=== PATIENT | female | born 1980 | race Caucasian/White ===

== ENCOUNTER 2024-10-11 08:49 | Emergency (ER) | payer MEDICAID, SELFPAY ==
[2024-10-11 08:57] VITALS: BP 136/71; PULSE 75; RESP 19; TEMP 36.7; O2SAT 98
[2024-10-11 09:03] VITALS: BP 141/90; PULSE 76; RESP 16; TEMP 36.6; O2SAT 97; BMI 37.1
--- NOTE | 2024-10-11 09:06 | XR_ITS ---
Examination: Pelvic ultrasound, transabdominal, complete Technique: Transabdominal ultrasound of the pelvis performed using grayscale imaging Date and time of exam: October 11, 2024 0943 hrs. Indications: Pelvic pain post colonoscopy October 10, 2024 Findings: Uterus 7.4 x 3.8 x 4.9 cm Endometrial stripe 0.3 cm No uterine mass or intrauterine gestation Right ovary 1.9 x 1.3 x 1.6 cm arterial flow Left ovary 1.9 x 2.3 x 3.1 cm arterial flow No fluid in the cul-de-sac Impression: Negative examination
--- NOTE | 2024-10-11 09:06 | XR_ITS ---
Examination: CT abdomen and pelvis without contrast. Coronal 3-D reconstructions. Sagittal 2-D reconstructions. Date and time of exam:October 11, 2024 1005 hrs. Indications: Onset left-sided abdominal pain since yesterday, status post colonoscopy yesterday, diagnosis hemorrhagic CTDI: vol (mGy): 14.2 DLP: (mGycm): 747 Technique: Axial images of the abdomen have been obtained, 3 mm slice thickness Intravenous contrast material has not been administered. Low dose protocols were performed. One or more of the following dose reduction techniques were used; automated exposure control, adjustment of the mA and/or KV according to patient size, use of iterative reconstruction technique. Findings: Hepatomegaly 19 cm mildly irregular liver contour with fatty infiltration No gallstones No splenic pancreatic or adrenal mass lesion No renal or ureteral calculi, no hydronephrosis Aorta normal size 12 mm fat-containing umbilical hernia Appendix is not visualized no pericecal inflammatory change No bowel obstruction or diverticulitis However, there is inflammatory change about the sigmoid colon for instance axial image 175 Anteverted uterus Urinary bladder intact The osseous structures are intact Impression: Nonspecific colitis pattern involving sigmoid colon
[2024-10-11] MEDS: ACETAMINOPHEN 500 MG TABLET 1000 MG PO (09:18)
[2024-10-11 09:52] LABS: Collection Type, Urine Clean Catch
[2024-10-11 10:02] LABS: HCG Qualitative,Urine Negative
--- NOTE | 2024-10-11 10:03 | PD.EDRME ---
Rapid Medical Screening Exam RME Arrival date/time: 10/11/24 08:49 44-year-old female presents the emergency department stating she had a colonoscopy yesterday patient reports status post colonoscopy she has lower abdominal pain and pelvic pain Chief Complaint: Abdominal Pain Time Seen by Provider: 10/11/24 08:54 Vital signs: Vital Signs Temperature 98.1 F 10/11/24 08:57 Pulse Rate 75 10/11/24 08:57 Respiratory Rate 19 10/11/24 08:57 Blood Pressure 136/71 H 10/11/24 08:57 Pulse Oximetry (%) 98 10/11/24 08:57 Oxygen Delivery Method Room Air 10/11/24 08:57
[2024-10-11 10:04] LABS: Bilirubin,Urine Negative (Negative); Blood,Urine 1+ (Negative); Clarity,Urine Hazy (Clear/Hazy); Color,Urine Lt-Yellow (Lt Yel-Yel); Culture Indicated,Urine Not Indicated; Glucose, Urine Negative (Negative); Ketones,Urine Negative (Negative); Leukocyte Esterase,Urine Negative (Negative); Nitrite,Urine Negative (Negative); Protein,Urine Trace (Neg - Trace); RBC,Urine 5 /hpf (0-3); Specific Gravity,Urine 1.016 (1.001-1.035); Squamous Epithelial Cell,Urine 18 /hpf (0-5); Urobilinogen,Urine Negative mg/dL (0.0-1.0); WBC,Urine 1 /hpf (0-5)
[2024-10-11 10:35] VITALS: BP 123/91; PULSE 67; RESP 16; O2SAT 100
--- NOTE | 2024-10-11 10:35 | PC.NURSE ---
pt here with c/o abd pain that started after colonoscopy yesterday.
[2024-10-11 10:36] LABS: Basophils # (Auto) 0.1 Thou/mm3 (0.0-0.2); Basophils % (Auto) 1 % (0-2.5); Eosinophils # (Auto) 0.1 Thou/mm3 (0.0-0.5); Eosinophils % (Auto) 1 % (0-10); Hematocrit 44.2 % (36.0-46.0); Hemoglobin 14.5 g/dL (12.0-16.0); Immature Granulocytes % (Auto) 0 % (0-0); Immature Granulocytes Auto 0.03 Thou/mm3 (0.00-0.00); Lymphocytes # (Auto) 3.1 Thou/mm3 (1.0-4.8); Lymphocytes % (Auto) 30 % (10-50); Mean Corpuscular HGB Conc 32.8 g/dl (31.0-37.0); Mean Corpuscular Hemoglobin 29.3 pg (25.0-35.0); Mean Corpuscular Volume 89 fL (80-100); Monocytes # (Auto) 0.6 Thou/mm3 (0.0-0.8); Monocytes % (Auto) 6 % (0-12); Neutrophils # (Auto) 6.4 Thou/mm3 (1.8-7.7); Neutrophils % (Auto) 62 % (37-80); Nucleated Red Blood Cell % 0 /100 WBC (0); Platelet Count 278 Thou/mm3 (140-440); RDW Standard Deviation 46.5 fL (36.4-46.3); Red Blood Count 4.95 Miln/mm3 (4.00-5.20); White Blood Count 10.3 Thou/mm3 (3.6-11.0)
[2024-10-11 10:54] LABS: Alanine Aminotransferase 15 U/L (10-49); Albumin, Serum 4.6 gm/dL (3.5-5.0); Albumin/Globulin Ratio 1.8 (1.2-2.2); Alkaline Phosphatase 94 U/L (46-116); Anion Gap 5 (7-16); Aspartate Amino Transferase 10 U/L (0-34); BUN/Creatinine Ratio 11 Ratio (12-20); Bilirubin,Total 0.3 mg/dL (0.3-1.2); Blood Urea Nitrogen 9 mg/dL (9-23); Calcium 9.4 mg/dL (8.3-10.6); Calcium (Corrected) 9.4 mg/dL (8.5-10.1); Carbon Dioxide 25.1 mMol/L (20.0-31.0); Chloride 108 mMol/L (98-107); Creatinine (Component) 0.8 mg/dL (0.6-1.3); Estimated Creatinine Clearance 108.4 mL/min (>60); Globulin 2.6 gm/dL (2.3-3.5); Glucose 99 mg/dL (74-106); Lipase 35 U/L (12-53); Osmolality,Calculated 274 (275-295); Potassium 3.9 mMol/L (3.4-5.1); Sodium 138 mMol/L (136-145); Total Protein 7.2 gm/dL (5.7-8.2); eGFR > 60 See Note
--- NOTE | 2024-10-11 11:01 | PD.EDABDPN ---
ED Abdominal Pain RME/HPI General Chief Complaint: Abdominal Pain Stated complaint: BIBA LWR ABD PAINX YESTERDAY AFTER COLONOSCOPY Time seen by provider: 10/11/24 08:54 Arrival date/time: 10/11/24 08:49 44-year-old female presents the emergency department stating she had a colonoscopy yesterday patient reports status post colonoscopy she has lower abdominal pain and pelvic pain. There are no other associated symptoms or aggravating factors no other modifying factors, patient denies taking medication before coming to ER today Limitations: no limitations RME / HPI RME / HPI narrative: 10/11/24 08:49 44-year-old female presents the emergency department stating she had a colonoscopy yesterday patient reports status post colonoscopy she has lower abdominal pain and pelvic pain Related Data Home Medications ?Medication ?Instructions ?Recorded ?Confirmed aripiprazole 5 mg tablet 5 mg PO QDAY 09/30/23 09/30/23 atorvastatin 20 mg tablet 20 mg PO QPM 09/30/23 09/30/23 buspirone 15 mg tablet 15 mg PO TID 09/30/23 09/30/23 paroxetine HCl 40 mg tablet 40 mg PO QDAY 09/30/23 09/30/23 prednisone 20 mg tablet 60 mg PO DAILY 09/30/23 09/30/23 tiotropium bromide 2.5 2 puff inhalation DAILY 09/30/23 09/30/23 mcg/actuation mist for inhalation (Spiriva Respimat) Previous Rx's ?Medication ?Instructions ?Recorded tramadol 50 mg tablet 50 mg PO Q6H PRN pain #20 tabs 02/17/24 metoclopramide HCl 10 mg tablet 10 mg PO Q6H PRN abdominal pain 07/26/24 (Reglan) #14 tabs pantoprazole 40 mg tablet,delayed 40 mg PO QDAY #30 tabs 07/26/24 release (Protonix) acetaminophen 300 mg-codeine 30 mg 2 tab PO TID PRN pain #10 tabs 08/09/24 tablet acetaminophen 500 mg capsule 500 mg PO Q6H PRN pain #30 caps 10/01/24 cyclobenzaprine 10 mg tablet 10 mg PO TID PRN muscle spasm #10 10/01/24 tabs Allergies Allergy/AdvReac Type Severity Reaction Status Date / Time cinnamon Allergy Mild Swelling Verified 10/11/24 08:50 of Lip/Tongue/Throat aspirin AdvReac Severe HAS ULCER Verified 10/11/24 08:50 Review of Systems Review of Systems Systems Reviewed: All systems reviewed, normal except as documented Constitutional Constitutional: Reports system reviewed and no additional complaints, except as documented, Denies fever(s) and Denies headache(s) Eyes Eyes: Reports system reviewed and no additional complaints, except as documented and Denies blurry vision ENT Ears, Nose, Mouth, and Throat: Reports system reviewed and no additional complaints, except as documented, Denies headache(s), Denies nasal congestion and Denies nasal discharge Cardiovascular Cardiovascular: Reports system reviewed and no additional complaints, except as documented, Denies chest pain and Denies dyspnea Respiratory Respiratory: Reports system reviewed and no additional complaints, except as documented, Denies chest congestion, Denies cough and Denies dyspnea Gastrointestinal Gastrointestinal: Reports system reviewed and no additional complaints, except as documented, Reports abdominal pain, Denies loose stools, Denies nausea and Denies vomiting Integumentary/Breasts Skin/Breast: Reports system reviewed and no additional complaints, except as documented and Denies rash Neurologic Neurologic: Reports system reviewed and no additional complaints, except as documented, Reports as per HPI and Denies headache(s) Past Medical History Past Medical History NEUROLOGIC: Negative Neurological Disorders CARDIAC: Negative Cardiac Disorders ED Exam General Limitations: Present no limitations General appearance: Present alert and in no apparent distress Head Head exam: Present atraumatic Eye Eye exam: Present normal appearance, PERRL and EOMI ENT ENT exam: Present normal exam, normal oropharynx and mucous membranes moist Neck Neck exam: Present normal inspection, full ROM and trachea midline Chest Chest inspection: Present normal inspection and symmetric chest wall rise Respiratory Respiratory exam: Present normal lung sounds bilaterally Cardiovascular Cardiovascular exam: Present regular rate, normal rhythm and normal heart sounds Abdominal Exam Abdominal exam: Present soft, tenderness and normal bowel sounds; Absent distention, guarding, rebound, rigidity, High's sign or tenderness at McBurney's Point Abdominal tenderness: Present LLQ; Absent RUQ, RLQ or LUQ Extremities Exam Extremities exam: Present normal inspection and full ROM Back Exam Back exam: Present normal inspection and full ROM Neurological Exam Neurological exam: Present alert, oriented X3 and CN II-XII intact Psychiatric Psychiatric exam: Present normal affect and normal mood Skin Skin exam: Present warm, dry, intact and normal color Course Quality Measures none Orders Category Date Time Status CT abdomen pelvis wo con Stat Exams 10/11/24 09:06 Completed US pelvic complete Stat Exams 10/11/24 09:06 Completed CBC Stat Lab 10/11/24 10:26 Completed Comprehensive Metabolic Panel Stat Lab 10/11/24 10:26 Completed HCG Qualitative,Urine Stat Lab 10/11/24 09:15 Completed Lipase Stat Lab 10/11/24 10:26 Completed UA, C/S IF [Urinalysis, C/S if Indicated] Stat Lab 10/11/24 09:15 Completed Acetaminophen Tab [Tylenol ES Tab] Med 10/11/24 09:06 Discontinued 1,000 mg PO X1 ONE Vital Signs Vital signs: Vital Signs Temperature 98.1 F 10/11/24 08:57 Pulse Rate 75 10/11/24 08:57 Respiratory Rate 19 10/11/24 08:57 Blood Pressure 136/71 H 10/11/24 08:57 Pulse Oximetry (%) 98 10/11/24 08:57 Oxygen Delivery Method Room Air 10/11/24 08:57 O2 saturation 98% r/a wnl Abdominal Pain MDM MDM Narrative MDM Narrative:: 44-year-old female presents the emergency department stating she had a colonoscopy yesterday patient reports status post colonoscopy she has lower abdominal pain and pelvic pain. There are no other associated symptoms or aggravating factors no other modifying factors, patient denies taking medication before coming to ER today On exam patient well-appearing patient does not appear ill or toxic Lab work CT and ultrasound obtained no acute emergent findings noted Explained patient needs to follow-up with GI specialist for worsening symptoms return immediately Patient data External records reviewed:: [facility] previous records Clinical information provided by:: patient Social determinants that could affect healthcare access:: none Patient has the following chronic illnesses:: None How is presenting disease/condition affected by chronic disease/condition?: no chronic disease Evaluation data The following diagnostics were reviewed and interpreted by me:: lab results and radiology exam(s) Lab and/or radiology exams considered but not ordered:: Labs radiology obtained Interpretation Summary: Reviewed by me Medications / Prescriptions Medications or Prescriptions considered but not ordered:: Given Medication administrations:: Medication Administration History Discontinued Medications Acetaminophen (Acetaminophen 500 Mg Tablet) 1,000 mg PO X1 ONE Stop: 10/11/24 09:07 Last Admin: 10/11/24 09:18 Dose: 1,000 mg Documented By: AM Given Consultations Consultation(s) initiated? (list below): No Diagnosis Differential diagnosis abdominal pain: abdominal pain, pancreatitis and small bowel obstruction Most likely diagnosis given after review of the tests above:: Abdominal pain Admission Indicated Admission indicated?: not indicated Admission Request Was there a request for admission?: No Disposition Plan Disposition Plan: Discharge Discharge Attestation Discharge Attestation: The patient and all family members were given an opportunity to ask questions and understood the discharge instructions. Discharge instructions specifically effects, indications for sooner follow up or return to the emergency department, and the expected course of current diagnosis. Patient condition: Stable Discharge Plan Plan Patient Disposition: HOME (Self Care) Disposition Comment: Stable Prescriptions/Referrals Prescriptions/Med Rec: No Action atorvastatin 20 mg Tablet 20 mg PO QPM prednisone 20 mg tablet 60 mg PO DAILY paroxetine HCl 40 mg Tablet 40 mg PO QDAY buspirone 15 mg Tablet 15 mg PO TID aripiprazole 5 mg Tablet 5 mg PO QDAY Spiriva Respimat 2.5 mcg/actuation mist 2 puff INHALATION DAILY Patient Comments: INHALE 2 PUFFS INTO THE LUNGS EVERY DAY FOR 30 DAYS metoclopramide HCl [Reglan] 10 mg tablet 10 mg PO Q6H PRN (Reason: abdominal pain) Qty: 14 0RF pantoprazole [Protonix] 40 mg tablet,delayed release (DR/EC) 40 mg PO QDAY Qty: 30 0RF tramadol 50 mg tablet 50 mg PO Q6H PRN (Reason: pain) Qty: 20 0RF acetaminophen-codeine 300-30 mg tablet 2 tab PO TID MDD 6 PRN (Reason: pain) Qty: 10 0RF acetaminophen 500 mg capsule 500 mg PO Q6H PRN (Reason: pain) Qty: 30 0RF cyclobenzaprine 10 mg tablet 10 mg PO TID PRN (Reason: muscle spasm) Qty: 10 0RF Referrals: Celine Olsen PA-C [Primary Care Provider] - In 1 week Problem List Clinical Impression: Abdominal pain Patient/Caregiver Discharge Instructions Education Materials: Abdominal Pain Additional Instructions: Please follow-up with your GI specialist as discussed for worsening symptoms or concerns return to the ER immediately Print Language: [place] Citizen Stand Alone Forms: Shari Award Info., Work/School Release, Patient Portal Info Letter Attestation Attestation The patient was seen by the midlevel practitioner. I, the co-signing physician, was present during the entire ER visit. While I did not physically examine the patient, I was available for consultation as needed.
[2024-10-11 11:05] VITALS: BP 141/96; PULSE 60; RESP 16; O2SAT 96
== END 2024-10-11 11:06 | disposition home or self-care (01) ==
PROVIDERS: Nurse Practitioner Primary Care; Emergency Provider Emergency Medicine; PCP Physician Assistant Medical
DX: R10.30 Lower abdominal pain, unspecified (principal); R10.2 Pelvic and perineal pain
CPT/HCPCS: 36415; 74176; 76856; 80053; 81001; 81025; 83690; 85025; 99284; A9270

== ENCOUNTER 2024-10-11 19:14 | Emergency (ER) | payer MEDICAID, SELFPAY ==
[2024-10-11 20:02] VITALS: BP 147/93; PULSE 80; RESP 19; TEMP 35.5; O2SAT 96; BMI 27.3
[2024-10-11] MEDS: HYDROcodone/APAP 5/325 TABLET 1 TAB PO (20:55)
--- NOTE | 2024-10-11 21:04 | PD.EDVAGBL ---
ED OB Contraction Preg RMI/HPI General Chief complaint: Vaginal Bleeding Stated complaint: vaginal spotting with blood clots Time Seen by Provider: 10/11/24 20:47 Arrival date/time: 10/11/24 19:14 44F with history of psych, endometriosis, vaginal prolapse and uterine cancer presents to ED with vaginal bleeding. Patient was here earlier today declines additional diagnostics. Patient just wants pain meds. Patient had unremarkable CT and normal HGB from diagnostics earlier today. Limitations: no limitations Related Data Home Medications ?Medication ?Instructions ?Recorded ?Confirmed aripiprazole 5 mg tablet 5 mg PO QDAY 09/30/23 09/30/23 atorvastatin 20 mg tablet 20 mg PO QPM 09/30/23 09/30/23 buspirone 15 mg tablet 15 mg PO TID 09/30/23 09/30/23 paroxetine HCl 40 mg tablet 40 mg PO QDAY 09/30/23 09/30/23 prednisone 20 mg tablet 60 mg PO DAILY 09/30/23 09/30/23 tiotropium bromide 2.5 2 puff inhalation DAILY 09/30/23 09/30/23 mcg/actuation mist for inhalation (Spiriva Respimat) Previous Rx's ?Medication ?Instructions ?Recorded tramadol 50 mg tablet 50 mg PO Q6H PRN pain #20 tabs 02/17/24 metoclopramide HCl 10 mg tablet 10 mg PO Q6H PRN abdominal pain 07/26/24 (Reglan) #14 tabs pantoprazole 40 mg tablet,delayed 40 mg PO QDAY #30 tabs 07/26/24 release (Protonix) acetaminophen 300 mg-codeine 30 mg 2 tab PO TID PRN pain #10 tabs 08/09/24 tablet acetaminophen 500 mg capsule 500 mg PO Q6H PRN pain #30 caps 10/01/24 cyclobenzaprine 10 mg tablet 10 mg PO TID PRN muscle spasm #10 10/01/24 tabs Allergies Allergy/AdvReac Type Severity Reaction Status Date / Time cinnamon Allergy Mild Swelling Verified 10/11/24 08:50 of Lip/Tongue/Throat aspirin AdvReac Severe HAS ULCER Verified 10/11/24 08:50 Review of Systems Review of Systems Systems Reviewed: All systems reviewed, normal except as documented Constitutional Constitutional: Reports system reviewed and no additional complaints, except as documented, Denies fever(s) and Denies headache(s) ENT Ears, Nose, Mouth, and Throat: Denies disequilibrium and Denies headache(s) Cardiovascular Cardiovascular: Reports system reviewed and no additional complaints, except as documented, Denies chest pain and Denies dyspnea Respiratory Respiratory: Reports system reviewed and no additional complaints, except as documented, Denies cough and Denies dyspnea Gastrointestinal Gastrointestinal: Reports system reviewed and no additional complaints, except as documented, Denies abdominal pain, Denies nausea and Denies vomiting Genitourinary Genitourinary: Reports as per HPI and Reports abnormal vaginal bleeding Neurologic Neurologic: Reports system reviewed and no additional complaints, except as documented, Denies confusion, Denies disequilibrium and Denies headache(s) Psychiatric Psychiatric: Denies confusion Past Medical History Past Medical History NEUROLOGIC: Positive Migraine; Negative Neurological Disorders or Seizures CARDIAC: Positive Hypercholesterolemia and Hypertension; Negative Cardiac Disorders, Congestive Heart Failure, Edema, Cellulitis or Varicose Veins RESPIRATORY: Positive Chronic Obstructive Pulmonary Disease (COPD) and Asthma; Negative Tuberculosis or Sleep Apnea GASTROINTESTINAL: Positive Gastrointestinal Disorders, Ulcer and Gastroesophageal Reflux Disease; Negative Hepatitis GENITOURINARY: Negative Genitourinary Disorders or Renal Disease REPRODUCTIVE: Positive Previous Pregnancies and Uterine Prolapse MUSCULOSKELETAL: Positive Musculoskeletal Disorders and Arthritis ENDOCRINE: Negative Endocrine Disorders, Diabetes Mellitus Type 1 or Diabetes Mellitus Type 2 HEMATOLOGIC: Negative Blood Disorders or Sickle Cell Disease PSYCHO/SOCIAL: Positive Bipolar Disorder, Depression, Anxiety and Post Traumatic Stress Disorder OTHER HISTORY: Positive Hospitalization, Autoimmune Disease, Chicken Pox and Cancer; Negative Shingles, Falls, Blood Transfusions, Blood Transfusion Reaction, Anesthesia Reactions, Chemotherapy, Radiation Therapy, MRSA, Measles or Mumps Family History FAMILY HISTORY: Positive Family Psychiatric Problems, Family Respiratory Disorders, Family Cardiac Disorders, Family Cancer, Family Surgery and Family Anesthesia Reaction; Negative Family Gastrointestinal Problems Surgical History SURGICAL: Positive Abdominal Surgery and Tubal Ligation; Negative Pacemaker Social History SMOKING STATUS: Current some day smoker SUBSTANCE USE: former substance user and methamphetamine (Former methamphetamine abuse, quit in 2018.) ED Exam General Limitations: Present no limitations General appearance: Present alert and in no apparent distress Head Head exam: Present atraumatic Eye Eye exam: Present normal appearance, PERRL and EOMI ENT ENT exam: Present normal exam, normal oropharynx and mucous membranes moist Neck Neck exam: Present normal inspection, full ROM and trachea midline Chest Chest inspection: Present normal inspection and symmetric chest wall rise Respiratory Respiratory exam: Present normal lung sounds bilaterally Cardiovascular Cardiovascular exam: Present regular rate, normal rhythm and normal heart sounds Abdominal Exam Abdominal exam: Present soft and normal bowel sounds Extremities Exam Extremities exam: Present normal inspection and full ROM Back Exam Back exam: Present normal inspection and full ROM Neurological Exam Neurological exam: Present alert, oriented X3 and CN II-XII intact Psychiatric Psychiatric exam: Present normal affect and normal mood Skin Skin exam: Present warm, dry, intact and normal color Course Quality Measures none Orders Category Date Time Status HYDROcodone*/APAP 5/325 [[place] 5/325] Med 10/11/24 20:47 Discontinued 1 tab PO X1 ONE Vital Signs Vital signs: Vital Signs Temperature 96 F L 10/11/24 20:02 Pulse Rate 80 10/11/24 20:02 Respiratory Rate 19 10/11/24 20:02 Blood Pressure 147/93 H 10/11/24 20:02 Pulse Oximetry (%) 96 10/11/24 20:02 Oxygen Delivery Method Room Air 10/11/24 20:02 O2 at 96% on RA and WNLs Vaginal Bleeding MDM Narrative MDM Narrative: 44F with history of psych, endometriosis, vaginal prolapse and uterine cancer presents to ED with vaginal bleeding. Patient was here earlier today declines additional diagnostics. Patient just wants pain meds. Patient had unremarkable CT and normal HGB from diagnostics earlier today. Physical exam reveals no pelvic tenderness. Patient is afebrile, calm, and alert. Meds and addictions counselor assistant given. Patient data External records reviewed:: [facility] previous records Clinical information provided by:: patient Social determinants that could affect healthcare access:: mental health Patient has the following chronic illnesses:: psych, endometriosis, vaginal prolapse and uterine cancer How is presenting disease/condition affected by chronic disease/condition?: caused by Evaluation data The following diagnostics were reviewed and interpreted by me:: other (specify) (none) Lab and/or radiology exams considered but not ordered:: not ordered Interpretation Summary: n/a Medications / Prescriptions Medications or Prescriptions considered but not ordered:: ordered Medication administrations:: Medication Administration History Discontinued Medications Hydrocodone Bitart/Acetaminophen (Hydrocodone/Apap 5/325 Tablet) 1 tab PO X1 ONE Stop: 10/11/24 20:48 Last Admin: 10/11/24 20:55 Dose: 1 tab Documented By: JNL above Consultations Consultation(s) initiated? (list below): No Diagnosis Vaginal Bleeding Differential Diagnosis: missed , threatened , dysfunctional uterine bleeding, menometrorrhagia, incomplete , ectopic without intrauterine and vaginal bleeding Most likely diagnosis given after review of the tests above:: vaginal bleeding Admission Indicated Admission indicated?: not indicated Admission Request Was there a request for admission?: No Disposition Plan Disposition Plan: Discharge Discharge Attestation Discharge Attestation: The patient and all family members were given an opportunity to ask questions and understood the discharge instructions. Discharge instructions specifically effects, indications for sooner follow up or return to the emergency department, and the expected course of current diagnosis. Patient condition: Stable Discharge Plan Plan Patient Disposition: HOME (Self Care) Disposition Comment: Stable Prescriptions/Referrals Prescriptions/Med Rec: No Action atorvastatin 20 mg Tablet 20 mg PO QPM prednisone 20 mg tablet 60 mg PO DAILY paroxetine HCl 40 mg Tablet 40 mg PO QDAY buspirone 15 mg Tablet 15 mg PO TID aripiprazole 5 mg Tablet 5 mg PO QDAY Spiriva Respimat 2.5 mcg/actuation mist 2 puff INHALATION DAILY Patient Comments: INHALE 2 PUFFS INTO THE LUNGS EVERY DAY FOR 30 DAYS metoclopramide HCl [Reglan] 10 mg tablet 10 mg PO Q6H PRN (Reason: abdominal pain) Qty: 14 0RF pantoprazole [Protonix] 40 mg tablet,delayed release (DR/EC) 40 mg PO QDAY Qty: 30 0RF tramadol 50 mg tablet 50 mg PO Q6H PRN (Reason: pain) Qty: 20 0RF acetaminophen-codeine 300-30 mg tablet 2 tab PO TID MDD 6 PRN (Reason: pain) Qty: 10 0RF acetaminophen 500 mg capsule 500 mg PO Q6H PRN (Reason: pain) Qty: 30 0RF cyclobenzaprine 10 mg tablet 10 mg PO TID PRN (Reason: muscle spasm) Qty: 10 0RF Referrals: Celine Olsen PA-C [Primary Care Provider] - In 1 week Problem List Clinical Impression: Vaginal bleeding Patient/Caregiver Discharge Instructions Additional Instructions: Please follow-up with PCP within 24-48 hours and return immediately if symptoms worsen. If you need long-term opioids, need to see PCP and/or pain specialist and be on pain contract. Print Language: [place] Stand Alone Forms: Patient Portal Info Letter FANY/BURTON Supervising Physician FANY/BURTON Supervising Physician: Dr. Preciado
== END 2024-10-11 21:03 | disposition home or self-care (01) ==
PROVIDERS: Emergency Provider Emergency Medicine; PCP Physician Assistant Medical
DX: N93.9 Abnormal uterine and vaginal bleeding, unspecified (principal)
CPT/HCPCS: 99283; A9270

== ENCOUNTER 2024-10-31 23:18 | Emergency (ER) | payer MEDICAID, SELFPAY ==
[2024-10-31 23:19] VITALS: BMI 36.0
--- NOTE | 2024-10-31 23:20 | XR_ITS ---
Examination: Wrist, left 3 views Technique: Wrist AP, oblique, lateral 3 views Date and time of exam: October 31, 2024 and 24 hours Indications: Patient fell off a horse today with injury to the wrist, wrist pain. Findings: No acute fracture No dislocation No foreign body Impression: No acute fracture
[2024-10-31 23:41] VITALS: BP 138/80; PULSE 77; RESP 18; TEMP 36.6; O2SAT 99
--- NOTE | 2024-10-31 23:58 | PD.EDHAND ---
Upper Extremity Injury RME/HPI General Chief Complaint: Extremity Injury, Upper Stated Complaint: LFT WRIST PAIN; FELL OFF A HORSE TODAY Time Seen by Provider: 10/31/24 23:50 Arrival date/time: 10/31/24 23:18 44F with history of psych, endometriosis, vaginal prolapse and uterine cancer presents to ED with L wrist pain after she fell off a horse today. Patient denies any other pain including head, neck, ab, back, hip, and facial pain. Limitations: no limitations Related Data Home Medications ?Medication ?Instructions ?Recorded ?Confirmed aripiprazole 5 mg tablet 5 mg PO QDAY 09/30/23 09/30/23 atorvastatin 20 mg tablet 20 mg PO QPM 09/30/23 09/30/23 buspirone 15 mg tablet 15 mg PO TID 09/30/23 09/30/23 paroxetine HCl 40 mg tablet 40 mg PO QDAY 09/30/23 09/30/23 prednisone 20 mg tablet 60 mg PO DAILY 09/30/23 09/30/23 tiotropium bromide 2.5 2 puff inhalation DAILY 09/30/23 09/30/23 mcg/actuation mist for inhalation (Spiriva Respimat) Previous Rx's ?Medication ?Instructions ?Recorded tramadol 50 mg tablet 50 mg PO Q6H PRN pain #20 tabs 02/17/24 metoclopramide HCl 10 mg tablet 10 mg PO Q6H PRN abdominal pain 07/26/24 (Reglan) #14 tabs pantoprazole 40 mg tablet,delayed 40 mg PO QDAY #30 tabs 07/26/24 release (Protonix) acetaminophen 300 mg-codeine 30 mg 2 tab PO TID PRN pain #10 tabs 08/09/24 tablet acetaminophen 500 mg capsule 500 mg PO Q6H PRN pain #30 caps 10/01/24 cyclobenzaprine 10 mg tablet 10 mg PO TID PRN muscle spasm #10 10/01/24 tabs Allergies Allergy/AdvReac Type Severity Reaction Status Date / Time cinnamon Allergy Mild Swelling Verified 10/31/24 23:21 of Lip/Tongue/Throat aspirin AdvReac Severe HAS ULCER Verified 10/31/24 23:21 Review of Systems Review of Systems Systems Reviewed: All systems reviewed, normal except as documented Constitutional Constitutional: Reports system reviewed and no additional complaints, except as documented, Denies fever(s) and Denies headache(s) ENT Ears, Nose, Mouth, and Throat: Denies disequilibrium and Denies headache(s) Cardiovascular Cardiovascular: Reports system reviewed and no additional complaints, except as documented, Denies chest pain and Denies dyspnea Respiratory Respiratory: Reports system reviewed and no additional complaints, except as documented, Denies cough and Denies dyspnea Gastrointestinal Gastrointestinal: Reports system reviewed and no additional complaints, except as documented, Denies abdominal pain, Denies nausea and Denies vomiting Musculoskeletal Musculoskeletal: Reports as per HPI and Reports arthralgias Neurologic Neurologic: Reports system reviewed and no additional complaints, except as documented, Denies confusion, Denies disequilibrium and Denies headache(s) Psychiatric Psychiatric: Denies confusion Past Medical History Past Medical History NEUROLOGIC: Positive Migraine; Negative Neurological Disorders or Seizures CARDIAC: Positive Hypercholesterolemia and Hypertension; Negative Cardiac Disorders, Congestive Heart Failure, Edema, Cellulitis or Varicose Veins RESPIRATORY: Positive Chronic Obstructive Pulmonary Disease (COPD) and Asthma; Negative Tuberculosis or Sleep Apnea GASTROINTESTINAL: Positive Gastrointestinal Disorders, Ulcer and Gastroesophageal Reflux Disease; Negative Hepatitis GENITOURINARY: Negative Genitourinary Disorders or Renal Disease REPRODUCTIVE: Positive Previous Pregnancies and Uterine Prolapse MUSCULOSKELETAL: Positive Musculoskeletal Disorders and Arthritis ENDOCRINE: Negative Endocrine Disorders, Diabetes Mellitus Type 1 or Diabetes Mellitus Type 2 HEMATOLOGIC: Negative Blood Disorders or Sickle Cell Disease PSYCHO/SOCIAL: Positive Bipolar Disorder, Depression, Anxiety and Post Traumatic Stress Disorder OTHER HISTORY: Positive Hospitalization, Autoimmune Disease, Chicken Pox and Cancer; Negative Shingles, Falls, Blood Transfusions, Blood Transfusion Reaction, Anesthesia Reactions, Chemotherapy, Radiation Therapy, MRSA, Measles or Mumps Family History FAMILY HISTORY: Positive Family Psychiatric Problems, Family Respiratory Disorders, Family Cardiac Disorders, Family Cancer, Family Surgery and Family Anesthesia Reaction; Negative Family Gastrointestinal Problems Surgical History SURGICAL: Positive Abdominal Surgery and Tubal Ligation; Negative Pacemaker Social History SMOKING STATUS: Never smoker SUBSTANCE USE: former substance user and methamphetamine (Former methamphetamine abuse, quit in 2018.) ED Exam General Limitations: Present no limitations General appearance: Present alert and in no apparent distress Head Head exam: Present atraumatic Eye Eye exam: Present normal appearance, PERRL and EOMI ENT ENT exam: Present normal exam, normal oropharynx and mucous membranes moist Neck Neck exam: Present normal inspection, full ROM and trachea midline Chest Chest inspection: Present normal inspection and symmetric chest wall rise Respiratory Respiratory exam: Present normal lung sounds bilaterally Cardiovascular Cardiovascular exam: Present regular rate, normal rhythm and normal heart sounds Abdominal Exam Abdominal exam: Present soft and normal bowel sounds Extremities Exam Extremities exam: Present full ROM Expanded Upper Extremity Exam Forearm/Wrist exam: Present full ROM (L) and tenderness Back Exam Back exam: Present normal inspection and full ROM Neurological Exam Neurological exam: Present alert, oriented X3 and CN II-XII intact Psychiatric Psychiatric exam: Present normal affect and normal mood Skin Skin exam: Present warm, dry, intact and normal color Course Quality Measures none Orders Category Date Time Status sung wrap [Splint / Immobilizer] STAT Care 10/31/24 23:50 Active XR wrist comp LT min 3V Stat Exams 10/31/24 23:20 Completed Vital Signs Vital signs: Vital Signs Temperature 98 F 10/31/24 23:41 Pulse Rate 77 10/31/24 23:41 Respiratory Rate 18 10/31/24 23:41 Blood Pressure 138/80 H 10/31/24 23:41 Pulse Oximetry (%) 99 10/31/24 23:41 Oxygen Delivery Method Room Air 10/31/24 23:41 O2 at 99% on RA and WNLs Extremity Injury MDM Narrative MDM Narrative:: 44F with history of psych, endometriosis, vaginal prolapse and uterine cancer presents to ED with L wrist pain after she fell off a horse today. Patient denies any other pain including head, neck, ab, back, hip, and facial pain. Physical exam reveals mild R wrist tenderness with painful but intact ROM. Patient is afebrile, calm, and alert. XR no fx. Given SUNG and vocational guidance counselor. Patient data External records reviewed:: [facility] previous records Clinical information provided by:: patient Social determinants that could affect healthcare access:: mental health Patient has the following chronic illnesses:: psych, endometriosis, vaginal prolapse and uterine cancer How is presenting disease/condition affected by chronic disease/condition?: exacerbated by Evaluation data The following diagnostics were reviewed and interpreted by me:: radiology exam(s) Lab and/or radiology exams considered but not ordered:: ordered Interpretation Summary: above Medications / Prescriptions Medications or Prescriptions considered but not ordered:: not ordered Medication administrations:: n/a Consultations Consultation(s) initiated? (list below): No Diagnosis Upper Extremity Injury Differential Diagnosis: sprain and strain of wrist, fracture of wrist, finger sprain, dislocation of finger, Colles' fracture and fracture of hand Most likely diagnosis given after review of the tests above:: sprain and strain of wrist Admission Indicated Admission indicated?: not indicated Admission Request Was there a request for admission?: No Disposition Plan Disposition Plan: Discharge Discharge Attestation Discharge Attestation: The patient and all family members were given an opportunity to ask questions and understood the discharge instructions. Discharge instructions specifically effects, indications for sooner follow up or return to the emergency department, and the expected course of current diagnosis. Patient condition: Stable Discharge Plan Plan Patient Disposition: HOME (Self Care) Disposition Comment: Stable Prescriptions/Referrals Prescriptions/Med Rec: No Action atorvastatin 20 mg Tablet 20 mg PO QPM prednisone 20 mg tablet 60 mg PO DAILY paroxetine HCl 40 mg Tablet 40 mg PO QDAY buspirone 15 mg Tablet 15 mg PO TID aripiprazole 5 mg Tablet 5 mg PO QDAY Spiriva Respimat 2.5 mcg/actuation mist 2 puff INHALATION DAILY Patient Comments: INHALE 2 PUFFS INTO THE LUNGS EVERY DAY FOR 30 DAYS metoclopramide HCl [Reglan] 10 mg tablet 10 mg PO Q6H PRN (Reason: abdominal pain) Qty: 14 0RF pantoprazole [Protonix] 40 mg tablet,delayed release (DR/EC) 40 mg PO QDAY Qty: 30 0RF tramadol 50 mg tablet 50 mg PO Q6H PRN (Reason: pain) Qty: 20 0RF acetaminophen-codeine 300-30 mg tablet 2 tab PO TID MDD 6 PRN (Reason: pain) Qty: 10 0RF acetaminophen 500 mg capsule 500 mg PO Q6H PRN (Reason: pain) Qty: 30 0RF cyclobenzaprine 10 mg tablet 10 mg PO TID PRN (Reason: muscle spasm) Qty: 10 0RF Referrals: Celine Olsen PA-C [Primary Care Provider] - In 1 week Problem List Clinical Impression: Sprain and strain of wrist Patient/Caregiver Discharge Instructions Additional Instructions: Please follow-up with PCP within 24-48 hours and return immediately if symptoms worsen. If problem persists, recommend outpatient PT and/or MRI follow-up. In the meantime, rest, use ice/heat, and/or compression. Print Language: Portuguese Stand Alone Forms: Patient Portal Info Letter FANY/BURTON Supervising Physician FANY/BURTON Supervising Physician: Dr. Preciado
== END 2024-11-01 00:07 | disposition home or self-care (01) ==
PROVIDERS: Emergency Provider Emergency Medicine; PCP Physician Assistant Medical
DX: S63.502A Unspecified sprain of left wrist, initial encounter (principal); S66.912A Strain of unspecified muscle, fascia and tendon at wrist and hand level, left hand, initial encounter; V80.010A Animal-rider injured by fall from or being thrown from horse in noncollision accident, initial encounter; Y93.52 Activity, horseback riding
CPT/HCPCS: 73110; 99283

== ENCOUNTER 2024-11-10 12:36 | Emergency (ER) | payer MEDICAID, SELFPAY ==
--- NOTE | 2024-11-10 13:11 | XR_ITS ---
Examination: PA chest single view TECHNIQUE: Upright PA chest single view Exam date and time: November 10, 2024 1331 hours INDICATIONS: Coughing shortness of breath wheezing today FINDINGS: Again noted soft flat displacement right clavicle Normal heart size No pneumonia or pulmonary edema IMPRESSION: No pneumonia or pulmonary edema
[2024-11-10 13:12] VITALS: BP 106/75; PULSE 97; RESP 22; TEMP 36.7; O2SAT 95; BMI 35.1
--- NOTE | 2024-11-10 13:12 | PD.EDADULT ---
ED General RME/HPI General Chief complaint: Shortness of Breath/Dyspnea Stated complaint: SOB Time Seen by Provider: 11/10/24 13:11 Arrival date/time: 11/10/24 12:36 CC: Wheezing shortness of breath HPI ongoing since yesterday. The patient states she smokes approximately a pack a day, takes home rescue inhaler and breathing treatments without relief was seen by her PCP 2 days ago for similar complaint, was started on antibiotics but has not gotten any better. The patient also is on a number of psychiatric medications. Denies chest pain fever no other family members around are ill with similar complaints. Related Data Home Medications ?Medication ?Instructions ?Recorded ?Confirmed aripiprazole 5 mg tablet 5 mg PO QDAY 09/30/23 09/30/23 atorvastatin 20 mg tablet 20 mg PO QPM 09/30/23 09/30/23 buspirone 15 mg tablet 15 mg PO TID 09/30/23 09/30/23 paroxetine HCl 40 mg tablet 40 mg PO QDAY 09/30/23 09/30/23 prednisone 20 mg tablet 60 mg PO DAILY 09/30/23 09/30/23 tiotropium bromide 2.5 2 puff inhalation DAILY 09/30/23 09/30/23 mcg/actuation mist for inhalation (Spiriva Respimat) Previous Rx's ?Medication ?Instructions ?Recorded tramadol 50 mg tablet 50 mg PO Q6H PRN pain #20 tabs 02/17/24 metoclopramide HCl 10 mg tablet 10 mg PO Q6H PRN abdominal pain 07/26/24 (Reglan) #14 tabs pantoprazole 40 mg tablet,delayed 40 mg PO QDAY #30 tabs 07/26/24 release (Protonix) acetaminophen 300 mg-codeine 30 mg 2 tab PO TID PRN pain #10 tabs 08/09/24 tablet acetaminophen 500 mg capsule 500 mg PO Q6H PRN pain #30 caps 10/01/24 cyclobenzaprine 10 mg tablet 10 mg PO TID PRN muscle spasm #10 10/01/24 tabs prednisone 20 mg tablet See Taper PO BID 3 days #6 tabs 11/10/24 Allergies Allergy/AdvReac Type Severity Reaction Status Date / Time cinnamon Allergy Mild Swelling Verified 10/31/24 23:21 of Lip/Tongue/Throat aspirin AdvReac Severe HAS ULCER Verified 10/31/24 23:21 Review of Systems Review of Systems Narrative Review of Systems: GEN: No fever, no chills, no weight loss EYES: No discharge, no visual changes, no pain HEENT: No ear pain, no congestion, no sore throat PULM: + wheezing, + cough, no congestion CV: No chest pain, no dyspnea on exertion, no palpitations GI: No nausea, no vomiting, no diarrhea, no pain, no constipation : No frequency, no urgency, no dysuria MUSC/SKEL: No joint pain, no back pain SKIN: No rash PSYCH: No hallucinations, no depression HEME/LYMPH: No easy bleeding or bruising tendencies NEURO: No weakness, no headache Course Quality Measures none Orders Category Date Time Status XR chest 1V Stat Exams 11/10/24 13:11 Completed CBC Stat Lab 11/10/24 13:27 Completed CMP [Comprehensive Metabolic Panel] Stat Lab 11/10/24 13:27 Completed Albuterol/Ipratr Rt Farrah [Duoneb Rt Farrah] Med 11/10/24 13:11 Discontinued 3 ml INH X1 ONE Dexamethasone Inj [Decadron Inj] Med 11/10/24 13:11 Discontinued 10 mg PO X1 ONE Vital Signs Vital signs: Vital Signs Temperature 98.1 F 11/10/24 13:12 Pulse Rate 97 11/10/24 13:12 Respiratory Rate 22 H 11/10/24 13:12 Blood Pressure 106/75 11/10/24 13:12 Pulse Oximetry (%) 95 11/10/24 13:12 Oxygen Delivery Method Room Air 11/10/24 13:12 [facility] Patient data External records reviewed:: [facility] previous records Clinical information provided by:: patient Social determinants that could affect healthcare access:: none Patient has the following chronic illnesses:: Anxiety depression smoking history hypertension hyperlipidemia How is presenting disease/condition affected by chronic disease/condition?: exacerbated by Evaluation data The following diagnostics were reviewed and interpreted by me:: lab results and radiology exam(s) Lab and/or radiology exams considered but not ordered:: CBC shows no acute leukocytosis anemia thrombocytopenia CMP shows no acute electrolyte imbalances renal Lilian transaminitis or T. bili ovation Chest x-ray shows no acute finding requires emergent or meet intervention. Interpretation Summary: Patient has a significant treatment of the breathing treatment this time the patient be added to lose small amount of steroids and she can follow-up with her primary care provider. Medications Medications considered but not ordered:: None Medication administrations:: Medication Administration History Discontinued Medications Albuterol/Ipratropium (Albuterol/Ipratropium (Duoneb) Rt Farrah 3 Ml Nebu) 3 ml INH X1 ONE Stop: 11/10/24 13:12 Last Admin: 11/10/24 14:03 Dose: 3 ml Documented By: Dexamethasone Sodium Phosphate (Dexamethasone Sod Phos Inj 10 Mg/Ml Vial) 10 mg PO X1 ONE Stop: 11/10/24 13:12 Last Admin: 11/10/24 13:40 Dose: 10 mg Documented By: None Consultations Consultation(s) initiated? (list below): No Diagnosis Differential Diagnosis ED Complaint MDM: Asthma exacerbation COPD viral infection Most likely diagnosis given after review of the tests above:: COPD Admission Indicated Admission indicated?: not indicated Explain why admission is indicated or not indicated:: Stable for outpatient follow-up Admission Request Was there a request for admission?: No Disposition Plan Disposition Plan: Discharge Discharge Attestation Discharge Attestation: The patient and all family members were given an opportunity to ask questions and understood the discharge instructions. Discharge instructions specifically effects, indications for sooner follow up or return to the emergency department, and the expected course of current diagnosis. Patient condition: Stable Medical Decision Making Differential Diagnosis Differential Diagnosis: Asthma exacerbation COPD viral infection Lab Data 11/10/24 13:27 11/10/24 13:27 Labs: Lab Results 11/10/24 Range/Units 13:27 WBC 9.3 (3.6-11.0) Thou/mm3 RBC 4.86 (4.00-5.20) Miln/mm3 Hgb 14.2 (12.0-16.0) g/dL Hct 42.6 (36.0-46.0) % MCV 88 (80-100) fL MCH 29.2 (25.0-35.0) pg MCHC 33.3 (31.0-37.0) g/dl RDW Std Deviation 47.1 H (36.4-46.3) fL Plt Count 245 D (140-440) Thou/mm3 Neut % (Auto) 69 (37-80) % Lymph % (Auto) 22 (10-50) % Walker % (Auto) 7 (0-12) % Eos % (Auto) 1 (0-10) % Baso % (Auto) 1 (0-2.5) % Neut # (Auto) 6.4 (1.8-7.7) Thou/mm3 Lymph # (Auto) 2.0 (1.0-4.8) Thou/mm3 Walker # (Auto) 0.7 (0.0-0.8) Thou/mm3 Eos # (Auto) 0.1 (0.0-0.5) Thou/mm3 Baso # (Auto) 0.1 (0.0-0.2) Thou/mm3 Immature Gran # (Auto) 0.04 H (0.00-0.00) Thou/mm3 Absolute Nucleated RBC 0.00 (0.00-0.00) Thou/mm3 Immature Gran % 0 (0-0) % Nucleated RBC % 0 (0) /100 WBC Sodium 137 (136-145) mMol/L Potassium 3.5 (3.4-5.1) mMol/L Chloride 107 (98-107) mMol/L Carbon Dioxide 23.5 (20.0-31.0) mMol/L Anion Gap 7 (7-16) BUN 9 (9-23) mg/dL Creatinine 1.0 (0.6-1.3) mg/dL Estim Creat Clear Calc 90.0 (>60) mL/min eGFR > 60 (60 - ) See Note BUN/Creatinine Ratio 9 L (12-20) Ratio Glucose 120 H (74-106) mg/dL Calculated Osmolality 273 L (275-295) Calcium 9.5 (8.3-10.6) mg/dL Corrected Calcium 9.5 (8.5-10.1) mg/dL Total Bilirubin 0.3 (0.3-1.2) mg/dL AST 12 (0-34) U/L ALT 12 (10-49) U/L Alkaline Phosphatase 99 (46-116) U/L Total Protein 7.2 (5.7-8.2) gm/dL Albumin 4.7 (3.5-5.0) gm/dL Globulin 2.5 (2.3-3.5) gm/dL Albumin/Globulin Ratio 1.9 (1.2-2.2) Discharge Plan Plan Patient Disposition: HOME (Self Care) Patient condition on transfer: Stable Prescriptions/Referrals Prescriptions/Med Rec: New prednisone 20 mg tablet See Taper PO BID 3 Days Qty: 6 0RF Taper: Prednisone Taper 20 mg DAILY for 2 Days and 0 Hour 10 mg DAILY for 2 Days and 0 Hour 5 mg DAILY for 7 Days and 0 Hour No Action atorvastatin 20 mg Tablet 20 mg PO QPM prednisone 20 mg tablet 60 mg PO DAILY paroxetine HCl 40 mg Tablet 40 mg PO QDAY buspirone 15 mg Tablet 15 mg PO TID aripiprazole 5 mg Tablet 5 mg PO QDAY Spiriva Respimat 2.5 mcg/actuation mist 2 puff INHALATION DAILY Patient Comments: INHALE 2 PUFFS INTO THE LUNGS EVERY DAY FOR 30 DAYS metoclopramide HCl [Reglan] 10 mg tablet 10 mg PO Q6H PRN (Reason: abdominal pain) Qty: 14 0RF pantoprazole [Protonix] 40 mg tablet,delayed release (DR/EC) 40 mg PO QDAY Qty: 30 0RF tramadol 50 mg tablet 50 mg PO Q6H PRN (Reason: pain) Qty: 20 0RF acetaminophen-codeine 300-30 mg tablet 2 tab PO TID MDD 6 PRN (Reason: pain) Qty: 10 0RF acetaminophen 500 mg capsule 500 mg PO Q6H PRN (Reason: pain) Qty: 30 0RF cyclobenzaprine 10 mg tablet 10 mg PO TID PRN (Reason: muscle spasm) Qty: 10 0RF Referrals: Celine Olsen PA-C [Primary Care Provider] - In 1 week Problem List Clinical Impression: COPD (chronic obstructive pulmonary disease) Patient/Caregiver Discharge Instructions Education Materials: Chest and Lung Problems Additional Instructions: Take medications as prescribed follow-up with your primary care provider Print Language: Lithuanian Stand Alone Forms: Shari Award Info., Patient Portal Info Letter, Work/School Release PA/BURTON Supervising Physician PA/DIRECTOR DATA ARCHITECTURE Supervising Physician: Trevor Elizabeth ENP
[2024-11-10] MEDS: DEXAMETHASONE SOD PHOS INJ 10 MG/ML VIAL PO (13:40)
[2024-11-10 13:47] LABS: Basophils # (Auto) 0.1 Thou/mm3 (0.0-0.2); Basophils % (Auto) 1 % (0-2.5); Eosinophils # (Auto) 0.1 Thou/mm3 (0.0-0.5); Eosinophils % (Auto) 1 % (0-10); Hematocrit 42.6 % (36.0-46.0); Hemoglobin 14.2 g/dL (12.0-16.0); Immature Granulocytes % (Auto) 0 % (0-0); Immature Granulocytes Auto 0.04 Thou/mm3 (0.00-0.00); Lymphocytes % (Auto) 22 % (10-50); Mean Corpuscular HGB Conc 33.3 g/dl (31.0-37.0); Mean Corpuscular Hemoglobin 29.2 pg (25.0-35.0); Mean Corpuscular Volume 88 fL (80-100); Monocytes # (Auto) 0.7 Thou/mm3 (0.0-0.8); Monocytes % (Auto) 7 % (0-12); Neutrophils # (Auto) 6.4 Thou/mm3 (1.8-7.7); Neutrophils % (Auto) 69 % (37-80); Nucleated Red Blood Cell % 0 /100 WBC (0); Platelet Count 245 Thou/mm3 (140-440); RDW Standard Deviation 47.1 fL (36.4-46.3); Red Blood Count 4.86 Miln/mm3 (4.00-5.20); White Blood Count 9.3 Thou/mm3 (3.6-11.0)
[2024-11-10 14:02] LABS: Alanine Aminotransferase 12 U/L (10-49); Albumin, Serum 4.7 gm/dL (3.5-5.0); Albumin/Globulin Ratio 1.9 (1.2-2.2); Alkaline Phosphatase 99 U/L (46-116); Anion Gap 7 (7-16); Aspartate Amino Transferase 12 U/L (0-34); BUN/Creatinine Ratio 9 Ratio (12-20); Bilirubin,Total 0.3 mg/dL (0.3-1.2); Blood Urea Nitrogen 9 mg/dL (9-23); Calcium 9.5 mg/dL (8.3-10.6); Calcium (Corrected) 9.5 mg/dL (8.5-10.1); Carbon Dioxide 23.5 mMol/L (20.0-31.0); Chloride 107 mMol/L (98-107); Globulin 2.5 gm/dL (2.3-3.5); Glucose 120 mg/dL (74-106); Osmolality,Calculated 273 (275-295); Potassium 3.5 mMol/L (3.4-5.1); Sodium 137 mMol/L (136-145); Total Protein 7.2 gm/dL (5.7-8.2); eGFR > 60 See Note
[2024-11-10] MEDS: ALBUTEROL/IPRATROPIUM (Duoneb) RT SOL 3 ML NEBU INH (14:03)
[2024-11-10 14:05] VITALS: PULSE 92; RESP 20; O2SAT 99
== END 2024-11-10 15:27 | disposition home or self-care (01) ==
PROVIDERS: Registered Nurse General Practice; Emergency Provider Emergency Medicine; PCP Physician Assistant Medical
DX: J44.9 Chronic obstructive pulmonary disease, unspecified (principal)
CPT/HCPCS: 36415; 71045; 80053; 85025; 94640; 99283; A9270; J1100

== ENCOUNTER 2024-11-11 17:28 | Emergency (ER) | payer MEDICAID, SELFPAY ==
[2024-11-11 17:29] VITALS: BMI 37.1
[2024-11-11 17:52] VITALS: BP 140/88; PULSE 101; RESP 20; TEMP 36.7; O2SAT 94
--- NOTE | 2024-11-11 18:10 | PD.EDRME ---
Rapid Medical Screening Exam RME Arrival date/time: 11/11/24 17:28 44-year-old female history of asthma presents emergency department complains of shortness of breath Patient was seen in the emergency department yesterday for the same currently patient is wheezing throughout Chief Complaint: Shortness of Breath/Dyspnea Time Seen by Provider: 11/11/24 17:35 Vital signs: Vital Signs Temperature 98.1 F 11/11/24 17:52 Pulse Rate 101 H 11/11/24 17:52 Respiratory Rate 20 11/11/24 17:52 Blood Pressure 140/88 H 11/11/24 17:52 Pulse Oximetry (%) 94 L 11/11/24 17:52 Oxygen Delivery Method Room Air 11/11/24 17:52
[2024-11-11 18:36] VITALS: PULSE 100
[2024-11-11] MEDS: ALBUTEROL RT 2.5 MG/0.5 ML NEBU 5 MG INH (18:36)
[2024-11-11] MEDS: IPRATROPIUM RT 0.5 MG/ 2.5 ML NEBU 1 MG INH (18:36)
[2024-11-11 18:37] VITALS: PULSE 92; RESP 20; O2SAT 98
[2024-11-11] MEDS: DEXAMETHASONE SOD PHOS INJ 10 MG/ML VIAL PO (19:15)
--- NOTE | 2024-11-11 19:20 | XR_ITS ---
Examination: CTA chest with intravenous contrast 2-D reconstructions 3-D reconstructions, vascular Date and time of exam: November 11, 2024 1112 hrs. Indications: Coughing shortness of breath beginning 3 days ago CTDI: vol (mGy) 18 DLP: (mGycm) 476 Technique: Multiple axial sections of the thorax have been obtained. 3 mm slice thickness, from below the hemidiaphragms to above the apices of the lungs. Mediastinal and lung density settings have been obtained. 2-D sagittal and coronal reconstructions. 3-D angiographic renderings, 3-D volume renderings, 3D post processing, vascular maximum intensity projections obtained. Contrast administered is 100 cc Isovue-370 intravenous. Low dose protocols were performed. One or more of the following dose reduction techniques were used; automated exposure control, adjustment of the mA and/or KV according to patient size, use of iterative reconstruction technique. Findings: No thoracic aortic aneurysmal dilatation or dissection Pulmonary artery segments are not enlarged Pulmonary artery opacification is not optimal No gross pulmonary artery emboli No paratracheal tracheobronchial or bronchopulmonary adenopathy 4 mm pulmonary nodule left upper lobe No pneumonia or pulmonary edema No visualized liver or splenic lesion Contracted gallbladder No pancreatic or adrenal mass No hydronephrosis Impression: Pulmonary artery opacification is not optimal No gross pulmonary artery emboli No pneumonia, pulmonary edema or pleural disease 4 mm pulmonary nodule left upper lobe, with this study as baseline, recommend 6 month follow-up CT chest without contrast
--- NOTE | 2024-11-11 19:20 | PD.EDSOB ---
ED SOB =RME/HPI General Chief Complaint: Shortness of Breath/Dyspnea Stated Complaint: SOB AND COUGH Time Seen by Provider: 11/11/24 17:35 Arrival date/time: 11/11/24 17:28 Limitations: no limitations RME / HPI RME / HPI Narrative: DR. NIETO MAIN ED EVALUATION: 44-year-old female history of asthma presents emergency department complains of shortness of breath, without history of intubation, no recent steroid use. The patient states that she has had increasing wheezing over the last few days. She was seen the emergency department for similar and treated with DuoNebs. Wheezing came back today. No chest pain, some shortness of breath. Bilateral lower extremity swelling that has been there chronically and not worse. No recent travel and otherwise no family history for pulmonary embolism. Patient was seen in the emergency department yesterday for the same currently patient is wheezing throughout. Related Data Home Medications ?Medication ?Instructions ?Recorded ?Confirmed aripiprazole 5 mg tablet 5 mg PO QDAY 09/30/23 09/30/23 atorvastatin 20 mg tablet 20 mg PO QPM 09/30/23 09/30/23 buspirone 15 mg tablet 15 mg PO TID 09/30/23 09/30/23 paroxetine HCl 40 mg tablet 40 mg PO QDAY 09/30/23 09/30/23 prednisone 20 mg tablet 60 mg PO DAILY 09/30/23 09/30/23 tiotropium bromide 2.5 2 puff inhalation DAILY 09/30/23 09/30/23 mcg/actuation mist for inhalation (Spiriva Respimat) Previous Rx's ?Medication ?Instructions ?Recorded tramadol 50 mg tablet 50 mg PO Q6H PRN pain #20 tabs 02/17/24 metoclopramide HCl 10 mg tablet 10 mg PO Q6H PRN abdominal pain 07/26/24 (Reglan) #14 tabs pantoprazole 40 mg tablet,delayed 40 mg PO QDAY #30 tabs 07/26/24 release (Protonix) acetaminophen 300 mg-codeine 30 mg 2 tab PO TID PRN pain #10 tabs 08/09/24 tablet acetaminophen 500 mg capsule 500 mg PO Q6H PRN pain #30 caps 10/01/24 cyclobenzaprine 10 mg tablet 10 mg PO TID PRN muscle spasm #10 10/01/24 tabs prednisone 20 mg tablet See Taper PO BID 3 days #6 tabs 11/10/24 albuterol sulfate 90 mcg/actuation 2 puff inhalation Q6H PRN cough 5 11/11/24 aerosol inhaler days #8.5 grams prednisone 50 mg tablet 50 mg PO QDAY #7 tabs 11/11/24 Allergies Allergy/AdvReac Type Severity Reaction Status Date / Time cinnamon Allergy Mild Swelling Verified 11/11/24 17:32 of Lip/Tongue/Throat aspirin AdvReac Severe HAS ULCER Verified 11/11/24 17:32 Review of Systems Review of Systems Systems Reviewed: All systems reviewed, normal except as documented Narrative Review of Systems: GEN: No fever, no chills, no weight loss, + bilateral lower extremity swelling that has been there chronically and not worse EYES: No discharge, no visual changes, no pain HEENT: No ear pain, no congestion, no sore throat PULM: + shortness of breath, no cough, no congestion CV: No chest pain, no dyspnea on exertion, no palpitations GI: No nausea, no vomiting, no diarrhea, no pain, no constipation : No frequency, no urgency and no dysuria MUSC/SKEL: No joint pain, no back pain SKIN: No rash PSYCH: No hallucinations, no depression HEME/LYMPH: No easy bleeding or bruising tendencies NEURO: No weakness, no headache Past Medical History Past Medical History NEUROLOGIC: Positive Migraine; Negative Neurological Disorders or Seizures CARDIAC: Positive Hypercholesterolemia and Hypertension; Negative Cardiac Disorders, Congestive Heart Failure, Edema, Cellulitis or Varicose Veins RESPIRATORY: Positive Chronic Obstructive Pulmonary Disease (COPD); Negative Asthma, Tuberculosis or Sleep Apnea GASTROINTESTINAL: Positive Gastrointestinal Disorders, Ulcer and Gastroesophageal Reflux Disease; Negative Hepatitis GENITOURINARY: Negative Genitourinary Disorders or Renal Disease REPRODUCTIVE: Positive Previous Pregnancies and Uterine Prolapse MUSCULOSKELETAL: Positive Musculoskeletal Disorders and Arthritis ENDOCRINE: Negative Endocrine Disorders, Diabetes Mellitus Type 1 or Diabetes Mellitus Type 2 HEMATOLOGIC: Negative Blood Disorders or Sickle Cell Disease PSYCHO/SOCIAL: Positive Bipolar Disorder, Depression, Anxiety and Post Traumatic Stress Disorder OTHER HISTORY: Positive Hospitalization, Autoimmune Disease, Chicken Pox and Cancer; Negative Shingles, Falls, Blood Transfusions, Blood Transfusion Reaction, Anesthesia Reactions, Chemotherapy, Radiation Therapy, MRSA, Measles or Mumps Family History FAMILY HISTORY: Positive Family Psychiatric Problems, Family Respiratory Disorders, Family Cardiac Disorders, Family Cancer, Family Surgery and Family Anesthesia Reaction; Negative Family Gastrointestinal Problems Surgical History SURGICAL: Positive Abdominal Surgery and Tubal Ligation; Negative Pacemaker Social History SMOKING STATUS: Current every day smoker SUBSTANCE USE: former substance user and methamphetamine (Former methamphetamine abuse, quit in 2018.) ED Exam Narrative Physical exam: Patient in minimal distress with some audible wheezing. No stridor. Not diaphoretic. General Limitations: Present no limitations General appearance: Present alert; Absent lethargic or obtunded Head Head exam: Present atraumatic Eye Eye exam: Present normal appearance and EOMI; Absent scleral icterus ENT ENT exam: Present normal exam, normal oropharynx and mucous membranes moist Neck Neck exam: Present normal inspection, full ROM and trachea midline Chest Chest inspection: Present normal inspection and symmetric chest wall rise Respiratory Respiratory exam: Present normal lung sounds bilaterally Cardiovascular Cardiovascular exam: Present regular rate, normal rhythm and normal heart sounds Abdominal Exam Abdominal exam: Present soft and normal bowel sounds; Absent distention, tenderness or rigidity Extremities Exam Extremities exam: Present normal inspection, full ROM, normal capillary refill and pedal edema; Absent tenderness or joint swelling Back Exam Back exam: Present normal inspection and full ROM Neurological Exam Neurological exam: Present alert, oriented X3 and CN II-XII intact Psychiatric Psychiatric exam: Present normal affect and normal mood Skin Skin exam: Present warm, dry, intact and normal color Course Course Course Narrative: DuoNebs given. IV is placed for CT angio. Quality Measures none Orders Category Date Time Status CT Screening NOW Care 11/11/24 19:21 Completed Insert IV STAT Care 11/11/24 19:[address] angio chest Stat Exams 11/11/24 19:20 Completed BNP [B-Type Natriuretic Peptide] Stat Lab 11/11/24 19:36 Completed HCG,Qualitative Serum Stat Lab 11/11/24 19:36 Completed Troponin I Stat Lab 11/11/24 19:36 Completed ALBUTEROL RT 0.5ml [Proventil Rt 0.5ml] Med 11/11/24 18:09 Discontinued 5 mg INH X1 ONE Albuterol/Ipratr Rt Farrah [Duoneb Rt Farrah] Med 11/11/24 21:57 Discontinued 3 ml INH X1 ONE Dexamethasone Inj [Decadron Inj] Med 11/11/24 18:09 Discontinued 10 mg PO X1 ONE Ipratropium Matheny Rt Farrah [Atrovent Rt Farrah] Med 11/11/24 18:09 Discontinued 1 mg INH X1 ONE Sodium Chloride 0.9% 1000 ml [Ns] 1,000 ml Med 11/11/24 19:20 Discontinued IV 999 mls/hr Sodium Chloride Rt Farrah 0.9% [NS Rt Farrah 0.9%] Med 11/11/24 18:09 Discontinued 3 ml INH PRN PRN Vital Signs Vital signs: Vital Signs Temperature 98.1 F 11/11/24 17:52 Pulse Rate 101 H 11/11/24 17:52 Respiratory Rate 20 11/11/24 17:52 Blood Pressure 140/88 H 11/11/24 17:52 Pulse Oximetry (%) 94 L 11/11/24 17:52 Oxygen Delivery Method Room Air 11/11/24 17:52 Shortness of Breath / Dyspnea MDM Narrative MDM Narrative:: Betty Perez am scribing for and in the presence of Dr. Nieto. Patient data External records reviewed:: [facility] previous records (Seen yesterday for wheezing in the emergency department.) Clinical information provided by:: patient Social determinants that could affect healthcare access:: none (Smoking) Patient has the following chronic illnesses:: Asthma How is presenting disease/condition affected by chronic disease/condition?: exacerbated by Evaluation data The following diagnostics were reviewed and interpreted by me:: radiology exam(s) Lab and/or radiology exams considered but not ordered:: none Troponin is negative and less than 0.0 0.20, BNP is negative less than 20. Interpretation Summary: CT of the chest with contrast Impression: Pulmonary artery opacification is not optimal No gross pulmonary artery emboli No pneumonia, pulmonary edema or pleural disease 4 mm pulmonary nodule left upper lobe, with this study as baseline, recommend 6 month follow-up CT chest without contrast Medications / Prescriptions Medications or Prescriptions considered but not ordered:: none Medication administrations:: Medication Administration History Discontinued Medications Albuterol (Albuterol Rt 2.5 Mg/0.5 Ml Nebu) 5 mg INH X1 ONE Stop: 11/11/24 18:10 Last Admin: 11/11/24 18:36 Dose: 5 mg Documented By: INDIRA Albuterol/Ipratropium (Albuterol/Ipratropium (Duoneb) Rt Farrah 3 Ml Nebu) 3 ml INH X1 ONE Stop: 11/11/24 21:58 Last Admin: 11/11/24 22:51 Dose: 3 ml Documented By: INDIRA Dexamethasone Sodium Phosphate (Dexamethasone Sod Phos Inj 10 Mg/Ml Vial) 10 mg PO X1 ONE Stop: 11/11/24 18:10 Last Admin: 11/11/24 19:15 Dose: 10 mg Documented By: YANET Sodium Chloride (Ns) 1,000 mls @ 999 mls/hr IV .Q1H1M ONE Stop: 11/11/24 20:20 Last Admin: 11/12/24 02:21 Dose: Not Given Documented By: NATHAN Non-Admin Reason: Patient Refused Ipratropium Matheny (Ipratropium Rt 0.5 Mg/ 2.5 Ml Nebu) 1 mg INH X1 ONE Stop: 11/11/24 18:10 Last Admin: 11/11/24 18:36 Dose: 1 mg Documented By: INDIRA Sodium Chloride (Sodium Chloride Rt Farrah 0.9% 3 Ml Nebu) 3 ml INH PRN PRN PRN Reason: SOLN Stop: 12/11/24 18:08 see above Consultations Consultation(s) initiated? (list below): No Diagnosis Shortness of Breath Differential Diagnosis: acute exacerbation of chronic obstructive airways disease, congestive heart failure, community acquired pneumonia, asthma with exacerbation and pulmonary embolism Most likely diagnosis given after review of the tests above:: Asthma exacerbation. Admission Indicated Admission indicated?: not indicated Explain why admission is indicated or not indicated:: Not hypoxic. Admission Request Was there a request for admission?: No Disposition Plan Disposition Plan: other (specify) (Left AMA) Discharge Plan Plan Patient Disposition: HOME (Self Care) Patient condition on transfer: Stable Prescriptions/Referrals Prescriptions/Med Rec: New prednisone 50 mg tablet 50 mg PO QDAY Qty: 7 0RF albuterol sulfate 90 mcg/actuation HFA aerosol inhaler 2 puff inhalation Q6H PRN (Reason: cough) 5 Days Qty: 8.5 0RF Rx Instructions: administer with spacer No Action atorvastatin 20 mg Tablet 20 mg PO QPM prednisone 20 mg tablet 60 mg PO DAILY paroxetine HCl 40 mg Tablet 40 mg PO QDAY buspirone 15 mg Tablet 15 mg PO TID aripiprazole 5 mg Tablet 5 mg PO QDAY Spiriva Respimat 2.5 mcg/actuation mist 2 puff INHALATION DAILY Patient Comments: INHALE 2 PUFFS INTO THE LUNGS EVERY DAY FOR 30 DAYS metoclopramide HCl [Reglan] 10 mg tablet 10 mg PO Q6H PRN (Reason: abdominal pain) Qty: 14 0RF pantoprazole [Protonix] 40 mg tablet,delayed release (DR/EC) 40 mg PO QDAY Qty: 30 0RF tramadol 50 mg tablet 50 mg PO Q6H PRN (Reason: pain) Qty: 20 0RF acetaminophen-codeine 300-30 mg tablet 2 tab PO TID MDD 6 PRN (Reason: pain) Qty: 10 0RF acetaminophen 500 mg capsule 500 mg PO Q6H PRN (Reason: pain) Qty: 30 0RF cyclobenzaprine 10 mg tablet 10 mg PO TID PRN (Reason: muscle spasm) Qty: 10 0RF prednisone 20 mg tablet See Taper PO BID 3 Days Qty: 6 0RF Taper: Prednisone Taper 20 mg DAILY for 2 Days and 0 Hour 10 mg DAILY for 2 Days and 0 Hour 5 mg DAILY for 7 Days and 0 Hour Referrals: Celine Olsen PA-C [Primary Care Provider] - In 1 week Problem List Clinical Impression: Wheezing, Incidental pulmonary nodule Patient/Caregiver Discharge Instructions Education Materials: ED Bronchitis with Wheezing (Adult) Additional Instructions: Please follow-up with your primary care physician tomorrow. If you do not have a primary care physician you can go to the [facility] and/or call [phone]. Return to the emergency department worsening symptoms, any other concerns. An incidental pulmonary nodule was seen on your CT scan. You will need to follow-up with your primary care for repeat CT scan in 6 months. Follow-up can lead to a failed or missed diagnosis. Impression: Pulmonary artery opacification is not optimal No gross pulmonary artery emboli No pneumonia, pulmonary edema or pleural disease 4 mm pulmonary nodule left upper lobe, with this study as baseline, recommend 6 month follow-up CT chest without contrast Print Language: Mozambican Stand Alone Forms: Shari Award Info., Patient Portal Info Letter
[2024-11-11 20:04] LABS: B-Type Natriuretic Peptide < 20 pg/mL (0-100)
[2024-11-11 21:49] LABS: Troponin I < 0.020 ng/mL (0.0-0.045)
[2024-11-11] MEDS: ALBUTEROL/IPRATROPIUM (Duoneb) RT SOL 3 ML NEBU INH (22:51)
[2024-11-11 22:52] VITALS: PULSE 89; RESP 20; O2SAT 97
[2024-11-11 23:02] LABS: HCG,Qualitative Serum Negative
== END 2024-11-12 02:24 | disposition home or self-care (01) ==
PROVIDERS: Emergency Provider Emergency Medicine; PCP Physician Assistant Medical
DX: J45.909 Unspecified asthma, uncomplicated (principal); R91.1 Solitary pulmonary nodule
CPT/HCPCS: 36415; 71275; 83880; 84484; 84703; 94640; 96374; 99285; A4649; A9270; J1100; Q9967

== ENCOUNTER 2024-11-12 15:30 | Inpatient (IN) | payer MEDICAID, SELFPAY ==
[2024-11-12] VITALS (8 sets, daily range): BP systolic 110–131; BP diastolic 67–94; PULSE 77–98; RESP 18–95; TEMP 36.4–36.9; O2SAT 93–100; BMI 37.1; BMI 37.4
--- NOTE | 2024-11-12 15:40 | XR_ITS ---
Examination: AP chest single view Technique one AP portable upright chest single view Exam date and time: November 12, 2024 1549 hours Comparison 06/10/2024 INDICATIONS: Onset shortness of breath today. FINDINGS: Normal heart size No interval pneumonia or pulmonary edema Old deformity right clavicle again depicted IMPRESSION: No interval pneumonia or pulmonary edema
[2024-11-12] MEDS: ALBUTEROL RT 2.5 MG/0.5 ML NEBU 10 MG INH (16:01)
[2024-11-12] MEDS: IPRATROPIUM RT 0.5 MG/ 2.5 ML NEBU INH (16:02)
--- NOTE | 2024-11-12 16:09 | PD.EDADULT ---
ED General RME/HPI General Chief complaint: Shortness of Breath/Dyspnea Stated complaint: SHORTNESS OF BREATH Time Seen by Provider: 11/12/24 15:36 Arrival date/time: 11/12/24 15:30 RME / HPI RME / HPI narrative: A 44 y/o F with history of asthma since childhood, chronic 1/2 pack daily tobacco smoker, COPD not on home oxygen, bipolar disorder, pre-diabetes, and hypercholesterolemia presents in the ED on 11/12/2024 for chief complaint of shortness of breath and productive cough. Patient endorses productive cough with yellow-colored thick mucus. Her cough worsened from Sunday11/08/2024 til today. Denies any sick contacts or recent travel. Endorses headache from constant coughing. Patient denies fever, chills, chest pain, palpitation, dizziness, nausea, vomiting, diarrhea, or constipation. Allergies- cinnamon causes swelling of oral surfaces, aspirin- ulcers. Medications: albuterol, spiriva, and antibiotics. Family hx: Diabetes and HTN- father. Surgical hx: tubal ligation, shoulder repair, appendectomy, and Moh's procedure. 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 Endorses daily alcohol use for the past 5 years. Denies use of any other illicit drugs. MD complaint: SOB and cough Onset (ago): day(s) Location: chest Radiation: non-radiation Severity: moderate and severe Consistency: constant Relieving factors: other (inhaler ) Exacerbating factors: none Associated symptoms: headaches and shortness of breath Treatments prior to arrival: other (rescue albuterol and spiriva) Related Data Home Medications ?Medication ?Instructions ?Recorded ?Confirmed aripiprazole 5 mg tablet 5 mg PO QDAY 09/30/23 09/30/23 atorvastatin 20 mg tablet 20 mg PO QPM 09/30/23 09/30/23 buspirone 15 mg tablet 15 mg PO TID 09/30/23 09/30/23 paroxetine HCl 40 mg tablet 40 mg PO QDAY 09/30/23 09/30/23 prednisone 20 mg tablet 60 mg PO DAILY 09/30/23 09/30/23 tiotropium bromide 2.5 2 puff inhalation DAILY 09/30/23 09/30/23 mcg/actuation mist for inhalation (Spiriva Respimat) Previous Rx's ?Medication ?Instructions ?Recorded tramadol 50 mg tablet 50 mg PO Q6H PRN pain #20 tabs 02/17/24 metoclopramide HCl 10 mg tablet 10 mg PO Q6H PRN abdominal pain 07/26/24 (Reglan) #14 tabs pantoprazole 40 mg tablet,delayed 40 mg PO QDAY #30 tabs 07/26/24 release (Protonix) acetaminophen 300 mg-codeine 30 mg 2 tab PO TID PRN pain #10 tabs 08/09/24 tablet acetaminophen 500 mg capsule 500 mg PO Q6H PRN pain #30 caps 10/01/24 cyclobenzaprine 10 mg tablet 10 mg PO TID PRN muscle spasm #10 10/01/24 tabs prednisone 20 mg tablet See Taper PO BID 3 days #6 tabs 11/10/24 albuterol sulfate 90 mcg/actuation 2 puff inhalation Q6H PRN cough 5 11/11/24 aerosol inhaler days #8.5 grams prednisone 50 mg tablet 50 mg PO QDAY #7 tabs 11/11/24 Allergies Allergy/AdvReac Type Severity Reaction Status Date / Time cinnamon Allergy Mild Swelling Verified 11/11/24 17:32 of Lip/Tongue/Throat aspirin AdvReac Severe HAS ULCER Verified 11/11/24 17:32 Review of Systems Review of Systems Systems Reviewed: All systems reviewed, normal except as documented Past Medical History Past Medical History NEUROLOGIC: Positive Migraine; Negative Neurological Disorders or Seizures CARDIAC: Positive Hypercholesterolemia and Hypertension; Negative Cardiac Disorders, Congestive Heart Failure, Edema, Cellulitis or Varicose Veins RESPIRATORY: Positive Chronic Obstructive Pulmonary Disease (COPD); Negative Asthma, Tuberculosis or Sleep Apnea GASTROINTESTINAL: Positive Gastrointestinal Disorders, Ulcer and Gastroesophageal Reflux Disease; Negative Hepatitis GENITOURINARY: Negative Genitourinary Disorders or Renal Disease REPRODUCTIVE: Positive Previous Pregnancies and Uterine Prolapse MUSCULOSKELETAL: Positive Musculoskeletal Disorders and Arthritis ENDOCRINE: Negative Endocrine Disorders, Diabetes Mellitus Type 1 or Diabetes Mellitus Type 2 HEMATOLOGIC: Negative Blood Disorders or Sickle Cell Disease PSYCHO/SOCIAL: Positive Bipolar Disorder, Depression, Anxiety and Post Traumatic Stress Disorder OTHER HISTORY: Positive Hospitalization, Autoimmune Disease, Chicken Pox and Cancer; Negative Shingles, Falls, Blood Transfusions, Blood Transfusion Reaction, Anesthesia Reactions, Chemotherapy, Radiation Therapy, MRSA, Measles or Mumps Family History FAMILY HISTORY: Positive Family Psychiatric Problems, Family Respiratory Disorders, Family Cardiac Disorders, Family Cancer, Family Surgery and Family Anesthesia Reaction; Negative Family Gastrointestinal Problems Surgical History SURGICAL: Positive Abdominal Surgery and Tubal Ligation; Negative Pacemaker Social History SMOKING STATUS: Current every day smoker SUBSTANCE USE: former substance user and methamphetamine (Former methamphetamine abuse, quit in 2018.) ED Exam Narrative Physical exam: Constitutional: Conversational with high-pitched voice, well-developed, in mild acute distress, lying in bed. HEENT: NCAT, EOMI, reactive round pupils b/l, patent nares b/l, moist mucous membranes, saturating at 92% on 9 L/min oxygen via N/C. Lung: CTAB, +++ rhonchi all lung lobes, expiratory wheezing of lower lobes bilaterally. No crackles. Heart: Regular S1S2, no murmurs, gallops, or rubs Abdomen: Soft, non-distended, non-tender, ++bowel sounds present throughout. Extremities: No cyanosis, clubbing, no edema of b/l legs, pulses present b/l Neurologic: No focal sensory or motor deficits noted, generally alert and oriented to person, place, time. Appropriate affect Skin: Warm, dry, no lesions or rashes noted Course Quality Measures none Orders Category Date Time Status Admit to Inpatient Status Routine Admission 11/12/24 18:10 Active Patient Condition Routine Admission 11/12/24 18:10 Ordered COVID-19 Screening Questionnaire NOW Care 11/12/24 17:39 Active Decision to Admit X1 Care 11/12/24 17:39 Active NPO NEEDED Care 11/12/24 15:44 Active Notify provider NEEDED Care 11/12/24 18:10 Active Diet Cardiac Diet 11/12/24 Dinner Active XR chest 1V portable Stat Exams 11/12/24 15:40 Completed B-Type Natriuretic Peptide Stat Lab 11/12/24 16:05 Completed Basic Metabolic Panel AM DRAW Lab 11/13/24 05:00 Ordered Basic Metabolic Panel AM DRAW Lab 11/14/24 05:00 Ordered Basic Metabolic Panel AM DRAW Lab 11/15/24 05:00 Ordered Blood Culture (Lab) Stat Lab 11/12/24 15:45 Received CBC AM DRAW Lab 11/13/24 05:00 Ordered CBC AM DRAW Lab 11/14/24 05:00 Ordered CBC AM DRAW Lab 11/15/24 05:00 Ordered CBC Stat Lab 11/12/24 16:21 Received CMP [Comprehensive Metabolic Panel] Stat Lab 11/12/24 16:05 Received Influenza A & B Rapid Panel Stat Lab 11/12/24 17:52 Ordered Lactate (Lactic Acid) Stat Lab 11/12/24 16:05 Completed Lipid Panel AM DRAW Lab 11/13/24 05:00 Ordered Lipid Panel AM DRAW Lab 11/14/24 05:00 Ordered Lipid Panel AM DRAW Lab 11/15/24 05:00 Ordered Magnesium AM DRAW Lab 11/13/24 05:00 Ordered Phosphorous AM DRAW Lab 11/13/24 05:00 Ordered Sputum Culture and Gram Stain Routine Lab 11/12/24 18:15 Ordered Thyroid Stimulating Hormone AM DRAW Lab 11/13/24 05:00 Ordered Troponin I Stat Lab 11/12/24 16:05 Completed Venous Blood Gas Stat Lab 11/12/24 16:05 Completed ALBUTEROL RT 0.5ml [Proventil Rt 0.5ml] Med 11/12/24 15:44 Discontinued 10 mg INH X1 ONE Acetaminophen Tab [Tylenol Tab] Med 11/12/24 18:10 Active 650 mg PO Q6H PRN Albuterol/Ipratr Rt Farrah [Duoneb Rt Farrah] Med 11/12/24 18:15 Ordered 3 ml INH Q20MIN Albuterol/Ipratr Rt Farrah [Duoneb Rt Farrah] Med 11/12/24 23:00 Ordered 3 ml INH Q4HRRT Azithromycin Inj [Zithromax Inj] 500 mg Med 11/12/24 18:22 Ordered Sodium Chloride 0.9% 250 ml [Ns] 250 ml IV QDAY Heparin Inj Med 11/12/24 21:00 Ordered 5,000 unit SC BID Ipratropium [place] Rt Farrah [Atrovent Rt Farrah] Med 11/12/24 15:44 Discontinued 0.5 mg INH X1 ONE MethylPREDNISolone. [SoluMEDROL Inj] Med 11/13/24 09:00 Ordered 40 mg IVP DAILY MethylPREDNISolone.* [SoluMEDROL Inj] Med 11/12/24 15:44 Discontinued 125 mg IVP X1 ONE Ondansetron Inj [Zofran Inj] Med 11/12/24 18:10 Ordered 4 mg IV Q6H PRN Pantoprazole [Protonix] Med 11/12/24 18:15 Ordered 40 mg PO QDAY Senna [Senokot] Med 11/12/24 18:15 Ordered 1 tab PO QDAY Sodium Chloride Rt Farrah 10% [NS Rt Farrah 10%] Med 11/12/24 18:14 Discontinued 5 ml INH X1 ONE cefTRIAXone/D5w 1gm IV premix [Rocephin/D5w 1gm IV Med 11/12/24 18:22 Ordered premix] 50 ml IV QDAY Code Status Routine Oth 11/12/24 18:10 Ordered Oxygen Delivery PRN RT 11/12/24 18:10 Active Sputum Induction PRN RT 11/12/24 18:15 Ordered Vital Signs Vital signs: Vital Signs Temperature 98.4 F 11/12/24 15:36 Pulse Rate 78 11/12/24 15:36 Respiratory Rate 20 11/12/24 15:36 Blood Pressure 110/77 11/12/24 15:36 Pulse Oximetry (%) 93 L 11/12/24 15:36 Oxygen Delivery Method Room Air 11/12/24 15:36 [facility] Patient data External records reviewed:: None Clinical information provided by:: patient Social determinants that could affect healthcare access:: none Patient has the following chronic illnesses:: h/o How is presenting disease/condition affected by chronic disease/condition?: exacerbated by Evaluation data The following diagnostics were reviewed and interpreted by me:: lab results and radiology exam(s) Lab and/or radiology exams considered but not ordered:: None Interpretation Summary: CXR shows no interval pneumonia or pulmonary edema. Troponin and lactic acid within normal limits. Medications Medications considered but not ordered:: None Medication administrations:: Medication Administration History Acetaminophen (Acetaminophen 325 Mg Tablet) 650 mg PO Q6H PRN PRN Reason: Fever >100.4 or pain Stop: 12/12/24 18:09 Albuterol/Ipratropium (Albuterol/Ipratropium (Duoneb) Rt Farrah 3 Ml Nebu) 3 ml INH Q20MIN JENNIE Stop: 11/12/24 19:15 Albuterol/Ipratropium (Albuterol/Ipratropium (Duoneb) Rt Farrah 3 Ml Nebu) 3 ml INH Q4HRRT JENNIE Stop: 12/12/24 22:59 Heparin Sodium (Porcine) (Heparin Sod Inj 5000 Unit/Ml Vial) 5,000 unit SC BID JENNIE Stop: 11/26/24 20:59 Ceftriaxone Sodium/Dextrose (Rocephin/D5w 1gm Iv Premix) 50 mls @ 100 mls/hr IV QDAY [facility] [place] Stop: 11/16/24 18:21 Azithromycin 500 mg/ Sodium (Chloride) 250 mls @ 250 mls/hr IV QDAY JENNIE Stop: 11/14/24 18:21 Methylprednisolone Sodium Succinate (Methylprednisolone Sod Succ 40 Mg Vial) 40 mg IVP DAILY [facility] [place] Stop: 11/15/24 08:59 Ondansetron HCl (Ondansetron Inj 2 Mg/Ml Inj 2 Ml) 4 mg IV Q6H PRN; Protocol PRN Reason: NAUSEA OR VOMITING Stop: 12/12/24 18:09 Pantoprazole Sodium (Pantoprazole 40 Mg Tablet) 40 mg PO QDAY [facility] [place] Stop: 12/12/24 18:14 Sennosides (Senna Tablet) 1 tab PO QDAY [facility] [place]; Protocol Stop: 12/12/24 18:14 Discontinued Medications Albuterol (Albuterol Rt 2.5 Mg/0.5 Ml Nebu) 10 mg INH X1 ONE Stop: 11/12/24 15:45 Last Admin: 11/12/24 16:01 Dose: 10 mg Documented By: EV Ipratropium [place] (Ipratropium Rt 0.5 Mg/ 2.5 Ml Nebu) 0.5 mg INH X1 ONE Stop: 11/12/24 15:45 Last Admin: 11/12/24 16:02 Dose: 0.5 mg Documented By: EV Methylprednisolone Sodium Succinate (Methylprednisolone Sod Succ 62.5 Mg/Ml 2ml Vial) 125 mg IVP X1 ONE Stop: 11/12/24 15:45 Last Admin: 11/12/24 16:59 Dose: 125 mg Documented By: ARF Sodium Chloride (Sodium Chloride Rt 10% 15 Ml Nebu) 5 ml INH X1 ONE Stop: 11/12/24 18:15 Albuterol, Ipratropium, and methylprednisolone. Consultations Consultation(s) initiated? (list below): No Diagnosis Differential Diagnosis ED Complaint MDM: Asthma Most likely diagnosis given after review of the tests above:: COPD exacerbation Admission Indicated Admission indicated?: indicated Explain why admission is indicated or not indicated:: Admission is indicated. After administration of breathing treatment and steroid, patient's shortness of breath only slightly improved.Lactic acid normal, hemodynamically stable, and ABG within normal range. She is not septic. No active signs of infection. On imaging, no pulmonary edema or pneumonia noted. She requires admission as she has been in the ED for similar symptoms the on Sunday and again yesterday. Patient will benefit for continuous breathing treatment and continuous steroid for another day or two during admission for COPD exacerbation. Admission Request Was there a request for admission?: Yes Admission Attestation Admission request attestation: Discussed case with [] from Hospitalist service regarding admission. Discussed patients ED course, exam findings, labs, and radiology results. The Hospitalist [agrees,declines] to accept the patient for admission. Disposition Plan Disposition Plan: Admit Medical Decision Making MDM Narrative MDM Narrative: A 44 y/o F with history of asthma since childhood, chronic 1/2 pack daily tobacco smoker, COPD not on home oxygen, bipolar disorder, pre-diabetes, and hypercholesterolemia presents in the ED on 11/12/2024 for chief complaint of shortness of breath and productive cough. Patient endorses productive cough with yellow-colored thick mucus. Her cough worsened from Sunday11/08/2024 til today. Denies any sick contacts or recent travel. Endorses headache from constant coughing. On imaging, no pulmonary edema or pneumonia noted. She requires admission as she has been in the ED for similar symptoms the on Sunday and again yesterday. Patient will benefit for continuous breathing treatment and continuous steroid for another day or two during admission. jmk>>>>>>>>>> patient 44-year-old female who is now here for her third visit for wheezing shortness of breath brought in by EMS which I saw in the ambulance bay and then the patient's care was given over to the resident you can refer to her note. Patient had prolonged expiratory phase O2 sats were 91% per as reported by EMS on room air prior to transport Patient is here had 2 major workups already including CT scans which were essentially negative. Today she has an obvious COPD exacerbation. She smells of tobacco and is continues to smoke. She is alert interactive otherwise. She is breathing a little fast on arrival. She was moved to room 17 where she got a continuous neb treatment with albuterol she also got Solu-Medrol. Initial labs were not repeated as they are all done yesterday and unremarkable. After continuous neb at 10 mg albuterol her O2 sats actually are worse because she is probably VQ mismatch and her lung and air movement is actually improved but she still has pronounced expiratory wheezing and prolonged expiratory phase. Because of this the resident I discussed the case and suggest this patient should be admitted if she is clearly not clearing up. Also emotionally she is not tolerating this well and she is got some psychiatric issues and so it is best that she be in the hospital and get her cleared up before she goes home again. Because of the continuous micah is a critical care patient. Differential Diagnosis Differential Diagnosis: Asthma Medical Records Medical records reviewed: Yes I reviewed the patient's medical records. Lab Data Lab results reviewed: Yes I reviewed the patient's lab results. 11/12/24 16:21 11/12/24 16:05 Labs: Lab Results 11/12/24 Range/Units 16:05 VBG pH 7.40 (7.33-7.66) VBG pCO2 39 (36-56) mmHg VBG pO2 38 (15-58) mmHg VBG O2 Sat (Rubén) 76 L (96-97) % VBG Base Excess 0 (-3-3) Lactic Acid 1.5 (0.4-2.0) mMol/L Troponin I < 0.002 (0.0-0.045) ng/mL B-Natriuretic Peptide < 20 (0-100) pg/mL Critical Care Time Critical Care Time Critical Care Time: Yes Total Critical Care Time (min.): 45 Attestation: The high probability of sudden, clinically significant deterioration in the patient's condition required the highest level of my preparedness to intervene urgently. The services I provided to this patient were to treat and/or prevent clinically significant deterioration. Services included the following: chart data review, reviewing nursing notes and/or old charts, documentation time, inbound sales consultant collaboration regarding findings and treatment options, medication orders and management, direct patient care, vital sign assessments and ordering, interpreting and reviewing diagnostic studies and lab tests. Aggregate critical care time includes only time during which I was engaged in work directly related to the patient's care, as described above, whether at bedside or elsewhere in the Emergency Department. It did not include time spent performing other reported procedures or the services of residents, students, nurses or physician assistants. Discharge Plan Plan Patient Disposition: Admit Acute Care w/in Hospital Disposition Comment: Hospitalist to admit Prescriptions/Referrals Prescriptions/Med Rec: No Action atorvastatin 20 mg Tablet 20 mg PO QPM prednisone 20 mg tablet 60 mg PO DAILY paroxetine HCl 40 mg Tablet 40 mg PO QDAY buspirone 15 mg Tablet 15 mg PO TID aripiprazole 5 mg Tablet 5 mg PO QDAY Spiriva Respimat 2.5 mcg/actuation mist 2 puff INHALATION DAILY Patient Comments: INHALE 2 PUFFS INTO THE LUNGS EVERY DAY FOR 30 DAYS metoclopramide HCl [Reglan] 10 mg tablet 10 mg PO Q6H PRN (Reason: abdominal pain) Qty: 14 0RF pantoprazole [Protonix] 40 mg tablet,delayed release (DR/EC) 40 mg PO QDAY Qty: 30 0RF tramadol 50 mg tablet 50 mg PO Q6H PRN (Reason: pain) Qty: 20 0RF acetaminophen-codeine 300-30 mg tablet 2 tab PO TID MDD 6 PRN (Reason: pain) Qty: 10 0RF acetaminophen 500 mg capsule 500 mg PO Q6H PRN (Reason: pain) Qty: 30 0RF cyclobenzaprine 10 mg tablet 10 mg PO TID PRN (Reason: muscle spasm) Qty: 10 0RF prednisone 20 mg tablet See Taper PO BID 3 Days Qty: 6 0RF Taper: Prednisone Taper 20 mg DAILY for 2 Days and 0 Hour 10 mg DAILY for 2 Days and 0 Hour 5 mg DAILY for 7 Days and 0 Hour prednisone 50 mg tablet 50 mg PO QDAY Qty: 7 0RF albuterol sulfate 90 mcg/actuation HFA aerosol inhaler 2 puff inhalation Q6H PRN (Reason: cough) 5 Days Qty: 8.5 0RF Rx Instructions: administer with spacer Problem List Clinical Impression: COPD (chronic obstructive pulmonary disease), Wheezing, Bipolar disorder, Tobacco abuse Patient/Caregiver Discharge Instructions Education Materials: Asthma and COPD Print Language: Greenlandic Stand Alone Forms: Shari Award Info., Patient Portal Info Letter MD Attestation Attestation I, Pablo Luke MD, have reviewed the history, exam, and assessment of the patient. I have evaluated the patient independently and agree with the plan of care documented by [ ]. All diagnostic studies were reviewed and discussed. I confirm the diagnosis as documented by the Resident. I was present during the Medical Decision Making for this patient. The patient's plan of care was created between myself and the Resident and consistent with our discussion of the patient's case. See my other notes and MDM for this patient with status for COPD exacerbation who is slightly better after continuous neb needs to be admitted.
[2024-11-12 16:21] LABS: Base Excess, Venous 0 (-3-3); O2 Saturation, Venous 76 % (96-97); PCO2, Venous 39 mmHg (36-56); PO2, Venous 38 mmHg (15-58)
[2024-11-12 16:22] LABS: Lactate (Lactic Acid) 1.5 mMol/L (0.4-2.0)
[2024-11-12 16:47] LABS: Troponin I < 0.002 ng/mL (0.0-0.045)
[2024-11-12 16:53] LABS: B-Type Natriuretic Peptide < 20 pg/mL (0-100)
[2024-11-12] MEDS: MethylPREDNISolone SOD SUCC 62.5 MG/ML 2ML VIAL 125 MG IVP (16:59)
--- NOTE | 2024-11-12 17:55 | PC.NURSE ---
PT BIBA FOR SOB, FOR A WEEK. SHE HAS BEEN SEEN HERE IN THE ED MULTIPLE TIMES THIS MONTH FOR FEELING THIS WAY. PT HAS SOB, LUNG SOUNDS ARE WHEEZY, PT HAS COPD BUT DOESNT HAVE O2 AT HOME. PT IS 89 PERCENT ON RA. IV PLACED. PLACED ON MONITOR.
[2024-11-12 18:18] LABS: Basophils % (Auto) 0 % (0-2.5); Eosinophils % (Auto) 0 % (0-10); Hemoglobin 14.3 g/dL (12.0-16.0); Immature Granulocytes % (Auto) 1 % (0-0); Immature Granulocytes Auto 0.15 Thou/mm3 (0.00-0.00); Lymphocytes # (Auto) 2.1 Thou/mm3 (1.0-4.8); Lymphocytes % (Auto) 11 % (10-50); Mean Corpuscular HGB Conc 32.5 g/dl (31.0-37.0); Mean Corpuscular Hemoglobin 28.8 pg (25.0-35.0); Mean Corpuscular Volume 89 fL (80-100); Monocytes # (Auto) 0.8 Thou/mm3 (0.0-0.8); Monocytes % (Auto) 4 % (0-12); Neutrophils # (Auto) 15.7 Thou/mm3 (1.8-7.7); Neutrophils % (Auto) 84 % (37-80); Nucleated Red Blood Cell % 0 /100 WBC (0); Platelet Count 324 Thou/mm3 (140-440); Red Blood Count 4.96 Miln/mm3 (4.00-5.20); White Blood Count 18.8 Thou/mm3 (3.6-11.0)
[2024-11-12 18:27] LABS: Alanine Aminotransferase 16 U/L (10-49); Albumin, Serum 4.9 gm/dL (3.5-5.0); Alkaline Phosphatase 92 U/L (46-116); Anion Gap 8 (7-16); Aspartate Amino Transferase 12 U/L (0-34); BUN/Creatinine Ratio 18 Ratio (12-20); Bilirubin,Total 0.3 mg/dL (0.3-1.2); Blood Urea Nitrogen 16 mg/dL (9-23); Calcium 9.8 mg/dL (8.3-10.6); Calcium (Corrected) 9.8 mg/dL (8.5-10.1); Carbon Dioxide 24.2 mMol/L (20.0-31.0); Chloride 107 mMol/L (98-107); Creatinine (Component) 0.9 mg/dL (0.6-1.3); Estimated Creatinine Clearance 96.3 mL/min (>60); Globulin 2.4 gm/dL (2.3-3.5); Glucose 98 mg/dL (74-106); Osmolality,Calculated 278 (275-295); Potassium 4.5 mMol/L (3.4-5.1); Sodium 139 mMol/L (136-145); Total Protein 7.3 gm/dL (5.7-8.2); eGFR > 60 See Note
[2024-11-12] MEDS: cefTRIAXone/D5w 1gm IV premix 50 ML IV (18:35)
--- NOTE | 2024-11-12 18:38 | ESHP_ITS ---
<Statement entered by Matt Gonzalez MD - 11/12/24 19:47> This patient is a 44-year-old female with past medical history of 2 pack year smoking history, history of bipolar disorder on antipsychotics presented with productive cough and shortness of breath from last couple of days. Patient endorsed fever 100.5 for which she took Motrin. Recently had sick contact that his [id number] who is suffering from influenza. She was having wheezing during auscultation mostly on expiratory phase. No lower extremity swelling noticed. Patient use inhalers at home. She is actively smoking. Patient is admitted for acute respiratory distress as she was on room air due to COPD exacerbation. She started on IV ceftriaxone/azithromycin for possible CAP, Solu-Medrol 40 mg IV daily, breathing treatments, Acapella, antitussives and offered nicotine patch. Home medications were reconciled for bipolar disorder. Chest x-ray showed no active disease. Will follow-up on sputum cultures, RSV, influenza and COVID and blood cultures. Labs are unremarkable. All labs and orders were reviewed. I saw and examined the patient, and I agree with current management stated by Dr Niya MD,PGY1. Plan of care was discussed with the attending physician and resident physician. Disclaimer: Despite multiple revisions, due to the dictation software being used, the document bellow may not be free of grammatical errors including phonetic/typographic errors. However, this does not deter from our commitment to providing health care in the patient's best interest in mind. Dr. Lisa MD, PGY 2 Documentation for date of: 11/12/24 HPI History of Present Illness Chief complaint: SOB and Cough History of present illness: HPI: Patient is a 44-year-old female with an extensive past medical history significant for asthma, COPD, PTSD, bipolar, anxiety, essential hypertension, prediabetes, hyperlipidemia. She presented today with a chief complaint of progressively worsening SOB and cough for the past 3 days. Patient endorses SOB at rest and upon minimal exertion. She also has a nonproductive cough for the same. Associated with subjective fever highest measured temperature 100.5, she took Motrin 800 mg every 6 hourly which gave some relief. There is sick contact was her [id number] at home who had pneumonia recently. Denies any recent travel. Patient also denies any chest pain/pressure, palpitations, PND or orthopnea as well as lower extremity swelling. She has normal appetite and no associated weight loss. Of note 3 days ago patient visited [facility] and was prescribed a course of Augmentin. His symptoms persisted and 2 days ago she visited the ED at [facility], was assessed and gave her breathing treatments as well as methylprednisolone 125 Mg IV x 1 and discharged on clindamycin. His symptoms were refractory to treatment and she again presented today to the emergency department. ED course: BP 110/77, pulse 78, RR 20, temp 98.4 F, SpO2 93% on room air. Labs significant for WBC 18.8, Hb 14.3, PLT 324 BNP <20 and troponin less than 0.002. Chest x-ray significant for hyperexpanded lung hastings, no signs of consolidation, pulmonary edema or pleural effusion. Patient received albuterol nebulization x 1, ipratropium nebulization x 1 and Methylpred 125 Mg x 1 Patient will be admitted to [facility] [place] for treatment and management of COPD exacerbation secondary to CAP. Review of Systems Constitutional Comments: GENERAL: Denies fever/chills or diaphoresis. HEENT: Denies headaches or visual changes. Denies discharge. Neuro: Denies unusual weakness or difficulty speaking. CARDIO: Denies chest pain or palpitations. PULM: As above GI: Denies abdominal pain, N/V/C/D. Reports having BMs. URO: Denies buring/itching/pain/urinary changes. 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 MSK/EXT/SKIN: Denies joint/skeletal/muschle pain, issues/changes in upper or lower extremities, itchiness, or superficial pain. PSYCH: Cooperative, pleasant mood & affect. The rest of the review of systems is otherwise negative. Past Medical History Past Medical History Comments [facility] COMMENT: Past medical history: ? COPD ? Asthma ? Bipolar disorder ? PTSD ? Anxiety ? Obesity ? Essential hypertension ? Prediabetes ? Overactive bladder secondary to uterine Prolapse ?Restless leg syndrome ? Nicotine dependence ? History of methamphetamine abuse ?Basal cell carcinoma of skin [place]/p [facility] 04/02/[facility]23 Medication list: ? Hydrocodone?acetaminophen ? Ibuprofen ? Wellbutrin 300 Mg p.o. daily ? Prazosin 2 Mg p.o. daily ? Paroxetine 40 Mg p.o. daily ? Pramipexole 0.125 Mg p.o. every other day ? Vitamin D ? omeprazole 20 Mg p.o. daily ? Loratadine 10 Mg p.o. daily ? Losartan 50 Mg p.o. daily ? Mucinex 1 tablet p.o. twice daily as needed ? Abilify 5 Mg p.o. at bedtime ? Acetaminophen as needed ? Atorvastatin 20 Mg p.o. at bedtime ?Buspirone 15 mg p.o. twice daily ? Cetirizine 10 Mg p.o. as needed ? Chlorpheniramine 1 tablet p.o. as needed ? Cholecalciferol 1.25 Mg once weekly ? Cyclobenzaprine 10 Mg p.o. twice daily as needed Past surgical history: ?BTL 18 years ago ? Appendectomy 28 years ago - open reconstruction of right shoulder coracoclavicular ligament using cadaver semitendinosis graft size 5 - open right shoulder distal clavicle excision ? Mohs for basal cell carcinoma of 2 face about 3 years ago Allergies: Paxlovid?ulcers ? Aspirin?ulcers ? Cinnamon?swelling of tongue and throat Social history: Occupational History: Patient did not work for over 20 years. 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 Currently smokes half pack a day ETHO use: Has 2 shots of alcohol once per year Illicit drug use: Clean for 7 years. Previously methamphetamine abuse for 30 years Social History Note: Patient lives at home with her fianc?, his father and her 4 kids. At baseline she ambulates independently and can carry out all ADLs Family History: Both patient's parents had DM, HTN and CHF Her uncle had leukemia All her kids have asthma Exam Vital Signs Temp Pulse Resp BP Pulse Ox O2 Del Method 98.5 F 88 20 127/94 H 96 Room Air 11/12/24 18:13 11/12/24 18:13 11/12/24 18:13 11/12/24 18:13 11/12/24 18:13 11/12/24 18:13 Narrative Exam Constitutional Alert, oriented x 3 and comfortable. Obese, young female sitting on bed HEENT Vision grossly intact. Patent nares. Trachea midline Respiratory Chest normal on inspection and decreased air entry globally with scattered wheeze Cardiovascular S1 and S2 audible, RRR. No murmurs carotid bruit. JVD not assessed Abdominal Soft, obese and non tender to palpation in all quadrants. BS + Genitourinary No bladder tenderness, no flank pain. Normal to palpation Musculoskeletal Extremities tone within normal limits. Trace LE edema. Neurological CN II - XII grossly intact. Extremity motor and sensation grossly intact. Skin Warm, dry and intact. No apparent lesions. Psychiatric Patient has flat affect, is cooperative Results: Labs 11/13/24 05:20 11/13/24 05:20 Labs: Short CBC 11/12/24 Range/Units 16:21 WBC 18.8 H D (3.6-11.0) Thou/mm3 Hgb 14.3 (12.0-16.0) g/dL Hct 44.0 (36.0-46.0) % Plt Count 324 D (140-440) Thou/mm3 BMP 11/12/24 16:05 Sodium 139 Potassium 4.5 D Chloride 107 Carbon Dioxide 24.2 BUN 16 Creatinine 0.9 Glucose 98 Calcium 9.8 Cardiac Enzymes 11/12/24 Range/Units 16:05 Troponin I < 0.002 (0.0-0.045) ng/mL Liver Function 11/12/24 Range/Units 16:05 Total Bilirubin 0.3 (0.3-1.2) mg/dL AST 12 (0-34) U/L ALT 16 (10-49) U/L Alkaline Phosphatase 92 (46-116) U/L Albumin 4.9 (3.5-5.0) gm/dL ABG Interpretation ABG results: 11/12/24 16:05 VBG pH 7.40 VBG pCO2 39 VBG pO2 38 VBG Base Excess 0 Quality Measures Quality Measures none Medications Home Medications and Allergies Home Medications ?Medication ?Instructions ?Recorded ?Confirmed ?Type aripiprazole 5 mg tablet 5 mg PO QDAY 09/30/23 09/30/23 History atorvastatin 20 mg tablet 20 mg PO QPM 09/30/23 09/30/23 History buspirone 15 mg tablet 15 mg PO TID 09/30/23 09/30/23 History paroxetine HCl 40 mg tablet 40 mg PO QDAY 09/30/23 09/30/23 History tiotropium bromide 2.5 2 puff inhalation DAILY 09/30/23 09/30/23 History mcg/actuation mist for inhalation (Spiriva Respimat) Allergies Allergy/AdvReac Type Severity Reaction Status Date / Time nirmatrelvir [From Paxlovid] Allergy Intermediate ulcer Verified 11/12/24 18:34 ritonavir [From Paxlovid] Allergy Intermediate ulcer Verified 11/12/24 18:34 cinnamon Allergy Mild Swelling Verified 11/12/24 18:34 of Lip/Tongue/Throat aspirin AdvReac Severe HAS ULCER Verified 11/12/24 18:34 Visit Medications Acetaminophen (Acetaminophen 325 Mg Tablet) 650 mg PO Q6H PRN PRN Reason: Fever >100.4 or pain Stop: 12/12/24 18:09 Albuterol/Ipratropium (Albuterol/Ipratropium (Duoneb) Rt Farrah 3 Ml Nebu) 3 ml INH Q20MIN JENNIE Stop: 11/12/24 19:15 Albuterol/Ipratropium (Albuterol/Ipratropium (Duoneb) Rt Farrah 3 Ml Nebu) 3 ml INH Q4HRRT JENNIE Stop: 12/12/24 22:59 Aripiprazole (Aripiprazole 5 Mg Tablet) 5 mg PO HS JENNIE Stop: 12/12/24 20:59 Ascorbic Acid (Ascorbic Acid 250 Mg Tablet) 500 mg PO BID JENNIE Stop: 12/12/24 20:59 Atorvastatin Calcium (Atorvastatin Calcium 20 Mg Tablet) 20 mg PO HS JENNIE Stop: 12/12/24 20:59 Bupropion HCl (Bupropion Hcl Xl 150 Mg Tabcr) 300 mg PO QDAY JENNIE Stop: 12/13/24 08:59 Buspirone HCl (Buspirone Hcl 5 Mg Tablet) 15 mg PO BID JENNIE Stop: 12/12/24 20:59 Cyclobenzaprine HCl (Cyclobenzaprine 5 Mg Tablet) 10 mg PO BID PRN PRN Reason: MUSCLE SPASMS Stop: 12/12/24 18:35 Guaifenesin/Dextromethorphan (Guaifenesin/Dm Tablet) 1 each PO BID JENNIE Stop: 12/12/24 20:59 Heparin Sodium (Porcine) (Heparin Sod Inj 5000 Unit/Ml Vial) 5,000 unit SC BID JENNIE Stop: 11/26/24 20:59 Ceftriaxone Sodium/Dextrose (Rocephin/D5w 1gm Iv Premix) 50 mls @ 100 mls/hr IV QDAY JENNIE Stop: 11/16/24 18:21 Azithromycin 500 mg/ Sodium (Chloride) 250 mls @ 250 mls/hr IV QDAY [facility] Stop: 11/14/24 18:21 Azithromycin 500 mg/ Sodium (Chloride) 250 mls @ 250 mls/hr IV X1 ONE Stop: 11/12/24 19:44 Loratadine (Loratadine 10 Mg Tablet) 10 mg PO QDAY [facility] Stop: 12/13/24 08:59 Losartan Potassium (Losartan Potassium 25 Mg Tablet) 50 mg PO QDAY [facility] Stop: 12/13/24 08:59 Methylprednisolone Sodium Succinate (Methylprednisolone Sod Succ 40 Mg Vial) 40 mg IVP DAILY [facility] Stop: 11/16/24 08:59 Multivitamins (Multivitamins Tablet) 1 tab PO QDAY [facility] Stop: 12/13/24 08:59 Ondansetron HCl (Ondansetron Inj 2 Mg/Ml Inj 2 Ml) 4 mg IV Q6H PRN; Protocol PRN Reason: NAUSEA OR VOMITING Stop: 12/12/24 18:09 Pantoprazole Sodium (Pantoprazole 40 Mg Tablet) 40 mg PO QDAY [facility] Stop: 12/12/24 18:14 Paroxetine HCl (Paroxetine Hcl 10 Mg Tablet) 40 mg PO QDAY [facility] Stop: 12/13/24 08:59 Pramipexole Dihydrochloride (Pramipexole 0.25 Mg Tablet) 0.125 mg PO Q48HR@2100 [facility] Stop: 12/12/24 20:59 Prazosin HCl (Prazosin Hcl 1 Mg Capsule) 2 mg PO HS [facility] Stop: 12/12/24 20:59 Sennosides (Senna Tablet) 1 tab PO QDAY [facility]; Protocol Stop: 12/12/24 18:14 Zinc Sulfate (Zinc Sulfate 220 Mg Capsule) 220 mg PO QDAY [facility] Stop: 11/27/24 08:59 Discontinued Medications Albuterol (Albuterol Rt 2.5 Mg/0.5 Ml Nebu) 10 mg INH X1 ONE Stop: 11/12/24 15:45 Last Admin: 11/12/24 16:01 Dose: 10 mg Ipratropium [place] (Ipratropium Rt 0.5 Mg/ 2.5 Ml Nebu) 0.5 mg INH X1 ONE Stop: 11/12/24 15:45 Last Admin: 11/12/24 16:02 Dose: 0.5 mg Methylprednisolone Sodium Succinate (Methylprednisolone Sod Succ 62.5 Mg/Ml 2ml Vial) 125 mg IVP X1 ONE Stop: 11/12/24 15:45 Last Admin: 11/12/24 16:59 Dose: 125 mg Sodium Chloride (Sodium Chloride Rt 10% 15 Ml Nebu) 5 ml INH X1 ONE Stop: 11/12/24 18:15 Assessment & Plan Plan Patient is a 44-year-old female with an extensive past medical history significant for asthma, COPD, PTSD, bipolar, anxiety, essential hypertension, prediabetes, hyperlipidemia. She presented today with a chief complaint of progressively worsening SOB and cough for the past 3 days. Patient will be admitted to [facility] [place] for treatment and management of COPD exacerbation secondary to CAP. 1. COPD exacerbation secondary to community-acquired pneumonia Patient presented with progressively worsening SOB and cough for the past 3 days. On exam she had decreased air entry globally on auscultation along with scattered wheeze throughout all lung hastings. Failed outpatient antibiotic treatment with Augmentin and clindamycin, now has worsening SOB, cough and wheeze. On chest x-ray showed hyperinflated lung hastings with no signs of consolidation, pulmonary edema or effusion. She is currently saturating between 88-94% on room air Curb?65; 0 points; consider outpatient treatment PSI/port score; 35 points outpatient treatment reasonable, apparent other factors affecting care. Plan: ? Cardiac diet ? Sputum culture ordered ? Influenza A&B, RSV, strep A and bedside COVID ordered ? CBC, lipid panel, CMP, TSH, HbA1c ordered ? DuoNebs Q 20 minutes x 3 ? Then DuoNebs Q4 hourly while awake scheduled ? Chest physiotherapy every 4 hourly while awake with the vast ? Chest physiotherapy with Acapella device every 4 hourly while awake ? Mucinex 1 tab p.o. twice daily for congestion ? Started on ceftriaxone 1 g IV daily on [11/12? ? Started on azithromycin 500 Mg IV daily on [11/12? ? From 11/13 will start on Solu-Medrol 40 Mg IV daily 2. Bipolar disorder 3. PTSD 4. Anxiety Home medication aripiprazole 5 Mg p.o. at bedtime, bupropion 300 Mg p.o. daily, buspirone 15 Mg p.o. twice daily, paroxetine 40 Mg p.o. daily, pramipexole 0.125 Mg p.o. every other day, prazosin 2 Mg p.o. at bedtime Plan: ? Resumed home medication 5. Essential hypertension Home medication losartan 50 Mg p.o. daily Plan: ? Resumed home medication 6. Prediabetes 7. Hyperlipidemia Home medication atorvastatin 20 Mg p.o. at bedtime Plan: ? Resumed home medication 8. Pulmonary nodule Chest CT completed on 11/11/2024 discovered 4 mm pulmonary nodule in left upper lobe. Plan: ? Recommend interval CT scan in 6 months. Follow-up with your primary care 9. Nicotine dependence 10. History of methamphetamine abuse Patient has approximately [id number] smoking history. Currently smokes half pack a day. Patient quit methamphetamine use 7 years ago. Previously used for 30 years Plan: ? Nicotine patch 21 Mg daily 11. History of basal cell carcinoma s/p Mohs [2020] Follow-up with your primary care doctor Health maintenance: Disposition: IV antibiotics, DuoNebs and chest physiotherapy for COPD exacerbation secondary to community-acquired pneumonia Diet: Cardiac Lines: pIVs GI Prophylaxis: Pantoprazole Thrombo Prophylaxis: Heparin 5000 U SC twice daily Code status: FULL CODE Plan of care discussed with Attending Dr. Mcclure and PGY2 Dr. Lisa Núñez MD PGY 1 Attending Provider Attestation/Addendum I, Yasemin Mcclure, , attest that I was physically present for the werner portions of the service and evaluated the patient with the resident and I reviewed and discussed the case with the resident and agree with the resident's findings and plans of care as documented above 44-year-old female with past medical history of chronic tobacco use, psych disorder, previous methamphetamine use who presented to the ED with worsening shortness of breath for past couple of days. She denies any recent sick contacts, but endorses productive cough and sputum with difficulty ambulating due to dyspnea on exertion. Patient was seen by her PCP a few days ago and given antibiotics. However, she does not feel any relief and subsequently came to the ED. Patient does have nebulizers, LABA/LAMA, short acting inhaler. On exam, patient has scattered wheezing and rhonchi. She is currently on room air, but appears somewhat labored. Will admit to med/surge for further workup and medical management of acute COPD exacerbation secondary to community-acquired pneumonia. Will start patient on IV steroids, breathing treatments and IV antibiotics. Counseled patient on cessation of tobacco use.
[2024-11-12] MEDS: PANTOPRAZOLE 40 MG TABLET PO (18:42)
[2024-11-12] MEDS: SENNA TABLET 1 TAB PO (18:44)
[2024-11-12 19:10] LABS: Procalcitonin < 0.04 ng/ml (0.0-0.49)
[2024-11-12] MEDS: AZITHROMYCIN INJ 500 MG in SODIUM CHLORIDE 0.9% 250 ML 250 ML 250 MG IV (19:18)
[2024-11-12 20:35] LABS: Magnesium 2.2 mg/dL (1.6-2.6); Phosphorous 3.4 mg/dL (2.4-5.1)
[2024-11-12] MEDS: NICOTINE PATCH 21 MG/24 HR PATCH.TD24 TOP (20:47)
--- NOTE | 2024-11-12 21:30 | PC.NURSE ---
EXPLAIN TO PATIENT ABOUT SMOKING CESSATION EDUCATION BUT PATIENT REFUSED.
[2024-11-12] MEDS: ATORVASTATIN CALCIUM 20 MG TABLET PO (21:59)
[2024-11-12] MEDS: BusPIRone HCL 5 MG TABLET 15 MG PO (21:59)
[2024-11-12] MEDS: ARIPiprazole 5 MG TABLET PO (22:00)
[2024-11-12] MEDS: ASCORBIC ACID 250 MG TABLET 500 MG PO (22:00)
[2024-11-12] MEDS: guaiFENesin/DM TABLET 1 EACH PO (22:01)
[2024-11-12] MEDS: PRAMIPEXOLE 0.25 MG TABLET 0.125 MG PO (22:01)
[2024-11-12 22:02] LABS: Strep A Rapid Negative (Negative)
[2024-11-12 22:03] LABS: Respiratory Syncytial Virus Ag Negative (Negative)
[2024-11-12] MEDS: HEPARIN SOD INJ 5000 UNIT/ML VIAL SC (22:11)
[2024-11-12] MEDS: ALBUTEROL/IPRATROPIUM (Duoneb) RT SOL 3 ML NEBU INH (23:41)
[2024-11-13] VITALS (9 sets, daily range): BP systolic 114–132; BP diastolic 72–83; PULSE 61–88; RESP 16–96; TEMP 36.2–36.9; O2SAT 92–99
[2024-11-13] MEDS: ALBUTEROL/IPRATROPIUM (Duoneb) RT SOL 3 ML NEBU INH ×3 (03:54→10:39)
[2024-11-13 06:02] LABS: Basophils % (Auto) 0 % (0-2.5); Eosinophils % (Auto) 0 % (0-10); Hematocrit 38.9 % (36.0-46.0); Hemoglobin 12.8 g/dL (12.0-16.0); Immature Granulocytes % (Auto) 1 % (0-0); Immature Granulocytes Auto 0.11 Thou/mm3 (0.00-0.00); Lymphocytes # (Auto) 1.6 Thou/mm3 (1.0-4.8); Lymphocytes % (Auto) 10 % (10-50); Mean Corpuscular HGB Conc 32.9 g/dl (31.0-37.0); Mean Corpuscular Hemoglobin 29.3 pg (25.0-35.0); Mean Corpuscular Volume 89 fL (80-100); Monocytes # (Auto) 0.6 Thou/mm3 (0.0-0.8); Monocytes % (Auto) 4 % (0-12); Neutrophils # (Auto) 13.2 Thou/mm3 (1.8-7.7); Neutrophils % (Auto) 85 % (37-80); Nucleated Red Blood Cell % 0 /100 WBC (0); Platelet Count 263 Thou/mm3 (140-440); RDW Standard Deviation 49.1 fL (36.4-46.3); Red Blood Count 4.37 Miln/mm3 (4.00-5.20); White Blood Count 15.6 Thou/mm3 (3.6-11.0)
[2024-11-13 07:12] LABS: Anion Gap 9 (7-16); BUN/Creatinine Ratio 19 Ratio (12-20); Blood Urea Nitrogen 15 mg/dL (9-23); Calcium 9.5 mg/dL (8.3-10.6); Carbon Dioxide 24.1 mMol/L (20.0-31.0); Chloride 108 mMol/L (98-107); Creatinine (Component) 0.8 mg/dL (0.6-1.3); Estimated Creatinine Clearance 108.9 mL/min (>60); Glucose 113 mg/dL (74-106); Magnesium 2.2 mg/dL (1.6-2.6); Osmolality,Calculated 283 (275-295); Phosphorous 3.4 mg/dL (2.4-5.1); Potassium 3.8 mMol/L (3.4-5.1); Sodium 141 mMol/L (136-145); Thyroid Stimulating Hormone 0.36 uIU/mL (0.55-4.78); eGFR > 60 See Note
[2024-11-13] MEDS: MULTIVITAMINS TABLET 1 TAB PO (08:45)
[2024-11-13] MEDS: LOSARTAN POTASSIUM 25 MG TABLET 50 MG PO (08:45)
[2024-11-13] MEDS: cefTRIAXone/D5w 1gm IV premix 50 ML IV (08:45)
[2024-11-13] MEDS: HEPARIN SOD INJ 5000 UNIT/ML VIAL SC (08:46)
[2024-11-13] MEDS: guaiFENesin/DM TABLET 1 EACH PO (08:47)
[2024-11-13] MEDS: PANTOPRAZOLE 40 MG TABLET PO (08:47)
[2024-11-13] MEDS: BusPIRone HCL 5 MG TABLET 15 MG PO (08:47)
[2024-11-13] MEDS: NICOTINE PATCH 21 MG/24 HR PATCH.TD24 TOP (08:47)
[2024-11-13] MEDS: ZINC SULFATE 220 MG CAPSULE PO (08:48)
[2024-11-13] MEDS: ASCORBIC ACID 250 MG TABLET 500 MG PO (08:48)
[2024-11-13] MEDS: SENNA TABLET 1 TAB PO (08:48)
[2024-11-13] MEDS: lorataDINE 10 MG TABLET PO (08:48)
[2024-11-13] MEDS: PARoxetine HCL 10 MG TABLET 40 MG PO (08:48)
[2024-11-13] MEDS: BuPROPion HCL XL 150 MG TABCR 300 MG PO (08:52)
[2024-11-13 09:18] LABS: Free T4 (Free Thyroxine) 0.88 ng/dL (0.89-1.76)
--- NOTE | 2024-11-13 09:25 | PD.RESPRO ---
Documentation for date of: 11/13/24 Subjective Subjective Interval history: Patient was seen and examined at bedside this AM. No acute exents overnight. Patient tolerating diet, adequate urine output and mentation is at baseline. Patient endorses improvement of SOB and cough. She is receiving DuoNebs Q4 hourly and chest physiotherapy with vest and Acapella device. Exam Vital Signs Temp Pulse Resp BP Pulse Ox O2 Del Method O2 Flow Rate 97.1 F 88 17 132/80 H 92 L Room Air 97 11/13/24 08:00 11/13/24 08:45 11/13/24 08:00 11/13/24 08:45 11/13/24 08:00 11/13/24 08:00 11/12/24 19:19 Narrative Exam Constitutional Alert, oriented x 3 and comfortable. Young, obese female sitting in bed HEENT Vision grossly intact. Patent nares. Trachea midline Respiratory Chest normal on inspection and air entry better in all lung hastings, scattered wheeze heard at bases bilaterally. Cardiovascular S1 and S2 audible, RRR. No murmurs carotid bruit. No gross JVD. Abdominal Soft and non tender to palpation in all quadrants. BS + Genitourinary No bladder tenderness, no flank pain. Normal to palpation Musculoskeletal Extremities tone within normal limits. Trace LE edema. Neurological CN II - XII grossly intact. Extremity motor and sensation grossly intact. Skin Warm, dry and intact. No apparent lesions. Psychiatric Patient has good affect, is cooperative Objective Labs 11/13/24 05:20 11/13/24 05:20 Labs: Laboratory Results - last 24 hr 11/12/24 11/12/24 11/12/24 16:05 16:21 19:30 WBC 18.8 H D RBC 4.96 Hgb 14.3 Hct 44.0 MCV 89 MCH 28.8 MCHC 32.5 RDW Std Deviation 49.0 H Plt Count 324 D Neut % (Auto) 84 H Lymph % (Auto) 11 Mellette % (Auto) 4 Eos % (Auto) 0 Baso % (Auto) 0 Neut # (Auto) 15.7 H Lymph # (Auto) 2.1 Mellette # (Auto) 0.8 Eos # (Auto) 0.0 Baso # (Auto) 0.0 Immature Gran # (Auto) 0.15 H Absolute Nucleated RBC 0.00 Immature Gran % 1 H Nucleated RBC % 0 VBG pH 7.40 VBG pCO2 39 VBG pO2 38 VBG O2 Sat (Rubén) 76 L VBG Base Excess 0 Sodium 139 Potassium 4.5 D Chloride 107 Carbon Dioxide 24.2 Anion Gap 8 BUN 16 Creatinine 0.9 Estim Creat Clear Calc 96.3 eGFR > 60 BUN/Creatinine Ratio 18 Glucose 98 Calculated Osmolality 278 Lactic Acid 1.5 Calcium 9.8 Corrected Calcium 9.8 Phosphorus 3.4 Magnesium 2.2 Total Bilirubin 0.3 AST 12 ALT 16 Alkaline Phosphatase 92 Troponin I < 0.002 B-Natriuretic Peptide < 20 Total Protein 7.3 Albumin 4.9 Globulin 2.4 Albumin/Globulin Ratio 2.0 Procalcitonin < 0.04 TSH Free T4 RSV Rapid Negative Group A Strep Rapid Negative 11/13/24 05:20 WBC 15.6 H RBC 4.37 Hgb 12.8 Hct 38.9 MCV 89 MCH 29.3 MCHC 32.9 RDW Std Deviation 49.1 H Plt Count 263 D Neut % (Auto) 85 H Lymph % (Auto) 10 Mellette % (Auto) 4 Eos % (Auto) 0 Baso % (Auto) 0 Neut # (Auto) 13.2 H Lymph # (Auto) 1.6 Mellette # (Auto) 0.6 Eos # (Auto) 0.0 Baso # (Auto) 0.0 Immature Gran # (Auto) 0.11 H Absolute Nucleated RBC 0.00 Immature Gran % 1 H Nucleated RBC % 0 VBG pH VBG pCO2 VBG pO2 VBG O2 Sat (Rubén) VBG Base Excess Sodium 141 Potassium 3.8 D Chloride 108 H Carbon Dioxide 24.1 Anion Gap 9 BUN 15 Creatinine 0.8 Estim Creat Clear Calc 108.9 eGFR > 60 BUN/Creatinine Ratio 19 Glucose 113 H Calculated Osmolality 283 Lactic Acid Calcium 9.5 Corrected Calcium Phosphorus 3.4 Magnesium 2.2 Total Bilirubin AST ALT Alkaline Phosphatase Troponin I B-Natriuretic Peptide Total Protein Albumin Globulin Albumin/Globulin Ratio Procalcitonin TSH 0.36 L Free T4 0.88 L RSV Rapid Group A Strep Rapid ABG Interpretation ABG results: 11/12/24 16:05 VBG pH 7.40 VBG pCO2 39 VBG pO2 38 VBG Base Excess 0 Quality Measures Quality Measures none Assessment & Plan Assessment Current Active Medications: Generic Name Dose Route Start Last Admin Trade Name Freq PRN Reason Stop Dose Admin Acetaminophen 650 mg 11/12/24 18:10 Acetaminophen 325 Mg Tablet PO 12/12/24 18:09 Q6H PRN Fever >100.4 or pain Albuterol/Ipratropium 3 ml 11/12/24 23:00 11/13/24 06:28 Albuterol/Ipratropium (Duoneb) Rt Farrah 3 Ml Nebu INH 12/12/24 22:59 3 ml Q4HRRT JENNIE Administration Aripiprazole 5 mg 11/12/24 21:00 11/12/24 22:00 Aripiprazole 5 Mg Tablet PO 12/12/24 20:59 5 mg HS JENNIE Administration Ascorbic Acid 500 mg 11/12/24 21:00 11/13/24 08:48 Ascorbic Acid 250 Mg Tablet PO 12/12/24 20:59 500 mg BID JENNIE Administration Atorvastatin Calcium 20 mg 11/12/24 21:00 11/12/24 21:59 Atorvastatin Calcium 20 Mg Tablet PO 12/12/24 20:59 20 mg HS JENNIE Administration Azithromycin 500 mg 11/13/24 21:00 Azithromycin 250 Mg Tablet PO 11/14/24 20:59 QPM JENNIE Bupropion HCl 300 mg 11/13/24 09:00 11/13/24 08:52 Bupropion Hcl Xl 150 Mg Tabcr PO 12/13/24 08:59 300 mg QDAY JENNIE Administration Buspirone HCl 15 mg 11/12/24 21:00 11/13/24 08:47 Buspirone Hcl 5 Mg Tablet PO 12/12/24 20:59 15 mg BID JENNIE Administration Cyclobenzaprine HCl 10 mg 11/12/24 18:36 Cyclobenzaprine 5 Mg Tablet PO 12/12/24 18:35 BID PRN MUSCLE SPASMS Guaifenesin/Dextromethorphan 1 each 11/12/24 21:00 11/13/24 08:47 Guaifenesin/Dm Tablet PO 12/12/24 20:59 1 each BID JENNIE Administration Heparin Sodium (Porcine) 5,000 unit 11/12/24 21:00 11/13/24 08:46 Heparin Sod Inj 5000 Unit/Ml Vial SC 11/26/24 20:59 5,000 unit BID JENNIE Administration Ceftriaxone Sodium/Dextrose 50 mls @ 100 mls/hr 11/12/24 18:22 11/13/24 08:45 Rocephin/D5w 1gm Iv Premix IV 12/22/24 18:21 100 mls/hr QDAY JENNIE Administration Loratadine 10 mg 11/13/24 09:00 11/13/24 08:48 Loratadine 10 Mg Tablet PO 12/13/24 08:59 10 mg QDAY JENNIE Administration Losartan Potassium 50 mg 11/13/24 09:00 11/13/24 08:45 Losartan Potassium 25 Mg Tablet PO 12/13/24 08:59 50 mg QDAY JENNIE Administration Methylprednisolone Sodium Succinate 40 mg 11/13/24 09:00 11/13/24 08:47 Methylprednisolone Sod Succ 40 Mg Vial IVP 11/16/24 08:59 40 mg DAILY JENNIE Administration Multivitamins 1 tab 11/13/24 09:00 11/13/24 08:45 Multivitamins Tablet PO 12/13/24 08:59 1 tab QDAY JENNIE Administration Nicotine 21 mg 11/12/24 19:45 11/13/24 08:47 Nicotine Patch 21 Mg/24 Hr Patch.Td24 TOP 12/12/24 19:44 21 mg QDAY JENNIE Administration Ondansetron HCl 4 mg 11/12/24 18:10 Ondansetron Inj 2 Mg/Ml Inj 2 Ml IV 12/12/24 18:09 Q6H PRN NAUSEA OR VOMITING Protocol Pantoprazole Sodium 40 mg 11/12/24 18:15 11/13/24 08:47 Pantoprazole 40 Mg Tablet PO 12/12/24 18:14 40 mg QDAY JENNIE Administration Paroxetine HCl 40 mg 11/13/24 09:00 11/13/24 08:48 Paroxetine Hcl 10 Mg Tablet PO 12/13/24 08:59 40 mg QDAY JENNIE Administration Pramipexole Dihydrochloride 0.125 mg 11/12/24 21:00 11/12/24 22:01 Pramipexole 0.25 Mg Tablet PO 12/12/24 20:59 0.125 mg Q48HR@2100 JENNIE Administration Prazosin HCl 2 mg 11/12/24 21:00 11/12/24 22:17 Prazosin Hcl 1 Mg Capsule PO 12/12/24 20:59 Not Given HS JENNIE Sennosides 1 tab 11/12/24 18:15 11/13/24 08:48 Senna Tablet PO 12/12/24 18:14 1 tab QDAY JENNIE Administration Protocol Zinc Sulfate 220 mg 11/13/24 09:00 11/13/24 08:48 Zinc Sulfate 220 Mg Capsule PO 11/27/24 08:59 220 mg QDAY [facility] Administration Plan Patient is a 44-year-old female with an extensive past medical history significant for asthma, COPD, PTSD, bipolar, anxiety, essential hypertension, prediabetes, hyperlipidemia. She presented today with a chief complaint of progressively worsening SOB and cough for the past 3 days. Patient will be admitted [place] [facility] [place] and management of COPD exacerbation secondary to CAP.
--- NOTE | 2024-11-13 09:33 | ESDS_ITS ---
<Statement entered by Yasemin Mcclure DO - 11/14/24 08:28> I, Yasemin Mcclure DO, attest that I was physically present for the werner portions of the service and evaluated the patient with the resident and I reviewed and discussed the case with the resident and agree with the resident's findings and plans of care as documented above <Statement entered by Matt Gonzalez MD - 11/13/24 10:33> I saw and examined the patient, and I agree with current management stated by Dr Niya MD,PGY1. Plan of care was discussed with the attending physician and resident physician. Disclaimer: Despite multiple revisions, due to the dictation software being used, the document bellow may not be free of grammatical errors including phonetic/typographic errors. However, this does not deter from our commitment to providing health care in the patient's best interest in mind. Dr. Lisa MD, PGY 2 Planned Discharge Date 11/13/24 DS: Providers Provider Date of admission: 11/12/24 18:10 Primary care physician: Celine Olsen PA-C Admitting Provider: Yasemin Mcclure DO Attending Provider on Admission: Yasemin Mcclure DO Attending Provider on DC: Yasemin Mcclure DO Discharging Provider: Abel Núñez MD DS: Diagnosis Problem List Completed Was Problem List Reviewed/Reconciled?: Yes Hospital Course Hospital Course Hospital course: Patient is a 44-year-old female with an extensive past medical history significant for asthma, COPD, PTSD, bipolar, anxiety, essential hypertension, prediabetes, hyperlipidemia. She presented today with a chief complaint of progressively worsening SOB and cough for the past 3 days. Patient was admitted to [facility] for treatment and management of COPD exacerbation secondary to CAP. For her COPD exacerbation patient was treated with 1 round of [id number] DuoNebs and subsequently DuoNebs Q4 hourly while awake. She was also treated with chest physiotherapy with pneumatic vest every 4 hourly as well as chest physiotherapy with Acapella device. For her suspected community-acquired pneumonia she was started on ceftriaxone and azithromycin IV for 1 day, she was also given Solu-Medrol 40 Mg IV daily for 2 days. Subsequently her condition improved with regards to her shortness of breath and cough. Community-acquired pneumonia was ruled out as upon review chest x-ray had no signs of consolidation and patient's congestion was mainly upper respiratory tract. All patient's labs are now returned to baseline and patient is now clinically stable and fit for discharge back to home. Discharge diagnoses: 1. COPD exacerbation 2. Community-acquired pneumonia and ruled out 3. Upper respiratory infection 4. Bipolar disorder 5. PTSD 6. Anxiety 7. Essential hypertension 8. Prediabetes?resolved [HbA1c 5.4% 11/13/2024] 9. Hyperlipidemia 10. Pulmonary nodule for investigation 11. Nicotine dependence 12. History of basal cell carcinoma s/p Mohs [2020] Discharge plan: -You have been started on a steroid , solumedrol. Follow the instructions on the dose pack ?Patient advised and extensively counseled on smoking cessation. Patient agreed to stop. ? Follow-up with your primary care doctor within 1 week of discharge. ? For interval CT scan in 6 months to evaluate pulmonary nodule. Follow-up with your primary doctor. ? If you experience any new, persistent or worsening symptoms either call your primary doctor, dial 911 or present to the emergency department. We are grateful to be able to participate in Ms. Mendoza' care. We wish her the best. Plan of care discussed with Attending Dr. Mcclure and PGY2 Dr. Lisa Núñez MD PGY 1 Time spent discussing smoking cessation with patient: more than 10 minutes (16) Time Spent with Patient Time attestation: Total time spent providing and/or coordinating discharge services: Time spent: Greater than 30 minutes (37) Exam Vital Signs Temp Pulse Resp BP Pulse Ox O2 Del Method O2 Flow Rate 97.1 F 88 17 132/80 H 92 L Room Air 97 11/13/24 08:00 11/13/24 08:45 11/13/24 08:00 11/13/24 08:45 11/13/24 08:00 11/13/24 08:00 11/12/24 19:19 Narrative Exam Constitutional Alert, oriented x 3 and comfortable. Obese, young female sitting on bed HEENT Vision grossly intact. Patent nares. Trachea midline Respiratory Chest normal on inspection and improved air entry b/l in all lung hastings with scattered wheeze Cardiovascular S1 and S2 audible, RRR. No murmurs carotid bruit. JVD not assessed Abdominal Soft, obese and non tender to palpation in all quadrants. BS + Genitourinary No bladder tenderness, no flank pain. Normal to palpation Musculoskeletal Extremities tone within normal limits. Trace LE edema. Neurological CN II - XII grossly intact. Extremity motor and sensation grossly intact. Skin Warm, dry and intact. No apparent lesions. Psychiatric Patient has flat affect, is cooperative Discharge Plan Plan Patient Disposition: HOME (Self Care) Care Plan Goals: -You have been started on a steroid , solumedrol. Follow the instructions on the dose pack ?Patient advised and extensively counseled on smoking cessation. Patient agreed to stop. ? Follow-up with your primary care doctor within 1 week of discharge. ? For interval CT scan in 6 months to evaluate pulmonary nodule. Follow-up with your primary doctor. ? If you experience any new, persistent or worsening symptoms either call your primary doctor, dial 911 or present to the emergency department. Prescriptions/Referrals Prescriptions/Med Rec: New zinc sulfate 50 mg zinc (220 mg) Capsule 220 mg PO QDAY Qty: 30 0RF nicotine 21 mg/24 hr Patch 24 Hour 21 mg top QDAY 30 Days Qty: 14 0RF multivitamin with folic acid [Tab-A-Elvin] 400 mcg Tablet 1 tab PO QDAY 30 Days Qty: 30 0RF pramipexole 0.25 mg Tablet 0.125 mg PO Q48HR@2100 14 Days Qty: 4 0RF loratadine 10 mg Tablet 10 mg PO QDAY 30 Days Qty: 30 0RF losartan 50 mg tablet 50 mg PO QDAY 30 Days Qty: 30 0RF Mucinex DM 30-600 mg Tablet Extended Release 12 Hr 1 tab PO BID 30 Days Qty: 60 0RF bupropion HCl 300 mg tablet extended release 24 hr 300 mg PO QDAY 14 Days Qty: 14 0RF prazosin 2 mg capsule 2 mg PO HS 14 Days Qty: 14 0RF ascorbic acid (vitamin C) 500 mg capsule 500 mg PO BID 30 Days Qty: 30 0RF methylprednisolone [Medrol (Kody)] 4 mg tablets,dose pack 4 mg PO QAM Qty: 21 0RF Continued atorvastatin 20 mg Tablet 20 mg PO QPM paroxetine HCl 40 mg Tablet 40 mg PO QDAY buspirone 15 mg Tablet 15 mg PO TID aripiprazole 5 mg Tablet 5 mg PO QDAY Spiriva Respimat 2.5 mcg/actuation mist 2 puff INHALATION DAILY Patient Comments: INHALE 2 PUFFS INTO THE LUNGS EVERY DAY FOR 30 DAYS metoclopramide HCl [Reglan] 10 mg tablet 10 mg PO Q6H PRN (Reason: abdominal pain) Qty: 14 0RF pantoprazole [Protonix] 40 mg tablet,delayed release (DR/EC) 40 mg PO QDAY Qty: 30 0RF tramadol 50 mg tablet 50 mg PO Q6H PRN (Reason: pain) Qty: 20 0RF acetaminophen-codeine 300-30 mg tablet 2 tab PO TID MDD 6 PRN (Reason: pain) Qty: 10 0RF acetaminophen 500 mg capsule 500 mg PO Q6H PRN (Reason: pain) Qty: 30 0RF cyclobenzaprine 10 mg tablet 10 mg PO TID PRN (Reason: muscle spasm) Qty: 10 0RF albuterol sulfate 90 mcg/actuation HFA aerosol inhaler 2 puff inhalation Q6H PRN (Reason: cough) 5 Days Qty: 8.5 0RF Rx Instructions: administer with spacer Discontinued prednisone 20 mg tablet 60 mg PO DAILY prednisone 20 mg tablet See Taper PO BID 3 Days Qty: 6 0RF Taper: Prednisone Taper 20 mg DAILY for 2 Days and 0 Hour 10 mg DAILY for 2 Days and 0 Hour 5 mg DAILY for 7 Days and 0 Hour prednisone 50 mg tablet 50 mg PO QDAY Qty: 7 0RF Referrals: Celine Olsen PA-C [Primary Care Provider] - Patient/Caregiver Discharge Instructions Education Materials: Discharge Instructions: COPD Print Language: Palestinian Stand Alone Forms: Shari Award Info., Patient Portal Info Letter Discharge Order Discharge Orders: Discharge (Routine); Ordered 11/13/24 Ordered By: Matt Gonzalez Quality Discharge Quality Measures VTE prophylaxis
--- NOTE | 2024-11-13 09:48 | EKG_ITS ---
[facility] Test Date: 2024-11-13 Pat Name: CATHRYN VERDE [facility] [employer]ersion Metal [employer]er: GANESH : 1980 Requested By: Matt Gonzalez Order Number: [id number] Reading MD: Matt Gonzalez Measurements Intervals [place] Rate: 74 P: 72 IA: 146 QRS: 54 QRSD: 91 T: 56 QT: 377 QTc: 419 Interpretive Statements SINUS RHYTHM NONSPECIFIC T-WAVE ABNORMALITY Compared to ECG 11/04/2023 17:07:19 T-wave abnormality now present ST (T wave) deviation no longer present /store/S0/[id number]/ecg/[id number].pdf
--- NOTE | 2024-11-13 10:21 | PC.SS ---
Patient Honey Mendoza is a 44 Year old female admitted for COPD Exacerbation. SS met with patient at bedside to discuss discharge planning and review demographic information. Patient reports dhe lives at home with her life partner Helen Pedro who she reports is her surrogate decision maker [phone]. Patient is able to ambulate independently and does not utilize any source of DME to assist with ambulation. PCP is Celine Olsen. Choice of Pharmacy is [facility]. At time of discharge patient will return Home. Next of Kin: Life Partner, Helen Pedro [phone] Discharge Plan: Home
[2024-11-13 14:32] LABS: Glucose Estimated Average 108 mg/dL (80-131); Hemoglobin A1C 5.4 % Hgb (4.8-6.0)
[2024-11-13 14:43] LABS: Cardiac Risk Estimate 3.1 RATIO (3.7-5.6); Cholesterol 175 mg/dL (132-200); HDL Cholesterol 57 mg/dL (40-60); LDL Cholesterol,Calculated 97 mg/dL (0-130); Triglycerides 106 mg/dL (30-150)
== END 2024-11-13 12:40 | disposition home or self-care (01) | DRG 140 ==
LOC: SERX 17:38 → SERHOLD 18:54 → S3NX 21:01
PROVIDERS: Student in an Organized Health Care Education/Training Program; Admitting Provider Internal Medicine; Emergency Provider Emergency Medicine; PCP Physician Assistant Medical; Visit Provider Internal Medicine
DX: J44.1 Chronic obstructive pulmonary disease with (acute) exacerbation (principal); F31.9 Bipolar disorder, unspecified; J06.9 Acute upper respiratory infection, unspecified; R73.03 Prediabetes; I10 Essential (primary) hypertension; E78.5 Hyperlipidemia, unspecified; F43.10 Post-traumatic stress disorder, unspecified; R91.1 Solitary pulmonary nodule; F15.10 Other stimulant abuse, uncomplicated; F41.9 Anxiety disorder, unspecified; F17.210 Nicotine dependence, cigarettes, uncomplicated; Z85.828 Personal history of other malignant neoplasm of skin; Z79.899 Other long term (current) drug therapy
CPT/HCPCS: 36415; 71045; 80048; 80053; 80061; 82803; 83036; 83605; 83735; 83880; 84100; 84145; 84439; 84443; 84484; 85025; 87040; 87081; 87205; 87400; 87502; 87634; 87651; 87811; 93005; 94640; 94644; 94664; 96365; 96367; 99285; A9270; J0456; J0696; J1643; J2919; J7050; J1644

== ENCOUNTER 2024-12-06 14:48 | Emergency (ER) | payer MEDICAID, SELFPAY ==
[2024-12-06 14:49] VITALS: BMI 44.2
[2024-12-06 14:56] VITALS: BP 130/89; PULSE 91; RESP 18; TEMP 36.5; O2SAT 95
--- NOTE | 2024-12-06 15:02 | XR_ITS ---
Examination: Shoulder,left, 3 views Technique: Shoulder AP internal rotation, AP external rotation, Y view shoulder, 3 views Exam date and time :December 06, 2024 1507 hrs. Indications: Injury to the shoulder today, shoulder pain. Findings: No shoulder fracture or dislocation No foreign body Impression: No shoulder fracture or dislocation
--- NOTE | 2024-12-06 15:02 | EDNOTE_ITS ---
Upper Extremity Injury RME/HPI General Chief Complaint: Extremity Injury, Upper Stated Complaint: LEFT SHOULDER INJURY SINCE YESTERDAY Time Seen by Provider: 12/06/24 14:53 Arrival date/time: 12/06/24 14:48 44-year-old female presents to the emergency department complaints of left shoulder pain patient reports pain worse with movement patient reports that she injured herself while helping her yesterday she reports a pulling sensation no direct trauma Limitations: no limitations Related Data Home Medications ?Medication ?Instructions ?Recorded ?Confirmed aripiprazole 5 mg tablet 5 mg PO QDAY 09/30/23 09/30/23 atorvastatin 20 mg tablet 20 mg PO QPM 09/30/23 09/30/23 buspirone 15 mg tablet 15 mg PO TID 09/30/23 09/30/23 paroxetine HCl 40 mg tablet 40 mg PO QDAY 09/30/23 09/30/23 tiotropium bromide 2.5 2 puff inhalation DAILY 09/30/23 09/30/23 mcg/actuation mist for inhalation (Spiriva Respimat) Previous Rx's ?Medication ?Instructions ?Recorded tramadol 50 mg tablet 50 mg PO Q6H PRN pain #20 tabs 02/17/24 metoclopramide HCl 10 mg tablet 10 mg PO Q6H PRN abdominal pain 07/26/24 (Reglan) #14 tabs pantoprazole 40 mg tablet,delayed 40 mg PO QDAY #30 tabs 07/26/24 release (Protonix) acetaminophen 300 mg-codeine 30 mg 2 tab PO TID PRN pain #10 tabs 08/09/24 tablet acetaminophen 500 mg capsule 500 mg PO Q6H PRN pain #30 caps 10/01/24 cyclobenzaprine 10 mg tablet 10 mg PO TID PRN muscle spasm #10 10/01/24 tabs ascorbic acid (vitamin C) 500 mg 500 mg PO BID 30 days #30 caps 11/13/24 capsule dextromethorphan-guaifenesin 30 1 tab PO BID 30 days #60 tabs 11/13/24 mg-600 mg tablet extended [id number] hr (Mucinex DM) loratadine 10 mg tablet 10 mg PO QDAY 30 days #30 tabs 11/13/24 losartan 50 mg tablet 50 mg PO QDAY 30 days #30 tabs 11/13/24 methylprednisolone 4 mg tablets in 4 mg PO QAM #21 tabs 11/13/24 a dose pack (Medrol (Kody)) multivitamin with folic acid 400 1 tab PO QDAY 30 days #30 tabs 11/13/24 mcg tablet (Tab-A-Elvin) nicotine 21 mg/24 hr daily 21 mg top QDAY 30 days #14 ea 11/13/24 transdermal patch zinc sulfate 50 mg zinc (220 mg) 220 mg (4.4 x 50 mg zinc (220 mg)) 11/13/24 capsule PO QDAY #30 caps ibuprofen 600 mg tablet 600 mg PO Q6H #30 tabs 12/06/24 Allergies Allergy/AdvReac Type Severity Reaction Status Date / Time cinnamon Allergy Severe Swelling Verified 12/06/24 14:52 of Lip/Tongue/Throat aspirin AdvReac Severe HAS ULCER Verified 12/06/24 14:52 Review of Systems Review of Systems Systems Reviewed: All systems reviewed, normal except as documented Constitutional Constitutional: Reports system reviewed and no additional complaints, except as documented, Denies fever(s) and Denies headache(s) Eyes Eyes: Reports system reviewed and no additional complaints, except as documented and Denies blurry vision ENT Ears, Nose, Mouth, and Throat: Reports system reviewed and no additional complaints, except as documented, Denies headache(s), Denies nasal congestion and Denies nasal discharge Cardiovascular Cardiovascular: Reports system reviewed and no additional complaints, except as documented, Denies chest pain and Denies dyspnea Respiratory Respiratory: Reports system reviewed and no additional complaints, except as documented, Denies chest congestion, Denies cough and Denies dyspnea Gastrointestinal Gastrointestinal: Reports system reviewed and no additional complaints, except as documented and Denies abdominal pain Musculoskeletal Musculoskeletal: Reports system reviewed and no additional complaints, except as documented, Reports arthralgias (Shoulder pain left), Denies numbness, Denies stiffness and Denies tingling Integumentary/Breasts Skin/Breast: Reports system reviewed and no additional complaints, except as documented and Denies rash Neurologic Neurologic: Reports system reviewed and no additional complaints, except as documented, Reports as per HPI, Denies headache(s), Denies numbness and Denies tingling Past Medical History Past Medical History NEUROLOGIC: Positive Migraine; Negative Neurological Disorders or Seizures CARDIAC: Positive Hypercholesterolemia and Hypertension; Negative Cardiac Disorders, Congestive Heart Failure, Edema, Cellulitis or Varicose Veins RESPIRATORY: Positive Chronic Obstructive Pulmonary Disease (COPD); Negative Asthma, Tuberculosis or Sleep Apnea GASTROINTESTINAL: Positive Gastrointestinal Disorders, Ulcer and Gastroesophageal Reflux Disease; Negative Hepatitis GENITOURINARY: Negative Genitourinary Disorders or Renal Disease REPRODUCTIVE: Positive Previous Pregnancies and Uterine Prolapse MUSCULOSKELETAL: Positive Musculoskeletal Disorders and Arthritis ENDOCRINE: Negative Endocrine Disorders, Diabetes Mellitus Type 1 or Diabetes Mellitus Type 2 HEMATOLOGIC: Negative Blood Disorders or Sickle Cell Disease PSYCHO/SOCIAL: Positive Bipolar Disorder, Depression, Anxiety and Post Traumatic Stress Disorder OTHER HISTORY: Positive Hospitalization, Autoimmune Disease, Chicken Pox and Cancer; Negative Shingles, Falls, Blood Transfusions, Blood Transfusion Reaction, Anesthesia Reactions, Chemotherapy, Radiation Therapy, MRSA, Measles or Mumps Family History FAMILY HISTORY: Positive Family Psychiatric Problems, Family Respiratory Disorders, Family Cardiac Disorders, Family Cancer, Family Surgery and Family Anesthesia Reaction; Negative Family Gastrointestinal Problems Surgical History SURGICAL: Positive Abdominal Surgery and Tubal Ligation; Negative Pacemaker Social History SMOKING STATUS: Heavy (> 1 pack/day) SECOND HAND EXPOSURE: No SUBSTANCE USE: former substance user and methamphetamine (Former methamphetamine abuse, quit in 2018.) ED Exam General Limitations: Present no limitations General appearance: Present alert and in no apparent distress Head Head exam: Present atraumatic, normocephalic and normal inspection Eye Eye exam: Present normal appearance, PERRL and EOMI ENT ENT exam: Present normal exam, normal oropharynx and mucous membranes moist Neck Neck exam: Present normal inspection, full ROM and trachea midline Chest Chest inspection: Present normal inspection and symmetric chest wall rise Respiratory Respiratory exam: Present normal lung sounds bilaterally Cardiovascular Cardiovascular exam: Present regular rate, normal rhythm and normal heart sounds Abdominal Exam Abdominal exam: Present soft and normal bowel sounds Extremities Exam Extremities exam: Present full ROM, tenderness, normal capillary refill and other (Left shoulder pain) Back Exam Back exam: Present normal inspection and full ROM Neurological Exam Neurological exam: Present alert, oriented X3, CN II-XII intact, normal gait and reflexes normal; Absent motor sensory deficit Psychiatric Psychiatric exam: Present normal affect and normal mood Skin Skin exam: Present warm, dry, intact and normal color Course Quality Measures none Orders Category Date Time Status sling [Splint / Immobilizer] STAT Care 12/06/24 16:12 Active XR clavicle LT Stat Exams 12/06/24 15:02 Taken XR shoulder LT min 2V Stat Exams 12/06/24 15:02 Taken Ibuprofen Tab [Motrin Tab] Med 12/06/24 15:02 Discontinued 600 mg PO X1 ONE Vital Signs Vital signs: Vital Signs Temperature 97.7 F 12/06/24 14:56 Pulse Rate 91 12/06/24 14:56 Respiratory Rate 18 12/06/24 14:56 Blood Pressure 130/89 H 12/06/24 14:56 Pulse Oximetry (%) 95 12/06/24 14:56 Oxygen Delivery Method Room Air 12/06/24 14:56 O2 saturation 95% room air within normal Extremity Injury MDM Narrative MDM Narrative:: 44-year-old female presents to the emergency department complaints of left shoulder pain patient reports pain worse with movement patient reports that she injured herself while helping her yesterday she reports a pulling sensation no direct trauma Imaging obtained no acute fracture dislocation noted Patient has full range of motion left shoulder Patient discharged home in no distress to follow-up with primary care doctor in the next 24 to 48 hours and for any worsening symptoms to return to the ER immediately Patient data External records reviewed:: [facility] previous records Clinical information provided by:: patient Social determinants that could affect healthcare access:: none Patient has the following chronic illnesses:: None How is presenting disease/condition affected by chronic disease/condition?: no chronic disease Evaluation data The following diagnostics were reviewed and interpreted by me:: radiology exam(s) Lab and/or radiology exams considered but not ordered:: Radiology obtain Interpretation Summary: Reviewed by me Medications / Prescriptions Medications or Prescriptions considered but not ordered:: Given Medication administrations:: Medication Administration History Discontinued Medications Ibuprofen (Ibuprofen Tab 600 Mg Tablet) 600 mg PO X1 ONE Stop: 12/06/24 15:03 Last Admin: 12/06/24 15:29 Dose: 600 mg Documented By: Given Consultations Consultation(s) initiated? (list below): No Diagnosis Upper Extremity Injury Differential Diagnosis: other (Shoulder sprain, shoulder fracture, AC separation) Most likely diagnosis given after review of the tests above:: Shoulder sprain left Admission Indicated Admission indicated?: not indicated Admission Request Was there a request for admission?: No Disposition Plan Disposition Plan: Discharge Discharge Attestation Discharge Attestation: The patient and all family members were given an opportunity to ask questions and understood the discharge instructions. Discharge instructions specifically effects, indications for sooner follow up or return to the emergency department, and the expected course of current diagnosis. Patient condition: Stable Discharge Plan Plan Patient Disposition: HOME (Self Care) Disposition Comment: Stable Prescriptions/Referrals Prescriptions/Med Rec: New ibuprofen 600 mg tablet 600 mg PO Q6H Qty: 30 0RF No Action atorvastatin 20 mg Tablet 20 mg PO QPM paroxetine HCl 40 mg Tablet 40 mg PO QDAY buspirone 15 mg Tablet 15 mg PO TID aripiprazole 5 mg Tablet 5 mg PO QDAY Spiriva Respimat 2.5 mcg/actuation mist 2 puff INHALATION DAILY Patient Comments: INHALE 2 PUFFS INTO THE LUNGS EVERY DAY FOR 30 DAYS metoclopramide HCl [Reglan] 10 mg tablet 10 mg PO Q6H PRN (Reason: abdominal pain) Qty: 14 0RF pantoprazole [Protonix] 40 mg tablet,delayed release (DR/EC) 40 mg PO QDAY Qty: 30 0RF zinc sulfate 50 mg zinc (220 mg) Capsule 220 mg PO QDAY Qty: 30 0RF nicotine 21 mg/24 hr Patch 24 Hour 21 mg top QDAY 30 Days Qty: 14 0RF multivitamin with folic acid [Tab-A-Elvin] 400 mcg Tablet 1 tab PO QDAY 30 Days Qty: 30 0RF loratadine 10 mg Tablet 10 mg PO QDAY 30 Days Qty: 30 0RF losartan 50 mg tablet 50 mg PO QDAY 30 Days Qty: 30 0RF Mucinex DM 30-600 mg Tablet Extended Release 12 Hr 1 tab PO BID 30 Days Qty: 60 0RF ascorbic acid (vitamin C) 500 mg capsule 500 mg PO BID 30 Days Qty: 30 0RF methylprednisolone [Medrol (Kody)] 4 mg tablets,dose pack 4 mg PO QAM Qty: 21 0RF tramadol 50 mg tablet 50 mg PO Q6H PRN (Reason: pain) Qty: 20 0RF acetaminophen-codeine 300-30 mg tablet 2 tab PO TID MDD 6 PRN (Reason: pain) Qty: 10 0RF acetaminophen 500 mg capsule 500 mg PO Q6H PRN (Reason: pain) Qty: 30 0RF cyclobenzaprine 10 mg tablet 10 mg PO TID PRN (Reason: muscle spasm) Qty: 10 0RF Referrals: Shayne Cid MD [Primary Care Provider] - In 1 week Problem List Clinical Impression: Left shoulder pain Patient/Caregiver Discharge Instructions Education Materials: ED IAN Additional Instructions: Please follow up with your primary care doctor in the next 24-48hrs for any worsening symptoms return here immediately Print Language: Greenlandic Stand Alone Forms: Shari Award Info., Patient Portal Info Letter PA/ENTRY LEVEL ASSISTANT MANAGER Supervising Physician FANY/BURTON Supervising Physician: Dr Herrera
--- NOTE | 2024-12-06 15:02 | XR_ITS ---
Examination: Clavicle 2 views, left Technique: Clavicle AP, angled up AP, 2 views Exam date and time: December 06, 2024 1507 hrs. Indications: Injury to the shoulder today clavicle pain Findings: No acute fracture No definite AC joint separation Impression: No clavicle fracture
[2024-12-06] MEDS: IBUPROFEN TAB 600 MG TABLET PO (15:29)
== END 2024-12-06 16:19 | disposition home or self-care (01) ==
PROVIDERS: Emergency Provider Emergency Medicine; PCP Family Medicine
DX: M25.512 Pain in left shoulder (principal)
CPT/HCPCS: 73000; 73030; 99283; A4565; A9270

== ENCOUNTER 2024-12-13 17:39 | Emergency (ER) | payer MEDICAID, SELFPAY ==
[2024-12-13 17:40] VITALS: BMI 37.0
[2024-12-13 17:58] VITALS: BP 147/91; PULSE 101; RESP 22; TEMP 37.8; O2SAT 98
--- NOTE | 2024-12-13 18:21 | EKG_ITS ---
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
--- NOTE | 2024-12-13 18:21 | XR_ITS ---
Examination: PA lateral chest 2 views Technique: AP lateral chest 2 views Exam date and time: December 05, 2024 1831 hrs. Indications: Difficulty breathing coughing today. Findings: Normal heart size Subtle opacity at the left base No pulmonary edema Right right AC joint separation Impression: Mild pneumonia left base
--- NOTE | 2024-12-13 18:22 | PD.EDRME ---
Rapid Medical Screening Exam RME Arrival date/time: 12/13/24 17:39 44 year old female present to Ed for c/o of sob. I have greeted and performed a focused initial assessment of this patient. A comprehensive ED assessment and evaluation of the patient, analysis of all test results, and completion of the medical decision making process will be conducted by additional ED providers. Chief Complaint: Shortness of Breath/Dyspnea Time Seen by Provider: 12/13/24 18:02 Vital signs: Vital Signs Temperature 100.0 F 12/13/24 17:58 Pulse Rate 101 H 12/13/24 17:58 Respiratory Rate 22 H 12/13/24 17:58 Blood Pressure 147/91 H 12/13/24 17:58 Pulse Oximetry (%) 98 12/13/24 17:58 Oxygen Delivery Method Room Air 12/13/24 17:58
[2024-12-13 18:36] LABS: Basophils # (Auto) 0.1 Thou/mm3 (0.0-0.2); Basophils % (Auto) 1 % (0-2.5); Eosinophils # (Auto) 0.1 Thou/mm3 (0.0-0.5); Eosinophils % (Auto) 1 % (0-10); Hematocrit 43.2 % (36.0-46.0); Hemoglobin 14.2 g/dL (12.0-16.0); Immature Granulocytes % (Auto) 1 % (0-0); Immature Granulocytes Auto 0.05 Thou/mm3 (0.00-0.00); Lymphocytes # (Auto) 1.3 Thou/mm3 (1.0-4.8); Lymphocytes % (Auto) 16 % (10-50); Mean Corpuscular HGB Conc 32.9 g/dl (31.0-37.0); Mean Corpuscular Hemoglobin 28.8 pg (25.0-35.0); Mean Corpuscular Volume 88 fL (80-100); Monocytes # (Auto) 0.6 Thou/mm3 (0.0-0.8); Monocytes % (Auto) 8 % (0-12); Neutrophils % (Auto) 74 % (37-80); Nucleated Red Blood Cell % 0 /100 WBC (0); Platelet Count 231 Thou/mm3 (140-440); RDW Standard Deviation 47.9 fL (36.4-46.3); Red Blood Count 4.93 Miln/mm3 (4.00-5.20); White Blood Count 8.1 Thou/mm3 (3.6-11.0)
[2024-12-13 18:54] LABS: B-Type Natriuretic Peptide 20 pg/mL (0-100)
[2024-12-13 18:55] LABS: Alanine Aminotransferase 17 U/L (10-49); Albumin, Serum 4.4 gm/dL (3.5-5.0); Albumin/Globulin Ratio 1.7 (1.2-2.2); Alkaline Phosphatase 96 U/L (46-116); Anion Gap 6 (7-16); Aspartate Amino Transferase 18 U/L (0-34); BUN/Creatinine Ratio 7 Ratio (12-20); Bilirubin,Total 0.2 mg/dL (0.3-1.2); Blood Urea Nitrogen 7 mg/dL (9-23); Calcium 9.2 mg/dL (8.3-10.6); Calcium (Corrected) 9.2 mg/dL (8.5-10.1); Carbon Dioxide 25.1 mMol/L (20.0-31.0); Chloride 107 mMol/L (98-107); Estimated Creatinine Clearance 89.7 mL/min (>60); Globulin 2.6 gm/dL (2.3-3.5); Glucose 108 mg/dL (74-106); Lipase 39 U/L (12-53); Osmolality,Calculated 274 (275-295); Sodium 138 mMol/L (136-145); Troponin I < 0.002 ng/mL (0.0-0.045); eGFR > 60 See Note
[2024-12-13] MEDS: ALBUTEROL/IPRATROPIUM (Duoneb) RT SOL 3 ML NEBU INH (19:18)
[2024-12-13 19:22] VITALS: PULSE 94; RESP 19; O2SAT 97
[2024-12-13] MEDS: predniSONE 20 MG TABLET 60 MG PO (19:34)
[2024-12-13] MEDS: AMOXICILLIN/POT CLAV 875 TABLET 1 TAB PO (20:05)
[2024-12-13] MEDS: AZITHROMYCIN 250 MG TABLET 500 MG PO (20:05)
--- NOTE | 2024-12-13 20:05 | PD.EDSOB ---
ED SOB =RME/HPI General Chief Complaint: Shortness of Breath/Dyspnea Stated Complaint: DIFFICULTY BREATHING; COUGH X1 DAY Time Seen by Provider: 12/13/24 18:02 Arrival date/time: 12/13/24 17:39 RME / HPI RME / HPI Narrative: 44-year-old female patient with significant history of COPD, current smoker, came in for evaluation regarding fever and cough. Patient's been having fever, severity moderate, associated with cough, shortness of breath, and chest pain and coughing. Onset of symptoms since early this morning. Patient denies any ill contacts. Patient is using her COPD medications, which only afforded mild relief. Denies any other complaints Related Data Home Medications ?Medication ?Instructions ?Recorded ?Confirmed aripiprazole 5 mg tablet 5 mg PO QDAY 09/30/23 09/30/23 atorvastatin 20 mg tablet 20 mg PO QPM 09/30/23 09/30/23 buspirone 15 mg tablet 15 mg PO TID 09/30/23 09/30/23 paroxetine HCl 40 mg tablet 40 mg PO QDAY 09/30/23 09/30/23 tiotropium bromide 2.5 2 puff inhalation DAILY 09/30/23 09/30/23 mcg/actuation mist for inhalation (Spiriva Respimat) Previous Rx's ?Medication ?Instructions ?Recorded tramadol 50 mg tablet 50 mg PO Q6H PRN pain #20 tabs 02/17/24 metoclopramide HCl 10 mg tablet 10 mg PO Q6H PRN abdominal pain 07/26/24 (Reglan) #14 tabs pantoprazole 40 mg tablet,delayed 40 mg PO QDAY #30 tabs 07/26/24 release (Protonix) acetaminophen 300 mg-codeine 30 mg 2 tab PO TID PRN pain #10 tabs 08/09/24 tablet acetaminophen 500 mg capsule 500 mg PO Q6H PRN pain #30 caps 10/01/24 cyclobenzaprine 10 mg tablet 10 mg PO TID PRN muscle spasm #10 10/01/24 tabs methylprednisolone 4 mg tablets in 4 mg PO QAM #21 tabs 11/13/24 a dose pack (Medrol (Kody)) zinc sulfate 50 mg zinc (220 mg) 220 mg (4.4 x 50 mg zinc (220 mg)) 11/13/24 capsule PO QDAY #30 caps ibuprofen 600 mg tablet 600 mg PO Q6H #30 tabs 12/06/24 amoxicillin 875 mg-potassium 1 tab PO BID #14 tabs 12/13/24 clavulanate 125 mg tablet azithromycin 250 mg tablet 250 mg PO QDAY 4 days #4 tabs 12/13/24 (Zithromax) Allergies Allergy/AdvReac Type Severity Reaction Status Date / Time cinnamon Allergy Severe Swelling Verified 12/13/24 17:43 of Lip/Tongue/Throat aspirin AdvReac Severe HAS ULCER Verified 12/13/24 17:43 Review of Systems Review of Systems Narrative Review of Systems: Review of system reviewed and within normal limits except mentioned in HPI ED Exam Narrative Physical exam: VITAL SIGNS: Reviewed. GENERAL APPEARANCE: Alert and interactive, follows commands, no acute distress, HEAD AND FACE: Non-traumatic. ENT: PERRL, pink conjunctivitis, eyelid no trauma, Mucous membrane moist. NECK: Supple, nontender, no nuchal rigidity. CHEST: No tenderness, no crepitus, no paradoxical movement, no retractions. LUNGS:Symmetric, no rales, no wheezing, no ronchi, no stridor, good breath sounds bilaterally. HEART: Regular rate, regular rhythm, no murmur, no gallops. ABDOMEN: Soft, positive bowel sounds, nondistended, no guarding, nontender, no rebound, no masses, RECTAL: Deferred. GENITAL: Deferred. NEUROLOGICAL: Gross motor function intact sensory function intact, Appropriate for age. MUSCULOSKELETAL: low back nontender, full range of motion. EXTREMITIES: Nontender, full range of motion. SKIN: Color pink, dry, no rash, no lacerations, no abrasions, no contusions. LYMPHATICS: Deferred. Course Quality Measures none Orders Category Date Time Status Bedside COVID-19 Antigen Test NOW Care 12/13/24 18:21 Active Bedside Influenza A&B Antigen Test NOW Care 12/13/24 18:22 Completed EKG (ED ONLY) *Do not use* NOW Care 12/13/24 18:21 Completed EKG (ED Only) Stat Exams 12/13/24 18:21 Draft XR chest 2V Stat Exams 12/13/24 18:21 Completed BNP [B-Type Natriuretic Peptide] Stat Lab 12/13/24 18:30 Completed CBC Stat Lab 12/13/24 18:30 Completed CMP [Comprehensive Metabolic Panel] Stat Lab 12/13/24 18:30 Completed Lipase Stat Lab 12/13/24 18:30 Completed Troponin I Stat Lab 12/13/24 18:30 Completed Albuterol/Ipratr Rt Farrah [Duoneb Rt Farrah] Med 12/13/24 18:21 Discontinued 3 ml INH X1 ONE Amoxicillin/Pot Clav 875 [Augmentin 875] Med 12/13/24 19:51 Discontinued 1 tab PO X1 ONE Azithromycin Po [Zithromax PO] Med 12/13/24 19:51 Discontinued 500 mg PO X1 ONE Benzonatate [Tessalon] Med 12/13/24 19:19 Discontinued 200 mg PO X1 ONE predniSONE Med 12/13/24 19:19 Discontinued 60 mg PO X1 ONE Vital Signs Vital signs: Vital Signs Temperature 100.0 F 12/13/24 17:58 Pulse Rate 101 H 12/13/24 17:58 Respiratory Rate 22 H 12/13/24 17:58 Blood Pressure 147/91 H 12/13/24 17:58 Pulse Oximetry (%) 98 12/13/24 17:58 Oxygen Delivery Method Room Air 12/13/24 17:58 Shortness of Breath / Dyspnea MDM Narrative MDM Narrative:: 44-year-old female patient with significant history of COPD, current smoker, came in for evaluation regarding fever and cough. Patient's been having fever, severity moderate, associated with cough, shortness of breath, and chest pain and coughing. Onset of symptoms since early this morning. Patient denies any ill contacts. Patient is using her COPD medications, which only afforded mild relief. Denies any other complaints Patient's workup came back with no leukocytosis. Negative for influenza and COVID-19. Chest x-ray showed mild left patient Monia. EKG showed normal sinus rhythm, ventricular rate of 97 bpm, no ST segment elevation or depression noted. Results discussed with the patient. Patient was given Augmentin and Zithromax in the emergency room. Was also given DuoNeb and prednisone p.o. Was noted to be satting 97% on room air.. Patient appears nontoxic and hemodynamically stable. Patient discharged home and instructed to follow-up with primary care provider in 24 to 48 hours. Instructed to return to the emergency department immediately if worsening of symptoms Patient data External records reviewed:: None Clinical information provided by:: patient Social determinants that could affect healthcare access:: none Patient has the following chronic illnesses:: COPD, current smoker How is presenting disease/condition affected by chronic disease/condition?: exacerbated by Evaluation data The following diagnostics were reviewed and interpreted by me:: lab results, radiology exam(s) and EKG tracing(s) Lab and/or radiology exams considered but not ordered:: None Interpretation Summary: see results in [facility] Medications / Prescriptions Medications or Prescriptions considered but not ordered:: none Medication administrations:: Medication Administration History Discontinued Medications Albuterol/Ipratropium (Albuterol/Ipratropium (Duoneb) Rt Farrah 3 Ml Nebu) 3 ml INH X1 ONE Stop: 12/13/24 18:22 Last Admin: 12/13/24 19:18 Dose: 3 ml Documented By: CHRISTINA Amoxicillin/Clavulanate Potassium (Amoxicillin/Pot Clav 875 Tablet) 1 tab PO X1 ONE Stop: 12/13/24 19:52 Azithromycin (Azithromycin 250 Mg Tablet) 500 mg PO X1 ONE Stop: 12/13/24 19:52 Benzonatate (Benzonatate 100 Mg Capsule) 200 mg PO X1 ONE; Protocol Stop: 12/13/24 19:20 Last Admin: 12/13/24 19:34 Dose: Not Given Documented By: DAVID Non-Admin Reason: Medication Not Available Prednisone (Prednisone 20 Mg Tablet) 60 mg PO X1 ONE Stop: 12/13/24 19:20 Last Admin: 12/13/24 19:34 Dose: 60 mg Documented By: DAVID Today breathing treatment, Augmentin, Zithromax, and prednisone Consultations Consultation(s) initiated? (list below): No Diagnosis Shortness of Breath Differential Diagnosis: acute exacerbation of chronic obstructive airways disease and community acquired pneumonia Most likely diagnosis given after review of the tests above:: Pneumonia, history of COPD Admission Indicated Admission indicated?: not indicated Admission Request Was there a request for admission?: No Disposition Plan Disposition Plan: Discharge Discharge Attestation Discharge Attestation: The patient was given an opportunity to ask questions and understood the discharge instructions. Discharge instructions specifically effects, indications for sooner follow up or return to the emergency department, and the expected course of current diagnosis. Patient condition: Stable Discharge Plan Plan Patient Disposition: HOME (Self Care) Disposition Comment: Stable Prescriptions/Referrals Prescriptions/Med Rec: New amoxicillin-pot clavulanate 875-125 mg tablet 1 tab PO BID Qty: 14 0RF azithromycin [Zithromax] 250 mg tablet 250 mg PO QDAY 4 Days Qty: 4 0RF Rx Instructions: start on day 2 of therapy No Action atorvastatin 20 mg Tablet 20 mg PO QPM paroxetine HCl 40 mg Tablet 40 mg PO QDAY buspirone 15 mg Tablet 15 mg PO TID aripiprazole 5 mg Tablet 5 mg PO QDAY Spiriva Respimat 2.5 mcg/actuation mist 2 puff INHALATION DAILY Patient Comments: INHALE 2 PUFFS INTO THE LUNGS EVERY DAY FOR 30 DAYS metoclopramide HCl [Reglan] 10 mg tablet 10 mg PO Q6H PRN (Reason: abdominal pain) Qty: 14 0RF pantoprazole [Protonix] 40 mg tablet,delayed release (DR/EC) 40 mg PO QDAY Qty: 30 0RF zinc sulfate 50 mg zinc (220 mg) Capsule 220 mg PO QDAY Qty: 30 0RF methylprednisolone [Medrol (Kody)] 4 mg tablets,dose pack 4 mg PO QAM Qty: 21 0RF tramadol 50 mg tablet 50 mg PO Q6H PRN (Reason: pain) Qty: 20 0RF acetaminophen-codeine 300-30 mg tablet 2 tab PO TID MDD 6 PRN (Reason: pain) Qty: 10 0RF acetaminophen 500 mg capsule 500 mg PO Q6H PRN (Reason: pain) Qty: 30 0RF cyclobenzaprine 10 mg tablet 10 mg PO TID PRN (Reason: muscle spasm) Qty: 10 0RF ibuprofen 600 mg tablet 600 mg PO Q6H Qty: 30 0RF Referrals: Celine Olsen PA-C [Primary Care Provider] - In 1 week Problem List Clinical Impression: COPD (chronic obstructive pulmonary disease), Community acquired pneumonia Patient/Caregiver Discharge Instructions Discharge Activity: activity as tolerated Education Materials: Preventing Pneumonia Additional Instructions: Thank you for the opportunity for serving you today. You are stable for discharged . You are advised to: Follow-up with your PCP in 1 to 2 days Return to ED for worsening of symptoms Increase oral fluids Take medication as prescribed Print Language: Greenlandic Stand Alone Forms: Shari Award Info., Patient Portal Info Letter FANY/BURTON Supervising Physician FANY/BURTON Supervising Physician: MD Sharon
== END 2024-12-13 20:10 | disposition home or self-care (01) ==
PROVIDERS: Physician Assistant; Emergency Provider Emergency Medicine; PCP Physician Assistant Medical
DX: J44.0 Chronic obstructive pulmonary disease with (acute) lower respiratory infection (principal); J18.9 Pneumonia, unspecified organism
CPT/HCPCS: 36415; 71046; 80053; 83690; 83880; 84484; 85025; 87400; 87811; 93005; 94640; 99283; A9270; J7512

== ENCOUNTER 2024-12-16 12:09 | Emergency (ER) | payer MEDICAID, SELFPAY ==
[2024-12-16 12:21] VITALS: BP 134/76; PULSE 102; RESP 20; TEMP 36.8; O2SAT 97; BMI 38.9
--- NOTE | 2024-12-16 12:34 | XR_ITS ---
Examination: PA lateral chest 2 views TECHNIQUE: Upright PA lateral chest 2 views Exam date and time: December 16, 2024 at 1248 hours Comparison December 13, 2024 INDICATIONS: Shortness of breath difficulty breathing fever one week. FINDINGS: Normal heart size No current pneumonia Old deformity distal right clavicle Moderate osteopenia IMPRESSION: No current pneumonia
[2024-12-16 12:59] VITALS: PULSE 101
[2024-12-16] MEDS: ALBUTEROL RT 2.5 MG/0.5 ML NEBU 5 MG INH ×2 (12:59→13:15)
[2024-12-16] MEDS: IPRATROPIUM RT 0.5 MG/ 2.5 ML NEBU INH ×2 (12:59→13:15)
[2024-12-16 13:03] VITALS: PULSE 101; RESP 20; O2SAT 98
[2024-12-16 13:15] VITALS: PULSE 101
[2024-12-16 13:16] VITALS: PULSE 103; RESP 20; O2SAT 98
[2024-12-16] MEDS: DEXAMETHASONE SOD PHOS INJ 10 MG/ML VIAL PO (13:23)
--- NOTE | 2024-12-16 14:57 | EDNOTE_ITS ---
Upper Respiratory Inf. RME/HPI General Chief Complaint: Fever Stated Complaint: FEVER/DIFF BREATHING FOR 1 WEEK Time Seen by Provider: 12/16/24 14:41 Arrival date/time: 12/16/24 12:09 44-year-old female with history of asthma and COPD presents emergency department with a complaint of difficulty breathing x 1 week patient ports cough, congestion, runny nose and fever patient recently seen and diagnosed with pneumonia Limitations: no limitations Related Data Home Medications ?Medication ?Instructions ?Recorded ?Confirmed aripiprazole 5 mg tablet 5 mg PO QDAY 09/30/23 09/30/23 atorvastatin 20 mg tablet 20 mg PO QPM 09/30/23 09/30/23 buspirone 15 mg tablet 15 mg PO TID 09/30/23 09/30/23 paroxetine HCl 40 mg tablet 40 mg PO QDAY 09/30/23 09/30/23 tiotropium bromide 2.5 2 puff inhalation DAILY 09/30/23 09/30/23 mcg/actuation mist for inhalation (Spiriva Respimat) Previous Rx's ?Medication ?Instructions ?Recorded tramadol 50 mg tablet 50 mg PO Q6H PRN pain #20 tabs 02/17/24 metoclopramide HCl 10 mg tablet 10 mg PO Q6H PRN abdominal pain 07/26/24 (Reglan) #14 tabs pantoprazole 40 mg tablet,delayed 40 mg PO QDAY #30 tabs 07/26/24 release (Protonix) acetaminophen 300 mg-codeine 30 mg 2 tab PO TID PRN pain #10 tabs 08/09/24 tablet acetaminophen 500 mg capsule 500 mg PO Q6H PRN pain #30 caps 10/01/24 cyclobenzaprine 10 mg tablet 10 mg PO TID PRN muscle spasm #10 10/01/24 tabs methylprednisolone 4 mg tablets in 4 mg PO QAM #21 tabs 11/13/24 a dose pack (Medrol (Kody)) zinc sulfate 50 mg zinc (220 mg) 220 mg (4.4 x 50 mg zinc (220 mg)) 11/13/24 capsule PO QDAY #30 caps ibuprofen 600 mg tablet 600 mg PO Q6H #30 tabs 12/06/24 amoxicillin 875 mg-potassium 1 tab PO BID #14 tabs 12/13/24 clavulanate 125 mg tablet Allergies Allergy/AdvReac Type Severity Reaction Status Date / Time cinnamon Allergy Severe Swelling Verified 12/13/24 17:43 of Lip/Tongue/Throat aspirin AdvReac Severe HAS ULCER Verified 12/13/24 17:43 Review of Systems Review of Systems Systems Reviewed: All systems reviewed, normal except as documented Constitutional Constitutional: Reports system reviewed and no additional complaints, except as documented, Denies fever(s) and Denies headache(s) Eyes Eyes: Reports system reviewed and no additional complaints, except as documented and Denies blurry vision ENT Ears, Nose, Mouth, and Throat: Reports system reviewed and no additional complaints, except as documented, Denies headache(s), Denies nasal congestion and Denies nasal discharge Cardiovascular Cardiovascular: Reports system reviewed and no additional complaints, except as documented, Denies chest pain and Reports dyspnea Respiratory Respiratory: Reports system reviewed and no additional complaints, except as documented, Reports chest congestion, Reports cough, Reports dyspnea and Reports wheezing Gastrointestinal Gastrointestinal: Reports system reviewed and no additional complaints, except as documented and Denies abdominal pain Integumentary/Breasts Skin/Breast: Reports system reviewed and no additional complaints, except as documented and Denies rash Neurologic Neurologic: Reports system reviewed and no additional complaints, except as documented, Reports as per HPI and Denies headache(s) Allergic/Immunologic Allergic/Immunologic: Reports wheezing Past Medical History Past Medical History NEUROLOGIC: Positive Migraine; Negative Neurological Disorders or Seizures CARDIAC: Positive Hypercholesterolemia and Hypertension; Negative Cardiac Disorders, Congestive Heart Failure, Edema, Cellulitis or Varicose Veins RESPIRATORY: Positive Chronic Obstructive Pulmonary Disease (COPD); Negative Asthma, Tuberculosis or Sleep Apnea GASTROINTESTINAL: Positive Gastrointestinal Disorders, Ulcer and Gastroesophageal Reflux Disease; Negative Hepatitis GENITOURINARY: Negative Genitourinary Disorders or Renal Disease REPRODUCTIVE: Positive Previous Pregnancies and Uterine Prolapse MUSCULOSKELETAL: Positive Musculoskeletal Disorders and Arthritis ENDOCRINE: Negative Endocrine Disorders, Diabetes Mellitus Type 1 or Diabetes Mellitus Type 2 HEMATOLOGIC: Negative Blood Disorders or Sickle Cell Disease PSYCHO/SOCIAL: Positive Bipolar Disorder, Depression, Anxiety and Post Traumatic Stress Disorder OTHER HISTORY: Positive Hospitalization, Autoimmune Disease, Chicken Pox and Cancer; Negative Shingles, Falls, Blood Transfusions, Blood Transfusion Reaction, Anesthesia Reactions, Chemotherapy, Radiation Therapy, MRSA, Measles or Mumps Family History FAMILY HISTORY: Positive Family Psychiatric Problems, Family Respiratory Disorders, Family Cardiac Disorders, Family Cancer, Family Surgery and Family Anesthesia Reaction; Negative Family Gastrointestinal Problems Surgical History SURGICAL: Positive Abdominal Surgery and Tubal Ligation; Negative Pacemaker Social History SMOKING STATUS: Heavy (> 1 pack/day) SECOND HAND EXPOSURE: No SUBSTANCE USE: former substance user and methamphetamine (Former methamphetamine abuse, quit in 2018.) ED Exam General Limitations: Present no limitations General appearance: Present alert and in no apparent distress Head Head exam: Present atraumatic, normocephalic and normal inspection Eye Eye exam: Present normal appearance, PERRL and EOMI; Absent conjunctival injection ENT ENT exam: Present normal exam, normal oropharynx and mucous membranes moist Neck Neck exam: Present normal inspection, full ROM and trachea midline Chest Chest inspection: Present normal inspection and symmetric chest wall rise Respiratory Respiratory exam: Present wheezes, accessory muscle use and prolonged expiratory phase; Absent respiratory distress or stridor Cardiovascular Cardiovascular exam: Present regular rate, normal rhythm and normal heart sounds Abdominal Exam Abdominal exam: Present soft and normal bowel sounds; Absent distention, tenderness, guarding, rebound or rigidity Extremities Exam Extremities exam: Present normal inspection and full ROM Back Exam Back exam: Present normal inspection and full ROM Neurological Exam Neurological exam: Present alert, oriented X3 and CN II-XII intact Psychiatric Psychiatric exam: Present normal affect and normal mood Skin Skin exam: Present warm, dry, intact and normal color Course Quality Measures none Orders Category Date Time Status Bedside COVID-19 Antigen Test NOW Care 12/16/24 12:34 Completed Bedside Influenza A&B Antigen Test NOW Care 12/16/24 12:34 Completed XR chest 2V Stat Exams 12/16/24 12:34 Completed ALBUTEROL RT 0.5ml [Proventil Rt 0.5ml] Med 12/16/24 12:34 Discontinued 10 mg INH X1 ONE ALBUTEROL RT 0.5ml [Proventil Rt 0.5ml] Med 12/16/24 12:56 Discontinued 5 mg INH X1 ONE ALBUTEROL RT 0.5ml [Proventil Rt 0.5ml] Med 12/16/24 13:30 Discontinued 5 mg INH X1 ONE Dexamethasone Inj [Decadron Inj] Med 12/16/24 12:34 Discontinued 10 mg PO X1 ONE Ipratropium [place] Rt Farrah [Atrovent Rt Farrah] Med 12/16/24 12:57 Discontinued 0.5 mg INH X1 ONE Ipratropium [place] Rt Farrah [Atrovent Rt Farrah] Med 12/16/24 13:30 Discontinued 0.5 mg INH X1 ONE Ipratropium [place] Rt Farrah [Atrovent Rt Farrah] Med 12/16/24 12:34 Discontinued 1 mg INH X1 ONE Sodium Chloride Rt Farrah 0.9% [NS Rt Farrah 0.9%] Med 12/16/24 12:34 Discontinued 3 ml INH PRN PRN Vital Signs Vital signs: Vital Signs Temperature 98.2 F 12/16/24 12:21 Pulse Rate 102 H 12/16/24 12:21 Respiratory Rate 20 12/16/24 12:21 Blood Pressure 134/76 H 12/16/24 12:21 Pulse Oximetry (%) 97 12/16/24 12:21 Oxygen Delivery Method Room Air 12/16/24 12:21 o2 sat 97% r/a wnl Upper Respiratory Infection MDM Narrative MDM Narrative:: 44-year-old female with history of asthma and COPD presents emergency department with a complaint of difficulty breathing x 1 week patient ports cough, congestion, runny nose and fever patient recently seen and diagnosed with pneumonia On exam patient has significant wheezing bilaterally Patient given breathing treatment and steroids Time reevaluation lungs have significantly improved patient is no tachypnea or dyspnea Patient checked for flu and COVID patient tested positive for influenza X-ray obtained no acute pneumonic infiltrates noted Patient discharged home in no distress to follow-up with primary care doctor in the next 24 to 48 hours and for any worsening symptoms to return to the ER immediately Patient data External records reviewed:: [facility] previous records Clinical information provided by:: patient Social determinants that could affect healthcare access:: none Patient has the following chronic illnesses:: see hx How is presenting disease/condition affected by chronic disease/condition?: no chronic disease Evaluation data The following diagnostics were reviewed and interpreted by me:: lab results and radiology exam(s) Lab and/or radiology exams considered but not ordered:: labs and rad obtained Interpretation Summary: reviewed by me Medications / Prescriptions Medications or Prescriptions considered but not ordered:: given Medication administrations:: Medication Administration History Discontinued Medications Albuterol (Albuterol Rt 2.5 Mg/0.5 Ml Nebu) 10 mg INH X1 ONE Stop: 12/16/24 12:35 Last Admin: 12/16/24 14:10 Dose: Not Given Documented By: [facility] Non-Admin Reason: Cancelled by Provider Albuterol (Albuterol Rt 2.5 Mg/0.5 Ml Nebu) 5 mg INH X1 ONE Stop: 12/16/24 12:57 Last Admin: 12/16/24 12:59 Dose: 5 mg Documented By: NAIF Albuterol (Albuterol Rt 2.5 Mg/0.5 Ml Nebu) 5 mg INH X1 ONE Stop: 12/16/24 13:31 Last Admin: 12/16/24 13:15 Dose: 5 mg Documented By: NAIF Dexamethasone Sodium Phosphate (Dexamethasone Sod Phos Inj 10 Mg/Ml Vial) 10 mg PO X1 ONE Stop: 12/16/24 12:35 Last Admin: 12/16/24 13:23 Dose: 10 mg Documented By: Ipratropium [place] (Ipratropium Rt 0.5 Mg/ 2.5 Ml Nebu) 1 mg INH X1 ONE Stop: 12/16/24 12:35 Last Admin: 12/16/24 14:10 Dose: Not Given Documented By: [facility] Non-Admin Reason: Cancelled by Provider Ipratropium [place] (Ipratropium Rt 0.5 Mg/ 2.5 Ml Nebu) 0.5 mg INH X1 ONE Stop: 12/16/24 12:58 Last Admin: 12/16/24 12:59 Dose: 0.5 mg Documented By: NAIF Ipratropium [place] (Ipratropium Rt 0.5 Mg/ 2.5 Ml Nebu) 0.5 mg INH X1 ONE Stop: 12/16/24 13:31 Last Admin: 12/16/24 13:15 Dose: 0.5 mg Documented By: NAIF Sodium Chloride (Sodium Chloride Rt Farrah 0.9% 3 Ml Nebu) 3 ml INH PRN PRN PRN Reason: SOLN Stop: 01/15/25 12:33 given Consultations Consultation(s) initiated? (list below): No Diagnosis Upper Respiratory Differential Diagnosis: upper respiratory infection, viral infection, bronchitis, influenza and pharyngitis Most likely diagnosis given after review of the tests above:: asthma exacerbation , influenza Admission Indicated Admission indicated?: not indicated Admission Request Was there a request for admission?: No Disposition Plan Disposition Plan: Discharge Discharge Attestation Discharge Attestation: The patient and all family members were given an opportunity to ask questions and understood the discharge instructions. Discharge instructions specifically effects, indications for sooner follow up or return to the emergency department, and the expected course of current diagnosis. Patient condition: Stable Discharge Plan Plan Patient Disposition: HOME (Self Care) Disposition Comment: Stable Prescriptions/Referrals Prescriptions/Med Rec: No Action atorvastatin 20 mg Tablet 20 mg PO QPM paroxetine HCl 40 mg Tablet 40 mg PO QDAY buspirone 15 mg Tablet 15 mg PO TID aripiprazole 5 mg Tablet 5 mg PO QDAY Spiriva Respimat 2.5 mcg/actuation mist 2 puff INHALATION DAILY Patient Comments: INHALE 2 PUFFS INTO THE LUNGS EVERY DAY FOR 30 DAYS metoclopramide HCl [Reglan] 10 mg tablet 10 mg PO Q6H PRN (Reason: abdominal pain) Qty: 14 0RF pantoprazole [Protonix] 40 mg tablet,delayed release (DR/EC) 40 mg PO QDAY Qty: 30 0RF zinc sulfate 50 mg zinc (220 mg) Capsule 220 mg PO QDAY Qty: 30 0RF methylprednisolone [Medrol (Kody)] 4 mg tablets,dose pack 4 mg PO QAM Qty: 21 0RF tramadol 50 mg tablet 50 mg PO Q6H PRN (Reason: pain) Qty: 20 0RF acetaminophen-codeine 300-30 mg tablet 2 tab PO TID MDD 6 PRN (Reason: pain) Qty: 10 0RF acetaminophen 500 mg capsule 500 mg PO Q6H PRN (Reason: pain) Qty: 30 0RF cyclobenzaprine 10 mg tablet 10 mg PO TID PRN (Reason: muscle spasm) Qty: 10 0RF ibuprofen 600 mg tablet 600 mg PO Q6H Qty: 30 0RF amoxicillin-pot clavulanate 875-125 mg tablet 1 tab PO BID Qty: 14 0RF Referrals: Celine Olsen PA-C [Primary Care Provider] - In 1 week Problem List Clinical Impression: Asthma exacerbation, Influenza Patient/Caregiver Discharge Instructions Education Materials: Asthma Additional Instructions: Please follow up with your primary care doctor in the next 24-48hrs for any worsening symptoms return here immediately Print Language: German Stand Alone Forms: Shari Award Info., Patient Portal Info Letter PA/FOREIGN SERVICE TEACHER Supervising Physician PA/FOREIGN SERVICE TEACHER Supervising Physician: Dr aj
== END 2024-12-16 15:15 | disposition home or self-care (01) ==
PROVIDERS: Emergency Provider Emergency Medicine; PCP Physician Assistant Medical
DX: J45.901 Unspecified asthma with (acute) exacerbation (principal); J11.1 Influenza due to unidentified influenza virus with other respiratory manifestations; J44.89 Other specified chronic obstructive pulmonary disease
CPT/HCPCS: 71046; 87400; 87811; 94640; 99283; J1100

== ENCOUNTER 2024-12-18 12:04 | Emergency (ER) | payer MEDICAID, SELFPAY ==
[2024-12-18 12:18] VITALS: BP 124/97; PULSE 91; RESP 20; TEMP 37; O2SAT 93; BMI 37.8
[2024-12-18 12:40] VITALS: PULSE 90; O2SAT 92
--- NOTE | 2024-12-18 12:47 | XR_ITS ---
Examination: AP chest single view Technique one AP portable upright chest single view Exam date and time: December 18, 2024 1337 hours INDICATIONS: Shortness breath today. FINDINGS: Normal heart size No pneumonia or pulmonary edema Moderate osteopenia IMPRESSION: No pneumonia or pulmonary edema
--- NOTE | 2024-12-18 12:51 | EDNOTE_ITS ---
ED SOB =RME/HPI General Chief Complaint: Shortness of Breath/Dyspnea Stated Complaint: SOB Time Seen by Provider: 12/18/24 12:38 Arrival date/time: 12/18/24 12:04 RME / HPI RME / HPI Narrative: 44-year-old female patient with significant history of COPD, current cigarette smoker, came in for evaluation regarding worsening shortness of breath with wheezing. Patient was picked up by EMS at home. According to the patient has been having cough, worsening wheezing for the last 1 week. Was seen here 2 days ago and was diagnosed with COPD asthma exacerbation. Patient is currently taking prednisone 20 mg daily for the last 2 days. Using her COPD medication according to her is not working. Denies any chest pain denies any fever denies any other complaint patient was given albuterol on the way to the emergency room. Related Data Home Medications ?Medication ?Instructions ?Recorded ?Confirmed aripiprazole 5 mg tablet 5 mg PO QDAY 09/30/23 09/30/23 atorvastatin 20 mg tablet 20 mg PO QPM 09/30/23 09/30/23 buspirone 15 mg tablet 15 mg PO TID 09/30/23 09/30/23 paroxetine HCl 40 mg tablet 40 mg PO QDAY 09/30/23 09/30/23 tiotropium bromide 2.5 2 puff inhalation DAILY 09/30/23 09/30/23 mcg/actuation mist for inhalation (Spiriva Respimat) Previous Rx's ?Medication ?Instructions ?Recorded tramadol 50 mg tablet 50 mg PO Q6H PRN pain #20 tabs 02/17/24 metoclopramide HCl 10 mg tablet 10 mg PO Q6H PRN abdominal pain 07/26/24 (Reglan) #14 tabs pantoprazole 40 mg tablet,delayed 40 mg PO QDAY #30 tabs 07/26/24 release (Protonix) acetaminophen 300 mg-codeine 30 mg 2 tab PO TID PRN pain #10 tabs 08/09/24 tablet acetaminophen 500 mg capsule 500 mg PO Q6H PRN pain #30 caps 10/01/24 cyclobenzaprine 10 mg tablet 10 mg PO TID PRN muscle spasm #10 10/01/24 tabs methylprednisolone 4 mg tablets in 4 mg PO QAM #21 tabs 11/13/24 a dose pack (Medrol (Kody)) zinc sulfate 50 mg zinc (220 mg) 220 mg (4.4 x 50 mg zinc (220 mg)) 11/13/24 capsule PO QDAY #30 caps ibuprofen 600 mg tablet 600 mg PO Q6H #30 tabs 12/06/24 amoxicillin 875 mg-potassium 1 tab PO BID #14 tabs 12/13/24 clavulanate 125 mg tablet ipratropium 0.5 mg-albuterol 3 mg 3 ml inhalation Q8H PRN shortness 12/18/24 (2.5 mg base)/3 mL nebulization of breath #90 mL soln prednisone 50 mg tablet 50 mg PO QDAY #7 tabs 12/18/24 Allergies Allergy/AdvReac Type Severity Reaction Status Date / Time cinnamon Allergy Severe Swelling Verified 12/13/24 17:43 of Lip/Tongue/Throat aspirin AdvReac Severe HAS ULCER Verified 12/13/24 17:43 Review of Systems Review of Systems Narrative Review of Systems: Review of system reviewed and within normal limits except mentioned in HPI ED Exam Narrative Physical exam: VITAL SIGNS: Reviewed. GENERAL APPEARANCE: Alert and interactive, follows commands, in mild acute distress, HEAD AND FACE: Non-traumatic. ENT: PERRL, pink conjunctivitis, eyelid no trauma, Mucous membrane moist. NECK: Supple, nontender, no nuchal rigidity. CHEST: No tenderness, no crepitus, no paradoxical movement, no retractions. LUNGS:Symmetric, no rales, +wheezing, no ronchi, no stridor, decreased breath sounds bilaterally. HEART: Regular rate, regular rhythm, no murmur, no gallops. ABDOMEN: Soft, positive bowel sounds, nondistended, no guarding, nontender, no rebound, no masses, RECTAL: Deferred. GENITAL: Deferred. NEUROLOGICAL: Gross motor function intact sensory function intact, Appropriate for age. MUSCULOSKELETAL: low back nontender, full range of motion. EXTREMITIES: Nontender, full range of motion. SKIN: Color pink, dry, no rash, no lacerations, no abrasions, no contusions. LYMPHATICS: Deferred. Course Quality Measures none Orders Category Date Time Status XR chest 1V portable Stat Exams 12/18/24 12:47 Completed ALBUTEROL RT 0.5ml [Proventil Rt 0.5ml] Med 12/18/24 12:45 Discontinued 7.5 mg INH X1 ONE ALBUTEROL RT 0.5ml [Proventil Rt 0.5ml] Med 12/18/24 14:03 Discontinued 7.5 mg INH X1 ONE Albuterol/Ipratr Rt Farrah [Duoneb Rt Farrah] Med 12/18/24 12:45 Discontinued 3 ml INH X1 ONE Albuterol/Ipratr Rt Farrah [Duoneb Rt Farrah] Med 12/18/24 14:04 Discontinued 3 ml INH X1 ONE MethylPREDNISolone.* [SoluMEDROL Inj] Med 12/18/24 12:45 Discontinued 125 mg IVP X1 ONE Sodium Chloride Rt Farrah 0.9% [NS Rt Farrah 0.9%] Med 12/18/24 12:45 Active 3 ml INH PRN PRN Sodium Chloride Rt Farrah 0.9% [NS Rt Farrah 0.9%] Med 12/18/24 14:03 Active 3 ml INH PRN PRN Vital Signs Vital signs: Vital Signs Temperature 98.6 F 12/18/24 12:18 Pulse Rate 91 12/18/24 12:18 Respiratory Rate 20 12/18/24 12:18 Blood Pressure 124/97 H 12/18/24 12:18 Pulse Oximetry (%) 93 L 12/18/24 12:18 Oxygen Delivery Method Room Air 12/18/24 12:18 Shortness of Breath / Dyspnea MDM Narrative MDM Narrative:: 44-year-old female patient with significant history of COPD, current cigarette smoker, came in for evaluation regarding worsening shortness of breath with wheezing. Patient was picked up by EMS at home. According to the patient has been having cough, worsening wheezing for the last 1 week. Was seen here 2 days ago and was diagnosed with COPD asthma exacerbation. Patient is currently taking prednisone 20 mg daily for the last 2 days. Using her COPD medication according to her is not working. Denies any chest pain denies any fever denies any other complaint patient was given albuterol on the way to the emergency room. Patient was given Solu-Medrol IV, and hour-long breathing treatment. On reevaluation. Patient was noted to be satting 92% on room air. Patient verb alized significant improvement of shortness of breath. Patient was counseled about stopping smoking and continue taking medication for COPD. Will be sent home on prednisone. Patient data External records reviewed:: None Clinical information provided by:: patient and EMS Social determinants that could affect healthcare access:: none Patient has the following chronic illnesses:: COPD, current smoker, How is presenting disease/condition affected by chronic disease/condition?: exacerbated by Evaluation data The following diagnostics were reviewed and interpreted by me:: radiology exam(s) Lab and/or radiology exams considered but not ordered:: None Interpretation Summary: Chest x-ray came back unremarkable. Medications / Prescriptions Medications or Prescriptions considered but not ordered:: None Medication administrations:: Medication Administration History Sodium Chloride (Sodium Chloride Rt Farrah 0.9% 3 Ml Nebu) 3 ml INH PRN PRN PRN Reason: SOLN Stop: 01/17/25 12:44 Last Admin: 12/18/24 12:56 Dose: 3 ml Documented By: LORY Sodium Chloride (Sodium Chloride Rt Farrah 0.9% 3 Ml Nebu) 3 ml INH PRN PRN PRN Reason: SOLN Stop: 01/17/25 14:02 Discontinued Medications Albuterol (Albuterol Rt 2.5 Mg/0.5 Ml Nebu) 7.5 mg INH X1 ONE Stop: 12/18/24 12:46 Last Admin: 12/18/24 12:56 Dose: 7.5 mg Documented By: LORY Albuterol (Albuterol Rt 2.5 Mg/0.5 Ml Nebu) 7.5 mg INH X1 ONE Stop: 12/18/24 14:04 Last Admin: 12/18/24 14:06 Dose: 7.5 mg Documented By: LORY Albuterol/Ipratropium (Albuterol/Ipratropium (Duoneb) Rt Farrah 3 Ml Nebu) 3 ml INH X1 ONE Stop: 12/18/24 12:46 Last Admin: 12/18/24 12:56 Dose: 3 ml Documented By: LORY Albuterol/Ipratropium (Albuterol/Ipratropium (Duoneb) Rt Farrah 3 Ml Nebu) 3 ml INH X1 ONE Stop: 12/18/24 14:05 Last Admin: 12/18/24 14:06 Dose: 3 ml Documented By: LORY Methylprednisolone Sodium Succinate (Methylprednisolone Sod Succ 62.5 Mg/Ml 2ml Vial) 125 mg IVP X1 ONE Stop: 12/18/24 12:46 Last Admin: 12/18/24 13:33 Dose: 125 mg Documented By: BHAVNA Methylprednisolone, albuterol breathing treatment, DuoNeb breathing treatment Consultations Consultation(s) initiated? (list below): No Diagnosis Shortness of Breath Differential Diagnosis: acute exacerbation of chronic obstructive airways disease, community acquired pneumonia and asthma with exacerbation Most likely diagnosis given after review of the tests above:: Acute discharge admission of COPD, current cigarette smoker Admission Indicated Admission indicated?: not indicated Explain why admission is indicated or not indicated:: Stable Admission Request Was there a request for admission?: No Disposition Plan Disposition Plan: Discharge Discharge Attestation Discharge Attestation: The patient was given an opportunity to ask questions and understood the discharge instructions. Discharge instructions specifically effects, indications for sooner follow up or return to the emergency department, and the expected course of current diagnosis. Patient condition: Stable Critical Care Time Critical Care Time Total Critical Care Time (min.): 30 Attestation: Critical Care Time The very real possibility of a deterioration of this patient's condition required the highest level of my preparedness for sudden, emergent intervention for the following systems: Cardiac and Metabolic. I provided critical care services, which included medication orders, frequent re-evaluations of the patient's condition and response to treatment, ordering and reviewing test results, and discussing the case with various consultants including: nursing staff, hospitalist, and more. The critical care time associated with the care of this patient was 45 minutes. Discharge Plan Plan Patient Disposition: HOME (Self Care) Disposition Comment: stable Prescriptions/Referrals Prescriptions/Med Rec: New ipratropium-albuterol 0.5 mg-3 mg(2.5 mg base)/3 mL solution for nebulization 3 ml inhalation Q8H PRN (Reason: shortness of breath) Qty: 90 0RF prednisone 50 mg tablet 50 mg PO QDAY Qty: 7 0RF No Action atorvastatin 20 mg Tablet 20 mg PO QPM paroxetine HCl 40 mg Tablet 40 mg PO QDAY buspirone 15 mg Tablet 15 mg PO TID aripiprazole 5 mg Tablet 5 mg PO QDAY Spiriva Respimat 2.5 mcg/actuation mist 2 puff INHALATION DAILY Patient Comments: INHALE 2 PUFFS INTO THE LUNGS EVERY DAY FOR 30 DAYS metoclopramide HCl [Reglan] 10 mg tablet 10 mg PO Q6H PRN (Reason: abdominal pain) Qty: 14 0RF pantoprazole [Protonix] 40 mg tablet,delayed release (DR/EC) 40 mg PO QDAY Qty: 30 0RF zinc sulfate 50 mg zinc (220 mg) Capsule 220 mg PO QDAY Qty: 30 0RF methylprednisolone [Medrol (Kody)] 4 mg tablets,dose pack 4 mg PO QAM Qty: 21 0RF tramadol 50 mg tablet 50 mg PO Q6H PRN (Reason: pain) Qty: 20 0RF acetaminophen-codeine 300-30 mg tablet 2 tab PO TID MDD 6 PRN (Reason: pain) Qty: 10 0RF acetaminophen 500 mg capsule 500 mg PO Q6H PRN (Reason: pain) Qty: 30 0RF cyclobenzaprine 10 mg tablet 10 mg PO TID PRN (Reason: muscle spasm) Qty: 10 0RF ibuprofen 600 mg tablet 600 mg PO Q6H Qty: 30 0RF amoxicillin-pot clavulanate 875-125 mg tablet 1 tab PO BID Qty: 14 0RF Referrals: Celine Olsen PA-C [Primary Care Provider] - In 1 week Problem List Clinical Impression: COPD (chronic obstructive pulmonary disease), Bilateral wheezing Patient/Caregiver Discharge Instructions Discharge Activity: activity as tolerated Education Materials: COPD: Wheezing and Chest Tightness Additional Instructions: Thank you for the opportunity for serving you today. You are stable for discharged . You are advised to: Follow-up with your PCP in 1 to 2 days Return to ED for worsening of symptoms Increase oral fluids Take medication as prescribed Continue taking your COPD medication. Please stop smoking cigarette Print Language: Georgian Stand Alone Forms: Shari Award Info., Patient Portal Info Letter
[2024-12-18 12:56] VITALS: PULSE 101; PULSE 87; RESP 26; O2SAT 96
[2024-12-18] MEDS: ALBUTEROL/IPRATROPIUM (Duoneb) RT SOL 3 ML NEBU INH ×2 (12:56→14:06)
[2024-12-18] MEDS: ALBUTEROL RT 2.5 MG/0.5 ML NEBU 7.5 MG INH ×2 (12:56→14:06)
[2024-12-18] MEDS: SODIUM CHLORIDE RT SOL 0.9% 3 ML NEBU INH (12:56)
[2024-12-18] MEDS: MethylPREDNISolone SOD SUCC 62.5 MG/ML 2ML VIAL 125 MG IVP (13:33)
[2024-12-18 14:06] VITALS: PULSE 103
[2024-12-18 14:08] VITALS: PULSE 112; RESP 20; O2SAT 92
[2024-12-18 16:49] VITALS: BP 132/84; PULSE 99; RESP 19; TEMP 36.6; O2SAT 98
== END 2024-12-18 16:51 | disposition home or self-care (01) ==
PROVIDERS: Emergency Provider Emergency Medicine; PCP Physician Assistant Medical
DX: J44.9 Chronic obstructive pulmonary disease, unspecified (principal); F17.210 Nicotine dependence, cigarettes, uncomplicated
CPT/HCPCS: 71045; 94644; 94645; 96374; 99291; A9270; J2919

== ENCOUNTER 2025-01-12 19:09 | Emergency (ER) | payer MEDICAID, SELFPAY ==
[2025-01-12 19:10] VITALS: BMI 37.9
[2025-01-12 19:19] VITALS: BP 142/87; PULSE 86; RESP 18; TEMP 36.9; O2SAT 98
--- NOTE | 2025-01-12 19:31 | XR_ITS ---
Examination: CT brain head without contrast. 2-D sagittal coronal reconstructions Date and time of exam:January 12, 2025 1940 hrs. Indications: Headaches with vomiting today CTDI: vol (mGy):47.6 DLP: (mGycm):937 Technique: Multiple CT axial sections of the brain have been obtained, 5 mm slice thickness. Contrast has not been administered. 2-D sagittal, coronal reconstructions have been obtained Low dose protocols were performed. One or more of the following dose reduction techniques were used; automated exposure control, adjustment of the mA and/or KV according to patient size, use of iterative reconstruction technique. Findings: No significant ventricular enlargement. Intra-axial or extra-axial hemorrhage density is not seen. No mass effect or midline shift Basal cisterns are not remarkable. Fourth ventricle is midline. Cranial vault intact. Impression: Negative for acute hemorrhage, mass effect or midline shift Acute right maxillary sinusitis
--- NOTE | 2025-01-12 19:33 | PD.EDRME ---
Rapid Medical Screening Exam E Arrival date/time: 01/12/25 19:09 44-year-old female presents emergency department complaining of headache with vomiting that is been ongoing for 4 days. Patient reports past medical history of migraines. Chief Complaint: Headache Time Seen by Provider: 01/12/25 19:13 Vital signs: Vital Signs Temperature 98.4 F 01/12/25 19:19 Pulse Rate 86 01/12/25 19:19 Respiratory Rate 18 01/12/25 19:19 Blood Pressure 142/87 H 01/12/25 19:19 Pulse Oximetry (%) 98 01/12/25 19:19 Oxygen Delivery Method Room Air 01/12/25 19:19 Vital signs reviewed by provider: Yes
[2025-01-12] MEDS: DiphenhydrAMINE 25 MG CAPSULE PO (20:07)
[2025-01-12] MEDS: METOCLOPRAMIDE INJ 5 MG/ML VIAL 2 ML 10 MG IM (20:07)
[2025-01-12] MEDS: ACETAMINOPHEN 500 MG TABLET 1000 MG PO (20:07)
--- NOTE | 2025-01-12 21:45 | PD.EDHA ---
ED Headache RME/HPI General Chief Complaint: Headache Stated Complaint: HEADACHE X 4 DAYS, N/V; HX Migraines Time Seen by Provider: 01/12/25 19:13 Source: patient Arrival date/time: 01/12/25 19:09 44-year-old female presents emergency department complaining of headache with vomiting that is been ongoing for 4 days. Patient reports past medical history of migraines. Patient denies any fever, chills, vision changes, dizziness, or any other associated symptom. Mode of arrival: ambulatory Limitations: no limitations RME / HPI RME / HPI Narrative: 01/12/25 19:09 44-year-old female presents emergency department complaining of headache with vomiting that is been ongoing for 4 days. Patient reports past medical history of migraines. Related Data Home Medications ?Medication ?Instructions ?Recorded ?Confirmed aripiprazole 5 mg tablet 5 mg PO QDAY 09/30/23 09/30/23 atorvastatin 20 mg tablet 20 mg PO QPM 09/30/23 09/30/23 buspirone 15 mg tablet 15 mg PO TID 09/30/23 09/30/23 paroxetine HCl 40 mg tablet 40 mg PO QDAY 09/30/23 09/30/23 tiotropium bromide 2.5 2 puff inhalation DAILY 09/30/23 09/30/23 mcg/actuation mist for inhalation (Spiriva Respimat) Previous Rx's ?Medication ?Instructions ?Recorded tramadol 50 mg tablet 50 mg PO Q6H PRN pain #20 tabs 02/17/24 metoclopramide HCl 10 mg tablet 10 mg PO Q6H PRN abdominal pain 07/26/24 (Reglan) #14 tabs pantoprazole 40 mg tablet,delayed 40 mg PO QDAY #30 tabs 07/26/24 release (Protonix) acetaminophen 300 mg-codeine 30 mg 2 tab PO TID PRN pain #10 tabs 08/09/24 tablet acetaminophen 500 mg capsule 500 mg PO Q6H PRN pain #30 caps 10/01/24 cyclobenzaprine 10 mg tablet 10 mg PO TID PRN muscle spasm #10 10/01/24 tabs methylprednisolone 4 mg tablets in 4 mg PO QAM #21 tabs 11/13/24 a dose pack (Medrol (Kody)) zinc sulfate 50 mg zinc (220 mg) 220 mg (4.4 x 50 mg zinc (220 mg)) 11/13/24 capsule PO QDAY #30 caps ibuprofen 600 mg tablet 600 mg PO Q6H #30 tabs 12/06/24 amoxicillin 875 mg-potassium 1 tab PO BID #14 tabs 12/13/24 clavulanate 125 mg tablet ipratropium 0.5 mg-albuterol 3 mg 3 ml inhalation Q8H PRN shortness 12/18/24 (2.5 mg base)/3 mL nebulization of breath #90 mL soln prednisone 50 mg tablet 50 mg PO QDAY #7 tabs 12/18/24 acetaminophen 500 mg capsule 500 mg PO Q6H PRN pain #30 caps 01/12/25 amoxicillin 875 mg-potassium 1 tab PO BID 7 days #14 tabs 01/12/25 clavulanate 125 mg tablet Allergies Allergy/AdvReac Type Severity Reaction Status Date / Time cinnamon Allergy Severe Swelling Verified 01/12/25 19:14 of Lip/Tongue/Throat aspirin AdvReac Severe HAS ULCER Verified 01/12/25 19:14 Review of Systems Review of Systems Systems Reviewed: All systems reviewed, normal except as documented Constitutional Constitutional: Reports system reviewed and no additional complaints, except as documented, Denies body ache(s), Denies chills, Denies fever(s) and Reports headache(s) Eyes Eyes: Reports system reviewed and no additional complaints, except as documented and Denies change in vision ENT Ears, Nose, Mouth, and Throat: Reports system reviewed and no additional complaints, except as documented, Denies disequilibrium, Denies dizziness, Reports headache(s), Denies sore throat and Denies vertigo Cardiovascular Cardiovascular: Reports system reviewed and no additional complaints, except as documented, Denies chest pain and Denies dyspnea Respiratory Respiratory: Reports system reviewed and no additional complaints, except as documented, Denies chest congestion, Denies cough and Denies dyspnea Gastrointestinal Gastrointestinal: Reports system reviewed and no additional complaints, except as documented, Denies abdominal pain, Reports nausea and Reports vomiting Musculoskeletal Musculoskeletal: Reports system reviewed and no additional complaints, except as documented, Denies abnormal gait and Denies arthralgias Integumentary/Breasts Skin/Breast: Reports system reviewed and no additional complaints, except as documented, Denies erythema, Denies rash and Denies wounds Neurologic Neurologic: Reports system reviewed and no additional complaints, except as documented, Denies abnormal gait, Denies disequilibrium, Denies dizziness, Reports headache(s) and Denies vertigo Past Medical History Past Medical History NEUROLOGIC: Positive Migraine; Negative Neurological Disorders or Seizures CARDIAC: Positive Hypercholesterolemia and Hypertension; Negative Cardiac Disorders, Congestive Heart Failure, Edema, Cellulitis or Varicose Veins RESPIRATORY: Positive Chronic Obstructive Pulmonary Disease (COPD); Negative Asthma, Tuberculosis or Sleep Apnea GASTROINTESTINAL: Positive Gastrointestinal Disorders, Ulcer and Gastroesophageal Reflux Disease; Negative Hepatitis GENITOURINARY: Negative Genitourinary Disorders or Renal Disease REPRODUCTIVE: Positive Previous Pregnancies and Uterine Prolapse MUSCULOSKELETAL: Positive Musculoskeletal Disorders and Arthritis ENDOCRINE: Negative Endocrine Disorders, Diabetes Mellitus Type 1 or Diabetes Mellitus Type 2 HEMATOLOGIC: Negative Blood Disorders or Sickle Cell Disease PSYCHO/SOCIAL: Positive Bipolar Disorder, Depression, Anxiety and Post Traumatic Stress Disorder OTHER HISTORY: Positive Hospitalization, Autoimmune Disease, Chicken Pox and Cancer; Negative Shingles, Falls, Blood Transfusions, Blood Transfusion Reaction, Anesthesia Reactions, Chemotherapy, Radiation Therapy, MRSA, Measles or Mumps Family History FAMILY HISTORY: Positive Family Psychiatric Problems, Family Respiratory Disorders, Family Cardiac Disorders, Family Cancer, Family Surgery and Family Anesthesia Reaction; Negative Family Gastrointestinal Problems Surgical History SURGICAL: Positive Abdominal Surgery and Tubal Ligation; Negative Pacemaker Social History SMOKING STATUS: Light (< 1 pack/day) SECOND HAND EXPOSURE: No SUBSTANCE USE: former substance user and methamphetamine (Former methamphetamine abuse, quit in 2018.) ED Exam General Limitations: Present no limitations General appearance: Present alert and in no apparent distress Head Head exam: Present atraumatic Eye Eye exam: Present normal appearance, PERRL and EOMI ENT ENT exam: Present normal exam, normal oropharynx and mucous membranes moist Neck Neck exam: Present normal inspection, full ROM and trachea midline Chest Chest inspection: Present normal inspection and symmetric chest wall rise Respiratory Respiratory exam: Present normal lung sounds bilaterally Cardiovascular Cardiovascular exam: Present regular rate, normal rhythm and normal heart sounds Abdominal Exam Abdominal exam: Present soft and normal bowel sounds Extremities Exam Extremities exam: Present normal inspection and full ROM Back Exam Back exam: Present normal inspection and full ROM Neurological Exam Neurological exam: Present alert, oriented X3 and CN II-XII intact Psychiatric Psychiatric exam: Present normal affect and normal mood Skin Skin exam: Present warm, dry, intact and normal color Course Quality Measures none Orders Category Date Time Status Bedside Influenza A&B Antigen Test NOW Care 01/12/25 19:[address] head/brain wo con Stat Exams 01/12/25 19:31 Completed Acetaminophen Tab [Tylenol ES Tab] Med 01/12/25 19:31 Discontinued 1,000 mg PO X1 ONE DiphenhydrAMINE [Benadryl] Med 01/12/25 19:31 Discontinued 25 mg PO X1 ONE HYDROcodone*/APAP 5/325 [[place] 5/325] Med 01/12/25 21:46 Discontinued 1 tab PO X1 ONE Metoclopramide Inj [Reglan Inj] Med 01/12/25 19:31 Discontinued 10 mg IM X1 ONE Vital Signs Vital signs: Vital Signs Temperature 98.4 F 01/12/25 19:19 Pulse Rate 86 01/12/25 19:19 Respiratory Rate 18 01/12/25 19:19 Blood Pressure 142/87 H 01/12/25 19:19 Pulse Oximetry (%) 98 01/12/25 19:19 Oxygen Delivery Method Room Air 01/12/25 19:19 98% room air with normal limits Headache MDM Narrative MDM Narrative:: 44-year-old female presents emergency department complaining of headache with vomiting that is been ongoing for 4 days. Patient reports past medical history of migraines. Patient denies any fever, chills, vision changes, dizziness, or any other associated symptom. Patient GCS 15 with steady gait. Patient given pain medications and nausea medication reported significant improvement in pain. CT scanning of head negative for any acute hemorrhage mass effect or midline shift but did show acute right maxillary sinusitis as read by radiologist. Will treat patient with Augmentin antibiotics and NSAIDs. Patient instructed to follow-up with primary care provider and request referral to ENT if symptoms persist. Patient stable for discharge. Patient data External records reviewed:: [facility] previous records Clinical information provided by:: patient Social determinants that could affect healthcare access:: none Patient has the following chronic illnesses:: See chart How is presenting disease/condition affected by chronic disease/condition?: uneffected by Evaluation data The following diagnostics were reviewed and interpreted by me:: radiology exam(s) Lab and/or radiology exams considered but not ordered:: Ordered Interpretation Summary: Interpreted by me Medications / Prescriptions Medications or Prescriptions considered but not ordered:: Ordered Medication administrations:: Medication Administration History Discontinued Medications Acetaminophen (Acetaminophen 500 Mg Tablet) 1,000 mg PO X1 ONE Stop: 01/12/25 19:32 Last Admin: 01/12/25 20:07 Dose: 1,000 mg Documented By: EO Hydrocodone Bitart/Acetaminophen (Hydrocodone/Apap 5/325 Tablet) 1 tab PO X1 ONE Stop: 01/12/25 21:47 Last Admin: 01/12/25 21:49 Dose: 1 tab Documented By: EO Diphenhydramine HCl (Diphenhydramine 25 Mg Capsule) 25 mg PO X1 ONE Stop: 01/12/25 19:32 Last Admin: 01/12/25 20:07 Dose: 25 mg Documented By: EO Metoclopramide HCl (Metoclopramide Inj 5 Mg/Ml Vial 2 Ml) 10 mg IM X1 ONE; Protocol Stop: 01/12/25 19:32 Last Admin: 01/12/25 20:07 Dose: 10 mg Documented By: EO Given Consultations Consultation(s) initiated? (list below): No Diagnosis Differential diagnosis headache: migraine, tension headache, subarachnoid hemorrhage, headache, meningitis, sinusitis and postconcussion syndrome Most likely diagnosis given after review of the tests above:: Acute maxillary sinusitis Admission Indicated Admission indicated?: not indicated Admission Request Was there a request for admission?: No Disposition Plan Disposition Plan: Discharge Discharge Attestation Discharge Attestation: The patient and all family members were given an opportunity to ask questions and understood the discharge instructions. Discharge instructions specifically effects, indications for sooner follow up or return to the emergency department, and the expected course of current diagnosis. Patient condition: Stable Discharge Plan Plan Patient Disposition: HOME (Self Care) Disposition Comment: Stable Prescriptions/Referrals Prescriptions/Med Rec: New acetaminophen 500 mg capsule 500 mg PO Q6H PRN (Reason: pain) Qty: 30 0RF amoxicillin-pot clavulanate 875-125 mg tablet 1 tab PO BID 7 Days Qty: 14 0RF No Action atorvastatin 20 mg Tablet 20 mg PO QPM paroxetine HCl 40 mg Tablet 40 mg PO QDAY buspirone 15 mg Tablet 15 mg PO TID aripiprazole 5 mg Tablet 5 mg PO QDAY Spiriva Respimat 2.5 mcg/actuation mist 2 puff INHALATION DAILY Patient Comments: INHALE 2 PUFFS INTO THE LUNGS EVERY DAY FOR 30 DAYS metoclopramide HCl [Reglan] 10 mg tablet 10 mg PO Q6H PRN (Reason: abdominal pain) Qty: 14 0RF pantoprazole [Protonix] 40 mg tablet,delayed release (/EC) 40 mg PO QDAY Qty: 30 0RF zinc sulfate 50 mg zinc (220 mg) Capsule 220 mg PO QDAY Qty: 30 0RF methylprednisolone [Medrol (Kody)] 4 mg tablets,dose pack 4 mg PO QAM Qty: 21 0RF ipratropium-albuterol 0.5 mg-3 mg(2.5 mg base)/3 mL solution for nebulization 3 ml inhalation Q8H PRN (Reason: shortness of breath) Qty: 90 0RF prednisone 50 mg tablet 50 mg PO QDAY Qty: 7 0RF tramadol 50 mg tablet 50 mg PO Q6H PRN (Reason: pain) Qty: 20 0RF acetaminophen-codeine 300-30 mg tablet 2 tab PO TID MDD 6 PRN (Reason: pain) Qty: 10 0RF acetaminophen 500 mg capsule 500 mg PO Q6H PRN (Reason: pain) Qty: 30 0RF cyclobenzaprine 10 mg tablet 10 mg PO TID PRN (Reason: muscle spasm) Qty: 10 0RF ibuprofen 600 mg tablet 600 mg PO Q6H Qty: 30 0RF amoxicillin-pot clavulanate 875-125 mg tablet 1 tab PO BID Qty: 14 0RF Referrals: Celine Olsen PA-C [Primary Care Provider] - In 1 week Problem List Clinical Impression: Acute maxillary sinusitis Patient/Caregiver Discharge Instructions Discharge Activity: activity as tolerated Education Materials: ED Sinusitis (Antibiotic Treatment) Additional Instructions: Drink plenty of fluids and get plenty of rest. Take antibiotics as prescribed and complete. Take Tylenol as needed for pain. Follow-up with primary care provider in 2 to 3 days and request referral to ENT if symptoms persist. Return to emergency department for any worsening symptoms or as needed. Print Language: Kyrgyz Stand Alone Forms: Shari Award Info., Patient Portal Info Letter PA/BURTON Supervising Physician FANY/BURTON Supervising Physician: Dr. Pratt
[2025-01-12] MEDS: HYDROcodone/APAP 5/325 TABLET 1 TAB PO (21:49)
== END 2025-01-12 21:53 | disposition home or self-care (01) ==
PROVIDERS: Emergency Provider Emergency Medicine; PCP Physician Assistant Medical
DX: J01.00 Acute maxillary sinusitis, unspecified (principal); F17.210 Nicotine dependence, cigarettes, uncomplicated
CPT/HCPCS: 70450; 87400; 99284; J2765; A9270

== ENCOUNTER 2025-02-12 17:30 | Emergency (ER) | payer MEDICAID, SELFPAY ==
--- NOTE | 2025-02-12 17:55 | XR_ITS ---
Examination: PA lateral chest 2 views TECHNIQUE: Upright PA and lateral chest 2 views Examination date and time: February 22, 2025, 1812 hours Comparison December 18, 2024. INDICATIONS: Coughing beginning one week ago FINDINGS: Suspicious for early left base pneumonia Right lung clear. Normal heart size Chronic right clavicle deformity again noted IMPRESSION: Suspicious for early left basilar pneumonia
[2025-02-12 17:56] VITALS: BP 127/85; PULSE 88; RESP 20; TEMP 36.8; O2SAT 93; BMI 38.2
--- NOTE | 2025-02-12 17:56 | PD.EDRME ---
Rapid Medical Screening Exam RME Arrival date/time: 02/12/25 17:30 45-year-old female presents to the emergency department complains of shortness of breath cough and wheezing Chief Complaint: Shortness of Breath/Dyspnea
[2025-02-12] MEDS: dexAMETHasone 4 MG TABLET 10 MG PO (18:34)
[2025-02-12 18:36] VITALS: PULSE 85
[2025-02-12] MEDS: ALBUTEROL RT 2.5 MG/0.5 ML NEBU 5 MG INH (18:36)
[2025-02-12] MEDS: IPRATROPIUM RT 0.5 MG/ 2.5 ML NEBU 1 MG INH (18:36)
[2025-02-12 18:37] VITALS: PULSE 84; RESP 20; O2SAT 95
--- NOTE | 2025-02-12 18:58 | PD.EDSOB ---
ED SOB =RME/HPI General Chief Complaint: Shortness of Breath/Dyspnea Stated Complaint: SOB, WHEEZING, COUGHING, FEVER; Time Seen by Provider: 02/12/25 18:29 Arrival date/time: 02/12/25 17:30 RME / HPI RME / HPI Narrative: 45-year-old female patient with significant history of chronic smoking, COPD, came in for evaluation regarding shortness of breath, cough and wheezing been ongoing for the last few days. Patient denies any chest pain or coughing. Denies any fever denies any other complaints. Patient continue to be smoking consuming 1 pack/day. Related Data Home Medications ?Medication ?Instructions ?Recorded ?Confirmed aripiprazole 5 mg tablet 5 mg PO QDAY 09/30/23 09/30/23 atorvastatin 20 mg tablet 20 mg PO QPM 09/30/23 09/30/23 buspirone 15 mg tablet 15 mg PO TID 09/30/23 09/30/23 paroxetine HCl 40 mg tablet 40 mg PO QDAY 09/30/23 09/30/23 tiotropium bromide 2.5 2 puff inhalation DAILY 09/30/23 09/30/23 mcg/actuation mist for inhalation (Spiriva Respimat) Previous Rx's ?Medication ?Instructions ?Recorded tramadol 50 mg tablet 50 mg PO Q6H PRN pain #20 tabs 02/17/24 metoclopramide HCl 10 mg tablet 10 mg PO Q6H PRN abdominal pain 07/26/24 (Reglan) #14 tabs pantoprazole 40 mg tablet,delayed 40 mg PO QDAY #30 tabs 07/26/24 release (Protonix) acetaminophen 300 mg-codeine 30 mg 2 tab PO TID PRN pain #10 tabs 08/09/24 tablet acetaminophen 500 mg capsule 500 mg PO Q6H PRN pain #30 caps 10/01/24 cyclobenzaprine 10 mg tablet 10 mg PO TID PRN muscle spasm #10 10/01/24 tabs methylprednisolone 4 mg tablets in 4 mg PO QAM #21 tabs 11/13/24 a dose pack (Medrol (Kody)) zinc sulfate 50 mg zinc (220 mg) 220 mg (4.4 x 50 mg zinc (220 mg)) 11/13/24 capsule PO QDAY #30 caps ibuprofen 600 mg tablet 600 mg PO Q6H #30 tabs 12/06/24 amoxicillin 875 mg-potassium 1 tab PO BID #14 tabs 12/13/24 clavulanate 125 mg tablet ipratropium 0.5 mg-albuterol 3 mg 3 ml inhalation Q8H PRN shortness 12/18/24 (2.5 mg base)/3 mL nebulization of breath #90 mL soln prednisone 50 mg tablet 50 mg PO QDAY #7 tabs 12/18/24 acetaminophen 500 mg capsule 500 mg PO Q6H PRN pain #30 caps 01/12/25 albuterol sulfate 90 mcg/actuation 2 inh inhalation QID PRN shortness 02/12/25 aerosol inhaler of breath or wheezing #8.5 grams levofloxacin 750 mg tablet 750 mg PO Q24H 7 days #7 tabs 02/12/25 prednisone 50 mg tablet 50 mg PO QDAY #7 tabs 02/12/25 Allergies Allergy/AdvReac Type Severity Reaction Status Date / Time cinnamon Allergy Severe Swelling Verified 02/12/25 17:33 of Lip/Tongue/Throat aspirin AdvReac Severe HAS ULCER Verified 02/12/25 17:33 Review of Systems Review of Systems Narrative Review of Systems: Review of system reviewed and within normal limits except mentioned in HPI ED Exam Narrative Physical exam: VITAL SIGNS: Reviewed. GENERAL APPEARANCE: Alert and interactive, follows commands, no acute distress, HEAD AND FACE: Non-traumatic. ENT: PERRL, pink conjunctivitis, eyelid no trauma, Mucous membrane moist. NECK: Supple, nontender, no nuchal rigidity. CHEST: No tenderness, no crepitus, no paradoxical movement, no retractions. LUNGS: Clear, well ventilated, symmetric, no rales, no wheezing, no ronchi, no stridor, good breath sounds bilaterally. HEART: Regular rate, regular rhythm, no murmur, no gallops. ABDOMEN: Soft, positive bowel sounds, nondistended, no guarding, nontender, no rebound, no masses, RECTAL: Deferred. GENITAL: Deferred. NEUROLOGICAL: Gross motor function intact sensory function intact, Appropriate for age. MUSCULOSKELETAL: low back nontender, full range of motion. EXTREMITIES: Nontender, full range of motion. SKIN: Color pink, dry, no rash, no lacerations, no abrasions, no contusions. LYMPHATICS: Deferred. Course Quality Measures none Orders Category Date Time Status Bedside Influenza A&B Antigen Test NOW Care 02/12/25 17:55 Active XR chest 2V Stat Exams 02/12/25 17:55 Completed ALBUTEROL RT 0.5ml [Proventil Rt 0.5ml] Med 02/12/25 17:55 Discontinued 5 mg INH X1 ONE Doxycycline [Vibramycin] Med 02/12/25 18:58 Discontinued 100 mg PO X1 ONE Ipratropium [place] Rt Farrah [Atrovent Rt Farrah] Med 02/12/25 17:55 Discontinued 1 mg INH X1 ONE Sodium Chloride Rt Farrah 0.9% [NS Rt Farrah 0.9%] Med 02/12/25 17:55 Active 3 ml INH PRN PRN dexAMETHasone TAB [Decadron Tab] Med 02/12/25 17:55 Discontinued 10 mg PO X1 ONE Vital Signs Vital signs: Vital Signs Temperature 98.2 F 02/12/25 17:56 Pulse Rate 88 02/12/25 17:56 Respiratory Rate 20 02/12/25 17:56 Blood Pressure 127/85 H 02/12/25 17:56 Pulse Oximetry (%) 93 L 02/12/25 17:56 Oxygen Delivery Method Room Air 02/12/25 17:56 Shortness of Breath / Dyspnea MDM Narrative MDM Narrative:: 45-year-old female patient with significant history of chronic smoking, COPD, came in for evaluation regarding shortness of breath, cough and wheezing been ongoing for the last few days. Patient denies any chest pain or coughing. Denies any fever denies any other complaints. Patient continue to be smoking consuming 1 pack/day. Chest x-ray showed early left base pneumonia Patient was given Decadron, DuoNeb breathing treatment and doxycycline with significant improvement of symptoms. No more wheezing prior to discharge. Patient was noted to be satting 95% on room air prior to discharge Patient appears nontoxic and hemodynamically stable. Patient discharged home and instructed to follow-up with primary care provider in 24 to 48 hours. Instructed to return to the emergency department immediately if worsening of symptoms Patient data External records reviewed:: None Clinical information provided by:: patient Social determinants that could affect healthcare access:: none Patient has the following chronic illnesses:: COPD How is presenting disease/condition affected by chronic disease/condition?: exacerbated by Evaluation data The following diagnostics were reviewed and interpreted by me:: lab results and radiology exam(s) Lab and/or radiology exams considered but not ordered:: None Interpretation Summary: See results in [facility] Medications / Prescriptions Medications or Prescriptions considered but not ordered:: None Medication administrations:: Medication Administration History Sodium Chloride (Sodium Chloride Rt Farrah 0.9% 3 Ml Nebu) 3 ml INH PRN PRN PRN Reason: SOLN Stop: 03/14/25 17:54 Discontinued Medications Albuterol (Albuterol Rt 2.5 Mg/0.5 Ml Nebu) 5 mg INH X1 ONE Stop: 02/12/25 17:56 Last Admin: 02/12/25 18:36 Dose: 5 mg Documented By: FABIAN Dexamethasone (Dexamethasone 4 Mg Tablet) 10 mg PO X1 ONE Stop: 02/12/25 17:56 Last Admin: 02/12/25 18:34 Dose: 10 mg Documented By: LETICIA Doxycycline Hyclate (Doxycycline 100 Mg Tablet) 100 mg PO X1 ONE Stop: 02/12/25 18:59 Last Admin: 02/12/25 19:42 Dose: 100 mg Documented By: Ipratropium [place] (Ipratropium Rt 0.5 Mg/ 2.5 Ml Nebu) 1 mg INH X1 ONE Stop: 02/12/25 17:56 Last Admin: 02/12/25 18:36 Dose: 1 mg Documented By: Shaniqua Witt doxycycline Consultations Consultation(s) initiated? (list below): No Diagnosis Shortness of Breath Differential Diagnosis: acute exacerbation of chronic obstructive airways disease, congestive heart failure and community acquired pneumonia Most likely diagnosis given after review of the tests above:: Pneumonia, COPD exacerbation Admission Indicated Admission indicated?: not indicated Admission Request Was there a request for admission?: No Disposition Plan Disposition Plan: Discharge Discharge Attestation Discharge Attestation: The patient was given an opportunity to ask questions and understood the discharge instructions. Discharge instructions specifically effects, indications for sooner follow up or return to the emergency department, and the expected course of current diagnosis. Patient condition: Stable Discharge Plan Plan Patient Disposition: HOME (Self Care) Disposition Comment: stable Prescriptions/Referrals Prescriptions/Med Rec: New levofloxacin 750 mg tablet 750 mg PO Q24H 7 Days Qty: 7 0RF prednisone 50 mg tablet 50 mg PO QDAY Qty: 7 0RF albuterol sulfate 90 mcg/actuation HFA aerosol inhaler 2 inh inhalation QID PRN (Reason: shortness of breath or wheezing) Qty: 8.5 0RF No Action atorvastatin 20 mg Tablet 20 mg PO QPM paroxetine HCl 40 mg Tablet 40 mg PO QDAY buspirone 15 mg Tablet 15 mg PO TID aripiprazole 5 mg Tablet 5 mg PO QDAY Spiriva Respimat 2.5 mcg/actuation mist 2 puff INHALATION DAILY Patient Comments: INHALE 2 PUFFS INTO THE LUNGS EVERY DAY FOR 30 DAYS metoclopramide HCl [Reglan] 10 mg tablet 10 mg PO Q6H PRN (Reason: abdominal pain) Qty: 14 0RF pantoprazole [Protonix] 40 mg tablet,delayed release (DR/EC) 40 mg PO QDAY Qty: 30 0RF zinc sulfate 50 mg zinc (220 mg) Capsule 220 mg PO QDAY Qty: 30 0RF methylprednisolone [Medrol (Kody)] 4 mg tablets,dose pack 4 mg PO QAM Qty: 21 0RF ipratropium-albuterol 0.5 mg-3 mg(2.5 mg base)/3 mL solution for nebulization 3 ml inhalation Q8H PRN (Reason: shortness of breath) Qty: 90 0RF prednisone 50 mg tablet 50 mg PO QDAY Qty: 7 0RF acetaminophen 500 mg capsule 500 mg PO Q6H PRN (Reason: pain) Qty: 30 0RF tramadol 50 mg tablet 50 mg PO Q6H PRN (Reason: pain) Qty: 20 0RF acetaminophen-codeine 300-30 mg tablet 2 tab PO TID MDD 6 PRN (Reason: pain) Qty: 10 0RF acetaminophen 500 mg capsule 500 mg PO Q6H PRN (Reason: pain) Qty: 30 0RF cyclobenzaprine 10 mg tablet 10 mg PO TID PRN (Reason: muscle spasm) Qty: 10 0RF ibuprofen 600 mg tablet 600 mg PO Q6H Qty: 30 0RF amoxicillin-pot clavulanate 875-125 mg tablet 1 tab PO BID Qty: 14 0RF Referrals: No Primary/Family,Physician [Primary Care Provider] - In 1 week Problem List Clinical Impression: COPD (chronic obstructive pulmonary disease), Pneumonia Patient/Caregiver Discharge Instructions Discharge Activity: activity as tolerated Education Materials: What Is Pneumonia? Additional Instructions: Thank you for the opportunity for serving you today. You are stable for discharged . You are advised to: Follow-up with your PCP in 1 to 2 days Return to ED for worsening of symptoms Increase oral fluids Take medication as prescribed Please stop smoking cigarettes Print Language: Nepali Stand Alone Forms: Shari Award Info., Patient Portal Info Letter PA/BIOINFORMATICS TECHNICIAN Supervising Physician PA/BURTON Supervising Physician: MD Tahmina
[2025-02-12] MEDS: DOXYCYCLINE 100 MG TABLET PO (19:42)
== END 2025-02-12 20:43 | disposition home or self-care (01) ==
PROVIDERS: Emergency Provider Emergency Medicine
DX: J44.0 Chronic obstructive pulmonary disease with (acute) lower respiratory infection (principal); J18.9 Pneumonia, unspecified organism; F17.210 Nicotine dependence, cigarettes, uncomplicated; Z79.52 Long term (current) use of systemic steroids
CPT/HCPCS: 71046; 94640; 99283; J8540; A9270

== ENCOUNTER 2025-03-26 09:06 | Emergency (ER) | payer MEDICAID, SELFPAY ==
[2025-03-26 09:06] VITALS: BMI 36.3
[2025-03-26 09:13] VITALS: BP 128/86; PULSE 104; RESP 22; TEMP 36.8; O2SAT 94
--- NOTE | 2025-03-26 09:17 | XR_ITS ---
Examination: CT abdomen with intravenous contrast CT pelvis with intravenous contrast 2-D coronal reconstructions 2-D sagittal reconstructions Date and time of exam:March 26, 2025 1221 hours INDICATIONS: Status post hysterectomy March 17, 2025 with pelvic pain. CTDI: vol (mGy) 33 DLP: (mGycm) 1116 Technique: Multiple axial sections of the abdomen and pelvis have been obtained. 64 slice high-resolution scanner used. 3 mm axial sections have been obtained, post intravenous injection 60 cc [id number] 2-D sagittal, coronal reconstructions obtained. Low dose protocols were performed. One or more of the following dose reduction techniques were used; automated exposure control, adjustment of the mA and/or KV according to patient size, use of iterative reconstruction technique. Findings: No focal liver or splenic lesion Contracted gallbladder No pancreatic or adrenal mass No renal or ureteral calculi, no hydronephrosis 35 mm fat-containing umbilical hernia No bowel obstruction Minimal free fluid in the pelvis Absent uterus No pelvic hematoma Bladder intact IMPRESSION: Minimal free fluid in the pelvis Absent uterus No pelvic hematoma
--- NOTE | 2025-03-26 09:18 | EDRME_ITS ---
Rapid Medical Screening Exam RME Arrival date/time: 03/26/25 09:06 45-year-old female with a history of a hysterectomy and a bladder sling that was done on 03/17/[address] Keller in [place] for vaginal prolapse, presents to the emergency room with a chief complaint of vaginal discharge, 9 out of 10 pelvic pain, and dysuria x 3 days. I have greeted and performed a focused initial assessment of this patient. A comprehensive ED assessment and evaluation of the patient, analysis of all test results, and completion of the medical decision making process will be conducted by additional ED providers. Chief Complaint: Urogenital-Female Time Seen by Provider: 03/26/25 09:10 Vital signs: Vital Signs Temperature 98.3 F 03/26/25 09:13 Pulse Rate 104 H 03/26/25 09:13 Respiratory Rate 22 H 03/26/25 09:13 Blood Pressure 128/86 H 03/26/25 09:13 Pulse Oximetry (%) 94 L 03/26/25 09:13 Oxygen Delivery Method Room Air 03/26/25 09:13 Vital signs reviewed by provider: Yes
[2025-03-26 09:47] LABS: Collection Type, Urine Clean Catch
[2025-03-26 09:57] LABS: Bacteria,Urine 1+; Bilirubin,Urine Negative (Negative); Blood,Urine 2+ (Negative); Color,Urine Yellow (Lt Yel-Yel); Glucose, Urine Negative (Negative); Ketones,Urine Trace (Negative); Leukocyte Esterase,Urine Positive (Negative); Nitrite,Urine Negative (Negative); PH,Urine 5.5 (5.0-7.0); Protein,Urine 1+ (Neg - Trace); RBC,Urine 41 /hpf (0-3); Squamous Epithelial Cell,Urine 36 /hpf (0-5); WBC,Urine 66 /hpf (0-5)
[2025-03-26 09:57] LABS: Lactate (Lactic Acid) 2.9 mMol/L (0.4-2.0)
[2025-03-26 10:01] LABS: Basophils # (Auto) 0.1 Thou/mm3 (0.0-0.2); Basophils % (Auto) 1 % (0-2.5); Eosinophils # (Auto) 0.2 Thou/mm3 (0.0-0.5); Eosinophils % (Auto) 2 % (0-10); Hematocrit 38.6 % (36.0-46.0); Immature Granulocytes % (Auto) 1 % (0-0); Immature Granulocytes Auto 0.09 Thou/mm3 (0.00-0.00); Lymphocytes # (Auto) 2.7 Thou/mm3 (1.0-4.8); Lymphocytes % (Auto) 28 % (10-50); Mean Corpuscular HGB Conc 33.7 g/dl (31.0-37.0); Mean Corpuscular Hemoglobin 29.6 pg (25.0-35.0); Mean Corpuscular Volume 88 fL (80-100); Monocytes # (Auto) 0.5 Thou/mm3 (0.0-0.8); Monocytes % (Auto) 5 % (0-12); Neutrophils # (Auto) 6.3 Thou/mm3 (1.8-7.7); Neutrophils % (Auto) 64 % (37-80); Nucleated Red Blood Cell % 0 /100 WBC (0); Platelet Count 251 Thou/mm3 (140-440); RDW Standard Deviation 47.5 fL (36.4-46.3); Red Blood Count 4.39 Miln/mm3 (4.00-5.20); White Blood Count 9.8 Thou/mm3 (3.6-11.0)
[2025-03-26 10:12] LABS: Clarity,Urine Hazy (Clear/Hazy)
[2025-03-26 10:26] VITALS: BP 119/80; PULSE 96; RESP 16; TEMP 36.6; O2SAT 95
[2025-03-26 10:27] LABS: Alanine Aminotransferase 12 U/L (10-49); Albumin, Serum 4.2 gm/dL (3.5-5.0); Albumin/Globulin Ratio 1.8 (1.2-2.2); Alkaline Phosphatase 81 U/L (46-116); Anion Gap 11 (7-16); Aspartate Amino Transferase 13 U/L (0-34); BUN/Creatinine Ratio 12 Ratio (12-20); Bilirubin,Total 0.2 mg/dL (0.3-1.2); Blood Urea Nitrogen 11 mg/dL (9-23); Carbon Dioxide 24.4 mMol/L (20.0-31.0); Chloride 106 mMol/L (98-107); Creatinine (Component) 0.9 mg/dL (0.6-1.3); Estimated Creatinine Clearance 94.2 mL/min (>60); Globulin 2.3 gm/dL (2.3-3.5); Glucose 179 mg/dL (74-106); Lipase 32 U/L (12-53); Osmolality,Calculated 284 (275-295); Potassium 3.6 mMol/L (3.4-5.1); Procalcitonin 0.05 ng/ml (0.0-0.49); Sodium 141 mMol/L (136-145); Total Protein 6.5 gm/dL (5.7-8.2); eGFR > 60 See Note
--- NOTE | 2025-03-26 10:48 | PD.EDFMALE ---
ED Female Urogenital RME/HPI General Chief complaint: Urogenital-Female Stated complaint: PELVIC PAIN Time Seen by Provider: 03/26/25 09:10 Arrival date/time: 03/26/25 09:06 RME / HPI RME / HPI Narrative: 03/26/25 09:06 45-year-old female with a history of a hysterectomy and a bladder sling that was done on 03/17/[address] Keller in [place] for vaginal prolapse, presents to the emergency room with a chief complaint of vaginal discharge, 9 out of 10 pelvic pain, and dysuria x 3 days. I have greeted and performed a focused initial assessment of this patient. A comprehensive ED assessment and evaluation of the patient, analysis of all test results, and completion of the medical decision making process will be conducted by additional ED providers. DR. ROSARIO MAIN ED EVALUATION: 45 year old female who is s/p hysterectomy and bladder sling performed 03/17/[address] Keller in [place], [place] presents to the ED for evaluation of I think my stitches are infected . States she has had vaginal pain since the surgery. However, worsening in the last 3 days, rated 9/10 in severity. Accompanied by vaginal discharge and dysuria. States she has taken Gabapentin, Ibuprofen, and [place] at home with little relief. No other associated symptoms or complaints reported. Denies fevers, chills, abdominal pain, vaginal bleeding. Related Data Home Medications ?Medication ?Instructions ?Recorded ?Confirmed aripiprazole 5 mg tablet 5 mg PO QDAY 09/30/23 09/30/23 atorvastatin 20 mg tablet 20 mg PO QPM 09/30/23 09/30/23 buspirone 15 mg tablet 15 mg PO TID 09/30/23 09/30/23 paroxetine HCl 40 mg tablet 40 mg PO QDAY 09/30/23 09/30/23 tiotropium bromide 2.5 2 puff inhalation DAILY 09/30/23 09/30/23 mcg/actuation mist for inhalation (Spiriva Respimat) Previous Rx's ?Medication ?Instructions ?Recorded tramadol 50 mg tablet 50 mg PO Q6H PRN pain #20 tabs 02/17/24 metoclopramide HCl 10 mg tablet 10 mg PO Q6H PRN abdominal pain 07/26/24 (Reglan) #14 tabs pantoprazole 40 mg tablet,delayed 40 mg PO QDAY #30 tabs 07/26/24 release (Protonix) acetaminophen 300 mg-codeine 30 mg 2 tab PO TID PRN pain #10 tabs 08/09/24 tablet acetaminophen 500 mg capsule 500 mg PO Q6H PRN pain #30 caps 10/01/24 cyclobenzaprine 10 mg tablet 10 mg PO TID PRN muscle spasm #10 10/01/24 tabs methylprednisolone 4 mg tablets in 4 mg PO QAM #21 tabs 11/13/24 a dose pack (Medrol (Kody)) zinc sulfate 50 mg zinc (220 mg) 220 mg (4.4 x 50 mg zinc (220 mg)) 11/13/24 capsule PO QDAY #30 caps ibuprofen 600 mg tablet 600 mg PO Q6H #30 tabs 12/06/24 amoxicillin 875 mg-potassium 1 tab PO BID #14 tabs 12/13/24 clavulanate 125 mg tablet ipratropium 0.5 mg-albuterol 3 mg 3 ml inhalation Q8H PRN shortness 12/18/24 (2.5 mg base)/3 mL nebulization of breath #90 mL soln prednisone 50 mg tablet 50 mg PO QDAY #7 tabs 12/18/24 acetaminophen 500 mg capsule 500 mg PO Q6H PRN pain #30 caps 01/12/25 albuterol sulfate 90 mcg/actuation 2 inh inhalation QID PRN shortness 02/12/25 aerosol inhaler of breath or wheezing #8.5 grams prednisone 50 mg tablet 50 mg PO QDAY #7 tabs 02/12/25 clindamycin HCl 300 mg capsule 300 mg PO Q6H #20 caps 03/26/25 Allergies Allergy/AdvReac Type Severity Reaction Status Date / Time cinnamon Allergy Severe Swelling Verified 03/26/25 09:09 of Lip/Tongue/Throat aspirin AdvReac Severe HAS ULCER Verified 03/26/25 09:09 Review of Systems Review of Systems Systems Reviewed: All systems reviewed, normal except as documented Past Medical History Past Medical History NEUROLOGIC: Positive Migraine CARDIAC: Positive Hypercholesterolemia and Hypertension RESPIRATORY: Positive Chronic Obstructive Pulmonary Disease (COPD) GASTROINTESTINAL: Positive Gastrointestinal Disorders, Ulcer and Gastroesophageal Reflux Disease REPRODUCTIVE: Positive Previous Pregnancies and Uterine Prolapse MUSCULOSKELETAL: Positive Musculoskeletal Disorders and Arthritis PSYCHO/SOCIAL: Positive Bipolar Disorder, Depression, Anxiety and Post Traumatic Stress Disorder OTHER HISTORY: Positive Hospitalization, Autoimmune Disease, Chicken Pox and Cancer Family History FAMILY HISTORY: Positive Family Psychiatric Problems, Family Respiratory Disorders, Family Cardiac Disorders, Family Cancer, Family Surgery and Family Anesthesia Reaction Surgical History SURGICAL: Positive Abdominal Surgery and Tubal Ligation Social History SMOKING STATUS: Current some day smoker SECOND HAND EXPOSURE: No SUBSTANCE USE: former substance user and methamphetamine (Former methamphetamine abuse, quit in 2018.) Course Quality Measures none Orders Category Date Time Status CT Screening NOW Care 03/26/25 09:18 Completed Discharge Routine Discharge 03/26/25 13:[address] abdomen pelvis w con Stat Exams 03/26/25 09:17 Completed Blood Culture (Lab) Stat Lab 03/26/25 09:50 Received CBC Stat Lab 03/26/25 09:50 Completed CMP [Comprehensive Metabolic Panel] Stat Lab 03/26/25 09:50 Completed Lactate (Lactic Acid) Stat Lab 03/26/25 09:50 Completed Lactic Acid, 3 HR Stat Lab 03/26/25 13:20 Completed Lipase Stat Lab 03/26/25 09:50 Completed Procalcitonin Stat Lab 03/26/25 09:50 Completed UA [Urinalysis] Stat Lab 03/26/25 09:41 Completed Urine Culture Stat Lab 03/26/25 09:41 Received HYDROcodone/APAP 10/325 [[place] 10/325] Med 03/26/25 11:36 Discontinued 1 tab PO X1 ONE Vital Signs Vital signs: Vital Signs Temperature 98.3 F 03/26/25 09:13 Pulse Rate 104 H 03/26/25 09:13 Respiratory Rate 22 H 03/26/25 09:13 Blood Pressure 128/86 H 03/26/25 09:13 Pulse Oximetry (%) 94 L 03/26/25 09:13 Oxygen Delivery Method Room Air 03/26/25 09:13 Pulse ox is 94% on room air which is adequate. Urogenital - Female MDM Narrative MDM Narrative:: Ayana Perez am scribing for and in the presence of Dr. Rosario. Patient data External records reviewed:: [facility] previous records (I reviewed ED visit on 02/12/2025 for COPD ) Clinical information provided by:: patient Social determinants that could affect healthcare access:: none Patient has the following chronic illnesses:: s/p hysterectomy and bladder sling performed 03/17/[address] Keller in [place], [place] How is presenting disease/condition affected by chronic disease/condition?: exacerbated by Evaluation data The following diagnostics were reviewed and interpreted by me:: lab results and radiology exam(s) Lab and/or radiology exams considered but not ordered:: None Interpretation Summary: CT was unremarkable. White count is normal. Defibrillator and vaginal examination was diagnostic for hernia. Medications / Prescriptions Medications or Prescriptions considered but not ordered:: None Medication administrations:: Medication Administration History Discontinued Medications Hydrocodone Bitart/Acetaminophen (Hydrocodone/Apap 10/325 Tab) 1 tab PO X1 ONE Stop: 03/26/25 11:37 Last Admin: 03/26/25 12:44 Dose: 1 tab Documented By: TM See above Consultations Consultation(s) initiated? (list below): No Diagnosis Urogenital Female Differential Diagnosis: bacterial vaginosis, cervicitis, vaginitis and cystitis Most likely diagnosis given after review of the tests above:: Bacterial vaginosis Admission Indicated Admission indicated?: not indicated Admission Request Was there a request for admission?: No Disposition Plan Disposition Plan: Discharge Discharge Attestation Discharge Attestation: The patient and all family members were given an opportunity to ask questions and understood the discharge instructions. Discharge instructions specifically effects, indications for sooner follow up or return to the emergency department, and the expected course of current diagnosis. Patient condition: Stable Discharge Plan Plan Patient Disposition: HOME (Self Care) Patient condition on transfer: Stable Prescriptions/Referrals Prescriptions/Med Rec: New clindamycin HCl 300 mg capsule 300 mg PO Q6H Qty: 20 0RF No Action atorvastatin 20 mg Tablet 20 mg PO QPM paroxetine HCl 40 mg Tablet 40 mg PO QDAY buspirone 15 mg Tablet 15 mg PO TID aripiprazole 5 mg Tablet 5 mg PO QDAY Spiriva Respimat 2.5 mcg/actuation mist 2 puff INHALATION DAILY Patient Comments: INHALE 2 PUFFS INTO THE LUNGS EVERY DAY FOR 30 DAYS metoclopramide HCl [Reglan] 10 mg tablet 10 mg PO Q6H PRN (Reason: abdominal pain) Qty: 14 0RF pantoprazole [Protonix] 40 mg tablet,delayed release (DR/EC) 40 mg PO QDAY Qty: 30 0RF zinc sulfate 50 mg zinc (220 mg) Capsule 220 mg PO QDAY Qty: 30 0RF methylprednisolone [Medrol (Kody)] 4 mg tablets,dose pack 4 mg PO QAM Qty: 21 0RF ipratropium-albuterol 0.5 mg-3 mg(2.5 mg base)/3 mL solution for nebulization 3 ml inhalation Q8H PRN (Reason: shortness of breath) Qty: 90 0RF prednisone 50 mg tablet 50 mg PO QDAY Qty: 7 0RF acetaminophen 500 mg capsule 500 mg PO Q6H PRN (Reason: pain) Qty: 30 0RF prednisone 50 mg tablet 50 mg PO QDAY Qty: 7 0RF albuterol sulfate 90 mcg/actuation HFA aerosol inhaler 2 inh inhalation QID PRN (Reason: shortness of breath or wheezing) Qty: 8.5 0RF tramadol 50 mg tablet 50 mg PO Q6H PRN (Reason: pain) Qty: 20 0RF acetaminophen-codeine 300-30 mg tablet 2 tab PO TID MDD 6 PRN (Reason: pain) Qty: 10 0RF acetaminophen 500 mg capsule 500 mg PO Q6H PRN (Reason: pain) Qty: 30 0RF cyclobenzaprine 10 mg tablet 10 mg PO TID PRN (Reason: muscle spasm) Qty: 10 0RF ibuprofen 600 mg tablet 600 mg PO Q6H Qty: 30 0RF amoxicillin-pot clavulanate 875-125 mg tablet 1 tab PO BID Qty: 14 0RF Referrals: Celine Olsen PA-C [Primary Care Provider] - In 1 week Problem List Clinical Impression: Bacterial vaginitis Patient/Caregiver Discharge Instructions Discharge Activity: activity as tolerated Education Materials: Bacterial Vaginosis Additional Instructions: Follow up with your surgeon Dr. Keller for reassessment. Return if your develop any new or worsening symptoms. Print Language: French Stand Alone Forms: Shari Award Info., Patient Portal Info Letter
[2025-03-26 12:00] VITALS: BP 120/89; PULSE 78; RESP 16; TEMP 36.6; O2SAT 98
[2025-03-26] MEDS: HYDROcodone/APAP 10/325 TAB PO (12:44)
[2025-03-26 12:52] LABS: Reflex Lactate? Y
== END 2025-03-26 14:27 | disposition home or self-care (01) ==
PROVIDERS: Nurse Practitioner Family; Emergency Provider Emergency Medicine; PCP Physician Assistant Medical
DX: N76.0 Acute vaginitis (principal); B96.89 Other specified bacterial agents as the cause of diseases classified elsewhere
CPT/HCPCS: 36415; 74177; 80053; 81001; 83605; 83690; 84145; 85025; 87040; 87077; 87086; 87186; 87210; 99285; A4649; Q9967; A9270

== ENCOUNTER 2025-04-03 19:06 | Emergency (ER) | payer MEDICAID, SELFPAY ==
[2025-04-03 19:07] VITALS: BMI 37.1
[2025-04-03 19:35] VITALS: BP 111/71; PULSE 114; RESP 18; TEMP 36.7; O2SAT 95
--- NOTE | 2025-04-03 19:39 | PD.EDWOUND ---
ED Wound/Laceration-RME/HPI General Chief Complaint: Wound/Laceration Stated Complaint: ABD SX WOUND OPEN Time Seen by Provider: 04/03/25 19:20 Arrival date/time: 04/03/25 19:06 45-year-old female presents emergency department today states she had a hysterectomy patient has abdominal wound which she reports opened and is draining. Patient reports no fever nausea vomiting Limitations: no limitations Related Data Home Medications ?Medication ?Instructions ?Recorded ?Confirmed aripiprazole 5 mg tablet 5 mg PO QDAY 09/30/23 09/30/23 atorvastatin 20 mg tablet 20 mg PO QPM 09/30/23 09/30/23 buspirone 15 mg tablet 15 mg PO TID 09/30/23 09/30/23 paroxetine HCl 40 mg tablet 40 mg PO QDAY 09/30/23 09/30/23 tiotropium bromide 2.5 2 puff inhalation DAILY 09/30/23 09/30/23 mcg/actuation mist for inhalation (Spiriva Respimat) Previous Rx's ?Medication ?Instructions ?Recorded tramadol 50 mg tablet 50 mg PO Q6H PRN pain #20 tabs 02/17/24 metoclopramide HCl 10 mg tablet 10 mg PO Q6H PRN abdominal pain 07/26/24 (Reglan) #14 tabs pantoprazole 40 mg tablet,delayed 40 mg PO QDAY #30 tabs 07/26/24 release (Protonix) acetaminophen 300 mg-codeine 30 mg 2 tab PO TID PRN pain #10 tabs 08/09/24 tablet acetaminophen 500 mg capsule 500 mg PO Q6H PRN pain #30 caps 10/01/24 cyclobenzaprine 10 mg tablet 10 mg PO TID PRN muscle spasm #10 10/01/24 tabs methylprednisolone 4 mg tablets in 4 mg PO QAM #21 tabs 11/13/24 a dose pack (Medrol (Kody)) zinc sulfate 50 mg zinc (220 mg) 220 mg (4.4 x 50 mg zinc (220 mg)) 11/13/24 capsule PO QDAY #30 caps ibuprofen 600 mg tablet 600 mg PO Q6H #30 tabs 12/06/24 amoxicillin 875 mg-potassium 1 tab PO BID #14 tabs 12/13/24 clavulanate 125 mg tablet ipratropium 0.5 mg-albuterol 3 mg 3 ml inhalation Q8H PRN shortness 12/18/24 (2.5 mg base)/3 mL nebulization of breath #90 mL soln prednisone 50 mg tablet 50 mg PO QDAY #7 tabs 12/18/24 acetaminophen 500 mg capsule 500 mg PO Q6H PRN pain #30 caps 01/12/25 albuterol sulfate 90 mcg/actuation 2 inh inhalation QID PRN shortness 02/12/25 aerosol inhaler of breath or wheezing #8.5 grams prednisone 50 mg tablet 50 mg PO QDAY #7 tabs 02/12/25 clindamycin HCl 300 mg capsule 300 mg PO Q6H #20 caps 03/26/25 clindamycin HCl 300 mg capsule 300 mg PO TID 7 days #21 caps 04/03/25 Allergies Allergy/AdvReac Type Severity Reaction Status Date / Time cinnamon Allergy Severe Swelling Verified 03/26/25 09:09 of Lip/Tongue/Throat aspirin AdvReac Severe HAS ULCER Verified 03/26/25 09:09 Review of Systems Review of Systems Systems Reviewed: All systems reviewed, normal except as documented Constitutional Constitutional: Reports system reviewed and no additional complaints, except as documented, Denies fever(s) and Denies headache(s) Eyes Eyes: Reports system reviewed and no additional complaints, except as documented and Denies blurry vision ENT Ears, Nose, Mouth, and Throat: Reports system reviewed and no additional complaints, except as documented, Denies headache(s), Denies nasal congestion and Denies nasal discharge Cardiovascular Cardiovascular: Reports system reviewed and no additional complaints, except as documented, Denies chest pain and Denies dyspnea Respiratory Respiratory: Reports system reviewed and no additional complaints, except as documented, Denies chest congestion, Denies cough and Denies dyspnea Gastrointestinal Gastrointestinal: Reports system reviewed and no additional complaints, except as documented and Denies abdominal pain Integumentary/Breasts Skin/Breast: Reports system reviewed and no additional complaints, except as documented, Denies rash and Reports wounds (Postop wound abdomen) Neurologic Neurologic: Reports system reviewed and no additional complaints, except as documented, Reports as per HPI and Denies headache(s) Past Medical History Past Medical History NEUROLOGIC: Positive Migraine; Negative Neurological Disorders or Seizures CARDIAC: Positive Hypercholesterolemia and Hypertension; Negative Cardiac Disorders, Congestive Heart Failure, Edema, Cellulitis or Varicose Veins RESPIRATORY: Positive Chronic Obstructive Pulmonary Disease (COPD); Negative Asthma, Tuberculosis or Sleep Apnea GASTROINTESTINAL: Positive Gastrointestinal Disorders, Ulcer and Gastroesophageal Reflux Disease; Negative Hepatitis GENITOURINARY: Negative Genitourinary Disorders or Renal Disease REPRODUCTIVE: Positive Previous Pregnancies and Uterine Prolapse MUSCULOSKELETAL: Positive Musculoskeletal Disorders and Arthritis ENDOCRINE: Negative Endocrine Disorders, Diabetes Mellitus Type 1 or Diabetes Mellitus Type 2 HEMATOLOGIC: Negative Blood Disorders or Sickle Cell Disease PSYCHO/SOCIAL: Positive Bipolar Disorder, Depression, Anxiety and Post Traumatic Stress Disorder OTHER HISTORY: Positive Hospitalization, Autoimmune Disease, Chicken Pox and Cancer; Negative Shingles, Falls, Blood Transfusions, Blood Transfusion Reaction, Anesthesia Reactions, Chemotherapy, Radiation Therapy, MRSA, Measles or Mumps Family History FAMILY HISTORY: Positive Family Psychiatric Problems, Family Respiratory Disorders, Family Cardiac Disorders, Family Cancer, Family Surgery and Family Anesthesia Reaction; Negative Family Gastrointestinal Problems Surgical History SURGICAL: Positive Abdominal Surgery and Tubal Ligation; Negative Pacemaker Social History SMOKING STATUS: Current every day smoker SECOND HAND EXPOSURE: No SUBSTANCE USE: former substance user and methamphetamine (Former methamphetamine abuse, quit in 2018.) ED Exam General Limitations: Present no limitations General appearance: Present alert and in no apparent distress Head Head exam: Present atraumatic, normocephalic and normal inspection Eye Eye exam: Present normal appearance, PERRL and EOMI; Absent conjunctival injection ENT ENT exam: Present normal exam, normal oropharynx and mucous membranes moist Neck Neck exam: Present normal inspection, full ROM and trachea midline Chest Chest inspection: Present normal inspection and symmetric chest wall rise Respiratory Respiratory exam: Present normal lung sounds bilaterally; Absent respiratory distress Cardiovascular Cardiovascular exam: Present regular rate, normal rhythm and normal heart sounds Abdominal Exam Abdominal exam: Present soft and normal bowel sounds; Absent distention, tenderness, guarding, rebound or rigidity Extremities Exam Extremities exam: Present normal inspection and full ROM Back Exam Back exam: Present normal inspection and full ROM Neurological Exam Neurological exam: Present alert, oriented X3 and CN II-XII intact Psychiatric Psychiatric exam: Present normal affect and normal mood Skin Skin exam: Present warm, dry, intact and normal color Course Quality Measures none Orders Category Date Time Status Lidocaine 1% 20 ml [Xylocaine 1% 20 ML] Med 04/03/25 19:39 Discontinued 2.1 ml INFL X1 ONE cefTRIAXone [Rocephin] Med 04/03/25 19:39 Discontinued 1,000 mg IM X1 ONE Vital Signs Vital signs: Vital Signs Temperature 98.1 F 04/03/25 19:35 Pulse Rate 114 H 04/03/25 19:35 Respiratory Rate 18 04/03/25 19:35 Blood Pressure 111/71 04/03/25 19:35 Pulse Oximetry (%) 95 04/03/25 19:35 Oxygen Delivery Method Room Air 04/03/25 19:35 O2 saturation 95% room air within the limits Wound / Laceration MDM Narrative MDM Narrative:: 45-year-old female presents emergency department today states she had a hysterectomy patient has abdominal wound which she reports opened and is draining. Patient reports no fever nausea vomiting On exam patient has postop wound mild drainage no definite abscess noted abdomen soft to palpation Patient given injection of Rocephin and discharged with antibiotics Patient discharged home in no distress to follow-up with primary care doctor in the next 24 to 48 hours and for any worsening symptoms to return to the ER immediately Patient data External records reviewed:: [facility] previous records Clinical information provided by:: patient Social determinants that could affect healthcare access:: none Patient has the following chronic illnesses:: none How is presenting disease/condition affected by chronic disease/condition?: no chronic disease Evaluation data The following diagnostics were reviewed and interpreted by me:: other (specify) (N/A) Lab and/or radiology exams considered but not ordered:: Consider not ordered Interpretation Summary: N/A Medications / Prescriptions Medications or Prescriptions considered but not ordered:: Given Medication administrations:: Medication Administration History Discontinued Medications Ceftriaxone Sodium (Ceftriaxone Sod Inj 1,000 Mg Vial) 1,000 mg IM X1 ONE Stop: 04/03/25 19:40 Last Admin: 04/03/25 20:11 Dose: 1,000 mg Documented By: EF Lidocaine HCl (Lidocaine Hcl 1% 20 Ml Vial) 2.1 ml INFL X1 ONE Stop: 04/03/25 19:40 Last Admin: 04/03/25 20:11 Dose: 2.1 ml Documented By: EF Given Consultations Consultation(s) initiated? (list below): No Diagnosis Wound Differential Diagnosis: laceration, abscess, abrasion and avulsion of skin Most likely diagnosis given after review of the tests above:: Postop infection Admission Indicated Admission indicated?: not indicated Admission Request Was there a request for admission?: No Disposition Plan Disposition Plan: Discharge Discharge Attestation Discharge Attestation: The patient and all family members were given an opportunity to ask questions and understood the discharge instructions. Discharge instructions specifically effects, indications for sooner follow up or return to the emergency department, and the expected course of current diagnosis. Patient condition: Stable Discharge Plan Plan Patient Disposition: HOME (Self Care) Discharge Disposition comment: Stable Prescriptions/Referrals Prescriptions/Med Rec: New clindamycin HCl 300 mg capsule 300 mg PO TID 7 Days Qty: 21 0RF No Action atorvastatin 20 mg Tablet 20 mg PO QPM paroxetine HCl 40 mg Tablet 40 mg PO QDAY buspirone 15 mg Tablet 15 mg PO TID aripiprazole 5 mg Tablet 5 mg PO QDAY Spiriva Respimat 2.5 mcg/actuation mist 2 puff INHALATION DAILY Patient Comments: INHALE 2 PUFFS INTO THE LUNGS EVERY DAY FOR 30 DAYS metoclopramide HCl [Reglan] 10 mg tablet 10 mg PO Q6H PRN (Reason: abdominal pain) Qty: 14 0RF pantoprazole [Protonix] 40 mg tablet,delayed release (DR/EC) 40 mg PO QDAY Qty: 30 0RF zinc sulfate 50 mg zinc (220 mg) Capsule 220 mg PO QDAY Qty: 30 0RF methylprednisolone [Medrol (Kody)] 4 mg tablets,dose pack 4 mg PO QAM Qty: 21 0RF ipratropium-albuterol 0.5 mg-3 mg(2.5 mg base)/3 mL solution for nebulization 3 ml inhalation Q8H PRN (Reason: shortness of breath) Qty: 90 0RF prednisone 50 mg tablet 50 mg PO QDAY Qty: 7 0RF acetaminophen 500 mg capsule 500 mg PO Q6H PRN (Reason: pain) Qty: 30 0RF prednisone 50 mg tablet 50 mg PO QDAY Qty: 7 0RF albuterol sulfate 90 mcg/actuation HFA aerosol inhaler 2 inh inhalation QID PRN (Reason: shortness of breath or wheezing) Qty: 8.5 0RF tramadol 50 mg tablet 50 mg PO Q6H PRN (Reason: pain) Qty: 20 0RF acetaminophen-codeine 300-30 mg tablet 2 tab PO TID MDD 6 PRN (Reason: pain) Qty: 10 0RF acetaminophen 500 mg capsule 500 mg PO Q6H PRN (Reason: pain) Qty: 30 0RF cyclobenzaprine 10 mg tablet 10 mg PO TID PRN (Reason: muscle spasm) Qty: 10 0RF ibuprofen 600 mg tablet 600 mg PO Q6H Qty: 30 0RF amoxicillin-pot clavulanate 875-125 mg tablet 1 tab PO BID Qty: 14 0RF clindamycin HCl 300 mg capsule 300 mg PO Q6H Qty: 20 0RF Problem List Clinical Impression: Post-operative infection Patient/Caregiver Discharge Instructions Education Materials: ED Post Op Wound Check, Infection Additional Instructions: Please follow up with your primary care doctor in the next 24-48hrs for any worsening symptoms return here immediately Print Language: Nigerian Stand Alone Forms: Shari Award Info., Patient Portal Info Letter PA/ANALYTICAL CLERK Supervising Physician PA/ANALYTICAL CLERK Supervising Physician: Dr. fernández
[2025-04-03] MEDS: cefTRIAXone SOD INJ 1,000 MG VIAL 1000 MG IM (20:11)
[2025-04-03] MEDS: LIDOCAINE HCL 1% 20 ML VIAL 2.1 ML INFL (20:11)
== END 2025-04-03 20:20 | disposition home or self-care (01) ==
PROVIDERS: Emergency Provider Emergency Medicine; PCP Physician Assistant Medical
DX: T81.49XA Infection following a procedure, other surgical site, initial encounter (principal); B99.9 Unspecified infectious disease
CPT/HCPCS: 96372; 99283; J0696; J3490

== ENCOUNTER 2025-04-04 18:25 | Emergency (ER) | payer MEDICAID, SELFPAY ==
[2025-04-04 18:40] VITALS: BP 108/71; PULSE 109; RESP 18; TEMP 36.7; O2SAT 94; BMI 37.1
--- NOTE | 2025-04-04 18:49 | XR_ITS ---
Examination: CT abdomen with intravenous contrast CT pelvis with intravenous contrast 2-D coronal reconstructions 2-D sagittal reconstructions Date and time of exam:April 04, 2025 11:19 PM Comparison March 26, 2025 INDICATIONS: Abdominal pain, post recent surgery. Technique: Multiple axial sections of the abdomen and pelvis have been obtained. 64 slice high-resolution scanner used. 3 mm axial sections have been obtained, post intravenous injection 60 cc [id number] 2-D sagittal, coronal reconstructions obtained. Low dose protocols were performed. One or more of the following dose reduction techniques were used; automated exposure control, adjustment of the mA and/or KV according to patient size, use of iterative reconstruction technique. 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
--- NOTE | 2025-04-04 18:50 | PD.EDRME ---
Rapid Medical Screening Exam RME Arrival date/time: 04/04/25 18:25 45 year old female present to Ed for c/o of abd pain, recent surgery, abd pain worsen I have greeted and performed a focused initial assessment of this patient. A comprehensive ED assessment and evaluation of the patient, analysis of all test results, and completion of the medical decision making process will be conducted by additional ED providers. Chief Complaint: Wound Recheck / Suture Removal Time Seen by Provider: 04/04/25 18:46 Vital signs: Vital Signs Temperature 98.0 F 04/04/25 18:40 Pulse Rate 109 H 04/04/25 18:40 Respiratory Rate 18 04/04/25 18:40 Blood Pressure 108/71 04/04/25 18:40 Pulse Oximetry (%) 94 L 04/04/25 18:40 Oxygen Delivery Method Room Air 04/04/25 18:40
[2025-04-04] MEDS: HYDROcodone/APAP 5/325 TABLET 1 TAB PO (20:04)
[2025-04-04 20:09] LABS: Basophils # (Auto) 0.1 Thou/mm3 (0.0-0.2); Basophils % (Auto) 1 % (0-2.5); Eosinophils # (Auto) 0.3 Thou/mm3 (0.0-0.5); Eosinophils % (Auto) 2 % (0-10); Hematocrit 42.9 % (36.0-46.0); Hemoglobin 14.6 g/dL (12.0-16.0); Immature Granulocytes % (Auto) 0 % (0-0); Immature Granulocytes Auto 0.03 Thou/mm3 (0.00-0.00); Lymphocytes # (Auto) 3.4 Thou/mm3 (1.0-4.8); Lymphocytes % (Auto) 32 % (10-50); Mean Corpuscular Hemoglobin 29.1 pg (25.0-35.0); Mean Corpuscular Volume 86 fL (80-100); Monocytes # (Auto) 0.7 Thou/mm3 (0.0-0.8); Monocytes % (Auto) 6 % (0-12); Neutrophils # (Auto) 6.1 Thou/mm3 (1.8-7.7); Neutrophils % (Auto) 58 % (37-80); Nucleated Red Blood Cell % 0 /100 WBC (0); Platelet Count 371 Thou/mm3 (140-440); RDW Standard Deviation 45.6 fL (36.4-46.3); Red Blood Count 5.01 Miln/mm3 (4.00-5.20); White Blood Count 10.5 Thou/mm3 (3.6-11.0)
[2025-04-04 20:27] LABS: Alanine Aminotransferase 21 U/L (10-49); Albumin, Serum 4.8 gm/dL (3.5-5.0); Albumin/Globulin Ratio 1.9 (1.2-2.2); Alkaline Phosphatase 99 U/L (46-116); Anion Gap 3 (7-16); Aspartate Amino Transferase 24 U/L (0-34); BUN/Creatinine Ratio 12 Ratio (12-20); Bilirubin,Total 0.2 mg/dL (0.3-1.2); Blood Urea Nitrogen 11 mg/dL (9-23); Calcium 9.3 mg/dL (8.3-10.6); Calcium (Corrected) 9.3 mg/dL (8.5-10.1); Carbon Dioxide 25.9 mMol/L (20.0-31.0); Chloride 109 mMol/L (98-107); Creatinine (Component) 0.9 mg/dL (0.6-1.3); Estimated Creatinine Clearance 95.3 mL/min (>60); Globulin 2.5 gm/dL (2.3-3.5); Glucose 104 mg/dL (74-106); Lipase 49 U/L (12-53); Osmolality,Calculated 275 (275-295); Potassium 4.2 mMol/L (3.4-5.1); Sodium 138 mMol/L (136-145); Total Protein 7.3 gm/dL (5.7-8.2); eGFR > 60 See Note
--- NOTE | 2025-04-05 00:15 | XR_ITS ---
Examination: Abdomen sonogram, Limited Date and time of exam: April 05, 2025 0036 hours INDICATIONS: Right upper abdominal pain nausea and vomiting Technique: Real-time hernandez scale transabdominal sonographic images of the upper abdomen obtained. Findings: Normal gallbladder Normal common bile duct 0.37 cm Pancreatic head 3.1 cm Liver 17 cm no focal liver lesions Normal hepatopedal portal venous flow Patent IVC IMPRESSION: Normal gallbladder Mild hepatomegaly
--- NOTE | 2025-04-05 01:50 | PRELIM_ITS ---
Gallbladder ultrasound. April 05, 2025 0036 hours Clinical History: Right upper quadrant tenderness. Comparison: No prior study is available for comparison. Findings: Gallbladder wall is thickened measuring 3.3 mm. There is comet star artifact emanating from the nondependent gallbladder wall which may indicate gallbladder adenomyomatosis. No gallstones or gallbladder sludge noted. No pericholecystic fluid. Common bile duct is normal caliber measuring 3.7 mm. There is fatty echogenicity of the liver. There is no space-occupying hepatic mass or intrahepatic biliary dilatation. Right lobe of the liver measures 17 cm in maximal dimension. Pancreas as visualized is unremarkable. Impression: 1. Gallbladder wall thickening measuring 3.3 mm may indicate chronic cholecystitis. No gallstones or gallbladder sludge. Consider nuclear medicine hepatobiliary scan for further evaluation. 2. Fatty liver. Report Electronically Signed By: Juan Ramos 04/05/2025 1:49:08 AM [EST]
--- NOTE | 2025-04-05 02:04 | PD.EDABDPN ---
ED Abdominal Pain RME/HPI General Chief Complaint: Wound Recheck / Suture Removal Stated complaint: INCISION PAIN Time seen by provider: 04/04/25 18:46 Arrival date/time: 04/04/25 18:25 RME / HPI RME / HPI narrative: 04/04/25 18:25 45 year old female present to Ed for c/o of abd pain, recent surgery, abd pain worsen I have greeted and performed a focused initial assessment of this patient. A comprehensive ED assessment and evaluation of the patient, analysis of all test results, and completion of the medical decision making process will be conducted by additional ED providers. This section includes all my notes and documentations, including HPI, PE, and ED course. Medhat Martel MD HPI: 45 y/o female with recent SHx of recent hysterectomy and Hx of COPD and Asthma presents to ED c/o abdominal pain s/p complete hysterectomy x 2 weeks ago. Procedure was performed by Dr. Keller in [place] on 03/17/2025, both ovaries were removed as well. She was only prescribed Gabapentin and Ibuprofen for pain management. In addition, patient also reports coughing up clear phlegm more often. No other complaints. ROS: All negative except as documented in HPI. Physical Exam: General: Alert and oriented. No acute distress when remaining still. Eyes: Conjunctivae and lids clear. ENT: No nasal congestion. Neck: Supple. Heart: RRR. Lungs: No respiratory distress. Moderately decreased air movement. BL rhonchi noted. Abdomen: Diffused mild abdominal pain with difficulty localizing. Normal bowel sounds. No distension. No rebound or guarding. Back: No CVA tenderness. Skin: Warm and dry. Neuro: Alert and oriented X 3. I reviewed all diagnostic test results. My review of the Gallbladder US report is no acute findings. My review of the Abdomen/Pelvis CT report is NAD. Blood tests unremarkable. At this point, diagnoses include COPD exacerbation and postoperative abdominal pain. Treatment here included Acetaminophen Hydrocodone. Significant improvement noted. Recommended outpatient care. Based on my best medical judgment, made decision no further evaluation or treatment indicated at this time. Patient understands and agrees to the discharge instructions customized and printed, see below. Discharge Instructions from Dr. Martel printed for you: 1. After extensive evaluation, there is no emergency or very serious condition causing your abdominal pain. Your pain is most likely normal postoperative pain. Tylenol with codeine for severe pain. 2. Maybe, your more concerning problem is COPD flareup. --No physical exertion for 3 days to help rest the lungs. ?No smoking or exposure to smoking or pets or dust or cold or humidity. --Zithromax to kill the germs causing the infection. --Prednisone to help decrease the swelling in the airways. --Neb treatment every 4-6 hours for 3 days to help keep the airways open. Then as needed for cough or shortness of breath. 3. See a private doctor on 04/07/2025 for recheck and further care. Ask to review all test results and official radiology reports, to make sure you receive all necessary follow-ups and monitoring. Ask for help until you are completely better. 4. Seek immediate medical care with worsening or with any concerns. Medhat Martel MD Related Data Home Medications ?Medication ?Instructions ?Recorded ?Confirmed aripiprazole 5 mg tablet 5 mg PO QDAY 09/30/23 09/30/23 atorvastatin 20 mg tablet 20 mg PO QPM 09/30/23 09/30/23 buspirone 15 mg tablet 15 mg PO TID 09/30/23 09/30/23 paroxetine HCl 40 mg tablet 40 mg PO QDAY 09/30/23 09/30/23 tiotropium bromide 2.5 2 puff inhalation DAILY 09/30/23 09/30/23 mcg/actuation mist for inhalation (Spiriva Respimat) Previous Rx's ?Medication ?Instructions ?Recorded tramadol 50 mg tablet 50 mg PO Q6H PRN pain #20 tabs 02/17/24 metoclopramide HCl 10 mg tablet 10 mg PO Q6H PRN abdominal pain 07/26/24 (Reglan) #14 tabs pantoprazole 40 mg tablet,delayed 40 mg PO QDAY #30 tabs 07/26/24 release (Protonix) acetaminophen 300 mg-codeine 30 mg 2 tab PO TID PRN pain #10 tabs 08/09/24 tablet acetaminophen 500 mg capsule 500 mg PO Q6H PRN pain #30 caps 10/01/24 cyclobenzaprine 10 mg tablet 10 mg PO TID PRN muscle spasm #10 10/01/24 tabs methylprednisolone 4 mg tablets in 4 mg PO QAM #21 tabs 11/13/24 a dose pack (Medrol (Kody)) zinc sulfate 50 mg zinc (220 mg) 220 mg (4.4 x 50 mg zinc (220 mg)) 11/13/24 capsule PO QDAY #30 caps ibuprofen 600 mg tablet 600 mg PO Q6H #30 tabs 12/06/24 amoxicillin 875 mg-potassium 1 tab PO BID #14 tabs 12/13/24 clavulanate 125 mg tablet ipratropium 0.5 mg-albuterol 3 mg 3 ml inhalation Q8H PRN shortness 12/18/24 (2.5 mg base)/3 mL nebulization of breath #90 mL soln prednisone 50 mg tablet 50 mg PO QDAY #7 tabs 12/18/24 acetaminophen 500 mg capsule 500 mg PO Q6H PRN pain #30 caps 01/12/25 albuterol sulfate 90 mcg/actuation 2 inh inhalation QID PRN shortness 02/12/25 aerosol inhaler of breath or wheezing #8.5 grams prednisone 50 mg tablet 50 mg PO QDAY #7 tabs 02/12/25 clindamycin HCl 300 mg capsule 300 mg PO Q6H #20 caps 03/26/25 clindamycin HCl 300 mg capsule 300 mg PO TID 7 days #21 caps 04/03/25 acetaminophen 300 mg-codeine 30 mg 2 tab PO Q8H PRN pain #20 tabs 04/05/25 tablet azithromycin 500 mg tablet 500 mg PO QDAY 3 days #3 tabs 04/05/25 (Zithromax TRI-KODY) prednisone 50 mg tablet 50 mg PO BID 2 days #4 tabs 04/05/25 Allergies Allergy/AdvReac Type Severity Reaction Status Date / Time cinnamon Allergy Severe Swelling Verified 04/04/25 18:29 of Lip/Tongue/Throat aspirin AdvReac Severe HAS ULCER Verified 04/04/25 18:29 Past Medical History Past Medical History NEUROLOGIC: Positive Migraine CARDIAC: Positive Hypercholesterolemia and Hypertension RESPIRATORY: Positive Chronic Obstructive Pulmonary Disease (COPD) and Asthma GASTROINTESTINAL: Positive Gastrointestinal Disorders, Ulcer and Gastroesophageal Reflux Disease REPRODUCTIVE: Positive Previous Pregnancies and Uterine Prolapse MUSCULOSKELETAL: Positive Musculoskeletal Disorders and Arthritis PSYCHO/SOCIAL: Positive Bipolar Disorder, Depression, Anxiety and Post Traumatic Stress Disorder OTHER HISTORY: Positive Hospitalization, Autoimmune Disease, Chicken Pox and Cancer Family History FAMILY HISTORY: Positive Family Psychiatric Problems, Family Respiratory Disorders, Family Cardiac Disorders, Family Cancer, Family Surgery and Family Anesthesia Reaction Surgical History SURGICAL: Positive Abdominal Surgery and Tubal Ligation Social History SMOKING STATUS: Current every day smoker SUBSTANCE USE: former substance user and methamphetamine (Former methamphetamine abuse, quit in 2018.) ED Exam Narrative Physical exam: Refer to HPI above Course Quality Measures none Orders Category Date Time Status CT Screening NOW Care 04/04/25 18:[address] abdomen pelvis w con Stat Exams 04/04/25 18:49 Completed US gall bladder Stat Exams 04/05/25 00:15 Taken CBC Stat Lab 04/04/25 19:55 Completed CMP [Comprehensive Metabolic Panel] Stat Lab 04/04/25 19:55 Completed Lipase Stat Lab 04/04/25 19:55 Completed HYDROcodone*/APAP 5/325 [[place] 5/325] Med 04/04/25 18:49 Discontinued 1 tab PO X1 ONE Vital Signs Vital signs: Vital Signs Temperature 98.0 F 04/04/25 18:40 Pulse Rate 109 H 04/04/25 18:40 Respiratory Rate 18 04/04/25 18:40 Blood Pressure 108/71 04/04/25 18:40 Pulse Oximetry (%) 94 L 04/04/25 18:40 Oxygen Delivery Method Room Air 04/04/25 18:40 Abdominal Pain MDM MDM Narrative MDM Narrative:: Scribe Attestation: Bina Perez am scribing for and in the presence of Dr. Martel. Provider Notation: Although this document has been carefully reviewed, there may still be some phonetic and other typographical errors.? These errors are purely grammatical due to imperfections in the software program and should not be construed in any way to? compromise the substance of the patient's medical care during this visit. 45 y/o female with recent SHx of Hysterectomy and Hx of CPD and Asthma presents to ED c/o abdominal pain s/p complete hysterectomy x approximately 20 days. In addition, patient also reports coughing up clear phlegm more often. No other complaints. Patient data External records reviewed:: [facility] previous records (Prior ED records from 04/03/25. Patient was seen for Post-operative infection.) Clinical information provided by:: patient Social determinants that could affect healthcare access:: none Patient has the following chronic illnesses:: Migraine, Hypercholesterolemia, Hypertension, Chronic Obstructive Pulmonary Disease (COPD), Asthma, Ulcer and Gastroesophageal Reflux Disease, Uterine Prolapse, Arthritis, Bipolar Disorder, Depression, Anxiety and Post Traumatic Stress Disorder How is presenting disease/condition affected by chronic disease/condition?: exacerbated by Evaluation data The following diagnostics were reviewed and interpreted by me:: lab results and radiology exam(s) Lab and/or radiology exams considered but not ordered:: None Interpretation Summary: I reviewed all diagnostic test results. My review of the Gallbladder US report is no acute findings. My review of the Abdomen/Pelvis CT report is no acute findings. Blood tests unremarkable. Medications / Prescriptions Medications or Prescriptions considered but not ordered:: None Medication administrations:: Medication Administration History Discontinued Medications Hydrocodone Bitart/Acetaminophen (Hydrocodone/Apap 5/325 Tablet) 1 tab PO X1 ONE Stop: 04/04/25 18:50 Last Admin: 04/04/25 20:04 Dose: 1 tab Documented By: Acetaminophen Hydrocodone Consultations Consultation(s) initiated? (list below): No Diagnosis Differential diagnosis abdominal pain: acute appendicitis, calculus of kidney, constipation, diverticulitis, endometriosis, gastroenteritis, pancreatitis, small bowel obstruction and other (Postoperative pain) Most likely diagnosis given after review of the tests above:: COPD and Postoperative Abdominal Pain Admission Indicated Admission indicated?: not indicated Explain why admission is indicated or not indicated:: With significant improvement, there was no indication for admission. Admission Request Was there a request for admission?: No Disposition Plan Disposition Plan: Discharge Discharge Attestation Discharge Attestation: The patient and all family members were given an opportunity to ask questions and understood the discharge instructions. Discharge instructions specifically effects, indications for sooner follow up or return to the emergency department, and the expected course of current diagnosis. Patient condition: Stable Discharge Plan Plan Patient Disposition: HOME (Self Care) Prescriptions/Referrals Prescriptions/Med Rec: New acetaminophen-codeine 300-30 mg tablet 2 tab PO Q8H MDD 6 PRN (Reason: pain) Qty: 20 0RF prednisone 50 mg tablet 50 mg PO BID 2 Days Qty: 4 0RF azithromycin [Zithromax TRI-KODY] 500 mg tablet 500 mg PO QDAY 3 Days Qty: 3 0RF No Action atorvastatin 20 mg Tablet 20 mg PO QPM paroxetine HCl 40 mg Tablet 40 mg PO QDAY buspirone 15 mg Tablet 15 mg PO TID aripiprazole 5 mg Tablet 5 mg PO QDAY Spiriva Respimat 2.5 mcg/actuation mist 2 puff INHALATION DAILY Patient Comments: INHALE 2 PUFFS INTO THE LUNGS EVERY DAY FOR 30 DAYS metoclopramide HCl [Reglan] 10 mg tablet 10 mg PO Q6H PRN (Reason: abdominal pain) Qty: 14 0RF pantoprazole [Protonix] 40 mg tablet,delayed release (DR/EC) 40 mg PO QDAY Qty: 30 0RF zinc sulfate 50 mg zinc (220 mg) Capsule 220 mg PO QDAY Qty: 30 0RF methylprednisolone [Medrol (Kody)] 4 mg tablets,dose pack 4 mg PO QAM Qty: 21 0RF ipratropium-albuterol 0.5 mg-3 mg(2.5 mg base)/3 mL solution for nebulization 3 ml inhalation Q8H PRN (Reason: shortness of breath) Qty: 90 0RF prednisone 50 mg tablet 50 mg PO QDAY Qty: 7 0RF acetaminophen 500 mg capsule 500 mg PO Q6H PRN (Reason: pain) Qty: 30 0RF prednisone 50 mg tablet 50 mg PO QDAY Qty: 7 0RF albuterol sulfate 90 mcg/actuation HFA aerosol inhaler 2 inh inhalation QID PRN (Reason: shortness of breath or wheezing) Qty: 8.5 0RF clindamycin HCl 300 mg capsule 300 mg PO TID 7 Days Qty: 21 0RF tramadol 50 mg tablet 50 mg PO Q6H PRN (Reason: pain) Qty: 20 0RF acetaminophen-codeine 300-30 mg tablet 2 tab PO TID MDD 6 PRN (Reason: pain) Qty: 10 0RF acetaminophen 500 mg capsule 500 mg PO Q6H PRN (Reason: pain) Qty: 30 0RF cyclobenzaprine 10 mg tablet 10 mg PO TID PRN (Reason: muscle spasm) Qty: 10 0RF ibuprofen 600 mg tablet 600 mg PO Q6H Qty: 30 0RF amoxicillin-pot clavulanate 875-125 mg tablet 1 tab PO BID Qty: 14 0RF clindamycin HCl 300 mg capsule 300 mg PO Q6H Qty: 20 0RF Referrals: Celine Olsen PA-C [Primary Care Provider] - In 1 week Problem List Clinical Impression: Acute postoperative abdominal pain, COPD exacerbation Patient/Caregiver Discharge Instructions Discharge Activity: activity as tolerated Education Materials: ED Abdominal Pain Unkn Cause Fem, ED COPD Flare Additional Instructions: Discharge Instructions from Dr. Martel printed for you: 1. After extensive evaluation, there is no emergency or very serious condition causing your abdominal pain. Your pain is most likely normal postoperative pain. Tylenol with codeine for severe pain. 2. Maybe, your more concerning problem is COPD flareup. --No physical exertion for 3 days to help rest the lungs. ?No smoking or exposure to smoking or pets or dust or cold or humidity. --Zithromax to kill the germs causing the infection. --Prednisone to help decrease the swelling in the airways. --Neb treatment every 4-6 hours for 3 days to help keep the airways open. Then as needed for cough or shortness of breath. 3. See a private doctor on 04/07/2025 for recheck and further care. Ask to review all test results and official radiology reports, to make sure you receive all necessary follow-ups and monitoring. Ask for help until you are completely better. 4. Seek immediate medical care with worsening or with any concerns. Print Language: Azeri Stand Alone Forms: Shari Award Info., Patient Portal Info Letter
[2025-04-05 02:17] VITALS: BP 145/62; PULSE 87; RESP 19; TEMP 36.6; O2SAT 96
== END 2025-04-05 02:18 | disposition home or self-care (01) ==
PROVIDERS: Physician Assistant; Emergency Provider Emergency Medicine; PCP Physician Assistant Medical
DX: G89.18 Other acute postprocedural pain (principal); J44.1 Chronic obstructive pulmonary disease with (acute) exacerbation; F17.210 Nicotine dependence, cigarettes, uncomplicated
CPT/HCPCS: 36415; 74177; 76705; 80053; 83690; 85025; 99285; A4649; Q9967; A9270

== ENCOUNTER 2025-04-22 07:40 | Emergency (ER) | payer MEDICAID, SELFPAY ==
[2025-04-22 07:48] VITALS: BP 135/102; BP 145/100; PULSE 99; RESP 20; TEMP 36.7; O2SAT 93; BMI 38.1
--- NOTE | 2025-04-22 07:57 | XR_ITS ---
Examination: Transvaginal ultrasound of the pelvis, complete Technique: Transvaginal sonographic images pelvis performed using hernandez scale imaging Exam date and time: April 22, 2025 0809 hours INDICATIONS: Vaginal bleeding beginning one day ago FINDINGS: Absent uterus, absent ovaries No free fluid in the pelvis No solid pelvic mass IMPRESSION: No free fluid in the pelvis No solid pelvic mass.
--- NOTE | 2025-04-22 07:58 | PD.EDRME ---
Rapid Medical Screening Exam E Arrival date/time: 04/22/25 07:40 45-year-old female with a history of hyperlipidemia, COPD presents to the emergency room with a chief complaint of vaginal bleeding x 3 days. Patient states she had a hysterectomy done 2 months ago. I have greeted and performed a focused initial assessment of this patient. A comprehensive ED assessment and evaluation of the patient, analysis of all test results, and completion of the medical decision making process will be conducted by additional ED providers. Chief Complaint: Vaginal Bleeding Vital signs: Vital Signs Temperature 98.0 F 04/22/25 07:48 Pulse Rate 99 04/22/25 07:48 Respiratory Rate 20 04/22/25 07:48 Blood Pressure 145/100 H 04/22/25 07:48 Pulse Oximetry (%) 93 L 04/22/25 07:48 Oxygen Delivery Method Room Air 04/22/25 07:48 Vital signs reviewed by provider: Yes
[2025-04-22 08:16] LABS: Basophils # (Auto) 0.1 Thou/mm3 (0.0-0.2); Basophils % (Auto) 1 % (0-2.5); Eosinophils # (Auto) 0.2 Thou/mm3 (0.0-0.5); Eosinophils % (Auto) 2 % (0-10); Hematocrit 41.6 % (36.0-46.0); Hemoglobin 14.1 g/dL (12.0-16.0); Immature Granulocytes % (Auto) 0 % (0-0); Immature Granulocytes Auto 0.04 Thou/mm3 (0.00-0.00); Lymphocytes # (Auto) 2.7 Thou/mm3 (1.0-4.8); Lymphocytes % (Auto) 28 % (10-50); Mean Corpuscular HGB Conc 33.9 g/dl (31.0-37.0); Mean Corpuscular Volume 86 fL (80-100); Monocytes # (Auto) 0.6 Thou/mm3 (0.0-0.8); Monocytes % (Auto) 6 % (0-12); Neutrophils # (Auto) 6.1 Thou/mm3 (1.8-7.7); Neutrophils % (Auto) 63 % (37-80); Nucleated Red Blood Cell % 0 /100 WBC (0); Platelet Count 227 Thou/mm3 (140-440); RDW Standard Deviation 45.2 fL (36.4-46.3); Red Blood Count 4.86 Miln/mm3 (4.00-5.20); White Blood Count 9.7 Thou/mm3 (3.6-11.0)
[2025-04-22 08:38] LABS: Alanine Aminotransferase 17 U/L (10-49); Albumin, Serum 4.3 gm/dL (3.5-5.0); Albumin/Globulin Ratio 1.9 (1.2-2.2); Alkaline Phosphatase 89 U/L (46-116); Anion Gap 8 (7-16); Aspartate Amino Transferase 16 U/L (0-34); BUN/Creatinine Ratio 9 Ratio (12-20); Bilirubin,Total 0.3 mg/dL (0.3-1.2); Blood Urea Nitrogen 9 mg/dL (9-23); Carbon Dioxide 26.3 mMol/L (20.0-31.0); Chloride 106 mMol/L (98-107); Estimated Creatinine Clearance 87.1 mL/min (>60); Globulin 2.3 gm/dL (2.3-3.5); Glucose 111 mg/dL (74-106); Osmolality,Calculated 279 (275-295); Potassium 3.6 mMol/L (3.4-5.1); Sodium 140 mMol/L (136-145); Thyroid Stimulating Hormone 2.33 uIU/mL (0.55-4.78); Total Protein 6.6 gm/dL (5.7-8.2); eGFR > 60 See Note
[2025-04-22 08:47] LABS: Partial Thromboplastin Time 28.7 Seconds (22.0-36.0); Prothrombin Time 10.5 Seconds (9.0-12.2)
--- NOTE | 2025-04-22 11:02 | PD.EDADULT ---
ED General RME/HPI General Chief complaint: Vaginal Bleeding Stated complaint: VAGINAL BLEED X LAST NIGHT; HYSTERECTOMY 03/17/25 Arrival date/time: 04/22/25 07:40 RME / HPI RME / HPI narrative: 04/22/25 07:40 45-year-old female with a history of hyperlipidemia, COPD presents to the emergency room with a chief complaint of vaginal bleeding x 3 days. Patient states she had a hysterectomy done 2 months ago. I have greeted and performed a focused initial assessment of this patient. A comprehensive ED assessment and evaluation of the patient, analysis of all test results, and completion of the medical decision making process will be conducted by additional ED providers. DR. HANLEY MAIN ED EVALUATION: 45 year old female presents to the Emergency Department with complaint of little vaginal bleeding onset 3 days. She states she had a recent hysterectomy performed on 03/17/2025. Associated symptoms include diffuse abdominal pain, mainly right lower quadrant and left upper quadrant. Denies any intercourse or penetration. She also reported diarrhea, but no nausea or vomiting. PMHx: Hysterectomy and bladder sling performed 03/17/[address] Keller in [place], [place]; hyperlipidemia, COPD. Social Hx: Current tobacco smoker. No alcohol or substance use. Related Data Home Medications ?Medication ?Instructions ?Recorded ?Confirmed aripiprazole 5 mg tablet 5 mg PO QDAY 09/30/23 09/30/23 atorvastatin 20 mg tablet 20 mg PO QPM 09/30/23 09/30/23 buspirone 15 mg tablet 15 mg PO TID 09/30/23 09/30/23 paroxetine HCl 40 mg tablet 40 mg PO QDAY 09/30/23 09/30/23 tiotropium bromide 2.5 2 puff inhalation DAILY 09/30/23 09/30/23 mcg/actuation mist for inhalation (Spiriva Respimat) Previous Rx's ?Medication ?Instructions ?Recorded tramadol 50 mg tablet 50 mg PO Q6H PRN pain #20 tabs 02/17/24 metoclopramide HCl 10 mg tablet 10 mg PO Q6H PRN abdominal pain 07/26/24 (Reglan) #14 tabs pantoprazole 40 mg tablet,delayed 40 mg PO QDAY #30 tabs 07/26/24 release (Protonix) acetaminophen 300 mg-codeine 30 mg 2 tab PO TID PRN pain #10 tabs 08/09/24 tablet acetaminophen 500 mg capsule 500 mg PO Q6H PRN pain #30 caps 10/01/24 cyclobenzaprine 10 mg tablet 10 mg PO TID PRN muscle spasm #10 10/01/24 tabs methylprednisolone 4 mg tablets in 4 mg PO QAM #21 tabs 11/13/24 a dose pack (Medrol (Kody)) zinc sulfate 50 mg zinc (220 mg) 220 mg (4.4 x 50 mg zinc (220 mg)) 11/13/24 capsule PO QDAY #30 caps ibuprofen 600 mg tablet 600 mg PO Q6H #30 tabs 12/06/24 amoxicillin 875 mg-potassium 1 tab PO BID #14 tabs 12/13/24 clavulanate 125 mg tablet ipratropium 0.5 mg-albuterol 3 mg 3 ml inhalation Q8H PRN shortness 12/18/24 (2.5 mg base)/3 mL nebulization of breath #90 mL soln prednisone 50 mg tablet 50 mg PO QDAY #7 tabs 12/18/24 acetaminophen 500 mg capsule 500 mg PO Q6H PRN pain #30 caps 01/12/25 albuterol sulfate 90 mcg/actuation 2 inh inhalation QID PRN shortness 02/12/25 aerosol inhaler of breath or wheezing #8.5 grams prednisone 50 mg tablet 50 mg PO QDAY #7 tabs 02/12/25 clindamycin HCl 300 mg capsule 300 mg PO Q6H #20 caps 03/26/25 acetaminophen 300 mg-codeine 30 mg 2 tab PO Q8H PRN pain #20 tabs 04/05/25 tablet Allergies Allergy/AdvReac Type Severity Reaction Status Date / Time cinnamon Allergy Severe Swelling Verified 04/22/25 07:45 of Lip/Tongue/Throat aspirin AdvReac Severe HAS ULCER Verified 04/22/25 07:45 Review of Systems Review of Systems Systems Reviewed: All systems reviewed, normal except as documented Narrative Review of Systems: GEN: No fever, no chills, no weight loss EYES: No discharge, no visual changes, no pain HEENT: No ear pain, no congestion, no sore throat PULM: No shortness of breath, no cough, no congestion CV: No chest pain, no dyspnea on exertion, no palpitations GI: No nausea, no vomiting, + diarrhea, + abdominal pain (see HPI), no constipation : No frequency, no urgency and no dysuria + little vaginal bleeding MUSC/SKEL: No joint pain, no back pain SKIN: No rash PSYCH: No hallucinations, no depression HEME/LYMPH: No easy bleeding or bruising tendencies NEURO: No weakness, no headache Past Medical History Past Medical History NEUROLOGIC: Positive Migraine CARDIAC: Positive Hypercholesterolemia and Hypertension RESPIRATORY: Positive Chronic Obstructive Pulmonary Disease (COPD) and Asthma GASTROINTESTINAL: Positive Gastrointestinal Disorders, Ulcer and Gastroesophageal Reflux Disease REPRODUCTIVE: Positive Previous Pregnancies and Uterine Prolapse MUSCULOSKELETAL: Positive Musculoskeletal Disorders and Arthritis PSYCHO/SOCIAL: Positive Bipolar Disorder, Depression, Anxiety and Post Traumatic Stress Disorder OTHER HISTORY: Positive Hospitalization, Autoimmune Disease, Chicken Pox and Cancer Family History FAMILY HISTORY: Positive Family Psychiatric Problems, Family Respiratory Disorders, Family Cardiac Disorders, Family Cancer, Family Surgery and Family Anesthesia Reaction Surgical History SURGICAL: Positive Abdominal Surgery and Tubal Ligation Social History SMOKING STATUS: Heavy (> 1 pack/day) SECOND HAND EXPOSURE: No SUBSTANCE USE: former substance user and methamphetamine (Former methamphetamine abuse, quit in 2018.) ALCOHOL: Never ED Exam Narrative Physical exam: GENERAL APPEARANCE: alert and oriented x 4, well-developed, well-nourished, no acute distress VITALS: All vitals were reviewed and the pulse ox is 93% on room air, which is normal according to my interpretation. HEENT: Normocephalic, atraumatic; pupils equal, round, reactive to light; EOMI; mucous membranes pink, moist; oropharynx clear NECK: Supple LUNGS: CTABL; no wheezes, no rales, no rhonchi HEART: Regular rate, regular rhythm; normal S1, S2; no murmurs ABDOMEN: non distended; normal BS; there is right lower quadrant and left upper quadrant tenderness, no rebound; no masses, no organomegaly, no hernia BACK: no CVA tenderness EXTREMITIES: atraumatic; no edema NEUROLOGIC: awake; alert and oriented x4; cranial nerves II-XII grossly intact; no focal sensory or motor deficits PSYCHIATRIC: appropriate mood and affect SKIN: warm, dry, normal color; no rashes Speculum exam: Present vaginal discharge (there is some creamy white discharge, non malodorous) and other (minor abraded tissue inferior urethra but no active bleed); Absent vaginal bleeding (no blood in the vaginal vault) Course Quality Measures none Orders Category Date Time Status CT Screening NOW Care 04/22/25 11:[address] abdomen pelvis w con Stat Exams 04/22/25 11:02 Completed US transvaginal Stat Exams 04/22/25 07:57 Completed CBC Stat Lab 04/22/25 08:03 Completed CMP [Comprehensive Metabolic Panel] Stat Lab 04/22/25 08:03 Completed Free T4 (Free Thyroxine) Stat Lab 04/22/25 08:03 Completed PT [Prothrombin Time with INR] Stat Lab 04/22/25 08:03 Completed PTT [Partial Thromboplastin Time] Stat Lab 04/22/25 08:03 Completed TSH [Thyroid Stimulating Hormone] Stat Lab 04/22/25 08:03 Completed Vital Signs Vital signs: Vital Signs Temperature 98.0 F 04/22/25 07:48 Pulse Rate 99 04/22/25 07:48 Respiratory Rate 20 04/22/25 07:48 Blood Pressure 145/100 H 04/22/25 07:48 Pulse Oximetry (%) 93 L 04/22/25 07:48 Oxygen Delivery Method Room Air 04/22/25 07:48 Procedures -ED Smoking Cessation Time Spent Discussing Smoking Cessation w/Patient (min): 3 Patient Acknowledges Need for Cessation: Yes Additional Comments: The patient was counseled as to the multiple risks to their health from continued use of tobacco products. It was explained that continuing to smoke may lead to multiple short and shelter negative health consequences, including but not limited to mouth/esophageal/lung cancer, COPD, and heart disease. The patient states they understand these risks, and also understand the options and resources available to them to help them stop smoking. Nicotine replacement therapy, local hotlines, and local resources were discussed as viable options for helping them stop their tobacco use. The total time spent counseling the patient regarding tobacco cessation was 3 minutes. Discharge Plan Plan Patient Disposition: HOME (Self Care) Prescriptions/Referrals Prescriptions/Med Rec: No Action atorvastatin 20 mg Tablet 20 mg PO QPM paroxetine HCl 40 mg Tablet 40 mg PO QDAY buspirone 15 mg Tablet 15 mg PO TID aripiprazole 5 mg Tablet 5 mg PO QDAY Spiriva Respimat 2.5 mcg/actuation mist 2 puff INHALATION DAILY Patient Comments: INHALE 2 PUFFS INTO THE LUNGS EVERY DAY FOR 30 DAYS metoclopramide HCl [Reglan] 10 mg tablet 10 mg PO Q6H PRN (Reason: abdominal pain) Qty: 14 0RF pantoprazole [Protonix] 40 mg tablet,delayed release (DR/EC) 40 mg PO QDAY Qty: 30 0RF zinc sulfate 50 mg zinc (220 mg) Capsule 220 mg PO QDAY Qty: 30 0RF methylprednisolone [Medrol (Kody)] 4 mg tablets,dose pack 4 mg PO QAM Qty: 21 0RF ipratropium-albuterol 0.5 mg-3 mg(2.5 mg base)/3 mL solution for nebulization 3 ml inhalation Q8H PRN (Reason: shortness of breath) Qty: 90 0RF prednisone 50 mg tablet 50 mg PO QDAY Qty: 7 0RF acetaminophen 500 mg capsule 500 mg PO Q6H PRN (Reason: pain) Qty: 30 0RF prednisone 50 mg tablet 50 mg PO QDAY Qty: 7 0RF albuterol sulfate 90 mcg/actuation HFA aerosol inhaler 2 inh inhalation QID PRN (Reason: shortness of breath or wheezing) Qty: 8.5 0RF tramadol 50 mg tablet 50 mg PO Q6H PRN (Reason: pain) Qty: 20 0RF acetaminophen-codeine 300-30 mg tablet 2 tab PO TID MDD 6 PRN (Reason: pain) Qty: 10 0RF acetaminophen 500 mg capsule 500 mg PO Q6H PRN (Reason: pain) Qty: 30 0RF cyclobenzaprine 10 mg tablet 10 mg PO TID PRN (Reason: muscle spasm) Qty: 10 0RF ibuprofen 600 mg tablet 600 mg PO Q6H Qty: 30 0RF amoxicillin-pot clavulanate 875-125 mg tablet 1 tab PO BID Qty: 14 0RF clindamycin HCl 300 mg capsule 300 mg PO Q6H Qty: 20 0RF acetaminophen-codeine 300-30 mg tablet 2 tab PO Q8H MDD 6 PRN (Reason: pain) Qty: 20 0RF Referrals: Celine Olsen PA-C [Primary Care Provider] - In 1 week Problem List Clinical Impression: Vaginal bleeding Patient/Caregiver Discharge Instructions Education Materials: Abdominal Hysterectomy Dc Print Language: Telugu Stand Alone Forms: Shari Award Info., Patient Portal Info Letter MDM Narrative MDM hospital course: IBetty am scribing for and in the presence of Dr. Hanley. Clinical Information Provided by patient Medical Records Reviewed [facility] Meds/Rx Considered, not Ordered None Labs/Rad/Tests considered, not Ordered None Chronic Illness/Social Conditions Add or document further as needed: PMHx: Hysterectomy and bladder sling performed 03/17/[address] Keller in [place], [place]; hyperlipidemia, COPD. Social Hx: Current tobacco smoker. Imaging Radiology reports / interpretation(s): Procedure(s): US transvaginal Accession Number(s): [id number] cc: Celine Olsen PA-C; López McculloughP; Dav Treadwell MD~ Examination: Transvaginal ultrasound of the pelvis, complete Technique: Transvaginal sonographic images pelvis performed using hernandez scale imaging Exam date and time: April 22, 2025 0809 hours INDICATIONS: Vaginal bleeding beginning one day ago FINDINGS: Absent uterus, absent ovaries No free fluid in the pelvis No solid pelvic mass IMPRESSION: No free fluid in the pelvis No solid pelvic mass. Dictated By: Dav Treadwell MD Procedure(s): CT abdomen pelvis w con Accession Number(s): [id number] cc: Celine Olsen PA-C; Dav Treadwell MD; Savannah Hanley MD~ Examination: CT abdomen with intravenous contrast CT pelvis with intravenous contrast 2-D coronal reconstructions 2-D sagittal reconstructions Date and time of exam:April 22, 2025 1255 hours Comparison April 04, 2025 INDICATIONS: Vaginal bleeding post hysterectomy. CTDI: vol (mGy) 13 DLP: (mGycm) 779 Technique: Multiple axial sections of the abdomen and pelvis have been obtained. 64 slice high-resolution scanner used. 3 mm axial sections have been obtained, post intravenous injection 60 cc [id number] 2-D sagittal, coronal reconstructions obtained. Low dose protocols were performed. One or more of the following dose reduction techniques were used; automated exposure control, adjustment of the mA and/or KV according to patient size, use of iterative reconstruction technique. Findings: No focal liver or splenic lesions No gallstones No pancreatic or adrenal mass No renal or ureteral calculi, no hydronephrosis 8mm angiomyolipoma anterior margin left kidney Localized weakening of the anterior abdominal wall with small umbilical hernia defect No bowel obstruction Bladder intact Absent uterus No pelvic hematoma Osseous structures intact Minimal fluid in the pelvis IMPRESSION: Absent uterus No pelvic hematoma Dictated By: Dav Treadwell MD Diagnosis Differential diagnosis: vaginal bleeding, infection, abdominal pain Most likely dx, and/or detailed dx discussion: Vaginal bleeding Dispositon Disposition: Discharge Home
[2025-04-22 11:09] VITALS: BP 137/100; PULSE 84; RESP 17; TEMP 36.6; O2SAT 93
[2025-04-22 12:21] VITALS: BP 113/77; PULSE 96; RESP 17; TEMP 36.8; O2SAT 94
[2025-04-22 14:36] VITALS: PULSE 100; RESP 18; TEMP 36.7; O2SAT 94
== END 2025-04-22 14:36 | disposition home or self-care (01) ==
PROVIDERS: Nurse Practitioner Family; Emergency Provider Emergency Medicine; PCP Physician Assistant Medical
DX: N93.9 Abnormal uterine and vaginal bleeding, unspecified (principal); E78.5 Hyperlipidemia, unspecified; J44.9 Chronic obstructive pulmonary disease, unspecified
CPT/HCPCS: 36415; 74177; 76830; 80053; 84439; 84443; 85025; 85610; 85730; 99285; A4649; Q9967

== ENCOUNTER 2025-04-28 09:40 | Emergency (ER) | payer MEDICAID, SELFPAY ==
[2025-04-28 09:45] VITALS: BMI 37.1
[2025-04-28 09:50] VITALS: BP 119/76; PULSE 102; RESP 22; TEMP 36.8; O2SAT 91
[2025-04-28 09:57] VITALS: BP 119/76; PULSE 102; RESP 22; TEMP 36.8; O2SAT 91
[2025-04-28 11:00] VITALS: PULSE 86
[2025-04-28] MEDS: ALBUTEROL RT 2.5 MG/0.5 ML NEBU 10 MG INH (11:00)
[2025-04-28] MEDS: IPRATROPIUM RT 0.5 MG/ 2.5 ML NEBU 1 MG INH (11:01)
[2025-04-28 11:04] VITALS: PULSE 97; RESP 22; O2SAT 98
--- NOTE | 2025-04-28 11:04 | PD.EDSOB ---
ED SOB =RME/HPI General Chief Complaint: Shortness of Breath/Dyspnea Stated Complaint: SOB Time Seen by Provider: 04/28/25 10:43 Arrival date/time: 04/28/25 09:40 RME / HPI RME / HPI Narrative: 45 year old female with history of asthma, COPD, and active tobacco smoker presents to the ED [facility] from home for evaluation of shortness of breath today. Patient reports she began to feel short of breath 3 days ago and worsening yesterday. Reportedly was evaluated at the emergency room in [place] yesterday where she was given Prednisone and sent home with a prescription. In addition has used her inhaler and nebulizer machine without improvement. This morning reports smoking only 2 cigarettes due to feeling short of breath. Denies use of oxygen at home. Denies fevers, chills, chest pain, abdominal pain, vomiting, or urinary symptoms. Related Data Home Medications ?Medication ?Instructions ?Recorded ?Confirmed aripiprazole 5 mg tablet 5 mg PO QDAY 09/30/23 09/30/23 atorvastatin 20 mg tablet 20 mg PO QPM 09/30/23 09/30/23 buspirone 15 mg tablet 15 mg PO TID 09/30/23 09/30/23 paroxetine HCl 40 mg tablet 40 mg PO QDAY 09/30/23 09/30/23 tiotropium bromide 2.5 2 puff inhalation DAILY 09/30/23 09/30/23 mcg/actuation mist for inhalation (Spiriva Respimat) Previous Rx's ?Medication ?Instructions ?Recorded tramadol 50 mg tablet 50 mg PO Q6H PRN pain #20 tabs 02/17/24 metoclopramide HCl 10 mg tablet 10 mg PO Q6H PRN abdominal pain 07/26/24 (Reglan) #14 tabs pantoprazole 40 mg tablet,delayed 40 mg PO QDAY #30 tabs 07/26/24 release (Protonix) acetaminophen 300 mg-codeine 30 mg 2 tab PO TID PRN pain #10 tabs 08/09/24 tablet acetaminophen 500 mg capsule 500 mg PO Q6H PRN pain #30 caps 10/01/24 cyclobenzaprine 10 mg tablet 10 mg PO TID PRN muscle spasm #10 10/01/24 tabs methylprednisolone 4 mg tablets in 4 mg PO QAM #21 tabs 11/13/24 a dose pack (Medrol (Kody)) zinc sulfate 50 mg zinc (220 mg) 220 mg (4.4 x 50 mg zinc (220 mg)) 11/13/24 capsule PO QDAY #30 caps ibuprofen 600 mg tablet 600 mg PO Q6H #30 tabs 12/06/24 amoxicillin 875 mg-potassium 1 tab PO BID #14 tabs 12/13/24 clavulanate 125 mg tablet ipratropium 0.5 mg-albuterol 3 mg 3 ml inhalation Q8H PRN shortness 12/18/24 (2.5 mg base)/3 mL nebulization of breath #90 mL soln prednisone 50 mg tablet 50 mg PO QDAY #7 tabs 12/18/24 acetaminophen 500 mg capsule 500 mg PO Q6H PRN pain #30 caps 01/12/25 albuterol sulfate 90 mcg/actuation 2 inh inhalation QID PRN shortness 02/12/25 aerosol inhaler of breath or wheezing #8.5 grams prednisone 50 mg tablet 50 mg PO QDAY #7 tabs 02/12/25 clindamycin HCl 300 mg capsule 300 mg PO Q6H #20 caps 03/26/25 acetaminophen 300 mg-codeine 30 mg 2 tab PO Q8H PRN pain #20 tabs 04/05/25 tablet Allergies Allergy/AdvReac Type Severity Reaction Status Date / Time cinnamon Allergy Severe Swelling Verified 04/22/25 07:45 of Lip/Tongue/Throat aspirin AdvReac Severe HAS ULCER Verified 04/22/25 07:45 Review of Systems Review of Systems Systems Reviewed: All systems reviewed, normal except as documented Past Medical History Past Medical History NEUROLOGIC: Positive Migraine CARDIAC: Positive Hypercholesterolemia and Hypertension RESPIRATORY: Positive Chronic Obstructive Pulmonary Disease (COPD) and Asthma GASTROINTESTINAL: Positive Gastrointestinal Disorders and Gastroesophageal Reflux Disease REPRODUCTIVE: Positive Previous Pregnancies and Uterine Prolapse MUSCULOSKELETAL: Positive Musculoskeletal Disorders and Arthritis PSYCHO/SOCIAL: Positive Bipolar Disorder, Depression, Anxiety and Post Traumatic Stress Disorder OTHER HISTORY: Positive Hospitalization, Autoimmune Disease, Chicken Pox and Cancer Family History FAMILY HISTORY: Positive Family Psychiatric Problems, Family Respiratory Disorders, Family Cardiac Disorders, Family Cancer, Family Surgery and Family Anesthesia Reaction Surgical History SURGICAL: Positive Abdominal Surgery and Tubal Ligation Social History SMOKING STATUS: Current every day smoker SECOND HAND EXPOSURE: No SUBSTANCE USE: former substance user and methamphetamine (Former methamphetamine abuse, quit in 2018.) ED Exam Narrative Physical exam: GENERAL APPEARANCE: AxOx4, nontoxic appearing, when patient initially arrived she was in respiratory distress speaking 1-2 word sentences but once she became distracted she was speaking full sentences, smells of cigarettes HEENT: NC, AT. MMM. EOMI, clear conjunctiva, oropharynx clear. NECK: Supple without lymphadenopathy. No stiffness or restricted ROM. HEART: Normal rate and regular rhythm, normal S1/S1, no m/r/g LUNGS: Chappell-expiratory wheezing, coarse rhonchi ABDOMEN: Soft, nontender, nondistended with good bowel sounds heard. BACK: No midline C/T/L spine pain or deformity, No CVAT, no obvious deformity. EXTREMITIES: Without cyanosis, clubbing or edema. MUSCULOSKELETAL: FROM of all major joints, no chest tenderness NEUROLOGICAL: Grossly nonfocal. Alert and oriented, moving all 4 extremities. CN not formally tested but appear grossly intact. Skin: Warm and dry without any rash. Course Quality Measures none Orders Category Date Time Status ALBUTEROL RT 0.5ml [Proventil Rt 0.5ml] Med 04/28/25 10:49 Discontinued 10 mg INH X1 ONE Diazepam [Valium] Med 04/28/25 12:59 Discontinued 5 mg PO X1 ONE Ipratropium Herald Rt Farrah [Atrovent Rt Farrah] Med 04/28/25 10:49 Discontinued 1 mg INH X1 ONE Sodium Chloride Rt Farrah 0.9% [NS Rt Farrah 0.9%] Med 04/28/25 10:49 Discontinued 3 ml INH PRN PRN Vital Signs Vital signs: Vital Signs Temperature 98.3 F 04/28/25 09:50 Pulse Rate 102 H 04/28/25 09:50 Respiratory Rate 22 H 04/28/25 09:50 Blood Pressure 119/76 04/28/25 09:50 Pulse Oximetry (%) 91 L 04/28/25 09:50 Oxygen Delivery Method Room Air 04/28/25 09:50 Pulse ox is 91% on room air which is low. Shortness of Breath / Dyspnea MDM Narrative MDM Narrative:: Ayana Perez am scribing for and in the presence of Dr. Herrera. Patient data External records reviewed:: [facility] previous records (I reviewed ED Visit on 04/22/2025 ) and EMS form Clinical information provided by:: patient and EMS Social determinants that could affect healthcare access:: other (specify) (Active tobacco smoker ) Patient has the following chronic illnesses:: Asthma, COPD How is presenting disease/condition affected by chronic disease/condition?: exacerbated by Evaluation data The following diagnostics were reviewed and interpreted by me:: other (specify) (No diagnostics ordered ) Lab and/or radiology exams considered but not ordered:: None Interpretation Summary: as noted above Medications / Prescriptions Medications or Prescriptions considered but not ordered:: None Medication administrations:: Medication Administration History Discontinued Medications Albuterol (Albuterol Rt 2.5 Mg/0.5 Ml Nebu) 10 mg INH X1 ONE Stop: 04/28/25 10:50 Last Admin: 04/28/25 11:00 Dose: 10 mg Documented By: CLARA Diazepam (Diazepam 5 Mg Tablet) 5 mg PO X1 ONE Stop: 04/28/25 13:00 Last Admin: 04/28/25 13:04 Dose: 5 mg Documented By: TJ Ipratropium Herald (Ipratropium Rt 0.5 Mg/ 2.5 Ml Nebu) 1 mg INH X1 ONE Stop: 04/28/25 10:50 Last Admin: 04/28/25 11:01 Dose: 1 mg Documented By: CLARA Sodium Chloride (Sodium Chloride Rt Farrah 0.9% 3 Ml Nebu) 3 ml INH PRN PRN PRN Reason: SOLN Stop: 05/28/25 10:48 See above Consultations Consultation(s) initiated? (list below): No Diagnosis Shortness of Breath Differential Diagnosis: acute exacerbation of chronic obstructive airways disease, congestive heart failure, community acquired pneumonia and asthma with exacerbation Most likely diagnosis given after review of the tests above:: Tobacco abuse Acute exacerbation of COPD Anxiety Admission Indicated Admission indicated?: not indicated Admission Request Was there a request for admission?: No Disposition Plan Disposition Plan: Discharge Discharge Attestation Discharge Attestation: The patient and all family members were given an opportunity to ask questions and understood the discharge instructions. Discharge instructions specifically effects, indications for sooner follow up or return to the emergency department, and the expected course of current diagnosis. Patient condition: Stable Discharge Plan Plan Patient Disposition: HOME (Self Care) Prescriptions/Referrals Prescriptions/Med Rec: No Action atorvastatin 20 mg Tablet 20 mg PO QPM paroxetine HCl 40 mg Tablet 40 mg PO QDAY buspirone 15 mg Tablet 15 mg PO TID aripiprazole 5 mg Tablet 5 mg PO QDAY Spiriva Respimat 2.5 mcg/actuation mist 2 puff INHALATION DAILY Patient Comments: INHALE 2 PUFFS INTO THE LUNGS EVERY DAY FOR 30 DAYS metoclopramide HCl [Reglan] 10 mg tablet 10 mg PO Q6H PRN (Reason: abdominal pain) Qty: 14 0RF pantoprazole [Protonix] 40 mg tablet,delayed release (DR/EC) 40 mg PO QDAY Qty: 30 0RF zinc sulfate 50 mg zinc (220 mg) Capsule 220 mg PO QDAY Qty: 30 0RF methylprednisolone [Medrol (Kody)] 4 mg tablets,dose pack 4 mg PO QAM Qty: 21 0RF ipratropium-albuterol 0.5 mg-3 mg(2.5 mg base)/3 mL solution for nebulization 3 ml inhalation Q8H PRN (Reason: shortness of breath) Qty: 90 0RF prednisone 50 mg tablet 50 mg PO QDAY Qty: 7 0RF acetaminophen 500 mg capsule 500 mg PO Q6H PRN (Reason: pain) Qty: 30 0RF prednisone 50 mg tablet 50 mg PO QDAY Qty: 7 0RF albuterol sulfate 90 mcg/actuation HFA aerosol inhaler 2 inh inhalation QID PRN (Reason: shortness of breath or wheezing) Qty: 8.5 0RF tramadol 50 mg tablet 50 mg PO Q6H PRN (Reason: pain) Qty: 20 0RF acetaminophen-codeine 300-30 mg tablet 2 tab PO TID MDD 6 PRN (Reason: pain) Qty: 10 0RF acetaminophen 500 mg capsule 500 mg PO Q6H PRN (Reason: pain) Qty: 30 0RF cyclobenzaprine 10 mg tablet 10 mg PO TID PRN (Reason: muscle spasm) Qty: 10 0RF ibuprofen 600 mg tablet 600 mg PO Q6H Qty: 30 0RF amoxicillin-pot clavulanate 875-125 mg tablet 1 tab PO BID Qty: 14 0RF clindamycin HCl 300 mg capsule 300 mg PO Q6H Qty: 20 0RF acetaminophen-codeine 300-30 mg tablet 2 tab PO Q8H MDD 6 PRN (Reason: pain) Qty: 20 0RF Referrals: Celine Olsen PA-C [Primary Care Provider] - In 1 week Problem List Clinical Impression: Tobacco abuse, Acute exacerbation of chronic obstructive airways disease, Anxiety Patient/Caregiver Discharge Instructions Education Materials: COPD: Chronic Coughing, COPD Meds, ED Anxiety Reaction, ED COPD Flare Additional Instructions: It is important to stop smoking completely. Take 1 treatment of your nebulizer every 6 hours for the next 3 days. Continue all prednisone prescriptions sent by [facility]. Follow-up with your primary care doctor in 2 to 3 days for recheck. Print Language: Welsh Stand Alone Forms: Shari Award Info., Patient Portal Info Letter
[2025-04-28] MEDS: DIAZEPAM 5 MG TABLET PO (13:04)
[2025-04-28 13:05] VITALS: BP 140/83; PULSE 98; RESP 20; TEMP 36.4; O2SAT 92
== END 2025-04-28 15:39 | disposition home or self-care (01) ==
PROVIDERS: Emergency Provider Emergency Medicine; PCP Physician Assistant Medical
DX: J44.1 Chronic obstructive pulmonary disease with (acute) exacerbation (principal); F41.9 Anxiety disorder, unspecified; Z72.0 Tobacco use
CPT/HCPCS: 94644; 99283; A9270

== ENCOUNTER 2025-05-01 11:33 | Emergency (ER) | payer MEDICAID, SELFPAY ==
[2025-05-01 11:34] VITALS: BP 123/82; PULSE 89; PULSE 91; RESP 18; RESP 20; TEMP 36.8; O2SAT 94; BMI 37.8
--- NOTE | 2025-05-01 11:42 | PD.EDADULT ---
ED General RME/HPI General Chief complaint: Shortness of Breath/Dyspnea Stated complaint: SOB Time Seen by Provider: 05/01/25 11:52 Arrival date/time: 05/01/25 11:33 RME / HPI RME / HPI narrative: DR. REYNOLDS MAIN ED EVALUATION: 45 year old female with past medical history significant for COPD presents to the Emergency Department BIBA from the [facility] with complaint of worsening shortness of breath. Per EMS, staff reported patient had accessory muscle use and was gasping for air. Associated symptoms include a chronic cough. Per EMS, patient was satting at 93% on room air but seemed short of breath. She was recently seen here for the same and discharged on 04/28/25. No breathing treatments given prior to arrival. Related Data Home Medications ?Medication ?Instructions ?Recorded ?Confirmed aripiprazole 5 mg tablet 5 mg PO QDAY 09/30/23 09/30/23 atorvastatin 20 mg tablet 20 mg PO QPM 09/30/23 09/30/23 buspirone 15 mg tablet 15 mg PO TID 09/30/23 09/30/23 paroxetine HCl 40 mg tablet 40 mg PO QDAY 09/30/23 09/30/23 tiotropium bromide 2.5 2 puff inhalation DAILY 09/30/23 09/30/23 mcg/actuation mist for inhalation (Spiriva Respimat) Previous Rx's ?Medication ?Instructions ?Recorded tramadol 50 mg tablet 50 mg PO Q6H PRN pain #20 tabs 02/17/24 metoclopramide HCl 10 mg tablet 10 mg PO Q6H PRN abdominal pain 07/26/24 (Reglan) #14 tabs pantoprazole 40 mg tablet,delayed 40 mg PO QDAY #30 tabs 07/26/24 release (Protonix) acetaminophen 300 mg-codeine 30 mg 2 tab PO TID PRN pain #10 tabs 08/09/24 tablet acetaminophen 500 mg capsule 500 mg PO Q6H PRN pain #30 caps 10/01/24 cyclobenzaprine 10 mg tablet 10 mg PO TID PRN muscle spasm #10 10/01/24 tabs methylprednisolone 4 mg tablets in 4 mg PO QAM #21 tabs 11/13/24 a dose pack (Medrol (Kody)) zinc sulfate 50 mg zinc (220 mg) 220 mg (4.4 x 50 mg zinc (220 mg)) 11/13/24 capsule PO QDAY #30 caps ibuprofen 600 mg tablet 600 mg PO Q6H #30 tabs 12/06/24 amoxicillin 875 mg-potassium 1 tab PO BID #14 tabs 12/13/24 clavulanate 125 mg tablet ipratropium 0.5 mg-albuterol 3 mg 3 ml inhalation Q8H PRN shortness 12/18/24 (2.5 mg base)/3 mL nebulization of breath #90 mL soln prednisone 50 mg tablet 50 mg PO QDAY #7 tabs 12/18/24 acetaminophen 500 mg capsule 500 mg PO Q6H PRN pain #30 caps 01/12/25 albuterol sulfate 90 mcg/actuation 2 inh inhalation QID PRN shortness 02/12/25 aerosol inhaler of breath or wheezing #8.5 grams prednisone 50 mg tablet 50 mg PO QDAY #7 tabs 02/12/25 clindamycin HCl 300 mg capsule 300 mg PO Q6H #20 caps 03/26/25 acetaminophen 300 mg-codeine 30 mg 2 tab PO Q8H PRN pain #20 tabs 04/05/25 tablet prednisone 20 mg tablet 40 mg PO QDAY COPD 5 days #10 tabs 05/01/25 Allergies Allergy/AdvReac Type Severity Reaction Status Date / Time cinnamon Allergy Severe Swelling Verified 04/22/25 07:45 of Lip/Tongue/Throat aspirin AdvReac Severe HAS ULCER Verified 04/22/25 07:45 Review of Systems Review of Systems Systems Reviewed: All systems reviewed, normal except as documented Narrative Review of Systems: Constitutional: DENIES: fevers; Eyes: DENIES: loss of vision; Head/Ear/Nose: DENIES: loss of hearing. Throat: DENIES: dysphagia. Cardiovascular: DENIES: chest pain, dyspnea, or syncope. Respiratory: POSITIVES: worsening shortness of breath, chronic cough Gastrointestinal: DENIES: rectal bleeding or melena. Genitourinary: DENIES: dysuria (painful or difficult urination); Musculoskeletal: DENIES: arthralgia (pain in a joint); Skin: DENIES: rash; Neurological: DENIES: loss of function or movement; Psychiatric: DENIES: recent major life stressor, emotional problem, illicit drug use or abuse; Endocrinology: DENIES: weight change,; Hematologic/Lymphatic: DENIES: abnormal bruising. Allergic/Immunologic: DENIES: urticaria (hives). Past Medical History Past Medical History NEUROLOGIC: Positive Migraine CARDIAC: Positive Hypercholesterolemia and Hypertension RESPIRATORY: Positive Chronic Obstructive Pulmonary Disease (COPD) and Asthma GASTROINTESTINAL: Positive Gastrointestinal Disorders, Ulcer and Gastroesophageal Reflux Disease REPRODUCTIVE: Positive Previous Pregnancies and Uterine Prolapse MUSCULOSKELETAL: Positive Musculoskeletal Disorders and Arthritis PSYCHO/SOCIAL: Positive Bipolar Disorder, Depression, Anxiety and Post Traumatic Stress Disorder OTHER HISTORY: Positive Hospitalization, Autoimmune Disease, Chicken Pox and Cancer Family History FAMILY HISTORY: Positive Family Psychiatric Problems, Family Respiratory Disorders, Family Cardiac Disorders, Family Cancer, Family Surgery and Family Anesthesia Reaction Surgical History SURGICAL: Positive Abdominal Surgery and Tubal Ligation Social History SMOKING STATUS: Current some day smoker SECOND HAND EXPOSURE: No SUBSTANCE USE: former substance user and methamphetamine (Former methamphetamine abuse, quit in 2018.) ED Exam Narrative Physical exam: Physical Exam: General: The vital signs were reviewed. Seen in the ambulance bay no obvious retractions but she is very tight with poor air exchange charge nurse was informed and patient was moved to room 11 the patient is non-toxic, in no apparent distress and appears healthy with a patent airway, no respiratory distress and has no apparent circulatory problems. Head & Scalp: Normocephalic, atraumatic. Face: Appears normal and is without lesions, deformity. Ears: Left external pinna appears normal. Right external pinna appears normal. Eyes: The sclera is anicteric. No obvious photophobia. The Left and Right Orbit/Lid/Conjunctiva appears normal without swelling, discoloration or injection. Nose: The nose is without deformity, discharge or tenderness; Throat: Appears normal. The mucous membranes are pink and moist without exudates, redness or mass seen. The tongue appears normal. Neck: The neck is supple and no apparent mass or adenopathy. Chest: The chest wall is normal in size and symmetry and has no chest wall tenderness or crepitus. The patient displays normal ventilator effort without retractions, accessory muscle use and has adequate air movement bilaterally with no wheezes and no rales. Cardiovascular: Regular rate and rhythm; No murmurs, rubs, or gallops; Gastrointestinal: The abdomen appears normal. No obvious hernias or mass. The abdomen is soft and benign, non-distended, with no pain, no guarding and no rebound tenderness. Bowel sounds are present and normal sounding. No CVA tenderness. Genitourinary: Back/Spine: Normal inspection Extremities/Musculoskeletal/lymphatic: The bilateral upper and lower extremities are warm. There is no evidence of arterial insufficiency. There is no evidence of venous insufficiency/edema. The patient spontaneously moves bilateral upper and lower extremities with no pain and no limitation of movement. There is no apparent, injury or trauma. Skin: The skin is warm, dry and intact. No rashes. No petechia. No purpura. No abnormal bruising. The color is appropriate with no cyanosis. Mental status/Psychiatric: Mental status is appropriate for age. The patient has no apparent delusions, visual hallucinations, no apparent audible hallucinations. The patient has no apparent suicidal thoughts/ideation and no apparent homicidal thoughts/ideation. Neurological: The patient is awake, alert, interactive, cordial, cooperative and is oriented to name and situation. The patient follows commands and answers historical question with no impairment. There is no visual disturbance apparent. The pupils are equal and reactive bilaterally with normal eye movements and no diplopia The bilateral upper and lower extremities have normal strength, normal range of motion and normal functioning. The gait, station and balance were not tested due to acuity Course Quality Measures none Orders Category Date Time Status Application Technical Designer STAT Care 05/01/25 12:42 Active Continuous Pulse Oximetry STAT Care 05/01/25 12:42 Completed EKG (ED ONLY) *Do not use* NOW Care 05/01/25 12:42 Completed Insert IV NOW Care 05/01/25 12:42 Active Miscellaneous Nursing Order NOW Care 05/01/25 12:42 Active NPO STAT Care 05/01/25 12:42 Active EKG (ED Only) Stat Exams 05/01/25 12:42 Draft XR chest 1V portable Stat Exams 05/01/25 12:42 Completed B-Type Natriuretic Peptide Stat Lab 05/01/25 12:59 Completed Blood Culture (Lab) Stat Lab 05/01/25 12:56 Received CBC Stat Lab 05/01/25 12:59 Completed Comprehensive Metabolic Panel Stat Lab 05/01/25 12:59 Completed Lactate (Lactic Acid) Stat Lab 05/01/25 12:59 Completed Magnesium Stat Lab 05/01/25 12:59 Completed Procalcitonin Stat Lab 05/01/25 12:59 Completed Troponin I Stat Lab 05/01/25 12:59 Completed Urinalysis Stat Lab 05/01/25 13:35 Completed Venous Blood Gas Stat Lab 05/01/25 12:59 Completed ALBUTEROL RT 0.5ml [Proventil Rt 0.5ml] Med 05/01/25 12:42 Discontinued 10 mg INH X1 ONE Ipratropium [place] Rt Farrah [Atrovent Rt Farrah] Med 05/01/25 12:42 Discontinued 0.5 mg INH X1 ONE MethylPREDNISolone.* [SoluMEDROL Inj] Med 05/01/25 12:42 Discontinued 125 mg IVP X1 ONE Oxygen Delivery NOW RT 05/01/25 12:42 Active Vital Signs Vital signs: Vital Signs Temperature 98.3 F 05/01/25 11:34 Pulse Rate 91 05/01/25 11:34 Respiratory Rate 18 05/01/25 11:34 Blood Pressure 123/82 05/01/25 11:34 Pulse Oximetry (%) 94 L 05/01/25 11:34 Oxygen Delivery Method Room Air 05/01/25 11:34 Critical Care Time Critical Care Time Critical Care Time: Yes Total Critical Care Time (min.): 45 Attestation: The high probability of sudden, clinically significant deterioration in the patient?s condition required the highest level of my preparedness to intervene urgently. The services I provided to this patient were to treat and/or prevent clinically significant deterioration. Services included the following: chart data review, reviewing nursing notes and/or old charts, documentation time, automotive service consultant collaboration regarding findings and treatment options, medication orders and management, direct patient care, vital sign assessments and ordering, interpreting and reviewing diagnostic studies and lab tests. Aggregate critical care time includes only time during which I was engaged in work directly related to the patient?s care, as described above, whether at bedside or elsewhere in the Emergency Department. It did not include time spent performing other reported procedures or the services of residents, students, nurses or physician assistants. Discharge Plan Plan Patient Disposition: HOME (Self Care) Prescriptions/Referrals Prescriptions/Med Rec: New prednisone 20 mg tablet 40 mg PO QDAY 5 Days Qty: 10 0RF Taper: Prednisone Taper 20 mg DAILY for 2 Days and 0 Hour 10 mg DAILY for 2 Days and 0 Hour 5 mg DAILY for 7 Days and 0 Hour No Action atorvastatin 20 mg Tablet 20 mg PO QPM paroxetine HCl 40 mg Tablet 40 mg PO QDAY buspirone 15 mg Tablet 15 mg PO TID aripiprazole 5 mg Tablet 5 mg PO QDAY Spiriva Respimat 2.5 mcg/actuation mist 2 puff INHALATION DAILY Patient Comments: INHALE 2 PUFFS INTO THE LUNGS EVERY DAY FOR 30 DAYS metoclopramide HCl [Reglan] 10 mg tablet 10 mg PO Q6H PRN (Reason: abdominal pain) Qty: 14 0RF pantoprazole [Protonix] 40 mg tablet,delayed release (DR/EC) 40 mg PO QDAY Qty: 30 0RF zinc sulfate 50 mg zinc (220 mg) Capsule 220 mg PO QDAY Qty: 30 0RF methylprednisolone [Medrol (Kody)] 4 mg tablets,dose pack 4 mg PO QAM Qty: 21 0RF ipratropium-albuterol 0.5 mg-3 mg(2.5 mg base)/3 mL solution for nebulization 3 ml inhalation Q8H PRN (Reason: shortness of breath) Qty: 90 0RF prednisone 50 mg tablet 50 mg PO QDAY Qty: 7 0RF acetaminophen 500 mg capsule 500 mg PO Q6H PRN (Reason: pain) Qty: 30 0RF prednisone 50 mg tablet 50 mg PO QDAY Qty: 7 0RF albuterol sulfate 90 mcg/actuation HFA aerosol inhaler 2 inh inhalation QID PRN (Reason: shortness of breath or wheezing) Qty: 8.5 0RF tramadol 50 mg tablet 50 mg PO Q6H PRN (Reason: pain) Qty: 20 0RF acetaminophen-codeine 300-30 mg tablet 2 tab PO TID MDD 6 PRN (Reason: pain) Qty: 10 0RF acetaminophen 500 mg capsule 500 mg PO Q6H PRN (Reason: pain) Qty: 30 0RF cyclobenzaprine 10 mg tablet 10 mg PO TID PRN (Reason: muscle spasm) Qty: 10 0RF ibuprofen 600 mg tablet 600 mg PO Q6H Qty: 30 0RF amoxicillin-pot clavulanate 875-125 mg tablet 1 tab PO BID Qty: 14 0RF clindamycin HCl 300 mg capsule 300 mg PO Q6H Qty: 20 0RF acetaminophen-codeine 300-30 mg tablet 2 tab PO Q8H MDD 6 PRN (Reason: pain) Qty: 20 0RF Referrals: Celnie Olsen PA-C [Primary Care Provider] - In 1 week Problem List Clinical Impression: Acute exacerbation of chronic obstructive airways disease, Acute respiratory distress Patient/Caregiver Discharge Instructions Additional Instructions: Use your nebulizer every 3 hours for wheezing or cough. Take your prednisone every morning for the next 3 days and extend to 5 days if you are still short of breath. Return if you are getting worse. Print Language: Chinese Stand Alone Forms: Shari Award Info., Patient Portal Info Letter MDM Narrative MDM hospital course: Patient comes in by EMS with shortness of breath and barely moving air seen obviously COPD exacerbation. Patient got continuous neb treatment and IV steroids and was reevaluated 2 hours later and her lungs are much improved. She was able to stand and walk with no distress O2 sats were adequate. She felt good and wanted to go home. She states she has a nebulizer machine at home she knows return if she is getting worse. Medical workup reveals a white count of 12.8 venous blood gas shows a pH of 744 pCO2 of 41 sodium 142 potassium 4 6 chloride 104 renal functions good lactic acid was 1.9 urinalysis came back negative. Chest x-ray reviewed myself he has no infiltrates normal heart and no effusion. Note the dictation has a typo or misprint no acute fracture disease. Nonetheless patient is clinically stable and ready go home we will give her prednisone 40 mg every morning for 5 days Clinical Information Provided by patient and EMS Medical [facility] Meds/Rx Considered, not Ordered None Labs/Rad/Tests considered, not Ordered None Chronic Illness/Social Conditions which may negatively complicate care or outcome(s)-explain: COPD EKG Interpretation EKG #1: Date/time of EK05/01/25 1251 hours EKG interpretation: sinus rhythm, rate 87, no STEMI Lab Interpretation Labs: see narrative above Imaging Imaging interpretation: see narrative above Radiology reports / interpretation(s): Procedure(s): XR chest 1V portable Accession Number(s): [id number] cc: Pablo Reynolds MD; Dav Treadwell MD~ Examination: AP chest single view Technique one AP portable upright chest single view Date and time: May 01, 2025 1304 hours INDICATIONS: Coughing beginning 2 days ago with shortness of breath FINDINGS: Normal heart size. Lungs are clear. Old resection distal right clavicle IMPRESSION: No acute fracture disease Dictated By: Dav Treadwell MD Medication Administration(s) Medication Administration History Discontinued Medications Albuterol (Albuterol Rt 2.5 Mg/0.5 Ml Nebu) 10 mg INH X1 ONE Stop: 05/01/25 12:43 Last Admin: 05/01/25 13:20 Dose: 10 mg Documented By: SERGIO Ipratropium [place] (Ipratropium Rt 0.5 Mg/ 2.5 Ml Nebu) 0.5 mg INH X1 ONE Stop: 05/01/25 12:43 Last Admin: 05/01/25 13:20 Dose: 0.5 mg Documented By: SERGIO Methylprednisolone Sodium Succinate (Methylprednisolone Sod Succ 62.5 Mg/Ml 2ml Vial) 125 mg IVP X1 ONE Stop: 05/01/25 12:43 Last Admin: 05/01/25 13:24 Dose: 125 mg Documented By: NATA Diagnosis Differential diagnosis: COPD exacerbation, PE, pneumonia
--- NOTE | 2025-05-01 12:42 | EKG_ITS ---
[facility] Test Date: 2025-05-01 Pat Name: CATHRYN VERDE Department: Room: - Gender: Female Home Health Nurse: : 1980 Requested By: Pablo Luke Order Number: [id number] Reading MD: Pablo Luke Measurements Intervals [place] Rate: 87 P: 64 IA: 136 QRS: 62 QRSD: 80 T: 64 QT: 349 QTc: 420 Interpretive Statements SINUS RHYTHM Compared to ECG 12/13/2024 18:25:30 No significant changes /store/S0/[id number]/[id number].pdf
--- NOTE | 2025-05-01 12:42 | XR_ITS ---
Examination: AP chest single view Technique one AP portable upright chest single view Date and time: May 01, 2025 1304 hours INDICATIONS: Coughing beginning 2 days ago with shortness of breath FINDINGS: Normal heart size. Lungs are clear. Old resection distal right clavicle IMPRESSION: No acute fracture disease
[2025-05-01 13:06] LABS: Lactate (Lactic Acid) 1.9 mMol/L (0.4-2.0)
[2025-05-01 13:07] LABS: Base Excess, Venous 3 (-3-3); O2 Saturation, Venous 86 % (96-97); PCO2, Venous 41 mmHg (36-56); PO2, Venous 47 mmHg (15-58); pH, Venous 7.44 (7.33-7.66)
[2025-05-01 13:13] LABS: Basophils # (Auto) 0.1 Thou/mm3 (0.0-0.2); Basophils % (Auto) 0 % (0-2.5); Eosinophils % (Auto) 0 % (0-10); Hematocrit 40.9 % (36.0-46.0); Hemoglobin 13.3 g/dL (12.0-16.0); Immature Granulocytes % (Auto) 0 % (0-0); Immature Granulocytes Auto 0.05 Thou/mm3 (0.00-0.00); Lymphocytes # (Auto) 0.9 Thou/mm3 (1.0-4.8); Lymphocytes % (Auto) 7 % (10-50); Mean Corpuscular HGB Conc 32.5 g/dl (31.0-37.0); Mean Corpuscular Hemoglobin 28.7 pg (25.0-35.0); Mean Corpuscular Volume 88 fL (80-100); Monocytes # (Auto) 0.5 Thou/mm3 (0.0-0.8); Monocytes % (Auto) 4 % (0-12); Neutrophils # (Auto) 11.3 Thou/mm3 (1.8-7.7); Neutrophils % (Auto) 88 % (37-80); Nucleated Red Blood Cell % 0 /100 WBC (0); Platelet Count 325 Thou/mm3 (140-440); RDW Standard Deviation 48.3 fL (36.4-46.3); Red Blood Count 4.64 Miln/mm3 (4.00-5.20); White Blood Count 12.8 Thou/mm3 (3.6-11.0)
[2025-05-01 13:15] VITALS: PULSE 87
[2025-05-01 13:20] VITALS: PULSE 85
[2025-05-01] MEDS: IPRATROPIUM RT 0.5 MG/ 2.5 ML NEBU INH (13:20)
[2025-05-01] MEDS: ALBUTEROL RT 2.5 MG/0.5 ML NEBU 10 MG INH (13:20)
[2025-05-01] MEDS: MethylPREDNISolone SOD SUCC 62.5 MG/ML 2ML VIAL 125 MG IVP (13:24)
[2025-05-01 13:25] VITALS: PULSE 85; PULSE 87; RESP 19; RESP 20; O2SAT 96; O2SAT 97
[2025-05-01 13:26] LABS: B-Type Natriuretic Peptide < 20 pg/mL (0-100)
[2025-05-01 13:27] VITALS: BP 116/75; PULSE 90; RESP 17; O2SAT 98
[2025-05-01 13:36] LABS: Alanine Aminotransferase 14 U/L (10-49); Albumin, Serum 4.6 gm/dL (3.5-5.0); Albumin/Globulin Ratio 1.9 (1.2-2.2); Alkaline Phosphatase 101 U/L (46-116); Anion Gap 10 (7-16); Aspartate Amino Transferase 11 U/L (0-34); BUN/Creatinine Ratio 16 Ratio (12-20); Bilirubin,Total 0.4 mg/dL (0.3-1.2); Blood Urea Nitrogen 14 mg/dL (9-23); Calcium 9.4 mg/dL (8.3-10.6); Calcium (Corrected) 9.4 mg/dL (8.5-10.1); Carbon Dioxide 28.2 mMol/L (20.0-31.0); Chloride 104 mMol/L (98-107); Creatinine (Component) 0.9 mg/dL (0.6-1.3); Estimated Creatinine Clearance 96.2 mL/min (>60); Globulin 2.4 gm/dL (2.3-3.5); Glucose 118 mg/dL (74-106); Osmolality,Calculated 284 (275-295); Potassium 4.6 mMol/L (3.4-5.1); Procalcitonin 0.04 ng/ml (0.0-0.49); Sodium 142 mMol/L (136-145); Troponin I < 0.002 ng/mL (0.0-0.045); eGFR > 60 See Note
[2025-05-01 13:58] LABS: Collection Type, Urine Clean Catch
[2025-05-01 14:04] LABS: Bilirubin,Urine Negative (Negative); Blood,Urine Negative (Negative); Clarity,Urine Clear (Clear/Hazy); Color,Urine Colorless (Lt Yel-Yel); Glucose, Urine Negative (Negative); Ketones,Urine Negative (Negative); Leukocyte Esterase,Urine Negative (Negative); Nitrite,Urine Negative (Negative); PH,Urine 6.5 (5.0-7.0); Protein,Urine Negative (Neg - Trace); RBC,Urine < 1 /hpf (0-3); Specific Gravity,Urine 1.006 (1.001-1.035); Squamous Epithelial Cell,Urine < 1 /hpf (0-5); Urobilinogen,Urine Negative mg/dL (0.0-1.0); WBC,Urine < 1 /hpf (0-5)
--- NOTE | 2025-05-01 16:28 | PC.NURSE ---
Hand off report received from Melita PIERSON. Pt was assessed, currently she is sitting up in bed, oxygen is 97% on 4L. Oxygen was decreased to 2L to evaluate oxygen saturation. Pt denies any pain or resp distress at this time. Pt requesting some food at this time and results of exams taken.
[2025-05-01 17:50] VITALS: BP 122/78; PULSE 77; RESP 16; TEMP 37.2; O2SAT 97
--- NOTE | 2025-05-01 19:44 | PC.NURSE ---
PT AMBULATED AT 92% ON ROOM AND TOLERATED WELL. PT DENIES ANY SHORTNESS OF BREATH,STATES I FEEL GOOD. MADE AWARE
== END 2025-05-01 20:41 | disposition home or self-care (01) ==
PROVIDERS: Emergency Provider Emergency Medicine; PCP Physician Assistant Medical
DX: J44.1 Chronic obstructive pulmonary disease with (acute) exacerbation (principal); R06.03 Acute respiratory distress; F17.210 Nicotine dependence, cigarettes, uncomplicated; E78.00 Pure hypercholesterolemia, unspecified; I10 Essential (primary) hypertension
CPT/HCPCS: 36415; 71045; 80053; 81001; 82803; 83605; 83735; 83880; 84145; 84484; 85025; 87040; 93005; 94644; 96374; 99284; J2919

== ENCOUNTER 2025-05-02 14:15 | Emergency (ER) | payer MEDICAID, SELFPAY ==
[2025-05-02 14:37] VITALS: BP 95/64; PULSE 100; RESP 28; TEMP 36.7; O2SAT 91; BMI 37.8
--- NOTE | 2025-05-02 14:55 | PD.EDADULT ---
ED General RME/HPI General Chief complaint: Shortness of Breath/Dyspnea Stated complaint: SOB, COUGH, CHEST PAIN, NECK PAIN, YEUNG Time Seen by Provider: 05/02/25 14:51 Arrival date/time: 05/02/25 14:15 Limitations: no limitations RME / HPI RME / HPI narrative: DR. MOLINA MAIN ED EVALUATION: 45 year old female with past medical history significant for COPD, current smoker went from 2.5 packs a day to 1.5 packs a day, and asthma presents to the Emergency Department with complaint of worsening shortness of breath, onset 7 days. Patient was seen yesterday for the same symptoms, given a breathing treatment, and discharged home. She has a nebulizer at home, albuterol, and takes prednisone 40 mg. Associated symptoms include a productive cough, green phlegm. She also mentions that about a week ago, she was admitted overnight at [facility]. Related Data Home Medications ?Medication ?Instructions ?Recorded ?Confirmed aripiprazole 5 mg tablet 5 mg PO QDAY 09/30/23 09/30/23 atorvastatin 20 mg tablet 20 mg PO QPM 09/30/23 09/30/23 buspirone 15 mg tablet 15 mg PO TID 09/30/23 09/30/23 paroxetine HCl 40 mg tablet 40 mg PO QDAY 09/30/23 09/30/23 tiotropium bromide 2.5 2 puff inhalation DAILY 09/30/23 09/30/23 mcg/actuation mist for inhalation (Spiriva Respimat) Previous Rx's ?Medication ?Instructions ?Recorded tramadol 50 mg tablet 50 mg PO Q6H PRN pain #20 tabs 02/17/24 metoclopramide HCl 10 mg tablet 10 mg PO Q6H PRN abdominal pain 07/26/24 (Reglan) #14 tabs pantoprazole 40 mg tablet,delayed 40 mg PO QDAY #30 tabs 07/26/24 release (Protonix) acetaminophen 300 mg-codeine 30 mg 2 tab PO TID PRN pain #10 tabs 08/09/24 tablet acetaminophen 500 mg capsule 500 mg PO Q6H PRN pain #30 caps 10/01/24 cyclobenzaprine 10 mg tablet 10 mg PO TID PRN muscle spasm #10 10/01/24 tabs methylprednisolone 4 mg tablets in 4 mg PO QAM #21 tabs 11/13/24 a dose pack (Medrol (Kody)) zinc sulfate 50 mg zinc (220 mg) 220 mg (4.4 x 50 mg zinc (220 mg)) 11/13/24 capsule PO QDAY #30 caps ibuprofen 600 mg tablet 600 mg PO Q6H #30 tabs 12/06/24 amoxicillin 875 mg-potassium 1 tab PO BID #14 tabs 12/13/24 clavulanate 125 mg tablet ipratropium 0.5 mg-albuterol 3 mg 3 ml inhalation Q8H PRN shortness 12/18/24 (2.5 mg base)/3 mL nebulization of breath #90 mL soln prednisone 50 mg tablet 50 mg PO QDAY #7 tabs 12/18/24 acetaminophen 500 mg capsule 500 mg PO Q6H PRN pain #30 caps 01/12/25 albuterol sulfate 90 mcg/actuation 2 inh inhalation QID PRN shortness 02/12/25 aerosol inhaler of breath or wheezing #8.5 grams prednisone 50 mg tablet 50 mg PO QDAY #7 tabs 02/12/25 clindamycin HCl 300 mg capsule 300 mg PO Q6H #20 caps 03/26/25 acetaminophen 300 mg-codeine 30 mg 2 tab PO Q8H PRN pain #20 tabs 04/05/25 tablet prednisone 20 mg tablet 40 mg PO QDAY COPD 5 days #10 tabs 05/01/25 azithromycin 500 mg tablet 500 mg PO QDAY 7 days #7 tabs 05/02/25 prednisone 20 mg tablet See Taper PO QDAY allergic 05/02/25 reaction #21 tabs Allergies Allergy/AdvReac Type Severity Reaction Status Date / Time cinnamon Allergy Severe Swelling Verified 04/22/25 07:45 of Lip/Tongue/Throat aspirin AdvReac Severe HAS ULCER Verified 04/22/25 07:45 Review of Systems Review of Systems Systems Reviewed: All systems reviewed, normal except as documented Past Medical History Past Medical History NEUROLOGIC: Positive Migraine CARDIAC: Positive Hypercholesterolemia and Hypertension RESPIRATORY: Positive Chronic Obstructive Pulmonary Disease (COPD) and Asthma GASTROINTESTINAL: Positive Gastrointestinal Disorders, Ulcer and Gastroesophageal Reflux Disease REPRODUCTIVE: Positive Previous Pregnancies and Uterine Prolapse MUSCULOSKELETAL: Positive Musculoskeletal Disorders and Arthritis PSYCHO/SOCIAL: Positive Bipolar Disorder, Depression, Anxiety and Post Traumatic Stress Disorder OTHER HISTORY: Positive Hospitalization, Autoimmune Disease, Chicken Pox and Cancer Family History FAMILY HISTORY: Positive Family Psychiatric Problems, Family Respiratory Disorders, Family Cardiac Disorders, Family Cancer, Family Surgery and Family Anesthesia Reaction Surgical History SURGICAL: Positive Abdominal Surgery and Tubal Ligation Social History SMOKING STATUS: Current some day smoker SECOND HAND EXPOSURE: No SUBSTANCE USE: former substance user and methamphetamine (Former methamphetamine abuse, quit in 2018.) ED Exam General Limitations: Present no limitations General appearance: Present alert and in no apparent distress (no acute distress) Head Head exam: Present atraumatic, normocephalic and normal inspection Eye Eye exam: Present normal appearance, PERRL and EOMI ENT ENT exam: Present normal exam, normal oropharynx and mucous membranes moist Neck Neck exam: Present normal inspection, full ROM and trachea midline Chest Chest inspection: Present normal inspection and symmetric chest wall rise Respiratory Respiratory exam: Present wheezes (mild to moderate expiratory wheezing bilaterally) and other (there is rhonchi on bilateral bases); Absent accessory muscle use Cardiovascular Cardiovascular exam: Present regular rate, normal rhythm and normal heart sounds Abdominal Exam Abdominal exam: Present soft and normal bowel sounds Extremities Exam Extremities exam: Present normal inspection and full ROM Back Exam Back exam: Present normal inspection and full ROM Neurological Exam Neurological exam: Present alert, oriented X3 and CN II-XII intact Psychiatric Psychiatric exam: Present normal affect and normal mood Skin Skin exam: Present warm, dry, intact and normal color Course Quality Measures none Orders Category Date Time Status Supervisor Speech NOW Care 05/02/25 15:35 Active Continuous Pulse Oximetry NOW Care 05/02/25 15:35 Completed EKG (ED ONLY) *Do not use* NOW Care 05/02/25 15:35 Completed Insert IV NOW Care 05/02/25 15:35 Active EKG (ED Only) Stat Exams 05/02/25 15:35 Draft XR chest 1V portable Stat Exams 05/02/25 15:35 Completed CBC Stat Lab 05/02/25 15:51 Completed Comprehensive Metabolic Panel Stat Lab 05/02/25 15:51 Completed Partial Thromboplastin Time Stat Lab 05/02/25 15:51 Completed Prothrombin Time with INR Stat Lab 05/02/25 15:51 Completed Troponin I Stat Lab 05/02/25 15:51 Completed Urinalysis Stat Lab 05/02/25 15:35 Ordered ALBUTEROL RT 0.5ml [Proventil Rt 0.5ml] Med 05/02/25 15:35 Discontinued 7.5 mg INH X1 ONE Azithromycin Po [Zithromax PO] Med 05/02/25 15:41 Discontinued 500 mg PO X1 ONE Dexamethasone Inj [Decadron Inj] Med 05/02/25 15:41 Discontinued 8 mg IVP X1 ONE Sodium Chloride 0.9% 1000 ml [Ns] 1,000 ml Med 05/02/25 15:35 Active IV 100 mls/hr Oxygen Delivery NOW RT 05/02/25 15:35 Active Vital Signs Vital signs: Vital Signs Temperature 98.0 F 05/02/25 14:37 Pulse Rate 100 05/02/25 14:37 Respiratory Rate 28 H 05/02/25 14:37 Blood Pressure 95/64 05/02/25 14:37 Pulse Oximetry (%) 91 L 05/02/25 14:37 Oxygen Delivery Method Room Air 05/02/25 14:37 Discharge Plan Plan Patient Disposition: HOME (Self Care) Patient condition on transfer: Stable Prescriptions/Referrals Prescriptions/Med Rec: New prednisone 20 mg tablet See Taper PO QDAY MDD 3 Qty: 21 0RF Taper: Prednisone Taper 20 mg DAILY for 2 Days and 0 Hour 10 mg DAILY for 2 Days and 0 Hour 5 mg DAILY for 7 Days and 0 Hour Rx Instructions: Take 4 Tabs q Day for 3 days then take 3 tabs q Day for 3 days then resume 40 mg daily azithromycin 500 mg tablet 500 mg PO QDAY 7 Days Qty: 7 0RF No Action atorvastatin 20 mg Tablet 20 mg PO QPM paroxetine HCl 40 mg Tablet 40 mg PO QDAY buspirone 15 mg Tablet 15 mg PO TID aripiprazole 5 mg Tablet 5 mg PO QDAY Spiriva Respimat 2.5 mcg/actuation mist 2 puff INHALATION DAILY Patient Comments: INHALE 2 PUFFS INTO THE LUNGS EVERY DAY FOR 30 DAYS metoclopramide HCl [Reglan] 10 mg tablet 10 mg PO Q6H PRN (Reason: abdominal pain) Qty: 14 0RF pantoprazole [Protonix] 40 mg tablet,delayed release (DR/EC) 40 mg PO QDAY Qty: 30 0RF zinc sulfate 50 mg zinc (220 mg) Capsule 220 mg PO QDAY Qty: 30 0RF methylprednisolone [Medrol (Kody)] 4 mg tablets,dose pack 4 mg PO QAM Qty: 21 0RF ipratropium-albuterol 0.5 mg-3 mg(2.5 mg base)/3 mL solution for nebulization 3 ml inhalation Q8H PRN (Reason: shortness of breath) Qty: 90 0RF prednisone 50 mg tablet 50 mg PO QDAY Qty: 7 0RF acetaminophen 500 mg capsule 500 mg PO Q6H PRN (Reason: pain) Qty: 30 0RF prednisone 50 mg tablet 50 mg PO QDAY Qty: 7 0RF albuterol sulfate 90 mcg/actuation HFA aerosol inhaler 2 inh inhalation QID PRN (Reason: shortness of breath or wheezing) Qty: 8.5 0RF tramadol 50 mg tablet 50 mg PO Q6H PRN (Reason: pain) Qty: 20 0RF acetaminophen-codeine 300-30 mg tablet 2 tab PO TID MDD 6 PRN (Reason: pain) Qty: 10 0RF acetaminophen 500 mg capsule 500 mg PO Q6H PRN (Reason: pain) Qty: 30 0RF cyclobenzaprine 10 mg tablet 10 mg PO TID PRN (Reason: muscle spasm) Qty: 10 0RF ibuprofen 600 mg tablet 600 mg PO Q6H Qty: 30 0RF amoxicillin-pot clavulanate 875-125 mg tablet 1 tab PO BID Qty: 14 0RF clindamycin HCl 300 mg capsule 300 mg PO Q6H Qty: 20 0RF acetaminophen-codeine 300-30 mg tablet 2 tab PO Q8H MDD 6 PRN (Reason: pain) Qty: 20 0RF prednisone 20 mg tablet 40 mg PO QDAY 5 Days Qty: 10 0RF Taper: Prednisone Taper 20 mg DAILY for 2 Days and 0 Hour 10 mg DAILY for 2 Days and 0 Hour 5 mg DAILY for 7 Days and 0 Hour Referrals: Celine Olsen PA-C [Primary Care Provider] - In 1 week Problem List Clinical Impression: COPD exacerbation Patient/Caregiver Discharge Instructions Education Materials: Asthma and COPD, ED How to Quit Smoking Additional Instructions: Please follow-up with your primary care physician within 2 days. Return to the Emergency Department as needed. Print Language: Korean Stand Alone Forms: Shari Award Info., Patient Portal Info Letter MDM Narrative [facility] hospital course: IBetty am scribing for and in the presence of Dr. Molina. Will give steroids and a breathing treatment then reevaluate. Clinical Information Provided by patient Medical Records Reviewed [facility] Meds/Rx Considered, not Ordered None Labs/Rad/Tests considered, not Ordered None Chronic Illness/Social Conditions Add or document further as needed: COPD, current smoker went from 2.5 packs a day to 1.5 packs a day, and asthma EKG Interpretation EKG #1: Date/time of EK05/02/25 1613 hours EKG interpretation: sinus rhythm with short KS interval most likely from artifact, rate 93, KS interval 110 ms, QRS duration 85 ms, QT/QTc 327/377, P-R-T axis 53, 60, 63 Imaging Radiology reports / interpretation(s): Procedure(s): XR chest 1V portable Accession Number(s): [id number] cc: Celine Olsen PA-C; Juanito Molina MD; Dav Treadwell MD~ Examination: AP chest single view Technique one AP portable semiupright chest single view Date and time: May 02, 2025 1554 hrs. Comparison May 01, 2025 Indications: Chest pain shortness of breath coughing beginning 2 days ago. Findings: Mild basilar bronchitis pattern. Normal heart size. No pneumonia or pulmonary edema Impression: Mild basilar bronchitis pattern Dictated By: Dav Treadwell MD Medication Administration(s) Medication Administration History Sodium Chloride (Ns) 1,000 mls @ 100 mls/hr IV .Q10H ONE Stop: 05/03/25 01:34 Last Admin: 05/02/25 16:17 Dose: 100 mls/hr Documented By: POOJA Discontinued Medications Albuterol (Albuterol Rt 2.5 Mg/0.5 Ml Nebu) 7.5 mg INH X1 ONE Stop: 05/02/25 15:36 Last Admin: 05/02/25 15:57 Dose: 7.5 mg Documented By: SERGIO Azithromycin (Azithromycin 250 Mg Tablet) 500 mg PO X1 ONE Stop: 05/02/25 15:42 Last Admin: 05/02/25 16:18 Dose: 500 mg Documented By: EH Dexamethasone Sodium Phosphate (Dexamethasone Sod Phos Inj 10 Mg/Ml Vial) 8 mg IVP X1 ONE Stop: 05/02/25 15:42 Last Admin: 05/02/25 16:13 Dose: 8 mg Documented By: POOJA Diagnosis Differential diagnosis: COPD exacerbation, asthma exacerbation, pneumonia Most likely dx, and/or detailed dx discussion: COPD exacerbation Dispositon Disposition: Discharge Home
--- NOTE | 2025-05-02 15:35 | XR_ITS ---
Examination: AP chest single view Technique one AP portable semiupright chest single view Date and time: May 02, 2025 1554 hrs. Comparison May 01, 2025 Indications: Chest pain shortness of breath coughing beginning 2 days ago. Findings: Mild basilar bronchitis pattern. Normal heart size. No pneumonia or pulmonary edema Impression: Mild basilar bronchitis pattern
--- NOTE | 2025-05-02 15:35 | EKG_ITS ---
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
[2025-05-02 15:57] VITALS: PULSE 99
[2025-05-02] MEDS: ALBUTEROL RT 2.5 MG/0.5 ML NEBU 7.5 MG INH (15:57)
[2025-05-02 15:58] VITALS: PULSE 101; PULSE 93; RESP 20; O2SAT 100; O2SAT 93
[2025-05-02 16:06] LABS: Basophils % (Auto) 0 % (0-2.5); Eosinophils % (Auto) 0 % (0-10); Hematocrit 40.8 % (36.0-46.0); Hemoglobin 13.7 g/dL (12.0-16.0); Immature Granulocytes % (Auto) 1 % (0-0); Immature Granulocytes Auto 0.11 Thou/mm3 (0.00-0.00); Lymphocytes # (Auto) 1.7 Thou/mm3 (1.0-4.8); Lymphocytes % (Auto) 12 % (10-50); Mean Corpuscular HGB Conc 33.6 g/dl (31.0-37.0); Mean Corpuscular Hemoglobin 28.8 pg (25.0-35.0); Mean Corpuscular Volume 86 fL (80-100); Monocytes # (Auto) 1.1 Thou/mm3 (0.0-0.8); Monocytes % (Auto) 8 % (0-12); Neutrophils # (Auto) 11.2 Thou/mm3 (1.8-7.7); Neutrophils % (Auto) 79 % (37-80); Nucleated Red Blood Cell % 0 /100 WBC (0); Platelet Count 333 Thou/mm3 (140-440); RDW Standard Deviation 47.4 fL (36.4-46.3); Red Blood Count 4.75 Miln/mm3 (4.00-5.20); White Blood Count 14.2 Thou/mm3 (3.6-11.0)
[2025-05-02] MEDS: DEXAMETHASONE SOD PHOS INJ 10 MG/ML VIAL 8 MG IVP (16:13)
[2025-05-02] MEDS: SODIUM CHLORIDE 0.9% 1000 ML 1,000 ML 100 ML IV (16:17)
[2025-05-02] MEDS: AZITHROMYCIN 250 MG TABLET 500 MG PO (16:18)
[2025-05-02 16:23] VITALS: BP 119/79; PULSE 103; RESP 18; TEMP 36.9; O2SAT 100
[2025-05-02 16:25] LABS: Alanine Aminotransferase 13 U/L (10-49); Albumin, Serum 4.5 gm/dL (3.5-5.0); Albumin/Globulin Ratio 1.8 (1.2-2.2); Alkaline Phosphatase 95 U/L (46-116); Anion Gap 11 (7-16); BUN/Creatinine Ratio 19 Ratio (12-20); Bilirubin,Total 0.3 mg/dL (0.3-1.2); Blood Urea Nitrogen 21 mg/dL (9-23); Calcium 9.6 mg/dL (8.3-10.6); Calcium (Corrected) 9.6 mg/dL (8.5-10.1); Carbon Dioxide 28.2 mMol/L (20.0-31.0); Chloride 104 mMol/L (98-107); Creatinine (Component) 1.1 mg/dL (0.6-1.3); Estimated Creatinine Clearance 78.7 mL/min (>60); Globulin 2.5 gm/dL (2.3-3.5); Glucose 116 mg/dL (74-106); Osmolality,Calculated 288 (275-295); Potassium 3.8 mMol/L (3.4-5.1); Sodium 143 mMol/L (136-145); Troponin I < 0.002 ng/mL (0.0-0.045); eGFR > 60 See Note
[2025-05-02 16:39] LABS: INR 0.9 (0.9-1.3); Prothrombin Time 10.1 Seconds (9.0-12.2)
[2025-05-02 17:32] VITALS: PULSE 94; PULSE 96; RESP 24
== END 2025-05-02 18:22 | disposition home or self-care (01) ==
PROVIDERS: Emergency Provider Family Medicine; PCP Physician Assistant Medical
DX: J44.1 Chronic obstructive pulmonary disease with (acute) exacerbation (principal); R94.31 Abnormal electrocardiogram [ECG] [EKG]; F17.210 Nicotine dependence, cigarettes, uncomplicated; E78.00 Pure hypercholesterolemia, unspecified; I10 Essential (primary) hypertension
CPT/HCPCS: 36415; 71045; 80053; 81001; 84484; 85025; 85610; 85730; 94640; 99284; J1100; J7030; A9270

== ENCOUNTER 2025-05-27 11:54 | Emergency (ER) | payer MEDICAID, SELFPAY ==
[2025-05-27 11:55] VITALS: BMI 37.1
[2025-05-27 12:05] VITALS: BP 132/91; PULSE 95; RESP 18; TEMP 36.9; O2SAT 94
--- NOTE | 2025-05-27 12:09 | EDNOTE_ITS ---
<Statement entered by Savannah Hanley MD - 06/05/25 19:19> As co-signing physician, I was present and available for consult prn. I concur with the plan and care as documented by the midlevel provider. ED Headache RME/HPI General Chief Complaint: Headache Stated Complaint: MIGRAINE, N/V X 2 DAYS Time Seen by Provider: 05/27/25 12:09 Source: patient Arrival date/time: 05/27/25 11:54 45-year-old female with a history of migraines presents to the emergency room with a chief complaint of an 8 out of 10 migraine nausea vomiting x 2 days Mode of arrival: ambulatory Limitations: no limitations Related Data Home Medications ?Medication ?Instructions ?Recorded ?Confirmed aripiprazole 5 mg tablet 5 mg PO QDAY 09/30/23 atorvastatin 20 mg tablet 20 mg PO QPM 09/30/23 buspirone 15 mg tablet 15 mg PO TID 09/30/23 paroxetine HCl 40 mg tablet 40 mg PO QDAY 09/30/2304/17 tiotropium bromide 2.5 2 puff inhalation DAILY 04/1709/30/23 mcg/actuation mist for inhalation (Spiriva Respimat) Previous Rx's ?Medication ?Instructions ?Recorded tramadol 50 mg tablet 50 mg PO Q6H PRN pain #20 ta bs 02/17/24 metoclopramide HCl 10 mg tablet 10 mg PO Q6H PRN abdom inal pain 07/26/24 (Reglan) #14 tabs pantoprazole 40 mg tablet,delayed 40 mg PO QDAY #30 ta bs 07/26/24 release (Protonix) acetaminophen 300 mg-codeine 30 mg 2 tab PO TID PRN pa in #10 tabs 08/09/24 tablet acetaminophen 500 mg capsule 500 mg PO Q6H PRN pain #3 0 caps 10/01/24 cyclobenzaprine 10 mg tablet 10 mg PO TID PRN muscle s pasm #10 10/01/24 tabs methylprednisolone 4 mg tablets in 4 mg PO QAM #21 tab s 11/13/24 a dose pack (Medrol (Kody)) zinc sulfate 50 mg zinc (220 mg) 220 mg (4.4 x 50 mg z inc (220 mg)) 11/13/24 capsule PO QDAY #30 caps ibuprofen 600 mg tablet 600 mg PO Q6H #30 tabs 12/06 amoxicillin 875 mg-potassium 1 tab PO BID #14 tabs clavulanate 125 mg tablet ipratropium 0.5 mg-albuterol 3 mg 3 ml inhalation Q8H PRN shortness 12/18/24 (2.5 mg base)/3 mL nebulization of breath #90 mL soln prednisone 50 mg tablet 50 mg PO QDAY #7 tabs acetaminophen 500 mg capsule 500 mg PO Q6H PRN pain #3 0 caps 01/12/25 albuterol sulfate 90 mcg/actuation 2 inh inhalation QI D PRN shortness 02/12/25 aerosol inhaler of breath or wheezing #8.5 g rhiannon prednisone 50 mg tablet 50 mg PO QDAY #7 tabs clindamycin HCl 300 mg capsule 300 mg PO Q6H #20 caps 03/26/25 acetaminophen 300 mg-codeine 30 mg 2 tab PO Q8H PRN pa in #20 tabs 04/05/25 tablet prednisone 20 mg tablet See Taper PO QDAY allergic 0 05/02/25 reaction #21 tabs acetaminophen-caffeine 500 mg-65 1 tab PO Q8H PRN pain #30 tabs 05/27/25 mg tablet (Excedrin Tension Headache) Allergies Allergy/AdvReac Type Severity Reaction Status Date / Time cinnamon Allergy Severe Swelling Verified 05/27/25 11:57 of Lip/Tongue/Throat aspirin AdvReac Severe HAS ULCER Verified 05/27/25 11:57 Review of Systems Review of Systems Systems Reviewed: All systems reviewed, normal except as documented Constitutional Constitutional: Reports system reviewed and no additional complaints, except as documented, Denies fatigue, Denies fever(s), Reports headache(s) and Reports weakness Eyes Eyes: Reports system reviewed and no additional complaints, except as documented, Denies blurry vision and Denies change in vision ENT Ears, Nose, Mouth, and Throat: Reports system reviewed and no additional complaints, except as documented, Denies otalgia, Reports headache(s), Denies nasal congestion, Denies throat swelling and Denies vertigo Cardiovascular Cardiovascular: Reports system reviewed and no additional complaints, except as documented, Denies chest pain, Denies dyspnea and Denies dyspnea on exertion Respiratory Respiratory: Reports system reviewed and no additional complaints, except as documented, Denies chest congestion, Denies cough, Denies dyspnea, Denies dyspnea on exertion and Denies wheezing Gastrointestinal Gastrointestinal: Reports system reviewed and no additional complaints, except as documented, Denies abdominal pain, Denies cramping, Reports nausea and Denies vomiting Genitourinary Genitourinary: Reports system reviewed and no additional complaints, except as documented Musculoskeletal Musculoskeletal: Reports system reviewed and no additional complaints, except as documented and Denies back pain Integumentary/Breasts Skin/Breast: Reports system reviewed and no additional complaints, except as documented and Denies wounds Neurologic Neurologic: Reports system reviewed and no additional complaints, except as documented, Denies confusion, Reports headache(s), Denies lack of coordination, Denies vertigo and Reports weakness Psychiatric Psychiatric: Reports system reviewed and no additional complaints, except as documented, Denies anxiety, Denies confusion, Denies depression, Denies paranoia, Denies suicidal ideation and Denies tactile hallucinations Endocrine Endocrine: Reports system reviewed and no additional complaints, except as documented and Denies fatigue Hematologic/Lymphatic Hematologic/Lymphatic: Reports system reviewed and no additional complaints, except as documented and Denies lymphadenopathy Allergic/Immunologic Allergic/Immunologic: Reports system reviewed and no additional complaints, except as documented, Denies throat swelling, Denies urticaria and Denies wheezing Past Medical History Past Medical History NEUROLOGIC: Positive Migraine; Negative Neurological Disorders or Seizures CARDIAC: Positive Hypercholesterolemia and Hypertension; Negative Cardiac Disorders, Congestive Heart Failure, Edema, Cellulitis or Varicose Veins RESPIRATORY: Positive Chronic Obstructive Pulmonary Disease (COPD) and Asthma; Negative Tuberculosis or Sleep Apnea GASTROINTESTINAL: Positive Gastrointestinal Disorders, Ulcer and Gastroesophageal Reflux Disease; Negative Hepatitis GENITOURINARY: Negative Genitourinary Disorders or Renal Disease REPRODUCTIVE: Positive Previous Pregnancies and Uterine Prolapse MUSCULOSKELETAL: Positive Musculoskeletal Disorders and Arthritis ENDOCRINE: Negative Endocrine Disorders, Diabetes Mellitus Type 1 or Diabetes Mellitus Type 2 HEMATOLOGIC: Negative Blood Disorders or Sickle Cell Disease PSYCHO/SOCIAL: Positive Bipolar Disorder, Depression, Anxiety and Post Traumatic Stress Disorder OTHER HISTORY: Positive Hospitalization, Autoimmune Disease, Chicken Pox and Cancer; Negative Shingles, Falls, Blood Transfusions, Blood Transfusion Reaction, Anesthesia Reactions, Chemotherapy, Radiation Therapy, MRSA, Measles or Mumps Family History FAMILY HISTORY: Positive Family Psychiatric Problems, Family Respiratory Disorders, Family Cardiac Disorders, Family Cancer, Family Surgery and Family Anesthesia Reaction; Negative Family Gastrointestinal Problems Surgical History SURGICAL: Positive Abdominal Surgery and Tubal Ligation; Negative Pacemaker Social History SMOKING STATUS: Current every day smoker SECOND HAND EXPOSURE: No SUBSTANCE USE: former substance user and methamphetamine (Former methamphetamine abuse, quit in 2018.) ED Exam General Limitations: Present no limitations General appearance: Present alert and in no apparent distress Head Head exam: Present atraumatic, normocephalic and normal inspection Expanded Head Exam Head exam physical: Absent laceration, abrasion, contusion, hematoma, raccoon eyes, Plummer's sign, tenderness of temporal artery, CSF rhinorrhea or CSF otorrhea Eye Eye exam: Present normal appearance, PERRL and EOMI ENT ENT exam: Present normal exam, normal oropharynx and mucous membranes moist Neck Neck exam: Present normal inspection, full ROM and trachea midline Chest Chest inspection: Present normal inspection and symmetric chest wall rise Respiratory Respiratory exam: Present normal lung sounds bilaterally Cardiovascular Cardiovascular exam: Present regular rate, normal rhythm and normal heart sounds Abdominal Exam Abdominal exam: Present soft and normal bowel sounds Extremities Exam Extremities exam: Present normal inspection and full ROM Back Exam Back exam: Present normal inspection and full ROM Neurological Exam Neurological exam: Present alert, oriented X3, CN II-XII intact, normal gait and reflexes normal Expanded Neurological Exam Patient oriented to: Present person, place and time Speech: Present fluid speech Cranial nerves: Normal: EOM function (II, III, IV, ) and facial sensation (V) Cerebellar function: Present normal gait Motor strength - LUE: 5/5 Motor strength - RUE: 5/5 Motor strength - LLE: 5/5 Motor strength - RLE: 5/5 Coma scale eye opening: spontaneous Coma scale motor response: obeys commands Coma scale verbal response: oriented Coma scale total: 15 Psychiatric Psychiatric exam: Present normal affect and normal mood Skin Skin exam: Present warm, dry, intact and normal color Course Quality Measures none Orders Category Date Time Status DiphenhydrAMINE [Benadryl] Med 05/27/25 12:08 Discontinued 25 mg PO X1 ONE Metoclopramide [Reglan] Med 05/27/25 12:08 Discontinued 10 mg PO X1 ONE SUMAtriptan INJ [Imitrex Inj] Med 05/27/25 12:08 Discontinued 6 mg SC X1 ONE Vital Signs Vital signs: Vital Signs Temperature 98.4 F 05/27/25 12:05 Pulse Rate 95 07/02/25 12:05 Respiratory Rate 18 05/27/25 12:05 Blood Pressure 132/91 H 05/27/25 12:05 Pulse Oximetry (%) 94 L 05/27/25 12:05 Oxygen Delivery Method Room Air 05/27/25 12:05 Headache MDM Narrative MDM Narrative:: 45-year-old female with a history of migraines presents to the emergency room with a chief complaint of an 8 out of 10 migraine nausea vomiting x 2 days Patient is hemodynamically stable and in no apparent distress Physical examination shows pupils are PERRLA EOMs are intact the patient is a GCS of 15 alert and oriented x 3. Patient has no focal deficits. All cranial reflexes are within normal limits. Patient states she has a history of migraines and takes migraine medication but has not had one in over a year and did not have her medication. Medication was given and the patient was reevaluated in 1 hour with significant improvement of her symptoms Patient was discharged and educated to follow-up with primary care provider in the next 24 to 48 hours and return to the emergency room for any evidence of worsening signs or symptoms Patient data External records reviewed:: [facility] previous records Clinical information provided by:: patient Social determinants that could affect healthcare access:: none Patient has the following chronic illnesses:: No chronic illness How is presenting disease/condition affected by chronic disease/condition?: no chronic disease Evaluation data The following diagnostics were reviewed and interpreted by me:: lab results and radiology exam(s) Lab and/or radiology exams considered but not ordered:: Labs and radiology exams considered in order Interpretation Summary: N/A Medications / Prescriptions Medications or Prescriptions considered but not ordered:: Medication given Medication administrations:: Medication Administration History Discontinued Medications Diphenhydramine HCl (Diphenhydramine 25 Mg Capsule) 25 mg PO X1 ONE Stop: 05/27/25 12:09 Last Admin: 05/27/25 12:37 Dose: 25 mg Documented By: GM Metoclopramide HCl (Metoclopramide 5 Mg Tablet) 10 mg PO X1 ONE Stop: 05/27/25 12:09 Last Admin: 05/27/25 12:36 Dose: 10 mg Documented By: GM Sumatriptan Succinate (Sumatriptan Inj 6 Mg/0.5 Ml Vial) 6 mg SC X1 ONE Stop: 05/27/25 12:09 Last Admin: 05/27/25 12:36 Dose: 6 mg Documented By: GM Medication given Consultations Consultation(s) initiated? (list below): No Diagnosis Differential diagnosis headache: migraine, tension headache, headache and sinusitis Most likely diagnosis given after review of the tests above:: Migraine Admission Indicated Admission indicated?: not indicated Admission Request Was there a request for admission?: No Disposition Plan Disposition Plan: Discharge Discharge Attestation Discharge Attestation: The patient and all family members were given an opportunity to ask questions and understood the discharge instructions. Discharge instructions specifically effects, indications for sooner follow up or return to the emergency department, and the expected course of current diagnosis. Patient condition: Stable Discharge Plan Plan Patient Disposition: HOME (Self Care) Discharge Disposition comment: Stable Prescriptions/Referrals Prescriptions/Med Rec: New Excedrin Tension Headache 500-65 mg tablet 1 tab PO Q8H PRN (Reason: pain) Qty: 30 0RF No Action atorvastatin 20 mg Tablet 20 mg PO QPM paroxetine HCl 40 mg Tablet 40 mg PO QDAY buspirone 15 mg Tablet 15 mg PO TID aripiprazole 5 mg Tablet 5 mg PO QDAY Spiriva Respimat 2.5 mcg/actuation mist 2 puff INHALATION DAILY Patient Comments: INHALE 2 PUFFS INTO THE LUNGS EVERY DAY FOR 30 DAYS metoclopramide HCl [Reglan] 10 mg tablet 10 mg PO Q6H PRN (Reason: abdominal pain) Qty: 14 0RF pantoprazole [Protonix] 40 mg tablet,delayed release (DR/EC) 40 mg PO QDAY Qty: 30 0RF zinc sulfate 50 mg zinc (220 mg) Capsule 220 mg PO QDAY Qty: 30 0RF methylprednisolone [Medrol (Kody)] 4 mg tablets,dose pack 4 mg PO QAM Qty: 21 0RF ipratropium-albuterol 0.5 mg-3 mg(2.5 mg base)/3 mL solution for nebulization 3 ml inhalation Q8H PRN (Reason: shortness of breath) Qty: 90 0RF prednisone 50 mg tablet 50 mg PO QDAY Qty: 7 0RF acetaminophen 500 mg capsule 500 mg PO Q6H PRN (Reason: pain) Qty: 30 0RF prednisone 50 mg tablet 50 mg PO QDAY Qty: 7 0RF albuterol sulfate 90 mcg/actuation HFA aerosol inhaler 2 inh inhalation QID PRN (Reason: shortness of breath or wheezing) Qty: 8.5 0RF prednisone 20 mg tablet See Taper PO QDAY MDD 3 Qty: 21 0RF Taper: Prednisone Taper 20 mg DAILY for 2 Days and 0 Hour 10 mg DAILY for 2 Days and 0 Hour 5 mg DAILY for 7 Days and 0 Hour Rx Instructions: Take 4 Tabs q Day for 3 days then take 3 tabs q Day for 3 days then resume 40 mg daily tramadol 50 mg tablet 50 mg PO Q6H PRN (Reason: pain) Qty: 20 0RF acetaminophen-codeine 300-30 mg tablet 2 tab PO TID MDD 6 PRN (Reason: pain) Qty: 10 0RF acetaminophen 500 mg capsule 500 mg PO Q6H PRN (Reason: pain) Qty: 30 0RF cyclobenzaprine 10 mg tablet 10 mg PO TID PRN (Reason: muscle spasm) Qty: 10 0RF ibuprofen 600 mg tablet 600 mg PO Q6H Qty: 30 0RF amoxicillin-pot clavulanate 875-125 mg tablet 1 tab PO BID Qty: 14 0RF clindamycin HCl 300 mg capsule 300 mg PO Q6H Qty: 20 0RF acetaminophen-codeine 300-30 mg tablet 2 tab PO Q8H MDD 6 PRN (Reason: pain) Qty: 20 0RF Referrals: Celine Olsen PA-C [Primary Care Provider] - In 1 week Problem List Clinical Impression: Migraine Patient/Caregiver Discharge Instructions Education Materials: ED Headache, Migraine, Classic Additional Instructions: Please follow-up with your primary care provider in the next 24 to 48 hours Medication was sent to your pharmacy please pick it up and take it as indicated For any evidence of worsening signs or symptoms return emergency room immediately Print Language: [place] Stand Alone Forms: Shari Award Info., Patient Portal Info Letter PA/BURTON Supervising Physician FANY/BURTON Supervising Physician: Dr. HANLEY
[2025-05-27] MEDS: SUMAtriptan INJ 6 MG/0.5 ML VIAL SC (12:36)
[2025-05-27] MEDS: METOCLOPRAMIDE 5 MG TABLET 10 MG PO (12:36)
== END 2025-05-27 13:28 | disposition home or self-care (01) ==
PROVIDERS: Emergency Provider Emergency Medicine; PCP Physician Assistant Medical
DX: G43.909 Migraine, unspecified, not intractable, without status migrainosus (principal)
CPT/HCPCS: 96372; 99283; J3030; A9270

== ENCOUNTER 2025-06-01 12:29 | Emergency (ER) | payer MEDICAID, SELFPAY ==
[2025-06-01 12:29] VITALS: BMI 38.7
[2025-06-01 13:21] VITALS: BP 129/88; PULSE 97; RESP 18; TEMP 37.2; O2SAT 95
[2025-06-01] MEDS: LIDOCAINE HCL 1% 20 ML VIAL 10 ML INFL (14:05)
--- NOTE | 2025-06-01 14:24 | PD.EDSKIN ---
ED Skin Abcess FB-RME/HPI General Chief complaint: Skin/Abscess/Foreign Body Stated complaint: BOIL ON RIGHT BUTTOCK X 3 DAYS Time Seen by Provider: 06/01/25 13:44 Source: patient Arrival date/time: 06/01/25 12:29 Mode of arrival: ambulatory Limitations: no limitations RME / HPI RME / HPI narrative: 45-year-old female complains of a boil to the right buttocks x 2 to 3 days. complaint: abscess/boil Onset (ago): day(s) (2-3 DAYS.) Tetanus up to date: unsure Location: buttocks (rIGHT buttocks) Severity scale (1-10): 5 Quality: sharp Relieving factors: none and cold therapy Exacerbating factors: none and movement Context: none Related Data Home Medications ?Medication ?Instructions ?Recorded ?Confirmed aripiprazole 5 mg tablet 5 mg PO QDAY 09/30/23 09/30/23 atorvastatin 20 mg tablet 20 mg PO QPM 09/30/23 09/30/23 buspirone 15 mg tablet 15 mg PO TID 09/30/23 09/30/23 paroxetine HCl 40 mg tablet 40 mg PO QDAY 09/30/23 09/30/23 tiotropium bromide 2.5 2 puff inhalation DAILY 09/30/23 09/30/23 mcg/actuation mist for inhalation (Spiriva Respimat) Previous Rx's ?Medication ?Instructions ?Recorded tramadol 50 mg tablet 50 mg PO Q6H PRN pain #20 tabs 02/17/24 metoclopramide HCl 10 mg tablet 10 mg PO Q6H PRN abdominal pain 07/26/24 (Reglan) #14 tabs pantoprazole 40 mg tablet,delayed 40 mg PO QDAY #30 tabs 07/26/24 release (Protonix) acetaminophen 300 mg-codeine 30 mg 2 tab PO TID PRN pain #10 tabs 08/09/24 tablet acetaminophen 500 mg capsule 500 mg PO Q6H PRN pain #30 caps 10/01/24 cyclobenzaprine 10 mg tablet 10 mg PO TID PRN muscle spasm #10 10/01/24 tabs methylprednisolone 4 mg tablets in 4 mg PO QAM #21 tabs 11/13/24 a dose pack (Medrol (Kody)) zinc sulfate 50 mg zinc (220 mg) 220 mg (4.4 x 50 mg zinc (220 mg)) 11/13/24 capsule PO QDAY #30 caps ibuprofen 600 mg tablet 600 mg PO Q6H #30 tabs 12/06/24 amoxicillin 875 mg-potassium 1 tab PO BID #14 tabs 12/13/24 clavulanate 125 mg tablet ipratropium 0.5 mg-albuterol 3 mg 3 ml inhalation Q8H PRN shortness 12/18/24 (2.5 mg base)/3 mL nebulization of breath #90 mL soln prednisone 50 mg tablet 50 mg PO QDAY #7 tabs 12/18/24 acetaminophen 500 mg capsule 500 mg PO Q6H PRN pain #30 caps 01/12/25 albuterol sulfate 90 mcg/actuation 2 inh inhalation QID PRN shortness 02/12/25 aerosol inhaler of breath or wheezing #8.5 grams prednisone 50 mg tablet 50 mg PO QDAY #7 tabs 02/12/25 clindamycin HCl 300 mg capsule 300 mg PO Q6H #20 caps 03/26/25 acetaminophen 300 mg-codeine 30 mg 2 tab PO Q8H PRN pain #20 tabs 04/05/25 tablet prednisone 20 mg tablet See Taper PO QDAY allergic 05/02/25 reaction #21 tabs acetaminophen-caffeine 500 mg-65 1 tab PO Q8H PRN pain #30 tabs 05/27/25 mg tablet (Excedrin Tension Headache) doxycycline hyclate 100 mg capsule 100 mg PO QDAY #20 caps 06/01/25 ibuprofen 800 mg tablet 800 mg PO Q8H PRN pain #30 tabs 06/01/25 Allergies Allergy/AdvReac Type Severity Reaction Status Date / Time cinnamon Allergy Severe Swelling Verified 06/01/25 12:31 of Lip/Tongue/Throat aspirin AdvReac Severe HAS ULCER Verified 06/01/25 12:31 Review of Systems Constitutional Constitutional: Reports system reviewed and no additional complaints, except as documented Eyes Eyes: Reports system reviewed and no additional complaints, except as documented, Denies dry eyes, Denies exophthalmos and Reports floaters Cardiovascular Cardiovascular: Denies chest pain with activity and Denies claudication ED Exam Narrative Physical exam: The right buttocks has an oblong lesion proximal to the gluteal cleft. It is tender to palpation it is fluctuant. General Limitations: Present no limitations General appearance: Present alert and in no apparent distress Head Head exam: Present atraumatic Eye Eye exam: Present normal appearance and PERRL ENT ENT exam: Present normal exam, normal oropharynx and mucous membranes moist Neck Neck exam: Present normal inspection, full ROM and trachea midline Respiratory Respiratory exam: Present normal lung sounds bilaterally Extremities Exam Extremities exam: Present normal inspection and full ROM Back Exam Back exam: Present normal inspection and full ROM Neurological Exam Neurological exam: Present alert, oriented X3 and CN II-XII intact Psychiatric Psychiatric exam: Present normal affect and normal mood Skin Skin exam: Present warm, dry, intact and normal color Course Course Course Narrative: Patient will have her abscess lanced. Quality Measures none Orders Category Date Time Status Set Up Suture Tray STAT Care 06/01/25 13:58 Active HYDROcodone/APAP 10/325 [[place] 10/325] Med 06/01/25 13:46 Discontinued 1 tab PO X1 ONE Lidocaine 1% 20 ml [Xylocaine 1% 20 ML] Med 06/01/25 13:58 Discontinued 10 ml INFL X1 ONE DONE Vital Signs Vital signs: Vital Signs Temperature 98.9 F 06/01/25 13:21 Pulse Rate 97 06/01/25 13:21 Respiratory Rate 18 06/01/25 13:21 Blood Pressure 129/88 H 06/01/25 13:21 Pulse Oximetry (%) 95 06/01/25 13:21 Oxygen Delivery Method Room Air 06/01/25 13:21 Pulse ox room air is 95% PROCEDURES: Abscess I/D Site: other (Buttocks) Side (if applicable): right Local Anesthetic: lidocaine 1% Amount of anesthesia used (mL): 6 Technique: incised with #11 blade Amount of fluid expressed (mL): 1 Irrigation: Yes Packing used?: none Complications: pain Skin / Abscess / Foreign Body MDM Narrative MDM Narrative:: Patient will have her lanced abscess dressed and she will be discharged in no apparent distress. Patient tolerated the procedure well. Patient data External records reviewed:: Other (specify) Clinical information provided by:: patient and none Social determinants that could affect healthcare access:: none (NA) Patient has the following chronic illnesses:: NA How is presenting disease/condition affected by chronic disease/condition?: no chronic disease (NO CHRONIC disease) Evaluation data The following diagnostics were reviewed and interpreted by me:: other (specify) (NA) Lab and/or radiology exams considered but not ordered:: NA Interpretation Summary: NA Medications / Prescriptions Medications or Prescriptions considered but not ordered:: na Medication administrations:: Medication Administration History Discontinued Medications Hydrocodone Bitart/Acetaminophen (Hydrocodone/Apap 10/325 Tab) 1 tab PO X1 ONE Stop: 06/01/25 13:47 Last Admin: 06/01/25 13:53 Dose: 1 tab Documented By: DAVID Lidocaine HCl (Lidocaine Hcl 1% 20 Ml Vial) 10 ml INFL X1 ONE Stop: 06/01/25 13:59 Last Admin: 06/01/25 14:05 Dose: 10 ml Documented By: DAVID Comments: given by provider DONE Consultations Consultation(s) initiated? (list below): No Diagnosis Skin/Abscess Differential Diagnosis: abscess of skin or subcutaneous tissue, viral exanthem and dermatophytosis Most likely diagnosis given after review of the tests above:: NA Admission Indicated Admission indicated?: not indicated Explain why admission is indicated or not indicated:: NA Admission Request Was there a request for admission?: No Disposition Plan Disposition Plan: Discharge Discharge Attestation Discharge Attestation: The patient and all family members were given an opportunity to ask questions and understood the discharge instructions. Discharge instructions specifically effects, indications for sooner follow up or return to the emergency department, and the expected course of current diagnosis. Patient condition: Stable Discharge Plan Plan Patient Disposition: HOME (Self Care) Discharge Disposition comment: Patient discharged in no apparent distress Patient condition on transfer: Stable Prescriptions/Referrals Prescriptions/Med Rec: New doxycycline hyclate 100 mg capsule 100 mg PO QDAY Qty: 20 0RF ibuprofen 800 mg tablet 800 mg PO Q8H PRN (Reason: pain) Qty: 30 0RF No Action atorvastatin 20 mg Tablet 20 mg PO QPM paroxetine HCl 40 mg Tablet 40 mg PO QDAY buspirone 15 mg Tablet 15 mg PO TID aripiprazole 5 mg Tablet 5 mg PO QDAY Spiriva Respimat 2.5 mcg/actuation mist 2 puff INHALATION DAILY Patient Comments: INHALE 2 PUFFS INTO THE LUNGS EVERY DAY FOR 30 DAYS metoclopramide HCl [Reglan] 10 mg tablet 10 mg PO Q6H PRN (Reason: abdominal pain) Qty: 14 0RF pantoprazole [Protonix] 40 mg tablet,delayed release (DR/EC) 40 mg PO QDAY Qty: 30 0RF zinc sulfate 50 mg zinc (220 mg) Capsule 220 mg PO QDAY Qty: 30 0RF methylprednisolone [Medrol (Kody)] 4 mg tablets,dose pack 4 mg PO QAM Qty: 21 0RF ipratropium-albuterol 0.5 mg-3 mg(2.5 mg base)/3 mL solution for nebulization 3 ml inhalation Q8H PRN (Reason: shortness of breath) Qty: 90 0RF prednisone 50 mg tablet 50 mg PO QDAY Qty: 7 0RF acetaminophen 500 mg capsule 500 mg PO Q6H PRN (Reason: pain) Qty: 30 0RF prednisone 50 mg tablet 50 mg PO QDAY Qty: 7 0RF albuterol sulfate 90 mcg/actuation HFA aerosol inhaler 2 inh inhalation QID PRN (Reason: shortness of breath or wheezing) Qty: 8.5 0RF prednisone 20 mg tablet See Taper PO QDAY MDD 3 Qty: 21 0RF Taper: Prednisone Taper 20 mg DAILY for 2 Days and 0 Hour 10 mg DAILY for 2 Days and 0 Hour 5 mg DAILY for 7 Days and 0 Hour Rx Instructions: Take 4 Tabs q Day for 3 days then take 3 tabs q Day for 3 days then resume 40 mg daily Excedrin Tension Headache 500-65 mg tablet 1 tab PO Q8H PRN (Reason: pain) Qty: 30 0RF tramadol 50 mg tablet 50 mg PO Q6H PRN (Reason: pain) Qty: 20 0RF acetaminophen-codeine 300-30 mg tablet 2 tab PO TID MDD 6 PRN (Reason: pain) Qty: 10 0RF acetaminophen 500 mg capsule 500 mg PO Q6H PRN (Reason: pain) Qty: 30 0RF cyclobenzaprine 10 mg tablet 10 mg PO TID PRN (Reason: muscle spasm) Qty: 10 0RF ibuprofen 600 mg tablet 600 mg PO Q6H Qty: 30 0RF amoxicillin-pot clavulanate 875-125 mg tablet 1 tab PO BID Qty: 14 0RF clindamycin HCl 300 mg capsule 300 mg PO Q6H Qty: 20 0RF acetaminophen-codeine 300-30 mg tablet 2 tab PO Q8H MDD 6 PRN (Reason: pain) Qty: 20 0RF Referrals: Shayne Cid MD [Primary Care Provider] - In 1 week Problem List Clinical Impression: Abscess of skin or subcutaneous tissue Patient/Caregiver Discharge Instructions Print Language: Sudanese Stand Alone Forms: Shari Award Info., Patient Portal Info Letter
== END 2025-06-01 14:56 | disposition home or self-care (01) ==
PROVIDERS: Emergency Provider Family Medicine; PCP Family Medicine
DX: L02.31 Cutaneous abscess of buttock (principal)
CPT/HCPCS: 10060; 99283; J3490; A9270

== ENCOUNTER 2025-07-10 10:04 | Emergency (ER) | payer MEDICAID, SELFPAY ==
[2025-07-10 10:06] VITALS: BMI 36.3
[2025-07-10 10:25] VITALS: BP 121/81; PULSE 98; RESP 19; TEMP 36.6; O2SAT 93
--- NOTE | 2025-07-10 10:29 | EDRME_ITS ---
Rapid Medical Screening Exam [facility] Arrival date/time: 07/10/25 10:04 CC: Left shoulder pain HPI 2 days ago after falling over her dogs. Patient denies LOC or ALOC. Denies any right shoulder pain chest pain shortness of breath or difficulty breathing that is out of the ordinary. Chief Complaint: Extremity Injury, Upper Time Seen by Provider: 07/10/25 10:29 Vital signs: Vital Signs Temperature 97.8 F 07/10/25 10:25 Pulse Rate 98 07/10/25 10:25 Respiratory Rate 19 07/10/25 10:25 Blood Pressure 121/81 07/10/25 10:25 Pulse Oximetry (%) 93 L 07/10/25 10:25 Oxygen Delivery Method Room Air 07/10/25 10:25
--- NOTE | 2025-07-10 10:29 | XR_ITS ---
Examination: Shoulder,left, 3 views Technique: Shoulder AP internal rotation, AP external rotation, Y view shoulder, 3 views Exam date and time :July 10, 2025 1030 hours INDICATIONS: Patient fell 2 days ago with injury to the shoulder, shoulder pain. FINDINGS: Moderate narrowing glenohumeral joint No shoulder fracture or dislocation IMPRESSION: No shoulder fracture or dislocation
--- NOTE | 2025-07-10 11:17 | PD.EDADULT ---
ED General RME/HPI General Chief complaint: Extremity Injury, Upper Stated complaint: LEFT SHOULDER PAIN AFTER FALL TWO DAYS AGO Time Seen by Provider: 07/10/25 10:29 Arrival date/time: 07/10/25 10:04 See rapid triage RME / HPI RME / HPI narrative: 07/10/25 10:04 CC: Left shoulder pain HPI 2 days ago after falling over her dogs. Patient denies LOC or ALOC. Denies any right shoulder pain chest pain shortness of breath or difficulty breathing that is out of the ordinary. Related Data Home Medications ?Medication ?Instructions ?Recorded ?Confirmed aripiprazole 5 mg tablet 5 mg PO QDAY 09/30/23 09/30/23 atorvastatin 20 mg tablet 20 mg PO QPM 09/30/23 09/30/23 buspirone 15 mg tablet 15 mg PO TID 09/30/23 09/30/23 paroxetine HCl 40 mg tablet 40 mg PO QDAY 09/30/23 09/30/23 tiotropium bromide 2.5 2 puff inhalation DAILY 09/30/23 09/30/23 mcg/actuation mist for inhalation (Spiriva Respimat) Previous Rx's ?Medication ?Instructions ?Recorded tramadol 50 mg tablet 50 mg PO Q6H PRN pain #20 tabs 02/17/24 metoclopramide HCl 10 mg tablet 10 mg PO Q6H PRN abdominal pain 07/26/24 (Reglan) #14 tabs pantoprazole 40 mg tablet,delayed 40 mg PO QDAY #30 tabs 07/26/24 release (Protonix) acetaminophen 300 mg-codeine 30 mg 2 tab PO TID PRN pain #10 tabs 08/09/24 tablet acetaminophen 500 mg capsule 500 mg PO Q6H PRN pain #30 caps 10/01/24 cyclobenzaprine 10 mg tablet 10 mg PO TID PRN muscle spasm #10 10/01/24 tabs methylprednisolone 4 mg tablets in 4 mg PO QAM #21 tabs 11/13/24 a dose pack (Medrol (Kody)) zinc sulfate 50 mg zinc (220 mg) 220 mg (4.4 x 50 mg zinc (220 mg)) 11/13/24 capsule PO QDAY #30 caps ibuprofen 600 mg tablet 600 mg PO Q6H #30 tabs 12/06/24 amoxicillin 875 mg-potassium 1 tab PO BID #14 tabs 12/13/24 clavulanate 125 mg tablet ipratropium 0.5 mg-albuterol 3 mg 3 ml inhalation Q8H PRN shortness 12/18/24 (2.5 mg base)/3 mL nebulization of breath #90 mL soln prednisone 50 mg tablet 50 mg PO QDAY #7 tabs 12/18/24 acetaminophen 500 mg capsule 500 mg PO Q6H PRN pain #30 caps 01/12/25 albuterol sulfate 90 mcg/actuation 2 inh inhalation QID PRN shortness 02/12/25 aerosol inhaler of breath or wheezing #8.5 grams prednisone 50 mg tablet 50 mg PO QDAY #7 tabs 02/12/25 clindamycin HCl 300 mg capsule 300 mg PO Q6H #20 caps 03/26/25 acetaminophen 300 mg-codeine 30 mg 2 tab PO Q8H PRN pain #20 tabs 04/05/25 tablet prednisone 20 mg tablet See Taper PO QDAY allergic 05/02/25 reaction #21 tabs acetaminophen-caffeine 500 mg-65 1 tab PO Q8H PRN pain #30 tabs 05/27/25 mg tablet (Excedrin Tension Headache) doxycycline hyclate 100 mg capsule 100 mg PO QDAY #20 caps 06/01/25 ibuprofen 800 mg tablet 800 mg PO Q8H PRN pain #30 tabs 06/01/25 meloxicam 7.5 mg tablet 7.5 mg PO QDAY #10 tabs 07/10/25 Allergies Allergy/AdvReac Type Severity Reaction Status Date / Time cinnamon Allergy Severe Swelling Verified 07/10/25 10:06 of Lip/Tongue/Throat aspirin AdvReac Severe HAS ULCER Verified 07/10/25 10:06 Review of Systems Review of Systems Narrative Review of Systems: GEN: No fever, no chills, no weight loss EYES: No discharge, no visual changes, no pain HEENT: No ear pain, no congestion, no sore throat PULM: No shortness of breath, no cough, no congestion CV: No chest pain, no dyspnea on exertion, no palpitations GI: No nausea, no vomiting, no diarrhea, no pain, no constipation : No frequency, no urgency, no dysuria MUSC/SKEL: + joint pain, no back pain SKIN: No rash PSYCH: No hallucinations, no depression HEME/LYMPH: No easy bleeding or bruising tendencies NEURO: No weakness, no headache Past Medical History Past Medical History NEUROLOGIC: Positive Migraine; Negative Neurological Disorders or Seizures CARDIAC: Positive Hypercholesterolemia and Hypertension; Negative Cardiac Disorders, Congestive Heart Failure, Edema, Cellulitis or Varicose Veins RESPIRATORY: Positive Chronic Obstructive Pulmonary Disease (COPD) and Asthma; Negative Tuberculosis or Sleep Apnea GASTROINTESTINAL: Positive Gastrointestinal Disorders, Ulcer and Gastroesophageal Reflux Disease; Negative Hepatitis GENITOURINARY: Negative Genitourinary Disorders or Renal Disease REPRODUCTIVE: Positive Previous Pregnancies and Uterine Prolapse MUSCULOSKELETAL: Positive Musculoskeletal Disorders and Arthritis ENDOCRINE: Negative Endocrine Disorders, Diabetes Mellitus Type 1 or Diabetes Mellitus Type 2 HEMATOLOGIC: Negative Blood Disorders or Sickle Cell Disease PSYCHO/SOCIAL: Positive Bipolar Disorder, Depression, Anxiety and Post Traumatic Stress Disorder OTHER HISTORY: Positive Hospitalization, Autoimmune Disease, Chicken Pox and Cancer; Negative Shingles, Falls, Blood Transfusions, Blood Transfusion Reaction, Anesthesia Reactions, Chemotherapy, Radiation Therapy, MRSA, Measles or Mumps Family History FAMILY HISTORY: Positive Family Psychiatric Problems, Family Respiratory Disorders, Family Cardiac Disorders, Family Cancer, Family Surgery and Family Anesthesia Reaction; Negative Family Gastrointestinal Problems Surgical History SURGICAL: Positive Abdominal Surgery and Tubal Ligation; Negative Pacemaker Social History SMOKING STATUS: Current every day smoker SECOND HAND EXPOSURE: No SUBSTANCE USE: former substance user and methamphetamine (Former methamphetamine abuse, quit in 2018.) ED Exam Narrative Physical exam: [General: Obese in mild discomfort but not in any acute distress Head normocephalic HEENT: Within acceptable limits Neck is supple nontender Chest equal chest rise nontender to palpation Respiratory: Clear to auscultation no wheezes crackles or rubs CV: Rate rhythm is regular no murmurs rubs or clicks Abdomen is distended secondary to body habitus soft nontender no masses positive bowel sounds all 4 quadrants Back: No CVA tenderness no spinous process tenderness from cervical spine thoracic and lumbar spine Skin: Intact no petechiae rash induration ulceration or crepitus Extremities: Decreased range of motion left shoulder, pain with adduction no adduction pain no extension or flexion pain. Mildly tender to palpation no erythema or edema. Otherwise moving all other extremities against resistance cap refill less than 2 seconds neurosensory intact Neuro: Awake alert oriented x3 Glascow coma 15 no focal deficits] Course Quality Measures none Orders Category Date Time Status XR shoulder LT min 2V Stat Exams 07/10/25 10:29 Completed Vital Signs Vital signs: Vital Signs Temperature 97.8 F 07/10/25 10:25 Pulse Rate 98 07/10/25 10:25 Respiratory Rate 19 07/10/25 10:25 Blood Pressure 121/81 07/10/25 10:25 Pulse Oximetry (%) 93 L 07/10/25 10:25 Oxygen Delivery Method Room Air 07/10/25 10:25 Discharge Plan Plan Patient Disposition: HOME (Self Care) Patient condition on transfer: Stable Prescriptions/Referrals Prescriptions/Med Rec: New meloxicam 7.5 mg tablet 7.5 mg PO QDAY Qty: 10 0RF No Action atorvastatin 20 mg Tablet 20 mg PO QPM paroxetine HCl 40 mg Tablet 40 mg PO QDAY buspirone 15 mg Tablet 15 mg PO TID aripiprazole 5 mg Tablet 5 mg PO QDAY Spiriva Respimat 2.5 mcg/actuation mist 2 puff INHALATION DAILY Patient Comments: INHALE 2 PUFFS INTO THE LUNGS EVERY DAY FOR 30 DAYS metoclopramide HCl [Reglan] 10 mg tablet 10 mg PO Q6H PRN (Reason: abdominal pain) Qty: 14 0RF pantoprazole [Protonix] 40 mg tablet,delayed release (DR/EC) 40 mg PO QDAY Qty: 30 0RF zinc sulfate 50 mg zinc (220 mg) Capsule 220 mg PO QDAY Qty: 30 0RF methylprednisolone [Medrol (Kody)] 4 mg tablets,dose pack 4 mg PO QAM Qty: 21 0RF ipratropium-albuterol 0.5 mg-3 mg(2.5 mg base)/3 mL solution for nebulization 3 ml inhalation Q8H PRN (Reason: shortness of breath) Qty: 90 0RF prednisone 50 mg tablet 50 mg PO QDAY Qty: 7 0RF acetaminophen 500 mg capsule 500 mg PO Q6H PRN (Reason: pain) Qty: 30 0RF prednisone 50 mg tablet 50 mg PO QDAY Qty: 7 0RF albuterol sulfate 90 mcg/actuation HFA aerosol inhaler 2 inh inhalation QID PRN (Reason: shortness of breath or wheezing) Qty: 8.5 0RF prednisone 20 mg tablet See Taper PO QDAY MDD 3 Qty: 21 0RF Taper: Prednisone Taper 20 mg DAILY for 2 Days and 0 Hour 10 mg DAILY for 2 Days and 0 Hour 5 mg DAILY for 7 Days and 0 Hour Rx Instructions: Take 4 Tabs q Day for 3 days then take 3 tabs q Day for 3 days then resume 40 mg daily Excedrin Tension Headache 500-65 mg tablet 1 tab PO Q8H PRN (Reason: pain) Qty: 30 0RF tramadol 50 mg tablet 50 mg PO Q6H PRN (Reason: pain) Qty: 20 0RF acetaminophen-codeine 300-30 mg tablet 2 tab PO TID MDD 6 PRN (Reason: pain) Qty: 10 0RF acetaminophen 500 mg capsule 500 mg PO Q6H PRN (Reason: pain) Qty: 30 0RF cyclobenzaprine 10 mg tablet 10 mg PO TID PRN (Reason: muscle spasm) Qty: 10 0RF ibuprofen 600 mg tablet 600 mg PO Q6H Qty: 30 0RF amoxicillin-pot clavulanate 875-125 mg tablet 1 tab PO BID Qty: 14 0RF clindamycin HCl 300 mg capsule 300 mg PO Q6H Qty: 20 0RF acetaminophen-codeine 300-30 mg tablet 2 tab PO Q8H MDD 6 PRN (Reason: pain) Qty: 20 0RF doxycycline hyclate 100 mg capsule 100 mg PO QDAY Qty: 20 0RF ibuprofen 800 mg tablet 800 mg PO Q8H PRN (Reason: pain) Qty: 30 0RF Referrals: Celine Olsen PA-C [Primary Care Provider] - In 1 week Problem List Clinical Impression: Fall, Contusion of left shoulder Patient/Caregiver Discharge Instructions Education Materials: ED Shoulder Contusion Print Language: [place] Islander Stand Alone Forms: Shari Award Info., Patient Portal Info Letter, Work/School Release FANY/BURTON Supervising Physician FANY/BURTON Supervising Physician: Lorena Elizabeth ENP [facility] Clinical Information Provided by patient Medical Records Reviewed [facility] Meds/Rx Considered, not Ordered None Labs/Rad/Tests considered, not Ordered None Chronic Illness/Social Conditions which may negatively complicate care or outcome(s)-explain: None or not applicable EKG EKG not done Lab Interpretation Labs: none Imaging Provider imaging interpretation(s): Shoulder x-rays interpreted by me read by radiology as negative for any acute fracture malalignment or dislocation. Medication Administration(s) none Diagnosis Differential diagnosis: Fracture dislocation AC separation Dispositon Disposition: Discharge Home
== END 2025-07-10 11:24 | disposition home or self-care (01) ==
PROVIDERS: Emergency Provider Family Medicine; PCP Physician Assistant Medical
DX: S40.012A Contusion of left shoulder, initial encounter (principal); W01.0XXA Fall on same level from slipping, tripping and stumbling without subsequent striking against object, initial encounter
CPT/HCPCS: 73030; 99282

== ENCOUNTER 2025-07-11 15:55 | Emergency (ER) | payer MEDICAID, SELFPAY ==
[2025-07-11 15:55] VITALS: BMI 36.3
[2025-07-11 16:13] VITALS: BP 116/82; PULSE 81; RESP 20; TEMP 37.1; O2SAT 95
--- NOTE | 2025-07-11 16:29 | XR_ITS ---
Examination: Shoulder,right, 3 views Technique: Shoulder AP internal rotation, AP external rotation, Y view shoulder, 3 views Exam date and time :July 11, 2025 1633 hours Comparison February 17, 2024 INDICATIONS: Patient fell 3 days ago with into the shoulder, shoulder pain. FINDINGS: No shoulder fracture or dislocation Old deformity of the clavicle is stable compared with February 17, 2024 IMPRESSION: No acute shoulder fracture or dislocation
--- NOTE | 2025-07-11 16:30 | EDNOTE_ITS ---
<Statement entered by Savannah Hanley MD - 07/27/25 06:23> As co-signing physician, I was present and available for consult prn. I concur with the plan and care as documented by the midlevel provider. Upper Extremity Injury RME/HPI General Chief Complaint: Extremity Injury, Upper Stated Complaint: Right Shoulder Pain Time Seen by Provider: 07/11/25 16:13 Arrival date/time: 07/11/25 15:55 This is a 45-year-old female that comes into the emergency room with complaints of right shoulder pain. Patient states she had a history of right shoulder dislocation in the past. Patient states she had no fall no trauma but it started hurting over the last couple days. Patient was just seen here 2 days ago for the left shoulder pain. Related Data Home Medications ?Medication ?Instructions ?Recorded ?Confirmed aripiprazole 5 mg tablet 5 mg PO QDAY 09/30/23 atorvastatin 20 mg tablet 20 mg PO QPM 09/30/23 buspirone 15 mg tablet 15 mg PO TID 09/30/23 paroxetine HCl 40 mg tablet 40 mg PO QDAY 09/30/2304/17 tiotropium bromide 2.5 2 puff inhalation DAILY 04/1709/30/23 mcg/actuation mist for inhalation (Spiriva Respimat) Previous Rx's ?Medication ?Instructions ?Recorded tramadol 50 mg tablet 50 mg PO Q6H PRN pain #20 ta bs 02/17/24 metoclopramide HCl 10 mg tablet 10 mg PO Q6H PRN abdom inal pain 07/26/24 (Reglan) #14 tabs pantoprazole 40 mg tablet,delayed 40 mg PO QDAY #30 ta bs 07/26/24 release (Protonix) acetaminophen 300 mg-codeine 30 mg 2 tab PO TID PRN pa in #10 tabs 08/09/24 tablet acetaminophen 500 mg capsule 500 mg PO Q6H PRN pain #3 0 caps 10/01/24 cyclobenzaprine 10 mg tablet 10 mg PO TID PRN muscle s pasm #10 10/01/24 tabs methylprednisolone 4 mg tablets in 4 mg PO QAM #21 tab s 11/13/24 a dose pack (Medrol (Kody)) zinc sulfate 50 mg zinc (220 mg) 220 mg (4.4 x 50 mg z inc (220 mg)) 11/13/24 capsule PO QDAY #30 caps ibuprofen 600 mg tablet 600 mg PO Q6H #30 tabs 12/06 amoxicillin 875 mg-potassium 1 tab PO BID #14 tabs clavulanate 125 mg tablet ipratropium 0.5 mg-albuterol 3 mg 3 ml inhalation Q8H PRN shortness 12/18/24 (2.5 mg base)/3 mL nebulization of breath #90 mL soln prednisone 50 mg tablet 50 mg PO QDAY #7 tabs acetaminophen 500 mg capsule 500 mg PO Q6H PRN pain #3 0 caps 01/12/25 albuterol sulfate 90 mcg/actuation 2 inh inhalation QI D PRN shortness 02/12/25 aerosol inhaler of breath or wheezing #8.5 g rhiannon prednisone 50 mg tablet 50 mg PO QDAY #7 tabs clindamycin HCl 300 mg capsule 300 mg PO Q6H #20 caps 03/26/25 acetaminophen 300 mg-codeine 30 mg 2 tab PO Q8H PRN pa in #20 tabs 04/05/25 tablet prednisone 20 mg tablet See Taper PO QDAY allergic 0 05/02/25 reaction #21 tabs acetaminophen-caffeine 500 mg-65 1 tab PO Q8H PRN pain #30 tabs 05/27/25 mg tablet (Excedrin Tension Headache) doxycycline hyclate 100 mg capsule 100 mg PO QDAY #20 caps 06/01/25 ibuprofen 800 mg tablet 800 mg PO Q8H PRN pain #30 t abs 06/01/25 meloxicam 7.5 mg tablet 7.5 mg PO QDAY #10 tabs 06/26 04/19 Allergies Allergy/AdvReac Type Severity Reaction Status Date / Time cinnamon Allergy Severe Swelling Verified 07/11/25 15:58 of Lip/Tongue/Throat aspirin AdvReac Severe HAS ULCER Verified 07/11/25 15:58 Review of Systems Review of Systems Systems Reviewed: All systems reviewed, normal except as documented Past Medical History Past Medical History NEUROLOGIC: Positive Migraine; Negative Neurological Disorders or Seizures CARDIAC: Positive Hypercholesterolemia and Hypertension; Negative Cardiac Disorders, Congestive Heart Failure, Edema, Cellulitis or Varicose Veins RESPIRATORY: Positive Chronic Obstructive Pulmonary Disease (COPD) and Asthma; Negative Tuberculosis or Sleep Apnea GASTROINTESTINAL: Positive Gastrointestinal Disorders, Ulcer and Gastroesophageal Reflux Disease; Negative Hepatitis GENITOURINARY: Negative Genitourinary Disorders or Renal Disease REPRODUCTIVE: Positive Previous Pregnancies and Uterine Prolapse MUSCULOSKELETAL: Positive Musculoskeletal Disorders and Arthritis ENDOCRINE: Negative Endocrine Disorders, Diabetes Mellitus Type 1 or Diabetes Mellitus Type 2 HEMATOLOGIC: Negative Blood Disorders or Sickle Cell Disease PSYCHO/SOCIAL: Positive Bipolar Disorder, Depression, Anxiety and Post Traumatic Stress Disorder OTHER HISTORY: Positive Hospitalization, Autoimmune Disease, Chicken Pox and Cancer; Negative Shingles, Falls, Blood Transfusions, Blood Transfusion Reaction, Anesthesia Reactions, Chemotherapy, Radiation Therapy, MRSA, Measles or Mumps Family History FAMILY HISTORY: Positive Family Psychiatric Problems, Family Respiratory Disorders, Family Cardiac Disorders, Family Cancer, Family Surgery and Family Anesthesia Reaction; Negative Family Gastrointestinal Problems Surgical History SURGICAL: Positive Abdominal Surgery and Tubal Ligation; Negative Pacemaker Social History SMOKING STATUS: Current every day smoker SECOND HAND EXPOSURE: No SUBSTANCE USE: former substance user and methamphetamine (Former methamphetamine abuse, quit in 2018.) ED Exam Narrative Physical exam: VITAL SIGNS: Reviewed. GENERAL APPEARANCE: Alert and interactive, follows commands, no acute distress HEAD AND FACE: Non-traumatic. ENT: PERRL, conjuctiva pink and clear, eyelid no trauma, Mucous membrane moist. NECK: Supple, nontender, no nuchal rigidity. CHEST: No tenderness, no crepitus, no paradoxical movement, no retractions. LUNGS: breathing even and unlabored HEART: Regular rate, cap refill less than 2 seconds ABDOMEN: Soft, nondistended, no guarding, nontender NEUROLOGICAL: Gross motor function intact sensory function intact, Appropriate for age. MUSCULOSKELETAL: low back nontender, full range of motion. EXTREMITIES: No redness no swelling no skin breakdown on bilateral foot and leg. Distal neurovascular status intact bilateral foot. bilateral shoulder pain with movement SKIN: Color pink, dry, no rash, no lacerations, no abrasions, no contusions. Course Quality Measures none Orders Category Date Time Status XR shoulder RT min 2V Stat Exams 07/11/25 16:29 Completed HYDROcodone*/APAP 5/325 [Douglas 5/325] Med 07/11/25 16:24 Discontinued 2 tab PO X1 ONE Ibuprofen Tab [Motrin Tab] Med 07/11/25 16:24 Discontinued 800 mg PO X1 ONE Vital Signs Vital signs: Vital Signs Temperature 98.8 F 07/11/25 16:13 Pulse Rate 81 07/11/25 16:13 Respiratory Rate 20 07/11/25 16:13 Blood Pressure 116/82 07/11/25 16:13 Pulse Oximetry (%) 95 07/11/25 16:13 Oxygen Delivery Method Room Air 07/11/25 16:13 Extremity Injury MDM Narrative MDM Narrative:: Pt given 2 norco for pain. Pt feels better. Pt states she has a follow up with an orthopedic surgeon. Pt has chronic chanages seen on x ray. Reviewed X ray with . Pt told to come to ED if symptoms change or worsen. Dragon dictation: Although this document has been carefully reviewed, there may still be some phonetic and other typographical errors. These errors are purely grammatical due to imperfections in the software program and should not be construed in any way to compromise the substance of the patient's medical care during this visit. Patient data External records reviewed:: [facility] previous records Clinical information provided by:: patient Social determinants that could affect healthcare access:: none Patient has the following chronic illnesses:: see hpi How is presenting disease/condition affected by chronic disease/condition?: u neffected by Evaluation data The following diagnostics were reviewed and interpreted by me:: radiology exam(s) Lab and/or radiology exams considered but not ordered:: none Interpretation Summary: see note Medications / Prescriptions Medications or Prescriptions considered but not ordered:: none Medication administrations:: Medication Administration History Discontinued Medications Hydrocodone Bitart/Acetaminophen (Hydrocodone/Apap 5/325 Tablet) 2 tab PO X1 ONE Stop: 07/11/25 16:25 Last Admin: 07/11/25 17:30 Dose: 2 tab Documented By: ED Ibuprofen (Ibuprofen Tab 400 Mg Tablet) 800 mg PO X1 ONE Stop: 07/11/25 16:25 Last Admin: 07/11/25 17:31 Dose: 800 mg Documented By: ED see mar Consultations Consultation(s) initiated? (list below): No Diagnosis Upper Extremity Injury Differential Diagnosis: dislocation of shoulder and other (arthritis shoulder, shoulder contusion, chronic shjoulder pain ) Most likely diagnosis given after review of the tests above:: shoulder pain Admission Indicated Admission indicated?: not indicated Admission Request Was there a request for admission?: No Disposition Plan Disposition Plan: Discharge Discharge Attestation Discharge Attestation: The patient and all family members were given an opportunity to ask questions and understood the discharge instructions. Discharge instructions specifically effects, indications for sooner follow up or return to the emergency department, and the expected course of current diagnosis. Patient condition: Stable Discharge Plan Plan Patient Disposition: HOME (Self Care) Patient condition on transfer: Stable Prescriptions/Referrals Prescriptions/Med Rec: No Action atorvastatin 20 mg Tablet 20 mg PO QPM paroxetine HCl 40 mg Tablet 40 mg PO QDAY buspirone 15 mg Tablet 15 mg PO TID aripiprazole 5 mg Tablet 5 mg PO QDAY Spiriva Respimat 2.5 mcg/actuation mist 2 puff INHALATION DAILY Patient Comments: INHALE 2 PUFFS INTO THE LUNGS EVERY DAY FOR 30 DAYS metoclopramide HCl [Reglan] 10 mg tablet 10 mg PO Q6H PRN (Reason: abdominal pain) Qty: 14 0RF pantoprazole [Protonix] 40 mg tablet,delayed release (DR/EC) 40 mg PO QDAY Qty: 30 0RF zinc sulfate 50 mg zinc (220 mg) Capsule 220 mg PO QDAY Qty: 30 0RF methylprednisolone [Medrol (Kody)] 4 mg tablets,dose pack 4 mg PO QAM Qty: 21 0RF ipratropium-albuterol 0.5 mg-3 mg(2.5 mg base)/3 mL solution for nebulization 3 ml inhalation Q8H PRN (Reason: shortness of breath) Qty: 90 0RF prednisone 50 mg tablet 50 mg PO QDAY Qty: 7 0RF acetaminophen 500 mg capsule 500 mg PO Q6H PRN (Reason: pain) Qty: 30 0RF prednisone 50 mg tablet 50 mg PO QDAY Qty: 7 0RF albuterol sulfate 90 mcg/actuation HFA aerosol inhaler 2 inh inhalation QID PRN (Reason: shortness of breath or wheezing) Qty: 8.5 0RF prednisone 20 mg tablet See Taper PO QDAY MDD 3 Qty: 21 0RF Taper: Prednisone Taper 20 mg DAILY for 2 Days and 0 Hour 10 mg DAILY for 2 Days and 0 Hour 5 mg DAILY for 7 Days and 0 Hour Rx Instructions: Take 4 Tabs q Day for 3 days then take 3 tabs q Day for 3 days then resume 40 mg daily Excedrin Tension Headache 500-65 mg tablet 1 tab PO Q8H PRN (Reason: pain) Qty: 30 0RF tramadol 50 mg tablet 50 mg PO Q6H PRN (Reason: pain) Qty: 20 0RF acetaminophen-codeine 300-30 mg tablet 2 tab PO TID MDD 6 PRN (Reason: pain) Qty: 10 0RF acetaminophen 500 mg capsule 500 mg PO Q6H PRN (Reason: pain) Qty: 30 0RF cyclobenzaprine 10 mg tablet 10 mg PO TID PRN (Reason: muscle spasm) Qty: 10 0RF ibuprofen 600 mg tablet 600 mg PO Q6H Qty: 30 0RF amoxicillin-pot clavulanate 875-125 mg tablet 1 tab PO BID Qty: 14 0RF clindamycin HCl 300 mg capsule 300 mg PO Q6H Qty: 20 0RF acetaminophen-codeine 300-30 mg tablet 2 tab PO Q8H MDD 6 PRN (Reason: pain) Qty: 20 0RF doxycycline hyclate 100 mg capsule 100 mg PO QDAY Qty: 20 0RF ibuprofen 800 mg tablet 800 mg PO Q8H PRN (Reason: pain) Qty: 30 0RF meloxicam 7.5 mg tablet 7.5 mg PO QDAY Qty: 10 0RF Referrals: Celine Olsen PA-C [Primary Care Provider] - In 1 week Problem List Clinical Impression: Acute shoulder pain Patient/Caregiver Discharge Instructions Discharge Activity: activity as tolerated Education Materials: ED RICE Additional Instructions: Follow up with primary provider in 1-2 days. Come back to ED if symptoms change or worsen Print Language: Togolese Stand Alone Forms: Shari Award Info., Patient Portal Info Letter PA/BURTON Supervising Physician PA/BURTON Supervising Physician: silvio
[2025-07-11] MEDS: HYDROcodone/APAP 5/325 TABLET 2 TAB PO (17:30)
[2025-07-11] MEDS: IBUPROFEN TAB 400 MG TABLET 800 MG PO (17:31)
== END 2025-07-11 18:11 | disposition home or self-care (01) ==
PROVIDERS: Emergency Provider Emergency Medicine; PCP Physician Assistant Medical
DX: M25.511 Pain in right shoulder (principal)
CPT/HCPCS: 73030; 99283; A9270

== ENCOUNTER 2025-08-04 08:45 | Emergency (ER) | payer MEDICAID, SELFPAY ==
[2025-08-04 09:07] VITALS: BP 131/88; PULSE 96; RESP 18; TEMP 36.5; O2SAT 93
[2025-08-04] MEDS: METOCLOPRAMIDE LIQD 10 MG/10 ML UDC PO (09:12)
[2025-08-04] MEDS: KETOROLAC INJ 60 MG/2 ML VIAL 30 MG IM (09:13)
--- NOTE | 2025-08-04 09:32 | PD.EDHA ---
ED Headache RME/HPI General Chief Complaint: Headache Stated Complaint: SEVERE HEADACHE Time Seen by Provider: 08/04/25 08:48 Source: patient Arrival date/time: 08/04/25 08:45 45-year-old female with a history of migraines presents to the emergency room with a chief complaint of a right sided headache, photophobia, nausea x 1 day Mode of arrival: ambulatory Limitations: no limitations Related Data Home Medications ?Medication ?Instructions ?Recorded ?Confirmed aripiprazole 5 mg tablet 5 mg PO QDAY 09/30/23 09/30/23 atorvastatin 20 mg tablet 20 mg PO QPM 09/30/23 09/30/23 buspirone 15 mg tablet 15 mg PO TID 09/30/23 09/30/23 paroxetine HCl 40 mg tablet 40 mg PO QDAY 09/30/23 09/30/23 tiotropium bromide 2.5 2 puff inhalation DAILY 09/30/23 09/30/23 mcg/actuation mist for inhalation (Spiriva Respimat) Previous Rx's ?Medication ?Instructions ?Recorded tramadol 50 mg tablet 50 mg PO Q6H PRN pain #20 tabs 02/17/24 metoclopramide HCl 10 mg tablet 10 mg PO Q6H PRN abdominal pain 07/26/24 (Reglan) #14 tabs pantoprazole 40 mg tablet,delayed 40 mg PO QDAY #30 tabs 07/26/24 release (Protonix) acetaminophen 300 mg-codeine 30 mg 2 tab PO TID PRN pain #10 tabs 08/09/24 tablet acetaminophen 500 mg capsule 500 mg PO Q6H PRN pain #30 caps 10/01/24 cyclobenzaprine 10 mg tablet 10 mg PO TID PRN muscle spasm #10 10/01/24 tabs methylprednisolone 4 mg tablets in 4 mg PO QAM #21 tabs 11/13/24 a dose pack (Medrol (Kody)) zinc sulfate 50 mg zinc (220 mg) 220 mg (4.4 x 50 mg zinc (220 mg)) 11/13/24 capsule PO QDAY #30 caps ibuprofen 600 mg tablet 600 mg PO Q6H #30 tabs 12/06/24 amoxicillin 875 mg-potassium 1 tab PO BID #14 tabs 12/13/24 clavulanate 125 mg tablet ipratropium 0.5 mg-albuterol 3 mg 3 ml inhalation Q8H PRN shortness 12/18/24 (2.5 mg base)/3 mL nebulization of breath #90 mL soln prednisone 50 mg tablet 50 mg PO QDAY #7 tabs 12/18/24 acetaminophen 500 mg capsule 500 mg PO Q6H PRN pain #30 caps 01/12/25 albuterol sulfate 90 mcg/actuation 2 inh inhalation QID PRN shortness 02/12/25 aerosol inhaler of breath or wheezing #8.5 grams prednisone 50 mg tablet 50 mg PO QDAY #7 tabs 02/12/25 clindamycin HCl 300 mg capsule 300 mg PO Q6H #20 caps 03/26/25 acetaminophen 300 mg-codeine 30 mg 2 tab PO Q8H PRN pain #20 tabs 04/05/25 tablet prednisone 20 mg tablet See Taper PO QDAY allergic 05/02/25 reaction #21 tabs acetaminophen-caffeine 500 mg-65 1 tab PO Q8H PRN pain #30 tabs 05/27/25 mg tablet (Excedrin Tension Headache) doxycycline hyclate 100 mg capsule 100 mg PO QDAY #20 caps 06/01/25 ibuprofen 800 mg tablet 800 mg PO Q8H PRN pain #30 tabs 06/01/25 meloxicam 7.5 mg tablet 7.5 mg PO QDAY #10 tabs 07/10/25 Allergies Allergy/AdvReac Type Severity Reaction Status Date / Time cinnamon Allergy Severe Swelling Verified 08/04/25 08:48 of Lip/Tongue/Throat aspirin AdvReac Severe HAS ULCER Verified 08/04/25 08:48 Review of Systems Review of Systems Systems Reviewed: All systems reviewed, normal except as documented Constitutional Constitutional: Reports system reviewed and no additional complaints, except as documented, Denies fatigue, Denies fever(s), Denies headache(s) and Denies weakness Eyes Eyes: Reports system reviewed and no additional complaints, except as documented, Denies blurry vision and Denies change in vision ENT Ears, Nose, Mouth, and Throat: Reports system reviewed and no additional complaints, except as documented, Denies otalgia, Denies headache(s), Denies nasal congestion, Denies throat swelling and Denies vertigo Cardiovascular Cardiovascular: Reports system reviewed and no additional complaints, except as documented, Denies chest pain, Denies dyspnea and Denies dyspnea on exertion Respiratory Respiratory: Reports system reviewed and no additional complaints, except as documented, Denies chest congestion, Denies cough, Denies dyspnea, Denies dyspnea on exertion and Denies wheezing Gastrointestinal Gastrointestinal: Reports system reviewed and no additional complaints, except as documented, Denies abdominal pain, Denies cramping, Denies nausea and Denies vomiting Genitourinary Genitourinary: Reports system reviewed and no additional complaints, except as documented Musculoskeletal Musculoskeletal: Reports system reviewed and no additional complaints, except as documented and Denies back pain Integumentary/Breasts Skin/Breast: Reports system reviewed and no additional complaints, except as documented and Denies wounds Neurologic Neurologic: Reports system reviewed and no additional complaints, except as documented, Denies confusion, Denies headache(s), Denies lack of coordination, Denies vertigo and Denies weakness Psychiatric Psychiatric: Reports system reviewed and no additional complaints, except as documented, Denies anxiety, Denies confusion, Denies depression, Denies paranoia, Denies suicidal ideation and Denies tactile hallucinations Endocrine Endocrine: Reports system reviewed and no additional complaints, except as documented and Denies fatigue Hematologic/Lymphatic Hematologic/Lymphatic: Reports system reviewed and no additional complaints, except as documented and Denies lymphadenopathy Allergic/Immunologic Allergic/Immunologic: Reports system reviewed and no additional complaints, except as documented, Denies throat swelling, Denies urticaria and Denies wheezing Past Medical History Past Medical History NEUROLOGIC: Positive Migraine; Negative Neurological Disorders or Seizures CARDIAC: Positive Hypercholesterolemia and Hypertension; Negative Cardiac Disorders, Congestive Heart Failure, Edema, Cellulitis or Varicose Veins RESPIRATORY: Positive Chronic Obstructive Pulmonary Disease (COPD) and Asthma; Negative Tuberculosis or Sleep Apnea GASTROINTESTINAL: Positive Gastrointestinal Disorders, Ulcer and Gastroesophageal Reflux Disease; Negative Hepatitis GENITOURINARY: Negative Genitourinary Disorders or Renal Disease REPRODUCTIVE: Positive Previous Pregnancies and Uterine Prolapse MUSCULOSKELETAL: Positive Musculoskeletal Disorders and Arthritis ENDOCRINE: Negative Endocrine Disorders, Diabetes Mellitus Type 1 or Diabetes Mellitus Type 2 HEMATOLOGIC: Negative Blood Disorders or Sickle Cell Disease PSYCHO/SOCIAL: Positive Bipolar Disorder, Depression, Anxiety and Post Traumatic Stress Disorder OTHER HISTORY: Positive Hospitalization, Autoimmune Disease, Chicken Pox and Cancer; Negative Shingles, Falls, Blood Transfusions, Blood Transfusion Reaction, Anesthesia Reactions, Chemotherapy, Radiation Therapy, MRSA, Measles or Mumps Family History FAMILY HISTORY: Positive Family Psychiatric Problems, Family Respiratory Disorders, Family Cardiac Disorders, Family Cancer, Family Surgery and Family Anesthesia Reaction; Negative Family Gastrointestinal Problems Surgical History SURGICAL: Positive Abdominal Surgery and Tubal Ligation; Negative Pacemaker Social History SMOKING STATUS: Current every day smoker SECOND HAND EXPOSURE: No SUBSTANCE USE: former substance user and methamphetamine (Former methamphetamine abuse, quit in 2018.) ED Exam General Limitations: Present no limitations General appearance: Present alert and in no apparent distress Head Head exam: Present atraumatic; Absent normocephalic or normal inspection Eye Eye exam: Present normal appearance, PERRL and EOMI ENT ENT exam: Present normal exam, normal oropharynx and mucous membranes moist Neck Neck exam: Present normal inspection, full ROM and trachea midline Chest Chest inspection: Present normal inspection and symmetric chest wall rise Respiratory Respiratory exam: Present normal lung sounds bilaterally Cardiovascular Cardiovascular exam: Present regular rate, normal rhythm and normal heart sounds Abdominal Exam Abdominal exam: Present soft and normal bowel sounds Extremities Exam Extremities exam: Present normal inspection and full ROM Back Exam Back exam: Present normal inspection and full ROM Neurological Exam Neurological exam: Present alert, oriented X3, CN II-XII intact, normal gait and reflexes normal Expanded Neurological Exam Patient oriented to: Present person, place and time Speech: Present fluid speech Cerebellar function: Present normal gait Motor strength - LUE: 5/5 Motor strength - RUE: 5/5 Motor strength - LLE: 5/5 Motor strength - RLE: 5/5 Coma scale eye opening: spontaneous Coma scale motor response: obeys commands Coma scale verbal response: oriented Coma scale total: 15 Psychiatric Psychiatric exam: Present normal affect and normal mood Skin Skin exam: Present warm, dry, intact and normal color Course Quality Measures none Orders Category Date Time Status DiphenhydrAMINE [Benadryl] Med 08/04/25 09:01 Discontinued 25 mg PO X1 ONE Ketorolac Inj [Toradol Inj] Med 08/04/25 09:01 Discontinued 30 mg IM X1 ONE Metoclopramide [Reglan] Med 08/04/25 09:01 Discontinued 10 mg PO X1 ONE Vital Signs Vital signs: Vital Signs Temperature 97.7 F 08/04/25 09:07 Pulse Rate 96 08/04/25 09:07 Respiratory Rate 18 08/04/25 09:07 Blood Pressure 131/88 H 08/04/25 09:07 Pulse Oximetry (%) 93 L 08/04/25 09:07 Oxygen Delivery Method Room Air 08/04/25 09:07 Headache MDM Narrative MDM Narrative:: 45-year-old female with a history of COPD, and migraines presents to the emergency room with a chief complaint of a right sided headache, photophobia, nausea x 1 day Patient is hemodynamically stable and in no apparent distress. She is not tachycardic not tachypneic and not febrile Neurological examination was within normal limits. The patient is a GCS of 15 she is alert and oriented x 3 pupils are PERRLA EOMs are intact there are no focal or motor deficits. Cranial reflexes are intact. The patient has a unilateral right sided headache with photophobia and nausea x 1 day. Patient states she has had similar episodes that are like this and her headache is not worse than other times. Patient is having some photophobia. Patient states she has a history of migraines and takes medication but the medication has not helped her today. Medication was given here at bedside the patient was reevaluated in an hour and a half with significant improvement to her symptoms Patient was discharged and educated to follow-up with primary care provider in the next 24 to 48 hours and return to the emergency room for any evidence of worsening signs or symptoms Patient data External records reviewed:: [facility] previous records Clinical information provided by:: patient Social determinants that could affect healthcare access:: none Patient has the following chronic illnesses:: COPD How is presenting disease/condition affected by chronic disease/condition?: uneffected by Evaluation data The following diagnostics were reviewed and interpreted by me:: lab results and radiology exam(s) Lab and/or radiology exams considered but not ordered:: Labs and radiology exams considered and ordered Interpretation Summary: N/A Medications / Prescriptions Medications or Prescriptions considered but not ordered:: Medication given Medication administrations:: Medication Administration History Discontinued Medications Diphenhydramine HCl (Diphenhydramine 25 Mg Capsule) 25 mg PO X1 ONE Stop: 08/04/25 09:02 Last Admin: 08/04/25 09:12 Dose: 25 mg Documented By: VIRGEN Ketorolac Tromethamine (Ketorolac Inj 60 Mg/2 Ml Vial) 30 mg IM X1 ONE Stop: 08/04/25 09:02 Last Admin: 08/04/25 09:13 Dose: 30 mg Documented By: VIRGEN Metoclopramide HCl (Metoclopramide Liqd 10 Mg/10 Ml [facility]) 10 mg PO X1 ONE Stop: 08/04/25 09:02 Last Admin: 08/04/25 09:12 Dose: 10 mg Documented By: Medication given Consultations Consultation(s) initiated? (list below): No Diagnosis Differential diagnosis headache: migraine, tension headache, headache and sinusitis Most likely diagnosis given after review of the tests above:: Migraine Admission Indicated Admission indicated?: not indicated Admission Request Was there a request for admission?: No Disposition Plan Disposition Plan: Discharge Discharge Attestation Discharge Attestation: The patient and all family members were given an opportunity to ask questions and understood the discharge instructions. Discharge instructions specifically effects, indications for sooner follow up or return to the emergency department, and the expected course of current diagnosis. Patient condition: Stable Discharge Plan Plan Patient Disposition: HOME (Self Care) Discharge Disposition comment: Stable Prescriptions/Referrals Prescriptions/Med Rec: No Action atorvastatin 20 mg Tablet 20 mg PO QPM paroxetine HCl 40 mg Tablet 40 mg PO QDAY buspirone 15 mg Tablet 15 mg PO TID aripiprazole 5 mg Tablet 5 mg PO QDAY Spiriva Respimat 2.5 mcg/actuation mist 2 puff INHALATION DAILY Patient Comments: INHALE 2 PUFFS INTO THE LUNGS EVERY DAY FOR 30 DAYS metoclopramide HCl [Reglan] 10 mg tablet 10 mg PO Q6H PRN (Reason: abdominal pain) Qty: 14 0RF pantoprazole [Protonix] 40 mg tablet,delayed release (DR/EC) 40 mg PO QDAY Qty: 30 0RF zinc sulfate 50 mg zinc (220 mg) Capsule 220 mg PO QDAY Qty: 30 0RF methylprednisolone [Medrol (Kody)] 4 mg tablets,dose pack 4 mg PO QAM Qty: 21 0RF ipratropium-albuterol 0.5 mg-3 mg(2.5 mg base)/3 mL solution for nebulization 3 ml inhalation Q8H PRN (Reason: shortness of breath) Qty: 90 0RF prednisone 50 mg tablet 50 mg PO QDAY Qty: 7 0RF acetaminophen 500 mg capsule 500 mg PO Q6H PRN (Reason: pain) Qty: 30 0RF prednisone 50 mg tablet 50 mg PO QDAY Qty: 7 0RF albuterol sulfate 90 mcg/actuation HFA aerosol inhaler 2 inh inhalation QID PRN (Reason: shortness of breath or wheezing) Qty: 8.5 0RF prednisone 20 mg tablet See Taper PO QDAY MDD 3 Qty: 21 0RF Taper: Prednisone Taper 20 mg DAILY for 2 Days and 0 Hour 10 mg DAILY for 2 Days and 0 Hour 5 mg DAILY for 7 Days and 0 Hour Rx Instructions: Take 4 Tabs q Day for 3 days then take 3 tabs q Day for 3 days then resume 40 mg daily Excedrin Tension Headache 500-65 mg tablet 1 tab PO Q8H PRN (Reason: pain) Qty: 30 0RF tramadol 50 mg tablet 50 mg PO Q6H PRN (Reason: pain) Qty: 20 0RF acetaminophen-codeine 300-30 mg tablet 2 tab PO TID MDD 6 PRN (Reason: pain) Qty: 10 0RF acetaminophen 500 mg capsule 500 mg PO Q6H PRN (Reason: pain) Qty: 30 0RF cyclobenzaprine 10 mg tablet 10 mg PO TID PRN (Reason: muscle spasm) Qty: 10 0RF ibuprofen 600 mg tablet 600 mg PO Q6H Qty: 30 0RF amoxicillin-pot clavulanate 875-125 mg tablet 1 tab PO BID Qty: 14 0RF clindamycin HCl 300 mg capsule 300 mg PO Q6H Qty: 20 0RF acetaminophen-codeine 300-30 mg tablet 2 tab PO Q8H MDD 6 PRN (Reason: pain) Qty: 20 0RF doxycycline hyclate 100 mg capsule 100 mg PO QDAY Qty: 20 0RF ibuprofen 800 mg tablet 800 mg PO Q8H PRN (Reason: pain) Qty: 30 0RF meloxicam 7.5 mg tablet 7.5 mg PO QDAY Qty: 10 0RF Referrals: Celine Olsen PA-C [Primary Care Provider] - In 1 week Problem List Clinical Impression: Migraine Patient/Caregiver Discharge Instructions Education Materials: Headache Migraine Triggers Prevent, ED Headache, Migraine, Classic Additional Instructions: Please follow-up with your primary care provider in the next 24 to 48 hours Medication was given with significant improvement to your symptoms For any evidence of worsening signs or symptoms return to the emergency room immediately Print Language: Argentine Stand Alone Forms: Shari Award Info., Work/School Release, Patient Portal Info Letter PA/BURTON Supervising Physician PA/BURTON Supervising Physician: Dr. Pratt
[2025-08-04 11:12] VITALS: BP 128/79; PULSE 77; RESP 16; TEMP 36.6; O2SAT 97
== END 2025-08-04 11:13 | disposition home or self-care (01) ==
PROVIDERS: Emergency Provider Family Medicine; PCP Physician Assistant Medical
DX: G43.909 Migraine, unspecified, not intractable, without status migrainosus (principal)
CPT/HCPCS: 96372; 99283; J1885; A9270

== ENCOUNTER 2025-08-10 16:39 | Emergency (ER) | payer MEDICAID, SELFPAY ==
[2025-08-10 16:40] VITALS: BMI 34.7
[2025-08-10 17:22] VITALS: BP 126/84; PULSE 107; RESP 20; TEMP 36.4; O2SAT 94
--- NOTE | 2025-08-10 17:24 | EKG_ITS ---
[facility] Test Date: 2025-08-10 Pat Name: CATHRYN VERDE Department: Room: - Gender: Female [employer] Player: : 1980 Requested By: López Rothman Order Number: [id number] Reading MD: López Rothman Measurements Intervals [place] Rate: 105 P: 46 MN: 140 QRS: 40 QRSD: 81 T: 60 QT: 313 QTc: 415 Interpretive Statements SINUS TACHYCARDIA NONSPECIFIC T-WAVE ABNORMALITY ABNORMAL RHYTHM ECG Compared to ECG 05/02/2025 16:13:23 Sinus rhythm no longer present Short MN interval no longer present T-wave abnormality still present /store/S0/[id number]/[id number].pdf
--- NOTE | 2025-08-10 17:24 | XR_ITS ---
Examination: CT abdomen and pelvis without contrast. Coronal 3-D reconstructions. Sagittal 2-D reconstructions. Date and time of exam:August 10, 2025, 1855 hrs., Comparison April 22, 2025 Indications: Onset mid abdominal pain and nausea today CTDI: vol (mGy): 12.1 DLP: (mGycm): 769 Technique: Axial images of the abdomen have been obtained, 3 mm slice thickness Intravenous contrast material has not been administered. Low dose protocols were performed. One or more of the following dose reduction techniques were used; automated exposure control, adjustment of the mA and/or KV according to patient size, use of iterative reconstruction technique. Findings: No focal liver or splenic lesions Contracted gallbladder No biliary tract dilatation. No pancreatic mass Normal adrenal glands. No renal or ureteral calculi, no hydronephrosis Aorta normal size Small fat-containing umbilical hernia. No bowel obstruction or diverticulitis No pericecal inflammatory change No pelvic mass Moderate osteopenia Impression: Negative for pancreatitis No renal or ureteral calculi, no hydronephrosis No CT findings of appendicitis bowel obstruction or diverticulitis Consider hepatobiliary sonography follow-up
--- NOTE | 2025-08-10 17:25 | PD.EDRME ---
Rapid Medical Screening Exam RME Arrival date/time: 08/10/25 16:39 45-year-old female with history of COPD, hyperlipidemia presents to the emergency room with a chief complaint of dizziness and abdominal pain x 1 day I have greeted and performed a focused initial assessment of this patient. A comprehensive ED assessment and evaluation of the patient, analysis of all test results, and completion of the medical decision making process will be conducted by additional ED providers. Chief Complaint: Dizziness Time Seen by Provider: 08/10/25 16:40 Vital signs reviewed by provider: Yes
[2025-08-10 17:52] LABS: Basophils # (Auto) 0.1 Thou/mm3 (0.0-0.2); Basophils % (Auto) 1 % (0-2.5); Eosinophils # (Auto) 0.2 Thou/mm3 (0.0-0.5); Eosinophils % (Auto) 2 % (0-10); Hematocrit 48.8 % (36.0-46.0); Hemoglobin 15.9 g/dL (12.0-16.0); Immature Granulocytes Auto 0.03 Thou/mm3 (0.00-0.00); Lymphocytes # (Auto) 3.4 Thou/mm3 (1.0-4.8); Lymphocytes % (Auto) 30 % (10-50); Mean Corpuscular HGB Conc 32.6 g/dl (31.0-37.0); Mean Corpuscular Hemoglobin 28.2 pg (25.0-35.0); Mean Corpuscular Volume 87 fL (80-100); Monocytes # (Auto) 0.6 Thou/mm3 (0.0-0.8); Monocytes % (Auto) 6 % (0-12); Neutrophils # (Auto) 6.7 Thou/mm3 (1.8-7.7); Neutrophils % (Auto) 61 % (37-80); Nucleated Red Blood Cell # 0.00 Thou/mm3 (0.00-0.00); Nucleated Red Blood Cell % 0 /100 WBC (0); Platelet Count 311 Thou/mm3 (140-440); RDW Standard Deviation 47.7 fL (36.4-46.3); Red Blood Count 5.64 Miln/mm3 (4.00-5.20); White Blood Count 11.1 Thou/mm3 (3.6-11.0)
[2025-08-10 18:07] LABS: B-Type Natriuretic Peptide < 0 pg/mL (0-100)
[2025-08-10 18:08] LABS: Alanine Aminotransferase 11 U/L (10-49); Albumin, Serum 4.7 gm/dL (3.5-5.0); Albumin/Globulin Ratio 2.1 (1.2-2.2); Alkaline Phosphatase 104 U/L (46-116); Amylase 72 U/L (30-118); Anion Gap 9 (7-16); Aspartate Amino Transferase 17 U/L (0-34); BUN/Creatinine Ratio 7 Ratio (12-20); Bilirubin,Total 0.3 mg/dL (0.3-1.2); Blood Urea Nitrogen 8 mg/dL (9-23); Calcium 10.1 mg/dL (8.3-10.6); Calcium (Corrected) 10.1 mg/dL (8.5-10.1); Carbon Dioxide 25.3 mMol/L (20.0-31.0); Chloride 107 mMol/L (98-107); Creatinine (Component) 1.1 mg/dL (0.6-1.3); Estimated Creatinine Clearance 75.2 mL/min (>60); Globulin 2.2 gm/dL (2.3-3.5); Glucose 98 mg/dL (74-106); Magnesium 1.8 mg/dL (1.6-2.6); Osmolality,Calculated 279 (275-295); Potassium 3.9 mMol/L (3.4-5.1); Sodium 141 mMol/L (136-145); Total Protein 6.9 gm/dL (5.7-8.2); Troponin I < 0.002 ng/mL (0.0-0.045); eGFR > 60 See Note
[2025-08-10 18:09] LABS: Collection Type, Urine Clean Catch
[2025-08-10 18:23] LABS: Bacteria,Urine Rare; Bilirubin,Urine Negative (Negative); Blood,Urine Negative (Negative); Clarity,Urine Turbid (Clear/Hazy); Color,Urine Lt-Yellow (Lt Yel-Yel); Glucose, Urine Negative (Negative); Ketones,Urine Negative (Negative); Leukocyte Esterase,Urine Positive (Negative); Nitrite,Urine Negative (Negative); PH,Urine 6.0 (5.0-7.0); Protein,Urine Negative (Neg - Trace); RBC,Urine 6 /hpf (0-3); Specific Gravity,Urine 1.008 (1.001-1.035); Squamous Epithelial Cell,Urine 9 /hpf (0-5); Urobilinogen,Urine Negative mg/dL (0.0-1.0); WBC,Urine 22 /hpf (0-5)
[2025-08-10 18:30] LABS: Culture Indicated,Urine Yes
[2025-08-10 18:31] LABS: HCG Qualitative,Urine Negative
[2025-08-10 18:50] LABS: Amphetamine/Methamp Scrn,U Negative (Negative); Barbiturate Screen,Urine Negative (Negative); Benzodiazepines Screen,Urine Negative (Negative); Benzoylecgonine Screen, Ur Negative (Negative); Fentanyl Screen,Urine Negative (Negative); Opiate Screen,Urine Negative (Negative); THC Screen,Urine Negative (Negative)
--- NOTE | 2025-08-10 20:25 | PD.EDADULT ---
ED General RME/HPI General Chief complaint: Dizziness Stated complaint: DIZZY/HEAD IN A FOG x 2 DAYS Time Seen by Provider: 08/10/25 16:40 Arrival date/time: 08/10/25 16:39 CC: Nausea vomiting abdominal pain HPI ongoing for the past 2 days patient has low right abdominal pain with 4 episodes of vomiting in the last 2 days, currently is nauseated. Denies chest pain fever chills shortness of breath difficulty breathing. No OTC medicines taken. RME / HPI RME / HPI narrative: 08/10/25 16:39 45-year-old female with history of COPD, hyperlipidemia presents to the emergency room with a chief complaint of dizziness and abdominal pain x 1 day I have greeted and performed a focused initial assessment of this patient. A comprehensive ED assessment and evaluation of the patient, analysis of all test results, and completion of the medical decision making process will be conducted by additional ED providers. Related Data Home Medications ?Medication ?Instructions ?Recorded ?Confirmed aripiprazole 5 mg tablet 5 mg PO QDAY 09/30/23 09/30/23 atorvastatin 20 mg tablet 20 mg PO QPM 09/30/23 09/30/23 buspirone 15 mg tablet 15 mg PO TID 09/30/23 09/30/23 paroxetine HCl 40 mg tablet 40 mg PO QDAY 09/30/23 09/30/23 tiotropium bromide 2.5 2 puff inhalation DAILY 09/30/23 09/30/23 mcg/actuation mist for inhalation (Spiriva Respimat) Previous Rx's ?Medication ?Instructions ?Recorded tramadol 50 mg tablet 50 mg PO Q6H PRN pain #20 tabs 02/17/24 metoclopramide HCl 10 mg tablet 10 mg PO Q6H PRN abdominal pain 07/26/24 (Reglan) #14 tabs pantoprazole 40 mg tablet,delayed 40 mg PO QDAY #30 tabs 07/26/24 release (Protonix) acetaminophen 300 mg-codeine 30 mg 2 tab PO TID PRN pain #10 tabs 08/09/24 tablet acetaminophen 500 mg capsule 500 mg PO Q6H PRN pain #30 caps 10/01/24 cyclobenzaprine 10 mg tablet 10 mg PO TID PRN muscle spasm #10 10/01/24 tabs methylprednisolone 4 mg tablets in 4 mg PO QAM #21 tabs 11/13/24 a dose pack (Medrol (Kody)) zinc sulfate 50 mg zinc (220 mg) 220 mg (4.4 x 50 mg zinc (220 mg)) 11/13/24 capsule PO QDAY #30 caps ibuprofen 600 mg tablet 600 mg PO Q6H #30 tabs 12/06/24 amoxicillin 875 mg-potassium 1 tab PO BID #14 tabs 12/13/24 clavulanate 125 mg tablet ipratropium 0.5 mg-albuterol 3 mg 3 ml inhalation Q8H PRN shortness 12/18/24 (2.5 mg base)/3 mL nebulization of breath #90 mL soln prednisone 50 mg tablet 50 mg PO QDAY #7 tabs 12/18/24 acetaminophen 500 mg capsule 500 mg PO Q6H PRN pain #30 caps 01/12/25 albuterol sulfate 90 mcg/actuation 2 inh inhalation QID PRN shortness 02/12/25 aerosol inhaler of breath or wheezing #8.5 grams prednisone 50 mg tablet 50 mg PO QDAY #7 tabs 02/12/25 clindamycin HCl 300 mg capsule 300 mg PO Q6H #20 caps 03/26/25 acetaminophen 300 mg-codeine 30 mg 2 tab PO Q8H PRN pain #20 tabs 04/05/25 tablet prednisone 20 mg tablet See Taper PO QDAY allergic 05/02/25 reaction #21 tabs acetaminophen-caffeine 500 mg-65 1 tab PO Q8H PRN pain #30 tabs 05/27/25 mg tablet (Excedrin Tension Headache) doxycycline hyclate 100 mg capsule 100 mg PO QDAY #20 caps 06/01/25 ibuprofen 800 mg tablet 800 mg PO Q8H PRN pain #30 tabs 06/01/25 meloxicam 7.5 mg tablet 7.5 mg PO QDAY #10 tabs 07/10/25 dicyclomine 20 mg tablet 20 mg PO BID #7 tabs 08/10/25 ondansetron 4 mg disintegrating 4 mg PO Q8H #10 tabs 08/10/25 tablet Allergies Allergy/AdvReac Type Severity Reaction Status Date / Time cinnamon Allergy Severe Swelling Verified 08/10/25 16:41 of Lip/Tongue/Throat aspirin AdvReac Severe HAS ULCER Verified 08/10/25 16:41 Review of Systems Review of Systems Narrative Review of Systems: GEN: No fever, no chills, no weight loss EYES: No discharge, no visual changes, no pain HEENT: No ear pain, no congestion, no sore throat PULM: No shortness of breath, no cough, no congestion CV: No chest pain, no dyspnea on exertion, no palpitations GI: + nausea, + vomiting, no diarrhea, n+ pain, no constipation : No frequency, no urgency, no dysuria MUSC/SKEL: No joint pain, no back pain SKIN: No rash PSYCH: No hallucinations, no depression HEME/LYMPH: No easy bleeding or bruising tendencies NEURO: No weakness, no headache Past Medical History Past Medical History NEUROLOGIC: Positive Migraine; Negative Neurological Disorders or Seizures CARDIAC: Positive Hypercholesterolemia and Hypertension; Negative Cardiac Disorders, Congestive Heart Failure, Edema, Cellulitis or Varicose Veins RESPIRATORY: Positive Chronic Obstructive Pulmonary Disease (COPD) and Asthma; Negative Tuberculosis or Sleep Apnea GASTROINTESTINAL: Positive Gastrointestinal Disorders, Ulcer and Gastroesophageal Reflux Disease; Negative Hepatitis GENITOURINARY: Negative Genitourinary Disorders or Renal Disease REPRODUCTIVE: Positive Previous Pregnancies and Uterine Prolapse MUSCULOSKELETAL: Positive Musculoskeletal Disorders and Arthritis ENDOCRINE: Negative Endocrine Disorders, Diabetes Mellitus Type 1 or Diabetes Mellitus Type 2 HEMATOLOGIC: Negative Blood Disorders or Sickle Cell Disease PSYCHO/SOCIAL: Positive Bipolar Disorder, Depression, Anxiety and Post Traumatic Stress Disorder OTHER HISTORY: Positive Hospitalization, Autoimmune Disease, Chicken Pox and Cancer; Negative Shingles, Falls, Blood Transfusions, Blood Transfusion Reaction, Anesthesia Reactions, Chemotherapy, Radiation Therapy, MRSA, Measles or Mumps Family History FAMILY HISTORY: Positive Family Psychiatric Problems, Family Respiratory Disorders, Family Cardiac Disorders, Family Cancer, Family Surgery and Family Anesthesia Reaction; Negative Family Gastrointestinal Problems Surgical History SURGICAL: Positive Abdominal Surgery and Tubal Ligation; Negative Pacemaker Social History SMOKING STATUS: Current some day smoker SECOND HAND EXPOSURE: No SUBSTANCE USE: former substance user and methamphetamine (Former methamphetamine abuse, quit in 2018.) ED Exam Narrative Physical exam: [General: Obese not in any acute distress Head normocephalic HEENT: Within acceptable limits Neck is supple nontender Chest equal chest rise nontender to palpation Respiratory: Clear to auscultation no wheezes crackles or rubs CV: Rate rhythm is regular no murmurs rubs or clicks Abdomen is distended secondary to body habitus soft, mild right lower quadrant abdominal tenderness, mild reflexive guarding no rebound tenderness. No masses positive bowel sounds all 4 quadrants Back: No CVA tenderness no spinous process tenderness from cervical spine thoracic and lumbar spine Skin: Intact no petechiae rash induration ulceration or crepitus Extremities: Moving all extremity against resistance cap refill less than 2 seconds neurosensory intact Neuro: Awake alert oriented x3 Glascow coma 15 no focal deficits] Course Quality Measures none Orders Category Date Time Status EKG (ED ONLY) *Do not use* NOW Care 08/10/25 17:[address] abdomen pelvis wo con Stat Exams 08/10/25 17:24 Completed EKG (ED Only) Stat Exams 08/10/25 17:24 Draft Amylase Stat Lab 08/10/25 17:33 Completed B-Type Natriuretic Peptide Stat Lab 08/10/25 17:33 Completed CBC Stat Lab 08/10/25 17:33 Completed Comprehensive Metabolic Panel Stat Lab 08/10/25 17:33 Completed Drug Screen,Urine Stat Lab 08/10/25 17:51 Completed HCG Qualitative,Urine Stat Lab 08/10/25 17:51 Completed Magnesium Stat Lab 08/10/25 17:33 Completed Troponin I Stat Lab 08/10/25 17:33 Completed Urinalysis, C/S if Indicated Stat Lab 08/10/25 17:51 Completed Urine Culture Stat Lab 08/10/25 17:51 Received Ondansetron Odt [Zofran Odt] Med 08/10/25 20:33 Discontinued 4 mg PO X1 ONE Vital Signs Vital signs: Vital Signs Temperature 97.6 F 08/10/25 17:22 Pulse Rate 107 H 08/10/25 17:22 Respiratory Rate 20 08/10/25 17:22 Blood Pressure 126/84 08/10/25 17:22 Pulse Oximetry (%) 94 L 08/10/25 17:22 Oxygen Delivery Method Room Air 08/10/25 17:22 Discharge Plan Plan Patient Disposition: HOME (Self Care) Patient condition on transfer: Stable Prescriptions/Referrals Prescriptions/Med Rec: New ondansetron 4 mg tablet,disintegrating 4 mg PO Q8H Qty: 10 0RF dicyclomine 20 mg tablet 20 mg PO BID Qty: 7 0RF No Action atorvastatin 20 mg Tablet 20 mg PO QPM paroxetine HCl 40 mg Tablet 40 mg PO QDAY buspirone 15 mg Tablet 15 mg PO TID aripiprazole 5 mg Tablet 5 mg PO QDAY Spiriva Respimat 2.5 mcg/actuation mist 2 puff INHALATION DAILY Patient Comments: INHALE 2 PUFFS INTO THE LUNGS EVERY DAY FOR 30 DAYS metoclopramide HCl [Reglan] 10 mg tablet 10 mg PO Q6H PRN (Reason: abdominal pain) Qty: 14 0RF pantoprazole [Protonix] 40 mg tablet,delayed release (DR/EC) 40 mg PO QDAY Qty: 30 0RF zinc sulfate 50 mg zinc (220 mg) Capsule 220 mg PO QDAY Qty: 30 0RF methylprednisolone [Medrol (Kody)] 4 mg tablets,dose pack 4 mg PO QAM Qty: 21 0RF ipratropium-albuterol 0.5 mg-3 mg(2.5 mg base)/3 mL solution for nebulization 3 ml inhalation Q8H PRN (Reason: shortness of breath) Qty: 90 0RF prednisone 50 mg tablet 50 mg PO QDAY Qty: 7 0RF acetaminophen 500 mg capsule 500 mg PO Q6H PRN (Reason: pain) Qty: 30 0RF prednisone 50 mg tablet 50 mg PO QDAY Qty: 7 0RF albuterol sulfate 90 mcg/actuation HFA aerosol inhaler 2 inh inhalation QID PRN (Reason: shortness of breath or wheezing) Qty: 8.5 0RF prednisone 20 mg tablet See Taper PO QDAY MDD 3 Qty: 21 0RF Taper: Prednisone Taper 20 mg DAILY for 2 Days and 0 Hour 10 mg DAILY for 2 Days and 0 Hour 5 mg DAILY for 7 Days and 0 Hour Rx Instructions: Take 4 Tabs q Day for 3 days then take 3 tabs q Day for 3 days then resume 40 mg daily Excedrin Tension Headache 500-65 mg tablet 1 tab PO Q8H PRN (Reason: pain) Qty: 30 0RF tramadol 50 mg tablet 50 mg PO Q6H PRN (Reason: pain) Qty: 20 0RF acetaminophen-codeine 300-30 mg tablet 2 tab PO TID MDD 6 PRN (Reason: pain) Qty: 10 0RF acetaminophen 500 mg capsule 500 mg PO Q6H PRN (Reason: pain) Qty: 30 0RF cyclobenzaprine 10 mg tablet 10 mg PO TID PRN (Reason: muscle spasm) Qty: 10 0RF ibuprofen 600 mg tablet 600 mg PO Q6H Qty: 30 0RF amoxicillin-pot clavulanate 875-125 mg tablet 1 tab PO BID Qty: 14 0RF clindamycin HCl 300 mg capsule 300 mg PO Q6H Qty: 20 0RF acetaminophen-codeine 300-30 mg tablet 2 tab PO Q8H MDD 6 PRN (Reason: pain) Qty: 20 0RF doxycycline hyclate 100 mg capsule 100 mg PO QDAY Qty: 20 0RF ibuprofen 800 mg tablet 800 mg PO Q8H PRN (Reason: pain) Qty: 30 0RF meloxicam 7.5 mg tablet 7.5 mg PO QDAY Qty: 10 0RF Referrals: Celine Olsen PA-C [Primary Care Provider] - In 1 week Problem List Clinical Impression: Abdominal pain, Nausea & vomiting Patient/Caregiver Discharge Instructions Education Materials: Abdominal Pain, ED Vomiting and Diarrhea ... Print Language: Yakut Stand Alone Forms: Shari Award Info., Work/School Release, Patient Portal Info Letter FANY/BURTON Supervising Physician FANY/BURTON Supervising Physician: Trevor llanos ENP [facility] Clinical Information Provided by patient Medical Records Reviewed [facility] Chronic Illness/Social Conditions which may negatively complicate care or outcome(s)-explain: None or not applicable Add or document further as needed: Obesity EKG EKG not done Lab Interpretation Labs: interpreted by me Lab(s) interpretation(s): CBC shows a mild leukocytosis 11.1 H&H of 15.9 and 48.8. No thrombocytopenia CMP shows no significant electrolyte imbalances no renal impairment transaminitis or T. bili elevation. Troponin is negative BNP is undetectable Urine is turbid. Leukocyte esterase +22 WBCs 9 squamous epithelia 6 RBCs. Urine Prag is negative UDS is negative. Imaging Imaging interpretation: interpreted by me Provider imaging interpretation(s): CT of the abdomen is negative for any acute finding requires emergent or immediate intervention. As interpreted by me read by radiology. Medication Administration(s) none Medication Administration History Discontinued Medications Ondansetron HCl (Ondansetron Odt 4 Mg Tabrap) 4 mg PO X1 ONE; Protocol Stop: 08/10/25 20:34 Last Admin: 08/10/25 20:38 Dose: 4 mg Documented By: CVL Diagnosis Differential diagnosis: Appendicitis viral syndrome gastritis Most likely dx, and/or detailed dx discussion: Viral gastritis Dispositon Disposition: Discharge Home
[2025-08-10] MEDS: ONDANSETRON ODT 4 MG TABRAP PO (20:38)
[2025-08-10 20:43] VITALS: RESP 16
== END 2025-08-10 20:44 | disposition home or self-care (01) ==
PROVIDERS: Nurse Practitioner Family; Emergency Provider Emergency Medicine; PCP Physician Assistant Medical
DX: R10.9 Unspecified abdominal pain (principal); R11.2 Nausea with vomiting, unspecified; R00.0 Tachycardia, unspecified; D72.829 Elevated white blood cell count, unspecified; E78.00 Pure hypercholesterolemia, unspecified; I10 Essential (primary) hypertension; F17.210 Nicotine dependence, cigarettes, uncomplicated
CPT/HCPCS: 36415; 74176; 80053; 80307; 81001; 81025; 82150; 83735; 83880; 84484; 85025; 87086; 93005; 99283; Q0162

== ENCOUNTER 2025-08-12 07:26 | Emergency (ER) | payer MEDICAID, SELFPAY ==
[2025-08-12 07:33] VITALS: PULSE 96; RESP 18; O2SAT 98
[2025-08-12 07:43] VITALS: BP 127/90; PULSE 99; RESP 18; TEMP 36.4; O2SAT 90; BMI 35.8
--- NOTE | 2025-08-12 07:47 | XR_ITS ---
Examination: CT abdomen and pelvis without contrast. Coronal 3-D reconstructions. Sagittal 2-D reconstructions. Date and time of exam:August 12, 2025 1114 hours, comparison 08/10/2025 INDICATIONS: Right lower abdominal pain today CTDI: vol (mGy): 13.5 DLP: (mGycm): 759 Technique: Axial images of the abdomen have been obtained, 3 mm slice thickness Intravenous contrast material has not been administered. Low dose protocols were performed. One or more of the following dose reduction techniques were used; automated exposure control, adjustment of the mA and/or KV according to patient size, use of iterative reconstruction technique. Findings: 25 mm low density anterior liver lesion on this noncontrast study, image 53 No pancreatic or adrenal mass Contracted gallbladder No renal or ureteral calculi, no hydronephrosis Aorta normal size No pericecal inflammatory change No bowel obstruction or diverticulitis Absent uterus No pelvic mass Contracted urinary bladder Osseous structures intact IMPRESSION: 25 mm low-density anterior liver lesion, recommend ELECTIVE MRI abdomen liver follow-up pre and postcontrast
--- NOTE | 2025-08-12 07:47 | XR_ITS ---
Examination: Abdomen sonogram, Limited Date and time of exam: August 12, 2025 0809 hours INDICATIONS: Right upper abdominal pain beginning 4 days ago Technique: Real-time hernandez scale transabdominal sonographic images of the upper abdomen obtained. Findings: Negative for gallstones Gallbladder wall 0.36 cm no edema Common bile duct 0.4 cm Pancreatic head 2.7 cm Liver 18.2 cm fatty infiltration smooth contour no focal liver lesions Normal hepatopedal portal venous flow Patent IVC IMPRESSION: Normal gallbladder Moderate hepatomegaly fatty infiltration
[2025-08-12 08:50] LABS: Basophils # (Auto) 0.1 Thou/mm3 (0.0-0.2); Basophils % (Auto) 1 % (0-2.5); Eosinophils # (Auto) 0.2 Thou/mm3 (0.0-0.5); Eosinophils % (Auto) 3 % (0-10); Hematocrit 48.8 % (36.0-46.0); Hemoglobin 15.8 g/dL (12.0-16.0); Immature Granulocytes Auto 0.02 Thou/mm3 (0.00-0.00); Lymphocytes # (Auto) 2.4 Thou/mm3 (1.0-4.8); Lymphocytes % (Auto) 26 % (10-50); Mean Corpuscular HGB Conc 32.4 g/dl (31.0-37.0); Mean Corpuscular Hemoglobin 27.7 pg (25.0-35.0); Mean Corpuscular Volume 86 fL (80-100); Monocytes # (Auto) 0.5 Thou/mm3 (0.0-0.8); Monocytes % (Auto) 6 % (0-12); Neutrophils # (Auto) 6.1 Thou/mm3 (1.8-7.7); Neutrophils % (Auto) 65 % (37-80); Nucleated Red Blood Cell # 0.00 Thou/mm3 (0.00-0.00); Nucleated Red Blood Cell % 0 /100 WBC (0); Platelet Count 258 Thou/mm3 (140-440); RDW Standard Deviation 46.7 fL (36.4-46.3); Red Blood Count 5.71 Miln/mm3 (4.00-5.20); White Blood Count 9.4 Thou/mm3 (3.6-11.0)
[2025-08-12 09:11] LABS: Collection Type, Urine Clean Catch
[2025-08-12 09:11] LABS: Alanine Aminotransferase 13 U/L (10-49); Albumin, Serum 4.8 gm/dL (3.5-5.0); Albumin/Globulin Ratio 2.2 (1.2-2.2); Alkaline Phosphatase 105 U/L (46-116); Anion Gap 6 (7-16); Aspartate Amino Transferase 17 U/L (0-34); BUN/Creatinine Ratio 9 Ratio (12-20); Bilirubin,Total 0.3 mg/dL (0.3-1.2); Blood Urea Nitrogen 9 mg/dL (9-23); Calcium 9.9 mg/dL (8.3-10.6); Calcium (Corrected) 9.9 mg/dL (8.5-10.1); Carbon Dioxide 29.6 mMol/L (20.0-31.0); Chloride 104 mMol/L (98-107); Creatinine (Component) 1.0 mg/dL (0.6-1.3); Estimated Creatinine Clearance 84.2 mL/min (>60); Globulin 2.2 gm/dL (2.3-3.5); Glucose 88 mg/dL (74-106); Osmolality,Calculated 277 (275-295); Potassium 4.0 mMol/L (3.4-5.1); Sodium 140 mMol/L (136-145); Total Protein 7.0 gm/dL (5.7-8.2); Troponin I < 0.002 ng/mL (0.0-0.045); eGFR > 60 See Note
[2025-08-12 09:33] LABS: Bacteria,Urine 1+; Bilirubin,Urine Negative (Negative); Blood,Urine 2+ (Negative); Color,Urine Yellow (Lt Yel-Yel); Culture Indicated,Urine Contaminated; Glucose, Urine Negative (Negative); Ketones,Urine Negative (Negative); Leukocyte Esterase,Urine Positive (Negative); Nitrite,Urine Negative (Negative); PH,Urine 5.5 (5.0-7.0); Protein,Urine Trace (Neg - Trace); RBC,Urine 24 /hpf (0-3); Specific Gravity,Urine 1.028 (1.001-1.035); Squamous Epithelial Cell,Urine 37 /hpf (0-5); Urobilinogen,Urine 2.0 mg/dL (0.0-1.0); WBC,Urine 39 /hpf (0-5)
[2025-08-12 09:46] LABS: Clarity,Urine Hazy (Clear/Hazy)
--- NOTE | 2025-08-12 12:15 | EDNOTE_ITS ---
<Statement entered by Savannah Hanley MD - 08/31/25 06:06> As co-signing physician, I was present and available for consult prn. I concur with the plan and care as documented by the midlevel provider. ED Abdominal Pain RME/HPI General Stated complaint: ABDOMINAL PAIN Time seen by provider: 08/12/25 07:48 Arrival date/time: 08/12/25 07:26 45-year-old female presents to the emergency department today via EMS for complaints of lower abdominal pain patient reports no chest pain no shortness of breath no headache dizziness weakness. Limitations: no limitations Related Data Home Medications ?Medication ?Instructions ?Recorded ?Confirmed aripiprazole 5 mg tablet 5 mg PO QDAY 09/30/23 atorvastatin 20 mg tablet 20 mg PO QPM 09/30/23 buspirone 15 mg tablet 15 mg PO TID 09/30/23 paroxetine HCl 40 mg tablet 40 mg PO QDAY 09/30/2304/17 tiotropium bromide 2.5 2 puff inhalation DAILY 04/1709/30/23 mcg/actuation mist for inhalation (Spiriva Respimat) Previous Rx's ?Medication ?Instructions ?Recorded tramadol 50 mg tablet 50 mg PO Q6H PRN pain #20 ta bs 02/17/24 metoclopramide HCl 10 mg tablet 10 mg PO Q6H PRN abdom inal pain 07/26/24 (Reglan) #14 tabs pantoprazole 40 mg tablet,delayed 40 mg PO QDAY #30 ta bs 07/26/24 release (Protonix) acetaminophen 300 mg-codeine 30 mg 2 tab PO TID PRN pa in #10 tabs 08/09/24 tablet acetaminophen 500 mg capsule 500 mg PO Q6H PRN pain #3 0 caps 10/01/24 cyclobenzaprine 10 mg tablet 10 mg PO TID PRN muscle s pasm #10 10/01/24 tabs methylprednisolone 4 mg tablets in 4 mg PO QAM #21 tab s 11/13/24 a dose pack (Medrol (Kody)) zinc sulfate 50 mg zinc (220 mg) 220 mg (4.4 x 50 mg z inc (220 mg)) 11/13/24 capsule PO QDAY #30 caps ibuprofen 600 mg tablet 600 mg PO Q6H #30 tabs 12/06 amoxicillin 875 mg-potassium 1 tab PO BID #14 tabs clavulanate 125 mg tablet ipratropium 0.5 mg-albuterol 3 mg 3 ml inhalation Q8H PRN shortness 12/18/24 (2.5 mg base)/3 mL nebulization of breath #90 mL soln prednisone 50 mg tablet 50 mg PO QDAY #7 tabs acetaminophen 500 mg capsule 500 mg PO Q6H PRN pain #3 0 caps 01/12/25 albuterol sulfate 90 mcg/actuation 2 inh inhalation QI D PRN shortness 02/12/25 aerosol inhaler of breath or wheezing #8.5 g rhiannon prednisone 50 mg tablet 50 mg PO QDAY #7 tabs clindamycin HCl 300 mg capsule 300 mg PO Q6H #20 caps 03/26/25 acetaminophen 300 mg-codeine 30 mg 2 tab PO Q8H PRN pa in #20 tabs 04/05/25 tablet prednisone 20 mg tablet See Taper PO QDAY allergic 0 05/02/25 reaction #21 tabs acetaminophen-caffeine 500 mg-65 1 tab PO Q8H PRN pain #30 tabs 05/27/25 mg tablet (Excedrin Tension Headache) doxycycline hyclate 100 mg capsule 100 mg PO QDAY #20 caps 06/01/25 ibuprofen 800 mg tablet 800 mg PO Q8H PRN pain #30 t abs 06/01/25 meloxicam 7.5 mg tablet 7.5 mg PO QDAY #10 tabs 06/26 04/19 dicyclomine 20 mg tablet 20 mg PO BID #7 tabs 5 ondansetron 4 mg disintegrating 4 mg PO Q8H #10 tabs 0 08/10/25 tablet famotidine 20 mg tablet (Pepcid) 20 mg PO QDAY PRN rony n (scale 08/12/25 score 1-3) #30 tabs metoclopramide HCl 10 mg tablet 10 mg PO Q6H PRN nause a and 08/12/25 (Reglan) vomiting #30 tabs Allergies Allergy/AdvReac Type Severity Reaction Status Date / Time cinnamon Allergy Severe Swelling Verified 08/10/25 16:41 of Lip/Tongue/Throat aspirin AdvReac Severe HAS ULCER Verified 08/10/25 16:41 Review of Systems Review of Systems Systems Reviewed: All systems reviewed, normal except as documented Constitutional Constitutional: Reports system reviewed and no additional complaints, except as documented, Denies fever(s) and Denies headache(s) Eyes Eyes: Reports system reviewed and no additional complaints, except as documented and Denies blurry vision ENT Ears, Nose, Mouth, and Throat: Reports system reviewed and no additional complaints, except as documented, Denies headache(s), Denies nasal congestion and Denies nasal discharge Cardiovascular Cardiovascular: Reports system reviewed and no additional complaints, except as documented, Denies chest pain and Denies dyspnea Respiratory Respiratory: Reports system reviewed and no additional complaints, except as documented, Denies chest congestion, Denies cough and Denies dyspnea Gastrointestinal Gastrointestinal: Reports system reviewed and no additional complaints, except as documented and Reports abdominal pain Integumentary/Breasts Skin/Breast: Reports system reviewed and no additional complaints, except as documented and Denies rash Neurologic Neurologic: Reports system reviewed and no additional complaints, except as documented, Reports as per HPI and Denies headache(s) Past Medical History Past Medical History NEUROLOGIC: Positive Migraine; Negative Neurological Disorders or Seizures CARDIAC: Positive Hypercholesterolemia and Hypertension; Negative Cardiac Disorders, Congestive Heart Failure, Edema, Cellulitis or Varicose Veins RESPIRATORY: Positive Chronic Obstructive Pulmonary Disease (COPD) and Asthma; Negative Tuberculosis or Sleep Apnea GASTROINTESTINAL: Positive Gastrointestinal Disorders, Ulcer and Gastroesophageal Reflux Disease; Negative Hepatitis GENITOURINARY: Negative Genitourinary Disorders or Renal Disease REPRODUCTIVE: Positive Previous Pregnancies and Uterine Prolapse MUSCULOSKELETAL: Positive Musculoskeletal Disorders and Arthritis ENDOCRINE: Negative Endocrine Disorders, Diabetes Mellitus Type 1 or Diabetes Mellitus Type 2 HEMATOLOGIC: Negative Blood Disorders or Sickle Cell Disease PSYCHO/SOCIAL: Positive Bipolar Disorder, Depression, Anxiety and Post Traumatic Stress Disorder OTHER HISTORY: Positive Hospitalization, Autoimmune Disease, Chicken Pox and Can cer; Negative Shingles, Falls, Blood Transfusions, Blood Transfusion Reaction, Anesthesia Reactions, Chemotherapy, Radiation Therapy, MRSA, Measles or Mumps Family History FAMILY HISTORY: Positive Family Psychiatric Problems, Family Respiratory Disorders, Family Cardiac Disorders, Family Cancer, Family Surgery and Family Anesthesia Reaction; Negative Family Gastrointestinal Problems Surgical History SURGICAL: Positive Abdominal Surgery and Tubal Ligation; Negative Pacemaker Social History SMOKING STATUS: Current every day smoker SECOND HAND EXPOSURE: No SUBSTANCE USE: former substance user and methamphetamine (Former methamphetamine abuse, quit in 2018.) ED Exam General Limitations: Present no limitations General appearance: Present alert and in no apparent distress Head Head exam: Present atraumatic, normocephalic and normal inspection Eye Eye exam: Present normal appearance, PERRL and EOMI; Absent conjunctival injection ENT ENT exam: Present normal exam, normal oropharynx and mucous membranes moist Neck Neck exam: Present normal inspection, full ROM and trachea midline Chest Chest inspection: Present normal inspection and symmetric chest wall rise Respiratory Respiratory exam: Present normal lung sounds bilaterally Cardiovascular Cardiovascular exam: Present regular rate, normal rhythm and normal heart sounds Abdominal Exam Abdominal exam: Present soft and normal bowel sounds; Absent distention, tenderness, guarding, rebound, rigidity, High's sign, Rovsing's sign or tenderness at McBurney's Point Extremities Exam Extremities exam: Present normal inspection and full ROM Back Exam Back exam: Present normal inspection and full ROM Neurological Exam Neurological exam: Present alert, oriented X3 and CN II-XII intact Psychiatric Psychiatric exam: Present normal affect and normal mood Skin Skin exam: Present warm, dry, intact and normal color Course Quality Measures none Orders Category Date Time Status CT abdomen pelvis wo con Stat Exams 08/12/25 07:47 Completed US gall bladder Stat Exams 08/12/25 07:47 Completed CBC Stat Lab 08/12/25 08:35 Completed Comprehensive Metabolic Panel Stat Lab 08/12/25 08:35 Completed Troponin I Stat Lab 08/12/25 08:35 Completed UA, C/S IF [Urinalysis, C/S if Indicated] Stat Lab 08/12/25 09:00 Completed Vital Signs Vital signs: Vital Signs Temperature 97.6 F 08/12/25 07:43 Pulse Rate 99 08/12/25 07:43 Respiratory Rate 18 08/12/25 07:43 Blood Pressure 127/90 H 08/12/25 07:43 Pulse Oximetry (%) 90 L 08/12/25 07:43 Oxygen Delivery Method Room Air 08/12/25 07:43 o2 sat 94% r.a wnl Abdominal Pain MDM MDM Narrative MDM Narrative:: 45-year-old female presents to the emergency department today via EMS for complaints of lower abdominal pain patient reports no chest pain no shortness of breath no headache dizziness weakness. On exam patient well-appearing patient does not appear ill or toxic no acute distress Lab work and imaging obtained no acute emergent findings noted I gave patient a copy of her CT report told her to have an outpatient MRI of her abdomen for a possible liver lesion Patient discharged home no distress follow-up primary care doctor next 24 to 48 hours worsening symptoms return immediately Patient data External records reviewed:: [facility] previous records Clinical information provided by:: patient Social determinants that could affect healthcare access:: none Patient has the following chronic illnesses:: None How is presenting disease/condition affected by chronic disease/condition?: no chronic disease Evaluation data The following diagnostics were reviewed and interpreted by me:: lab results and radiology exam(s) Lab and/or radiology exams considered but not ordered:: Labs radiology obtained Interpretation Summary: reviewed by me Medications / Prescriptions Medications or Prescriptions considered but not ordered:: given Medication administrations:: given Consultations Consultation(s) initiated? (list below): No Diagnosis Differential diagnosis abdominal pain: abdominal pain, acute appendicitis, pancreatitis and small bowel obstruction Most likely diagnosis given after review of the tests above:: abd pain Admission Indicated Admission indicated?: not indicated Admission Request Was there a request for admission?: No Disposition Plan Disposition Plan: Discharge Discharge Attestation Discharge Attestation: The patient and all family members were given an opportunity to ask questions and understood the discharge instructions. Discharge instructions specifically effects, indications for sooner follow up or return to the emergency department, and the expected course of current diagnosis. Patient condition: Stable Discharge Plan Plan Patient Disposition: HOME (Self Care) Discharge Disposition comment: Stable Prescriptions/Referrals Prescriptions/Med Rec: New famotidine [Pepcid] 20 mg tablet 20 mg PO QDAY PRN (Reason: pain (scale score 1-3)) Qty: 30 0RF metoclopramide HCl [Reglan] 10 mg tablet 10 mg PO Q6H PRN (Reason: nausea and vomiting) Qty: 30 0RF No Action atorvastatin 20 mg Tablet 20 mg PO QPM paroxetine HCl 40 mg Tablet 40 mg PO QDAY buspirone 15 mg Tablet 15 mg PO TID aripiprazole 5 mg Tablet 5 mg PO QDAY Spiriva Respimat 2.5 mcg/actuation mist 2 puff INHALATION DAILY Patient Comments: INHALE 2 PUFFS INTO THE LUNGS EVERY DAY FOR 30 DAYS metoclopramide HCl [Reglan] 10 mg tablet 10 mg PO Q6H PRN (Reason: abdominal pain) Qty: 14 0RF pantoprazole [Protonix] 40 mg tablet,delayed release (DR/EC) 40 mg PO QDAY Qty: 30 0RF zinc sulfate 50 mg zinc (220 mg) Capsule 220 mg PO QDAY Qty: 30 0RF methylprednisolone [Medrol (Kody)] 4 mg tablets,dose pack 4 mg PO QAM Qty: 21 0RF ipratropium-albuterol 0.5 mg-3 mg(2.5 mg base)/3 mL solution for nebulization 3 ml inhalation Q8H PRN (Reason: shortness of breath) Qty: 90 0RF prednisone 50 mg tablet 50 mg PO QDAY Qty: 7 0RF acetaminophen 500 mg capsule 500 mg PO Q6H PRN (Reason: pain) Qty: 30 0RF prednisone 50 mg tablet 50 mg PO QDAY Qty: 7 0RF albuterol sulfate 90 mcg/actuation HFA aerosol inhaler 2 inh inhalation QID PRN (Reason: shortness of breath or wheezing) Qty: 8.5 0RF prednisone 20 mg tablet See Taper PO QDAY MDD 3 Qty: 21 0RF Taper: Prednisone Taper 20 mg DAILY for 2 Days and 0 Hour 10 mg DAILY for 2 Days and 0 Hour 5 mg DAILY for 7 Days and 0 Hour Rx Instructions: Take 4 Tabs q Day for 3 days then take 3 tabs q Day for 3 days then resume 40 mg daily Excedrin Tension Headache 500-65 mg tablet 1 tab PO Q8H PRN (Reason: pain) Qty: 30 0RF tramadol 50 mg tablet 50 mg PO Q6H PRN (Reason: pain) Qty: 20 0RF acetaminophen-codeine 300-30 mg tablet 2 tab PO TID MDD 6 PRN (Reason: pain) Qty: 10 0RF acetaminophen 500 mg capsule 500 mg PO Q6H PRN (Reason: pain) Qty: 30 0RF cyclobenzaprine 10 mg tablet 10 mg PO TID PRN (Reason: muscle spasm) Qty: 10 0RF ibuprofen 600 mg tablet 600 mg PO Q6H Qty: 30 0RF amoxicillin-pot clavulanate 875-125 mg tablet 1 tab PO BID Qty: 14 0RF clindamycin HCl 300 mg capsule 300 mg PO Q6H Qty: 20 0RF acetaminophen-codeine 300-30 mg tablet 2 tab PO Q8H MDD 6 PRN (Reason: pain) Qty: 20 0RF doxycycline hyclate 100 mg capsule 100 mg PO QDAY Qty: 20 0RF ibuprofen 800 mg tablet 800 mg PO Q8H PRN (Reason: pain) Qty: 30 0RF meloxicam 7.5 mg tablet 7.5 mg PO QDAY Qty: 10 0RF ondansetron 4 mg tablet,disintegrating 4 mg PO Q8H Qty: 10 0RF dicyclomine 20 mg tablet 20 mg PO BID Qty: 7 0RF Referrals: Celine Olsen PA-C [Primary Care Provider] - 08/14/25 Problem List Clinical Impression: Abdominal pain Patient/Caregiver Discharge Instructions Education Materials: Abdominal Pain Additional Instructions: Please follow up with your primary care doctor in the next 24-48hrs for any worsening symptoms return here immediately Please have outpatient MRI for a liver lesion that was noted on your CT scan today Print Language: Armenian Stand Alone Forms: Shari Award Info., Patient Portal Info Letter PA/BURTON Supervising Physician PA/BURTON Supervising Physician: Dr. hanley
[2025-08-12 12:23] VITALS: BP 127/68; PULSE 72; RESP 16; TEMP 36.7; O2SAT 94
== END 2025-08-12 12:24 | disposition home or self-care (01) ==
PROVIDERS: Nurse Practitioner Primary Care; Emergency Provider Emergency Medicine; PCP Physician Assistant Medical
DX: R10.30 Lower abdominal pain, unspecified (principal)
CPT/HCPCS: 36415; 74176; 76705; 80053; 81001; 84484; 85025; 99283

== ENCOUNTER 2025-08-15 16:50 | Emergency (ER) | payer MEDICAID, SELFPAY ==
[2025-08-15 16:52] VITALS: BMI 36.3
[2025-08-15 17:03] VITALS: BP 130/84; PULSE 90; RESP 18; TEMP 36.4; O2SAT 93
--- NOTE | 2025-08-15 17:11 | PD.EDABDPN ---
ED Abdominal Pain RME/HPI General Chief Complaint: GI Bleed Stated complaint: RECTAL PAIN (SEE TRIAGE NOTE) Time seen by provider: 08/15/25 17:11 Arrival date/time: 08/15/25 16:50 45-year-old female presents to the emergency department today stating that she had anal sex today and now having rectal pain Limitations: no limitations Related Data Home Medications ?Medication ?Instructions ?Recorded ?Confirmed aripiprazole 5 mg tablet 5 mg PO QDAY 09/30/23 09/30/23 atorvastatin 20 mg tablet 20 mg PO QPM 09/30/23 09/30/23 buspirone 15 mg tablet 15 mg PO TID 09/30/23 09/30/23 paroxetine HCl 40 mg tablet 40 mg PO QDAY 09/30/23 09/30/23 tiotropium bromide 2.5 2 puff inhalation DAILY 09/30/23 09/30/23 mcg/actuation mist for inhalation (Spiriva Respimat) Previous Rx's ?Medication ?Instructions ?Recorded tramadol 50 mg tablet 50 mg PO Q6H PRN pain #20 tabs 02/17/24 metoclopramide HCl 10 mg tablet 10 mg PO Q6H PRN abdominal pain 07/26/24 (Reglan) #14 tabs pantoprazole 40 mg tablet,delayed 40 mg PO QDAY #30 tabs 07/26/24 release (Protonix) acetaminophen 300 mg-codeine 30 mg 2 tab PO TID PRN pain #10 tabs 08/09/24 tablet acetaminophen 500 mg capsule 500 mg PO Q6H PRN pain #30 caps 10/01/24 cyclobenzaprine 10 mg tablet 10 mg PO TID PRN muscle spasm #10 10/01/24 tabs methylprednisolone 4 mg tablets in 4 mg PO QAM #21 tabs 11/13/24 a dose pack (Medrol (Kody)) zinc sulfate 50 mg zinc (220 mg) 220 mg (4.4 x 50 mg zinc (220 mg)) 11/13/24 capsule PO QDAY #30 caps ibuprofen 600 mg tablet 600 mg PO Q6H #30 tabs 12/06/24 amoxicillin 875 mg-potassium 1 tab PO BID #14 tabs 12/13/24 clavulanate 125 mg tablet ipratropium 0.5 mg-albuterol 3 mg 3 ml inhalation Q8H PRN shortness 12/18/24 (2.5 mg base)/3 mL nebulization of breath #90 mL soln prednisone 50 mg tablet 50 mg PO QDAY #7 tabs 12/18/24 acetaminophen 500 mg capsule 500 mg PO Q6H PRN pain #30 caps 01/12/25 albuterol sulfate 90 mcg/actuation 2 inh inhalation QID PRN shortness 02/12/25 aerosol inhaler of breath or wheezing #8.5 grams prednisone 50 mg tablet 50 mg PO QDAY #7 tabs 02/12/25 clindamycin HCl 300 mg capsule 300 mg PO Q6H #20 caps 03/26/25 acetaminophen 300 mg-codeine 30 mg 2 tab PO Q8H PRN pain #20 tabs 04/05/25 tablet prednisone 20 mg tablet See Taper PO QDAY allergic 05/02/25 reaction #21 tabs acetaminophen-caffeine 500 mg-65 1 tab PO Q8H PRN pain #30 tabs 05/27/25 mg tablet (Excedrin Tension Headache) doxycycline hyclate 100 mg capsule 100 mg PO QDAY #20 caps 06/01/25 ibuprofen 800 mg tablet 800 mg PO Q8H PRN pain #30 tabs 06/01/25 meloxicam 7.5 mg tablet 7.5 mg PO QDAY #10 tabs 07/10/25 dicyclomine 20 mg tablet 20 mg PO BID #7 tabs 08/10/25 ondansetron 4 mg disintegrating 4 mg PO Q8H #10 tabs 08/10/25 tablet famotidine 20 mg tablet (Pepcid) 20 mg PO QDAY PRN pain (scale 08/12/25 score 1-3) #30 tabs metoclopramide HCl 10 mg tablet 10 mg PO Q6H PRN nausea and 08/12/25 (Reglan) vomiting #30 tabs hydrocodone 5 mg-acetaminophen 325 1 tab PO BID PRN pain #6 tabs 08/15/25 mg tablet Allergies Allergy/AdvReac Type Severity Reaction Status Date / Time cinnamon Allergy Severe Swelling Verified 08/15/25 16:54 of Lip/Tongue/Throat aspirin AdvReac Severe HAS ULCER Verified 08/15/25 16:54 Review of Systems Review of Systems Systems Reviewed: All systems reviewed, normal except as documented Constitutional Constitutional: Reports system reviewed and no additional complaints, except as documented, Denies fever(s) and Denies headache(s) Eyes Eyes: Reports system reviewed and no additional complaints, except as documented and Denies blurry vision ENT Ears, Nose, Mouth, and Throat: Reports system reviewed and no additional complaints, except as documented, Denies headache(s), Denies nasal congestion and Denies nasal discharge Cardiovascular Cardiovascular: Reports system reviewed and no additional complaints, except as documented, Denies chest pain and Denies dyspnea Respiratory Respiratory: Reports system reviewed and no additional complaints, except as documented, Denies chest congestion, Denies cough and Denies dyspnea Gastrointestinal Gastrointestinal: Reports system reviewed and no additional complaints, except as documented, Denies abdominal pain and Reports other (Rectal pain) Integumentary/Breasts Skin/Breast: Reports system reviewed and no additional complaints, except as documented and Denies rash Neurologic Neurologic: Reports system reviewed and no additional complaints, except as documented, Reports as per HPI and Denies headache(s) Past Medical History Past Medical History NEUROLOGIC: Positive Migraine; Negative Neurological Disorders or Seizures CARDIAC: Positive Hypercholesterolemia and Hypertension; Negative Cardiac Disorders, Congestive Heart Failure, Edema, Cellulitis or Varicose Veins RESPIRATORY: Positive Chronic Obstructive Pulmonary Disease (COPD) and Asthma; Negative Tuberculosis or Sleep Apnea GASTROINTESTINAL: Positive Gastrointestinal Disorders, Ulcer and Gastroesophageal Reflux Disease; Negative Hepatitis GENITOURINARY: Negative Genitourinary Disorders or Renal Disease REPRODUCTIVE: Positive Previous Pregnancies and Uterine Prolapse MUSCULOSKELETAL: Positive Musculoskeletal Disorders and Arthritis ENDOCRINE: Negative Endocrine Disorders, Diabetes Mellitus Type 1 or Diabetes Mellitus Type 2 HEMATOLOGIC: Negative Blood Disorders or Sickle Cell Disease PSYCHO/SOCIAL: Positive Bipolar Disorder, Depression, Anxiety and Post Traumatic Stress Disorder OTHER HISTORY: Positive Hospitalization, Autoimmune Disease, Chicken Pox and Cancer; Negative Shingles, Falls, Blood Transfusions, Blood Transfusion Reaction, Anesthesia Reactions, Chemotherapy, Radiation Therapy, MRSA, Measles or Mumps Family History FAMILY HISTORY: Positive Family Psychiatric Problems, Family Respiratory Disorders, Family Cardiac Disorders, Family Cancer, Family Surgery and Family Anesthesia Reaction; Negative Family Gastrointestinal Problems Surgical History SURGICAL: Positive Abdominal Surgery and Tubal Ligation; Negative Pacemaker Social History SMOKING STATUS: Current every day smoker SECOND HAND EXPOSURE: No SUBSTANCE USE: former substance user and methamphetamine (Former methamphetamine abuse, quit in 2018.) ED Exam General Limitations: Present no limitations General appearance: Present alert and in no apparent distress Head Head exam: Present atraumatic Eye Eye exam: Present normal appearance, PERRL and EOMI ENT ENT exam: Present normal exam, normal oropharynx and mucous membranes moist Neck Neck exam: Present normal inspection, full ROM and trachea midline Chest Chest inspection: Present normal inspection and symmetric chest wall rise Respiratory Respiratory exam: Present normal lung sounds bilaterally Cardiovascular Cardiovascular exam: Present regular rate, normal rhythm and normal heart sounds Abdominal Exam Abdominal exam: Present soft and normal bowel sounds; Absent distention, tenderness, guarding, rebound or rigidity Rectal Exam Rectal exam: Present normal inspection; Absent hemorrhoids or tenderness Extremities Exam Extremities exam: Present normal inspection and full ROM Back Exam Back exam: Present normal inspection and full ROM Neurological Exam Neurological exam: Present alert, oriented X3 and CN II-XII intact Psychiatric Psychiatric exam: Present normal affect and normal mood Skin Skin exam: Present warm, dry, intact and normal color Course Quality Measures none Orders Category Date Time Status HYDROcodone*/APAP 5/325 [[place] 5/325] Med 08/15/25 17:12 Discontinued 1 tab PO X1 ONE Vital Signs Vital signs: Vital Signs Temperature 97.6 F 08/15/25 17:03 Pulse Rate 90 08/15/25 17:03 Respiratory Rate 18 08/15/25 17:03 Blood Pressure 130/84 08/15/25 17:03 Pulse Oximetry (%) 93 L 08/15/25 17:03 Oxygen Delivery Method Room Air 08/15/25 17:03 O2 saturation 93% room air with normal limits Abdominal Pain MDM MDM Narrative MDM Narrative:: 45-year-old female presents to the emergency department today stating that she had anal sex today and now having rectal pain On exam patient well-appearing patient does not appear ill or toxic no acute distress 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 examined the patient rectum no active bleeding noted I do not appreciate any lacerations Patient given a dose of [place] here discharged home with [place] Explained to the patient if her symptoms persist or worsen to return for reevaluation Patient data External records reviewed:: [facility] previous records Clinical information provided by:: patient Social determinants that could affect healthcare access:: none Patient has the following chronic illnesses:: See history How is presenting disease/condition affected by chronic disease/condition?: uneffected by Evaluation data The following diagnostics were reviewed and interpreted by me:: other (specify) Lab and/or radiology exams considered but not ordered:: Considered not indicated Interpretation Summary: N/A Medications / Prescriptions Medications or Prescriptions considered but not ordered:: Given Medication administrations:: Medication Administration History Discontinued Medications Hydrocodone Bitart/Acetaminophen (Hydrocodone/Apap 5/325 Tablet) 1 tab PO X1 ONE Stop: 08/15/25 17:13 Last Admin: 08/15/25 17:19 Dose: 1 tab Documented By: OA Given Consultations Consultation(s) initiated? (list below): No Diagnosis Differential diagnosis abdominal pain: other (Rectal pain, rectal laceration) Most likely diagnosis given after review of the tests above:: Rectal pain Admission Indicated Admission indicated?: not indicated Admission Request Was there a request for admission?: No Disposition Plan Disposition Plan: Discharge Discharge Attestation Discharge Attestation: The patient and all family members were given an opportunity to ask questions and understood the discharge instructions. Discharge instructions specifically effects, indications for sooner follow up or return to the emergency department, and the expected course of current diagnosis. Patient condition: Stable Discharge Plan Plan Patient Disposition: HOME (Self Care) Discharge Disposition comment: Stable Prescriptions/Referrals Prescriptions/Med Rec: New hydrocodone-acetaminophen 5-325 mg tablet 1 tab PO BID MDD 10 PRN (Reason: pain) Qty: 6 0RF No Action atorvastatin 20 mg Tablet 20 mg PO QPM paroxetine HCl 40 mg Tablet 40 mg PO QDAY buspirone 15 mg Tablet 15 mg PO TID aripiprazole 5 mg Tablet 5 mg PO QDAY Spiriva Respimat 2.5 mcg/actuation mist 2 puff INHALATION DAILY Patient Comments: INHALE 2 PUFFS INTO THE LUNGS EVERY DAY FOR 30 DAYS metoclopramide HCl [Reglan] 10 mg tablet 10 mg PO Q6H PRN (Reason: abdominal pain) Qty: 14 0RF pantoprazole [Protonix] 40 mg tablet,delayed release (DR/EC) 40 mg PO QDAY Qty: 30 0RF zinc sulfate 50 mg zinc (220 mg) Capsule 220 mg PO QDAY Qty: 30 0RF methylprednisolone [Medrol (Kody)] 4 mg tablets,dose pack 4 mg PO QAM Qty: 21 0RF ipratropium-albuterol 0.5 mg-3 mg(2.5 mg base)/3 mL solution for nebulization 3 ml inhalation Q8H PRN (Reason: shortness of breath) Qty: 90 0RF prednisone 50 mg tablet 50 mg PO QDAY Qty: 7 0RF acetaminophen 500 mg capsule 500 mg PO Q6H PRN (Reason: pain) Qty: 30 0RF prednisone 50 mg tablet 50 mg PO QDAY Qty: 7 0RF albuterol sulfate 90 mcg/actuation HFA aerosol inhaler 2 inh inhalation QID PRN (Reason: shortness of breath or wheezing) Qty: 8.5 0RF prednisone 20 mg tablet See Taper PO QDAY MDD 3 Qty: 21 0RF Taper: Prednisone Taper 20 mg DAILY for 2 Days and 0 Hour 10 mg DAILY for 2 Days and 0 Hour 5 mg DAILY for 7 Days and 0 Hour Rx Instructions: Take 4 Tabs q Day for 3 days then take 3 tabs q Day for 3 days then resume 40 mg daily Excedrin Tension Headache 500-65 mg tablet 1 tab PO Q8H PRN (Reason: pain) Qty: 30 0RF tramadol 50 mg tablet 50 mg PO Q6H PRN (Reason: pain) Qty: 20 0RF acetaminophen-codeine 300-30 mg tablet 2 tab PO TID MDD 6 PRN (Reason: pain) Qty: 10 0RF acetaminophen 500 mg capsule 500 mg PO Q6H PRN (Reason: pain) Qty: 30 0RF cyclobenzaprine 10 mg tablet 10 mg PO TID PRN (Reason: muscle spasm) Qty: 10 0RF ibuprofen 600 mg tablet 600 mg PO Q6H Qty: 30 0RF amoxicillin-pot clavulanate 875-125 mg tablet 1 tab PO BID Qty: 14 0RF clindamycin HCl 300 mg capsule 300 mg PO Q6H Qty: 20 0RF acetaminophen-codeine 300-30 mg tablet 2 tab PO Q8H MDD 6 PRN (Reason: pain) Qty: 20 0RF doxycycline hyclate 100 mg capsule 100 mg PO QDAY Qty: 20 0RF ibuprofen 800 mg tablet 800 mg PO Q8H PRN (Reason: pain) Qty: 30 0RF meloxicam 7.5 mg tablet 7.5 mg PO QDAY Qty: 10 0RF ondansetron 4 mg tablet,disintegrating 4 mg PO Q8H Qty: 10 0RF dicyclomine 20 mg tablet 20 mg PO BID Qty: 7 0RF famotidine [Pepcid] 20 mg tablet 20 mg PO QDAY PRN (Reason: pain (scale score 1-3)) Qty: 30 0RF metoclopramide HCl [Reglan] 10 mg tablet 10 mg PO Q6H PRN (Reason: nausea and vomiting) Qty: 30 0RF Problem List Clinical Impression: Anal or rectal pain Patient/Caregiver Discharge Instructions Education Materials: Anatomy of the Digestive System Additional Instructions: Please follow up with your primary care doctor in the next 24-48hrs for any worsening symptoms return here immediately Print Language: Indian Stand Alone Forms: Shari Award Info., Patient Portal Info Letter PA/SURVEY DIRECTOR Supervising Physician PA/SURVEY DIRECTOR Supervising Physician: Dr mackenzie
[2025-08-15] MEDS: HYDROcodone/APAP 5/325 TABLET 1 TAB PO (17:19)
== END 2025-08-15 17:22 | disposition home or self-care (01) ==
LOC: SERX 17:21
PROVIDERS: Emergency Provider Family Medicine; PCP Physician Assistant Medical
DX: K62.89 Other specified diseases of anus and rectum (principal); F17.210 Nicotine dependence, cigarettes, uncomplicated
CPT/HCPCS: 99282; A9270

== ENCOUNTER 2025-08-21 14:22 | Emergency (ER) | payer MEDICAID, SELFPAY ==
[2025-08-21 14:23] VITALS: BMI 43.0
[2025-08-21 15:12] VITALS: BP 105/79; PULSE 104; RESP 18; TEMP 36.6; O2SAT 94; BMI 35.5
--- NOTE | 2025-08-21 15:18 | XR_ITS ---
Examination: CT abdomen and pelvis without contrast. Coronal 3-D reconstructions. Sagittal 2-D reconstructions. Date and time of exam:August 21, 2025, 1528 hrs. Indications: Right-sided abdominal pain and constipation this week CTDI: vol (mGy): 13.1 DLP: (mGycm): 730 Technique: Axial images of the abdomen have been obtained, 3 mm slice thickness Intravenous contrast material has not been administered. Low dose protocols were performed. One or more of the following dose reduction techniques were used; automated exposure control, adjustment of the mA and/or KV according to patient size, use of iterative reconstruction technique. Findings: 33 mm right lobe liver lesion, solid, image 57 Contracted gallbladder Spleen is not enlarged No pancreatic or adrenal mass No renal or ureteral calculi, no hydronephrosis Aorta normal size 11 mm fat-containing umbilical hernia No pericecal inflammatory change Absent uterus Suspicious for 20 mm pelvic mass posterior uterus Bladder intact, contracted Impression: 33 mm right lobe liver lesion, differential would include hepatic metastasis Recommend MRI abdomen liver follow-up pre and postcontrast Suspicious for posterior 20 mm solid pelvic mass, recommend pelvic sonography follow-up
--- NOTE | 2025-08-21 15:18 | PD.EDRME ---
Rapid Medical Screening Exam RME Arrival date/time: 08/21/25 14:22 45-year-old female with no known medical history presents to the emergency room with a chief complaint of abdominal pain, distention x 3 days. Patient states she has also been constipated for the last 10 days. I have greeted and performed a focused initial assessment of this patient. A comprehensive ED assessment and evaluation of the patient, analysis of all test results, and completion of the medical decision making process will be conducted by additional ED providers. Chief Complaint: General Adult/Misc Complain Time Seen by Provider: 08/21/25 14:49 Vital signs: Vital Signs Temperature 97.9 F 08/21/25 15:12 Pulse Rate 104 H 08/21/25 15:12 Respiratory Rate 18 08/21/25 15:12 Blood Pressure 105/79 08/21/25 15:12 Pulse Oximetry (%) 94 L 08/21/25 15:12 Oxygen Delivery Method Room Air 08/21/25 15:12 Vital signs reviewed by provider: Yes
[2025-08-21 15:37] LABS: Basophils # (Auto) 0.1 Thou/mm3 (0.0-0.2); Basophils % (Auto) 1 % (0-2.5); Eosinophils # (Auto) 0.3 Thou/mm3 (0.0-0.5); Eosinophils % (Auto) 2 % (0-10); Hematocrit 44.9 % (36.0-46.0); Hemoglobin 14.6 g/dL (12.0-16.0); Immature Granulocytes Auto 0.04 Thou/mm3 (0.00-0.00); Lymphocytes # (Auto) 2.8 Thou/mm3 (1.0-4.8); Lymphocytes % (Auto) 23 % (10-50); Mean Corpuscular HGB Conc 32.5 g/dl (31.0-37.0); Mean Corpuscular Hemoglobin 27.7 pg (25.0-35.0); Mean Corpuscular Volume 85 fL (80-100); Monocytes # (Auto) 0.7 Thou/mm3 (0.0-0.8); Monocytes % (Auto) 6 % (0-12); Neutrophils # (Auto) 8.5 Thou/mm3 (1.8-7.7); Neutrophils % (Auto) 68 % (37-80); Nucleated Red Blood Cell # 0.00 Thou/mm3 (0.00-0.00); Nucleated Red Blood Cell % 0 /100 WBC (0); Platelet Count 286 Thou/mm3 (140-440); RDW Standard Deviation 47.3 fL (36.4-46.3); Red Blood Count 5.28 Miln/mm3 (4.00-5.20); White Blood Count 12.4 Thou/mm3 (3.6-11.0)
[2025-08-21 15:58] LABS: Alanine Aminotransferase 10 U/L (10-49); Albumin, Serum 4.5 gm/dL (3.5-5.0); Albumin/Globulin Ratio 1.8 (1.2-2.2); Alkaline Phosphatase 105 U/L (46-116); Anion Gap 9 (7-16); Aspartate Amino Transferase < 10 U/L (0-34); BUN/Creatinine Ratio 6 Ratio (12-20); Bilirubin,Total 0.2 mg/dL (0.3-1.2); Blood Urea Nitrogen 9 mg/dL (9-23); Calcium 9.9 mg/dL (8.3-10.6); Calcium (Corrected) 9.9 mg/dL (8.5-10.1); Carbon Dioxide 26.6 mMol/L (20.0-31.0); Chloride 106 mMol/L (98-107); Creatinine (Component) 1.4 mg/dL (0.6-1.3); Estimated Creatinine Clearance 59.9 mL/min (>60); Globulin 2.5 gm/dL (2.3-3.5); Glucose 99 mg/dL (74-106); Lipase 28 U/L (12-53); Osmolality,Calculated 281 (275-295); Potassium 4.0 mMol/L (3.4-5.1); Sodium 142 mMol/L (136-145); Total Protein 7.0 gm/dL (5.7-8.2); eGFR 47 See Note
[2025-08-21 17:09] LABS: Collection Type, Urine Clean Catch
[2025-08-21 17:44] LABS: Bacteria,Urine 1+; Bilirubin,Urine Negative (Negative); Blood,Urine 2+ (Negative); Color,Urine Yellow (Lt Yel-Yel); Glucose, Urine 1+ (Negative); Hyaline Casts,Urine < 1 /hpf (0-1); Ketones,Urine Negative (Negative); Leukocyte Esterase,Urine Positive (Negative); Nitrite,Urine Negative (Negative); PH,Urine 6.0 (5.0-7.0); Protein,Urine 1+ (Neg - Trace); RBC,Urine 26 /hpf (0-3); Specific Gravity,Urine 1.020 (1.001-1.035); Squamous Epithelial Cell,Urine 26 /hpf (0-5); Urobilinogen,Urine Negative mg/dL (0.0-1.0); WBC,Urine 299 /hpf (0-5)
[2025-08-21 17:51] LABS: Clarity,Urine Turbid (Clear/Hazy)
[2025-08-21 17:54] LABS: HCG Qualitative,Urine Negative
--- NOTE | 2025-08-21 18:34 | PD.EDADULT ---
ED General RME/HPI General Chief complaint: General Adult/Misc Complain Stated complaint: CONSTIPATED X 2 WEEKS, CHILLS, NAUSEA Time Seen by Provider: 08/21/25 14:49 Arrival date/time: 08/21/25 14:22 RME / HPI RME / HPI narrative: 08/21/25 14:22 45-year-old female with no known medical history presents to the emergency room with a chief complaint of abdominal pain, distention x 3 days. Patient states she has also been constipated for the last 10 days. I have greeted and performed a focused initial assessment of this patient. A comprehensive ED assessment and evaluation of the patient, analysis of all test results, and completion of the medical decision making process will be conducted by additional ED providers. Dr. Moore's Main ED Evaluation: 45yo female presenting with constipation for the last 2 weeks. Has been poorly having bowel movements daily. Notes generalized abdominal pain and distention. Reports several bouts of nonbloody emesis today. She has been passing minimal flatulence. No fever although reports associated chills. Denies dysuria. PMH includes HTN, COPD, PTSD, glucose intolerance. PSH includes appendectomy and hysterectomy. Allergies to aspirin. Social history is + tobacco, occasional alcohol, no illicit drug use. Related Data Home Medications ?Medication ?Instructions ?Recorded ?Confirmed aripiprazole 5 mg tablet 5 mg PO QDAY 09/30/23 09/30/23 atorvastatin 20 mg tablet 20 mg PO QPM 09/30/23 09/30/23 buspirone 15 mg tablet 15 mg PO TID 09/30/23 09/30/23 paroxetine HCl 40 mg tablet 40 mg PO QDAY 09/30/23 09/30/23 tiotropium bromide 2.5 2 puff inhalation DAILY 09/30/23 09/30/23 mcg/actuation mist for inhalation (Spiriva Respimat) Previous Rx's ?Medication ?Instructions ?Recorded tramadol 50 mg tablet 50 mg PO Q6H PRN pain #20 tabs 02/17/24 metoclopramide HCl 10 mg tablet 10 mg PO Q6H PRN abdominal pain 07/26/24 (Reglan) #14 tabs pantoprazole 40 mg tablet,delayed 40 mg PO QDAY #30 tabs 07/26/24 release (Protonix) acetaminophen 300 mg-codeine 30 mg 2 tab PO TID PRN pain #10 tabs 08/09/24 tablet acetaminophen 500 mg capsule 500 mg PO Q6H PRN pain #30 caps 10/01/24 cyclobenzaprine 10 mg tablet 10 mg PO TID PRN muscle spasm #10 10/01/24 tabs methylprednisolone 4 mg tablets in 4 mg PO QAM #21 tabs 11/13/24 a dose pack (Medrol (Kody)) zinc sulfate 50 mg zinc (220 mg) 220 mg (4.4 x 50 mg zinc (220 mg)) 11/13/24 capsule PO QDAY #30 caps ibuprofen 600 mg tablet 600 mg PO Q6H #30 tabs 12/06/24 amoxicillin 875 mg-potassium 1 tab PO BID #14 tabs 12/13/24 clavulanate 125 mg tablet ipratropium 0.5 mg-albuterol 3 mg 3 ml inhalation Q8H PRN shortness 12/18/24 (2.5 mg base)/3 mL nebulization of breath #90 mL soln prednisone 50 mg tablet 50 mg PO QDAY #7 tabs 12/18/24 acetaminophen 500 mg capsule 500 mg PO Q6H PRN pain #30 caps 01/12/25 albuterol sulfate 90 mcg/actuation 2 inh inhalation QID PRN shortness 02/12/25 aerosol inhaler of breath or wheezing #8.5 grams prednisone 50 mg tablet 50 mg PO QDAY #7 tabs 02/12/25 clindamycin HCl 300 mg capsule 300 mg PO Q6H #20 caps 03/26/25 acetaminophen 300 mg-codeine 30 mg 2 tab PO Q8H PRN pain #20 tabs 04/05/25 tablet prednisone 20 mg tablet See Taper PO QDAY allergic 05/02/25 reaction #21 tabs acetaminophen-caffeine 500 mg-65 1 tab PO Q8H PRN pain #30 tabs 05/27/25 mg tablet (Excedrin Tension Headache) doxycycline hyclate 100 mg capsule 100 mg PO QDAY #20 caps 06/01/25 ibuprofen 800 mg tablet 800 mg PO Q8H PRN pain #30 tabs 06/01/25 meloxicam 7.5 mg tablet 7.5 mg PO QDAY #10 tabs 07/10/25 dicyclomine 20 mg tablet 20 mg PO BID #7 tabs 08/10/25 ondansetron 4 mg disintegrating 4 mg PO Q8H #10 tabs 08/10/25 tablet famotidine 20 mg tablet (Pepcid) 20 mg PO QDAY PRN pain (scale 08/12/25 score 1-3) #30 tabs metoclopramide HCl 10 mg tablet 10 mg PO Q6H PRN nausea and 08/12/25 (Reglan) vomiting #30 tabs hydrocodone 5 mg-acetaminophen 325 1 tab PO BID PRN pain #6 tabs 08/15/25 mg tablet acetaminophen 500 mg tablet 500 mg PO Q6H PRN pain #20 tabs 08/16/25 (Tylenol Extra Strength) ciprofloxacin HCl 500 mg tablet 500 mg PO BID 7 days #14 tabs 08/21/25 (Cipro) hydrocodone 5 mg-acetaminophen 325 1 tab PO Q8H PRN pain #20 tabs 08/21/25 mg tablet ondansetron HCl 4 mg tablet 4 mg PO TID 3 days #20 tabs 08/21/25 Allergies Allergy/AdvReac Type Severity Reaction Status Date / Time cinnamon Allergy Severe Swelling Verified 08/15/25 16:54 of Lip/Tongue/Throat aspirin AdvReac Severe HAS ULCER Verified 08/15/25 16:54 Review of Systems Review of Systems Systems Reviewed: All systems reviewed, normal except as documented Past Medical History Past Medical History NEUROLOGIC: Positive Migraine; Negative Neurological Disorders or Seizures CARDIAC: Positive Hypercholesterolemia and Hypertension; Negative Cardiac Disorders, Congestive Heart Failure, Edema, Cellulitis or Varicose Veins RESPIRATORY: Positive Chronic Obstructive Pulmonary Disease (COPD) and Asthma; Negative Tuberculosis or Sleep Apnea GASTROINTESTINAL: Positive Gastrointestinal Disorders, Ulcer and Gastroesophageal Reflux Disease; Negative Hepatitis GENITOURINARY: Negative Genitourinary Disorders or Renal Disease REPRODUCTIVE: Positive Previous Pregnancies and Uterine Prolapse MUSCULOSKELETAL: Positive Musculoskeletal Disorders and Arthritis ENDOCRINE: Negative Endocrine Disorders, Diabetes Mellitus Type 1 or Diabetes Mellitus Type 2 HEMATOLOGIC: Negative Blood Disorders or Sickle Cell Disease PSYCHO/SOCIAL: Positive Bipolar Disorder, Depression, Anxiety and Post Traumatic Stress Disorder OTHER HISTORY: Positive Hospitalization, Autoimmune Disease, Chicken Pox and Cancer; Negative Shingles, Falls, Blood Transfusions, Blood Transfusion Reaction, Anesthesia Reactions, Chemotherapy, Radiation Therapy, MRSA, Measles or Mumps Family History FAMILY HISTORY: Positive Family Psychiatric Problems, Family Respiratory Disorders, Family Cardiac Disorders, Family Cancer, Family Surgery and Family Anesthesia Reaction; Negative Family Gastrointestinal Problems Surgical History SURGICAL: Positive Abdominal Surgery and Tubal Ligation; Negative Pacemaker Social History SMOKING STATUS: Current some day smoker SECOND HAND EXPOSURE: No SUBSTANCE USE: former substance user and methamphetamine (Former methamphetamine abuse, quit in 2018.) ED Exam Narrative Physical exam: GENERAL APPEARANCE: alert and oriented x 4, well-developed, well-nourished, nontoxic, no acute distress VITALS: All vitals were reviewed and the pulse ox is % on room air, which is normal according to my interpretation. HEENT: Normocephalic, atraumatic; pupils equal, round, reactive to light; EOMI; mucous membranes pink, moist; oropharynx clear NECK: Supple LUNGS: CTABL; no wheezes, no rales, no rhonchi HEART: Mildly tachycardic, regular rhythm; normal S1, S2; no murmurs ABDOMEN: 2+ distended; diffuse tenderness with noted guarding throughout BACK: no CVA tenderness RECTAL: Female support engineer present; no stool in the vault EXTREMITIES: atraumatic; no edema NEUROLOGIC: awake; alert and oriented x4; cranial nerves II-XII grossly intact; no focal sensory or motor deficits PSYCHIATRIC: appropriate mood and affect SKIN: warm, dry, normal color; no rashes Course Quality Measures none Orders Category Date Time Status Insert IV NOW Care 08/21/25 19:[address] abdomen pelvis wo con Stat Exams 08/21/25 15:18 Completed CBC Stat Lab 08/21/25 15:27 Completed CMP [Comprehensive Metabolic Panel] Stat Lab 08/21/25 15:27 Completed HCG Qualitative,Urine Stat Lab 08/21/25 16:55 Completed Lipase Stat Lab 08/21/25 15:27 Completed UA [Urinalysis] Stat Lab 08/21/25 16:55 Completed Urine Culture Stat Lab 08/21/25 16:55 Received Magnesium Citrate Liqd [Citrate of Magnesia Liqd] Med 08/21/25 21:46 Discontinued 300 ml PO X1 ONE Morphine* Inj Med 08/21/25 18:43 Discontinued 4 mg IV X1 ONE Prochlorperazine Inj [Compazine Inj] Med 08/21/25 18:44 Discontinued 5 mg IV X1 ONE Sodium Chloride 0.9% 1000 ml [Ns] 1,000 ml Med 08/21/25 18:43 Discontinued IV 999 mls/hr cefTRIAXone/D5w 1gm IV premix [Rocephin/D5w 1gm IV Med 08/21/25 18:46 Discontinued premix] 1 gm in 50 ml IV X1 Vital Signs Vital signs: Vital Signs Temperature 97.9 F 08/21/25 15:12 Pulse Rate 104 H 08/21/25 15:12 Respiratory Rate 18 08/21/25 15:12 Blood Pressure 105/79 08/21/25 15:12 Pulse Oximetry (%) 94 L 08/21/25 15:12 Oxygen Delivery Method Room Air 08/21/25 15:12 Discharge Plan Plan Patient Disposition: HOME (Self Care) Discharge Disposition comment: Stable Prescriptions/Referrals Prescriptions/Med Rec: New ciprofloxacin HCl [Cipro] 500 mg tablet 500 mg PO BID 7 Days Qty: 14 0RF ondansetron HCl 4 mg tablet 4 mg PO TID 3 Days Qty: 20 0RF hydrocodone-acetaminophen 5-325 mg tablet 1 tab PO Q8H MDD 3 tab PRN (Reason: pain) Qty: 20 0RF No Action atorvastatin 20 mg Tablet 20 mg PO QPM paroxetine HCl 40 mg Tablet 40 mg PO QDAY buspirone 15 mg Tablet 15 mg PO TID aripiprazole 5 mg Tablet 5 mg PO QDAY Spiriva Respimat 2.5 mcg/actuation mist 2 puff INHALATION DAILY Patient Comments: INHALE 2 PUFFS INTO THE LUNGS EVERY DAY FOR 30 DAYS metoclopramide HCl [Reglan] 10 mg tablet 10 mg PO Q6H PRN (Reason: abdominal pain) Qty: 14 0RF pantoprazole [Protonix] 40 mg tablet,delayed release (DR/EC) 40 mg PO QDAY Qty: 30 0RF zinc sulfate 50 mg zinc (220 mg) Capsule 220 mg PO QDAY Qty: 30 0RF methylprednisolone [Medrol (Kody)] 4 mg tablets,dose pack 4 mg PO QAM Qty: 21 0RF ipratropium-albuterol 0.5 mg-3 mg(2.5 mg base)/3 mL solution for nebulization 3 ml inhalation Q8H PRN (Reason: shortness of breath) Qty: 90 0RF prednisone 50 mg tablet 50 mg PO QDAY Qty: 7 0RF acetaminophen 500 mg capsule 500 mg PO Q6H PRN (Reason: pain) Qty: 30 0RF prednisone 50 mg tablet 50 mg PO QDAY Qty: 7 0RF albuterol sulfate 90 mcg/actuation HFA aerosol inhaler 2 inh inhalation QID PRN (Reason: shortness of breath or wheezing) Qty: 8.5 0RF prednisone 20 mg tablet See Taper PO QDAY MDD 3 Qty: 21 0RF Taper: Prednisone Taper 20 mg DAILY for 2 Days and 0 Hour 10 mg DAILY for 2 Days and 0 Hour 5 mg DAILY for 7 Days and 0 Hour Rx Instructions: Take 4 Tabs q Day for 3 days then take 3 tabs q Day for 3 days then resume 40 mg daily Excedrin Tension Headache 500-65 mg tablet 1 tab PO Q8H PRN (Reason: pain) Qty: 30 0RF hydrocodone-acetaminophen 5-325 mg tablet 1 tab PO BID MDD 10 PRN (Reason: pain) Qty: 6 0RF acetaminophen [Tylenol Extra Strength] 500 mg tablet 500 mg PO Q6H PRN (Reason: pain) Qty: 20 0RF tramadol 50 mg tablet 50 mg PO Q6H PRN (Reason: pain) Qty: 20 0RF acetaminophen-codeine 300-30 mg tablet 2 tab PO TID MDD 6 PRN (Reason: pain) Qty: 10 0RF acetaminophen 500 mg capsule 500 mg PO Q6H PRN (Reason: pain) Qty: 30 0RF cyclobenzaprine 10 mg tablet 10 mg PO TID PRN (Reason: muscle spasm) Qty: 10 0RF ibuprofen 600 mg tablet 600 mg PO Q6H Qty: 30 0RF amoxicillin-pot clavulanate 875-125 mg tablet 1 tab PO BID Qty: 14 0RF clindamycin HCl 300 mg capsule 300 mg PO Q6H Qty: 20 0RF acetaminophen-codeine 300-30 mg tablet 2 tab PO Q8H MDD 6 PRN (Reason: pain) Qty: 20 0RF doxycycline hyclate 100 mg capsule 100 mg PO QDAY Qty: 20 0RF ibuprofen 800 mg tablet 800 mg PO Q8H PRN (Reason: pain) Qty: 30 0RF meloxicam 7.5 mg tablet 7.5 mg PO QDAY Qty: 10 0RF ondansetron 4 mg tablet,disintegrating 4 mg PO Q8H Qty: 10 0RF dicyclomine 20 mg tablet 20 mg PO BID Qty: 7 0RF famotidine [Pepcid] 20 mg tablet 20 mg PO QDAY PRN (Reason: pain (scale score 1-3)) Qty: 30 0RF metoclopramide HCl [Reglan] 10 mg tablet 10 mg PO Q6H PRN (Reason: nausea and vomiting) Qty: 30 0RF Referrals: Celine Olsen PA-C [Primary Care Provider] - In 1 week Problem List Clinical Impression: Pelvic mass, Hypodense mass of right lobe of liver, UTI (urinary tract infection), Constipation Patient/Caregiver Discharge Instructions Discharge Activity: activity as tolerated Other Activity Instructions:: Increase fluids/medications as directed/follow-up with [facility] physician and primary care doctor for further evaluation given current CT results. Diet Instructions: Clear liquid diet x 24 hours Education Materials: Urinary Tract Infections in Women Additional Instructions: There is suspicion of both pelvic and liver mass present. Important to follow-up with primary care/[facility] physician for further evaluation. Medications as directed. Return for fever persistent vomiting or worsening illness. Print Language: Citizen Of [place] Stand Alone Forms: [employer] Info., Patient Portal Info Letter MDM Narrative MDM hospital course (for use when minimal MDM required): Scribe Attestation: 08/21/25 Mara Thomas am scribing for and in the presence of Dr. Moore. 45yo female presenting with constipation for the last 2 weeks. Has been poorly having bowel movements daily. Notes generalized abdominal pain and distention. Reports several bouts of nonbloody emesis today. She has been passing minimal flatulence. Please see PE findings. Lab markers demonstrated marginally elevated WBC count, normal Hgb and platelet count, no left shift or bandemia. CMP demonstrated mild renal insufficiency, otherwise unremarkable. UA demonstrated significant pyuria, positive leukocyte esterase reaction, and 1+ bacteriuria. Culture pending. CT obtained and showed interval enlargement of liver mass and likely pelvic mass. This combination may demonstrate neoplastic process. Patient informed of results and will be placed on stimulant laxative, narcotic analgesic, antiemetic, and recommended close f/u with [facility] as she is s/p hysterectomy with evidence of pelvic mass. Dx: liver mass, pelvic mass, UTI, constipation Clinical Information Provided by: patient Medical Records reviewed [facility] (Per chart review, patient was seen here on 08/15/25 for rectal pain.) Meds/Rx considered, not ordered None Labs/Rad/Tests considered, not ordered None Chronic Illness/Social Conditions Explain: Hx HTN, HLD Labs Labs: interpreted by me and see narrative above Imaging Imaging interpretation: interpreted by me Imaging Interpretation(s): [place] Imaging Report Signed Patient: CATHRYN VERDE [facility]. Record#: [id number] Birthdate: 1980 Age/Sex: 45 / F Location: [facility] Attending Dr: Ordering Physician: López Mccullough Date of Service: 08/21/25 Procedure(s): CT abdomen pelvis wo con Accession Number(s): [id number] cc: Celine Olsen PA-C; López Mccullough; Dav Treadwell MD~ Examination: CT abdomen and pelvis without contrast. Coronal 3-D reconstructions. Sagittal 2-D reconstructions. Date and time of exam:August 21, 2025, 1528 hrs. Indications: Right-sided abdominal pain and constipation this week CTDI: vol (mGy): 13.1 DLP: (mGycm): 730 Technique: Axial images of the abdomen have been obtained, 3 mm slice thickness Intravenous contrast material has not been administered. Low dose protocols were performed. One or more of the following dose reduction techniques were used; automated exposure control, adjustment of the mA and/or KV according to patient size, use of iterative reconstruction technique. Findings: 33 mm right lobe liver lesion, solid, image 57 Contracted gallbladder Spleen is not enlarged No pancreatic or adrenal mass No renal or ureteral calculi, no hydronephrosis Aorta normal size 11 mm fat-containing umbilical hernia No pericecal inflammatory change Absent uterus Suspicious for 20 mm pelvic mass posterior uterus Bladder intact, contracted Impression: 33 mm right lobe liver lesion, differential would include hepatic metastasis Recommend MRI abdomen liver follow-up pre and postcontrast Suspicious for posterior 20 mm solid pelvic mass, recommend pelvic sonography follow-up Dictated By: Dav Treadwell MD Signed By: <Electronically signed by Dav Treadwell MD in OV> Medication Administration(s) Medication Administration History Discontinued Medications Sodium Chloride (Ns) 1,000 mls @ 999 mls/hr IV .Q1H1M ONE Stop: 08/21/25 19:43 Last Infusion: 08/21/25 20:59 Dose: Infused Documented By: Admin: 08/21/25 19:50 Dose: 999 mls/hr Documented By: BD Ceftriaxone Sodium/Dextrose (Rocephin/D5w 1gm Iv Premix) 1 gm in 50 mls @ 100 mls/hr IV X1 ONE Stop: 08/21/25 19:15 Last Infusion: 08/21/25 20:59 Dose: Infused Documented By: Admin: 08/21/25 19:51 Dose: 100 mls/hr Documented By: BD Magnesium Citrate (Magnesium Citrate 300 Ml Btl) 300 ml PO X1 ONE Stop: 08/21/25 21:47 Morphine Sulfate (Morphine Sulf Inj 4 Mg/Ml Vial) 4 mg IV X1 ONE Stop: 08/21/25 18:44 Last Admin: 08/21/25 19:51 Dose: 4 mg Documented By: BD Prochlorperazine Edisylate (Prochlorperazine Inj 5 Mg/Ml Vial 2 Ml) 5 mg IV X1 ONE; Protocol Stop: 08/21/25 18:45 Last Admin: 08/21/25 19:50 Dose: 5 mg Documented By: BD see above Diagnosis Differential Diagnosis ED Complaint MDM: constipation, SBO, dehydration, electrolyte abnormality
[2025-08-21] MEDS: PROCHLORPERAZINE INJ 5 MG/ML VIAL 2 ML IV (19:50)
[2025-08-21] MEDS: SODIUM CHLORIDE 0.9% 1000 ML 1,000 ML 999 ML IV (19:50)
[2025-08-21] MEDS: cefTRIAXone/D5w 1gm IV premix 1 GM/50 ML BAG IV (19:51)
[2025-08-21] MEDS: MORPHINE SULF INJ 4 MG/ML VIAL IV (19:51)
--- NOTE | 2025-08-21 21:47 | PC.NURSE ---
pt doesnot want enema per provider ok to cancel as pt wants to go home
[2025-08-21] MEDS: MAGNESIUM CITRATE 300 ML BTL PO (21:57)
== END 2025-08-21 22:08 | disposition home or self-care (01) ==
PROVIDERS: Nurse Practitioner Family; Emergency Provider Emergency Medicine; PCP Physician Assistant Medical
DX: N85.8 Other specified noninflammatory disorders of uterus (principal); N39.0 Urinary tract infection, site not specified; K59.00 Constipation, unspecified; R16.0 Hepatomegaly, not elsewhere classified
CPT/HCPCS: 36415; 74176; 80053; 81001; 81025; 83690; 85025; 87086; 99284; J0696; J0780; J2270; J7030; A9270

== ENCOUNTER 2025-08-27 11:14 | Emergency (ER) | payer MEDICAID, SELFPAY ==
[2025-08-27 11:41] VITALS: BP 120/85; PULSE 98; RESP 18; TEMP 37.2; O2SAT 100
--- NOTE | 2025-08-27 11:43 | XR_ITS ---
Examination: Pelvic ultrasound, transabdominal, complete Technique: Transabdominal ultrasound of the pelvis performed using grayscale imaging Date and time of exam: August 27, 2025, 1249 hours INDICATIONS: Pelvic pain beginning 2 days ago FINDINGS: Absent uterus and ovaries No free fluid in the pelvis No pelvic mass IMPRESSION: No free fluid in the pelvis No pelvic mass
[2025-08-27 13:08] LABS: Collection Type, Urine Clean Catch
[2025-08-27 13:20] LABS: Bacteria,Urine 1+; Bilirubin,Urine Negative (Negative); Blood,Urine 2+ (Negative); Color,Urine Yellow (Lt Yel-Yel); Culture Indicated,Urine Contaminated; Glucose, Urine Negative (Negative); Ketones,Urine Trace (Negative); Leukocyte Esterase,Urine Positive (Negative); Nitrite,Urine Negative (Negative); PH,Urine 6.0 (5.0-7.0); Protein,Urine 2+ (Neg - Trace); RBC,Urine 25 /hpf (0-3); Specific Gravity,Urine 1.034 (1.001-1.035); Squamous Epithelial Cell,Urine 67 /hpf (0-5); Urobilinogen,Urine 2.0 mg/dL (0.0-1.0); WBC,Urine 275 /hpf (0-5)
[2025-08-27 13:26] LABS: Clarity,Urine Hazy (Clear/Hazy)
[2025-08-27] MEDS: LIDOCAINE HCL 1% 20 ML VIAL 2.1 ML INFL (14:38)
[2025-08-27] MEDS: cefTRIAXone SOD INJ 1,000 MG VIAL 1000 MG IM (14:38)
--- NOTE | 2025-08-27 15:22 | PD.EDADULT ---
ED General RME/HPI General Chief complaint: General Adult/Misc Complain Stated complaint: PRESSURE ON PELVIS Time Seen by Provider: 08/27/25 11:35 Arrival date/time: 08/27/25 11:14 45-year-old female presents to the Emergency Department for complaints of pelvic pain and dysuria onset yesterday Limitations: no limitations Related Data Home Medications ?Medication ?Instructions ?Recorded ?Confirmed aripiprazole 5 mg tablet 5 mg PO QDAY 09/30/23 09/30/23 atorvastatin 20 mg tablet 20 mg PO QPM 09/30/23 09/30/23 buspirone 15 mg tablet 15 mg PO TID 09/30/23 09/30/23 paroxetine HCl 40 mg tablet 40 mg PO QDAY 09/30/23 09/30/23 tiotropium bromide 2.5 2 puff inhalation DAILY 09/30/23 09/30/23 mcg/actuation mist for inhalation (Spiriva Respimat) Previous Rx's ?Medication ?Instructions ?Recorded tramadol 50 mg tablet 50 mg PO Q6H PRN pain #20 tabs 02/17/24 metoclopramide HCl 10 mg tablet 10 mg PO Q6H PRN abdominal pain 07/26/24 (Reglan) #14 tabs pantoprazole 40 mg tablet,delayed 40 mg PO QDAY #30 tabs 07/26/24 release (Protonix) acetaminophen 300 mg-codeine 30 mg 2 tab PO TID PRN pain #10 tabs 08/09/24 tablet acetaminophen 500 mg capsule 500 mg PO Q6H PRN pain #30 caps 10/01/24 cyclobenzaprine 10 mg tablet 10 mg PO TID PRN muscle spasm #10 10/01/24 tabs methylprednisolone 4 mg tablets in 4 mg PO QAM #21 tabs 11/13/24 a dose pack (Medrol (Kody)) zinc sulfate 50 mg zinc (220 mg) 220 mg (4.4 x 50 mg zinc (220 mg)) 11/13/24 capsule PO QDAY #30 caps ibuprofen 600 mg tablet 600 mg PO Q6H #30 tabs 12/06/24 amoxicillin 875 mg-potassium 1 tab PO BID #14 tabs 12/13/24 clavulanate 125 mg tablet ipratropium 0.5 mg-albuterol 3 mg 3 ml inhalation Q8H PRN shortness 12/18/24 (2.5 mg base)/3 mL nebulization of breath #90 mL soln prednisone 50 mg tablet 50 mg PO QDAY #7 tabs 12/18/24 acetaminophen 500 mg capsule 500 mg PO Q6H PRN pain #30 caps 01/12/25 albuterol sulfate 90 mcg/actuation 2 inh inhalation QID PRN shortness 02/12/25 aerosol inhaler of breath or wheezing #8.5 grams prednisone 50 mg tablet 50 mg PO QDAY #7 tabs 02/12/25 clindamycin HCl 300 mg capsule 300 mg PO Q6H #20 caps 03/26/25 acetaminophen 300 mg-codeine 30 mg 2 tab PO Q8H PRN pain #20 tabs 04/05/25 tablet prednisone 20 mg tablet See Taper PO QDAY allergic 05/02/25 reaction #21 tabs acetaminophen-caffeine 500 mg-65 1 tab PO Q8H PRN pain #30 tabs 05/27/25 mg tablet (Excedrin Tension Headache) doxycycline hyclate 100 mg capsule 100 mg PO QDAY #20 caps 06/01/25 ibuprofen 800 mg tablet 800 mg PO Q8H PRN pain #30 tabs 06/01/25 meloxicam 7.5 mg tablet 7.5 mg PO QDAY #10 tabs 07/10/25 dicyclomine 20 mg tablet 20 mg PO BID #7 tabs 08/10/25 ondansetron 4 mg disintegrating 4 mg PO Q8H #10 tabs 08/10/25 tablet famotidine 20 mg tablet (Pepcid) 20 mg PO QDAY PRN pain (scale 08/12/25 score 1-3) #30 tabs metoclopramide HCl 10 mg tablet 10 mg PO Q6H PRN nausea and 08/12/25 (Reglan) vomiting #30 tabs hydrocodone 5 mg-acetaminophen 325 1 tab PO BID PRN pain #6 tabs 08/15/25 mg tablet acetaminophen 500 mg tablet 500 mg PO Q6H PRN pain #20 tabs 08/16/25 (Tylenol Extra Strength) ciprofloxacin HCl 500 mg tablet 500 mg PO BID 7 days #14 tabs 08/21/25 (Cipro) hydrocodone 5 mg-acetaminophen 325 1 tab PO Q8H PRN pain #20 tabs 09/26/25 mg tablet cephalexin 500 mg tablet 500 mg PO QID 7 days #28 tabs 08/27/25 Allergies Allergy/AdvReac Type Severity Reaction Status Date / Time cinnamon Allergy Severe Swelling Verified 08/27/25 11:16 of Lip/Tongue/Throat aspirin AdvReac Severe HAS ULCER Verified 08/27/25 11:16 Review of Systems Review of Systems Systems Reviewed: All systems reviewed, normal except as documented Constitutional Constitutional: Reports system reviewed and no additional complaints, except as documented, Denies fever(s) and Denies headache(s) Eyes Eyes: Reports system reviewed and no additional complaints, except as documented and Denies blurry vision ENT Ears, Nose, Mouth, and Throat: Reports system reviewed and no additional complaints, except as documented, Denies headache(s), Denies nasal congestion and Denies nasal discharge Cardiovascular Cardiovascular: Reports system reviewed and no additional complaints, except as documented, Denies chest pain and Denies dyspnea Respiratory Respiratory: Reports system reviewed and no additional complaints, except as documented, Denies chest congestion, Denies cough and Denies dyspnea Gastrointestinal Gastrointestinal: Reports system reviewed and no additional complaints, except as documented and Denies abdominal pain Genitourinary Genitourinary: Reports system reviewed and no additional complaints, except as documented, Reports dysuria, Denies flank pain and Reports pelvic pain Integumentary/Breasts Skin/Breast: Reports system reviewed and no additional complaints, except as documented and Denies rash Neurologic Neurologic: Reports system reviewed and no additional complaints, except as documented, Reports as per HPI and Denies headache(s) Past Medical History Past Medical History NEUROLOGIC: Positive Migraine; Negative Neurological Disorders or Seizures CARDIAC: Positive Hypercholesterolemia and Hypertension; Negative Cardiac Disorders, Congestive Heart Failure, Edema, Cellulitis or Varicose Veins RESPIRATORY: Positive Chronic Obstructive Pulmonary Disease (COPD) and Asthma; Negative Tuberculosis or Sleep Apnea GASTROINTESTINAL: Positive Gastrointestinal Disorders, Ulcer and Gastroesophageal Reflux Disease; Negative Hepatitis GENITOURINARY: Negative Genitourinary Disorders or Renal Disease REPRODUCTIVE: Positive Previous Pregnancies and Uterine Prolapse MUSCULOSKELETAL: Positive Musculoskeletal Disorders and Arthritis ENDOCRINE: Negative Endocrine Disorders, Diabetes Mellitus Type 1 or Diabetes Mellitus Type 2 HEMATOLOGIC: Negative Blood Disorders or Sickle Cell Disease PSYCHO/SOCIAL: Positive Bipolar Disorder, Depression, Anxiety and Post Traumatic Stress Disorder OTHER HISTORY: Positive Hospitalization, Autoimmune Disease, Chicken Pox and Cancer; Negative Shingles, Falls, Blood Transfusions, Blood Transfusion Reaction, Anesthesia Reactions, Chemotherapy, Radiation Therapy, MRSA, Measles or Mumps Family History FAMILY HISTORY: Positive Family Psychiatric Problems, Family Respiratory Disorders, Family Cardiac Disorders, Family Cancer, Family Surgery and Family Anesthesia Reaction; Negative Family Gastrointestinal Problems Surgical History SURGICAL: Positive Abdominal Surgery and Tubal Ligation; Negative Pacemaker Social History SMOKING STATUS: Current every day smoker SECOND HAND EXPOSURE: No SUBSTANCE USE: former substance user and methamphetamine (Former methamphetamine abuse, quit in 2018.) ED Exam General Limitations: Present no limitations General appearance: Present alert and in no apparent distress Head Head exam: Present atraumatic Eye Eye exam: Present normal appearance, PERRL and EOMI ENT ENT exam: Present normal exam, normal oropharynx and mucous membranes moist Neck Neck exam: Present normal inspection, full ROM and trachea midline Chest Chest inspection: Present normal inspection and symmetric chest wall rise Respiratory Respiratory exam: Present normal lung sounds bilaterally Cardiovascular Cardiovascular exam: Present regular rate, normal rhythm and normal heart sounds Abdominal Exam Abdominal exam: Present soft and normal bowel sounds; Absent distention, tenderness, guarding, rebound or rigidity Extremities Exam Extremities exam: Present normal inspection and full ROM Back Exam Back exam: Present normal inspection and full ROM Neurological Exam Neurological exam: Present alert, oriented X3, CN II-XII intact, normal gait and reflexes normal; Absent motor sensory deficit Psychiatric Psychiatric exam: Present normal affect and normal mood Skin Skin exam: Present warm, dry, intact and normal color; Absent rash Course Quality Measures none Orders Category Date Time Status US pelvic complete Stat Exams 08/27/25 11:43 Completed UA, C/S IF [Urinalysis, C/S if Indicated] Stat Lab 08/27/25 12:59 Completed Lidocaine 1% 20 ml [Xylocaine 1% 20 ML] Med 08/27/25 14:26 Discontinued 2.1 ml INFL X1 ONE cefTRIAXone [Rocephin] Med 08/27/25 14:26 Discontinued 1,000 mg IM X1 ONE Vital Signs Vital signs: Vital Signs Temperature 98.9 F 08/27/25 11:41 Pulse Rate 98 08/27/25 11:41 Respiratory Rate 18 08/27/25 11:41 Blood Pressure 120/85 H 08/27/25 11:41 Pulse Oximetry (%) 100 08/27/25 11:41 Oxygen Delivery Method Room Air 08/27/25 11:41 O2 saturation 100% on room air within normal limits Discharge Plan Plan Patient Disposition: HOME (Self Care) Discharge Disposition comment: Stable Prescriptions/Referrals Prescriptions/Med Rec: New cephalexin 500 mg tablet 500 mg PO QID 7 Days Qty: 28 0RF No Action atorvastatin 20 mg Tablet 20 mg PO QPM paroxetine HCl 40 mg Tablet 40 mg PO QDAY buspirone 15 mg Tablet 15 mg PO TID aripiprazole 5 mg Tablet 5 mg PO QDAY Spiriva Respimat 2.5 mcg/actuation mist 2 puff INHALATION DAILY Patient Comments: INHALE 2 PUFFS INTO THE LUNGS EVERY DAY FOR 30 DAYS metoclopramide HCl [Reglan] 10 mg tablet 10 mg PO Q6H PRN (Reason: abdominal pain) Qty: 14 0RF pantoprazole [Protonix] 40 mg tablet,delayed release (DR/EC) 40 mg PO QDAY Qty: 30 0RF zinc sulfate 50 mg zinc (220 mg) Capsule 220 mg PO QDAY Qty: 30 0RF methylprednisolone [Medrol (Kody)] 4 mg tablets,dose pack 4 mg PO QAM Qty: 21 0RF ipratropium-albuterol 0.5 mg-3 mg(2.5 mg base)/3 mL solution for nebulization 3 ml inhalation Q8H PRN (Reason: shortness of breath) Qty: 90 0RF prednisone 50 mg tablet 50 mg PO QDAY Qty: 7 0RF acetaminophen 500 mg capsule 500 mg PO Q6H PRN (Reason: pain) Qty: 30 0RF prednisone 50 mg tablet 50 mg PO QDAY Qty: 7 0RF albuterol sulfate 90 mcg/actuation HFA aerosol inhaler 2 inh inhalation QID PRN (Reason: shortness of breath or wheezing) Qty: 8.5 0RF prednisone 20 mg tablet See Taper PO QDAY MDD 3 Qty: 21 0RF Taper: Prednisone Taper 20 mg DAILY for 2 Days and 0 Hour 10 mg DAILY for 2 Days and 0 Hour 5 mg DAILY for 7 Days and 0 Hour Rx Instructions: Take 4 Tabs q Day for 3 days then take 3 tabs q Day for 3 days then resume 40 mg daily Excedrin Tension Headache 500-65 mg tablet 1 tab PO Q8H PRN (Reason: pain) Qty: 30 0RF hydrocodone-acetaminophen 5-325 mg tablet 1 tab PO BID MDD 10 PRN (Reason: pain) Qty: 6 0RF acetaminophen [Tylenol Extra Strength] 500 mg tablet 500 mg PO Q6H PRN (Reason: pain) Qty: 20 0RF tramadol 50 mg tablet 50 mg PO Q6H PRN (Reason: pain) Qty: 20 0RF acetaminophen-codeine 300-30 mg tablet 2 tab PO TID MDD 6 PRN (Reason: pain) Qty: 10 0RF acetaminophen 500 mg capsule 500 mg PO Q6H PRN (Reason: pain) Qty: 30 0RF cyclobenzaprine 10 mg tablet 10 mg PO TID PRN (Reason: muscle spasm) Qty: 10 0RF ibuprofen 600 mg tablet 600 mg PO Q6H Qty: 30 0RF amoxicillin-pot clavulanate 875-125 mg tablet 1 tab PO BID Qty: 14 0RF clindamycin HCl 300 mg capsule 300 mg PO Q6H Qty: 20 0RF acetaminophen-codeine 300-30 mg tablet 2 tab PO Q8H MDD 6 PRN (Reason: pain) Qty: 20 0RF doxycycline hyclate 100 mg capsule 100 mg PO QDAY Qty: 20 0RF ibuprofen 800 mg tablet 800 mg PO Q8H PRN (Reason: pain) Qty: 30 0RF meloxicam 7.5 mg tablet 7.5 mg PO QDAY Qty: 10 0RF ondansetron 4 mg tablet,disintegrating 4 mg PO Q8H Qty: 10 0RF dicyclomine 20 mg tablet 20 mg PO BID Qty: 7 0RF famotidine [Pepcid] 20 mg tablet 20 mg PO QDAY PRN (Reason: pain (scale score 1-3)) Qty: 30 0RF metoclopramide HCl [Reglan] 10 mg tablet 10 mg PO Q6H PRN (Reason: nausea and vomiting) Qty: 30 0RF ciprofloxacin HCl [Cipro] 500 mg tablet 500 mg PO BID 7 Days Qty: 14 0RF hydrocodone-acetaminophen 5-325 mg tablet 1 tab PO Q8H MDD 3 tab PRN (Reason: pain) Qty: 20 0RF Referrals: Celine Olsen PA-C [Primary Care Provider] - In 1 week Problem List Clinical Impression: UTI (urinary tract infection) Patient/Caregiver Discharge Instructions Education Materials: When to Use Antibiotics Additional Instructions: Please follow up with your primary care doctor in the next 24-48hrs for any worsening symptoms return here immediately Print Language: Angolan Stand Alone Forms: Shari Award Info., Patient Portal Info Letter PA/BED TEACHER Supervising Physician PA/BED TEACHER Supervising Physician: Dr. Casey MDM Narrative MDM hospital course (for use when minimal MDM required): 45-year-old female presents to the Emergency Department for complaints of pelvic pain and dysuria onset yesterday On exam patient well-appearing does not appear ill or toxic no acute distress Lab work and imaging obtained no acute emergent findings noted UA consistent with UTI patient given Rocephin here Patient discharged home in no distress to follow-up with primary care doctor in the next 24 to 48 hours and for any worsening symptoms to return to the ER immediately Clinical Information Provided by: none Medical Records reviewed [facility] Meds/Rx considered, not ordered None Labs/Rad/Tests considered, not ordered None Chronic Illness/Social Conditions which may negatively complicate care or outcome(s)-explain: None or not applicable EKG EKG not done Labs Labs: none Imaging Imaging interpretation: none Medication Administration(s) Medication Administration History Discontinued Medications Ceftriaxone Sodium (Ceftriaxone Sod Inj 1,000 Mg Vial) 1,000 mg IM X1 ONE Stop: 08/27/25 14:27 Last Admin: 08/27/25 14:38 Dose: 1,000 mg Documented By: VIRGEN Lidocaine HCl (Lidocaine Hcl 1% 20 Ml Vial) 2.1 ml INFL X1 ONE Stop: 08/27/25 14:27 Last Admin: 08/27/25 14:38 Dose: 2.1 ml Documented By: VIRGEN Given Diagnosis Differential Diagnosis ED Complaint MDM: UTI, pelvic mass, cystitis
== END 2025-08-27 14:57 | disposition home or self-care (01) ==
PROVIDERS: Nurse Practitioner Primary Care; Emergency Provider Family Medicine; PCP Physician Assistant Medical
DX: N39.0 Urinary tract infection, site not specified (principal)
CPT/HCPCS: 76856; 81001; 96372; 99283; J0696; J3490

== ENCOUNTER 2025-09-30 12:32 | Emergency (ER) | payer MEDICAID, SELFPAY ==
[2025-09-30 12:54] VITALS: BP 124/89; PULSE 85; RESP 19; TEMP 36.4; O2SAT 95; BMI 35.0
--- NOTE | 2025-09-30 12:55 | XR_ITS ---
EXAMINATION: PA lateral chest 2 views TECHNIQUE: Upright PA lateral chest 2 views Date and time: September 30, 2025, 1300 hours INDICATIONS: Coughing fever body aches sore throat beginning 3 days ago. FINDINGS: Old deformity distal right clavicle Normal heart size Lungs are clear No pneumonia identified IMPRESSION: No pneumonia identified
[2025-09-30] MEDS: PROMETHAZINE/DM SYRUP 5 ML DOSE PO (13:08)
[2025-09-30] MEDS: IBUPROFEN TAB 400 MG TABLET 800 MG PO (13:08)
--- NOTE | 2025-09-30 15:03 | EDNOTE_ITS ---
<Statement entered by Savannah Hanley MD - 10/04/25 16:23> As co-signing physician, I was present and available for consult prn. I concur with the plan and care as documented by the midlevel provider. Upper Respiratory Inf. RME/HPI General Chief Complaint: Fever Stated Complaint: BODY ACHES, FEVER, SORE THROAT, COUGH, N/V Time Seen by Provider: 09/30/25 12:55 Arrival date/time: 09/30/25 12:32 45-year-old female presents to the Emergency Department today for complaint of cough, congestion runny nose and fever ongoing for last couple of days Limitations: no limitations Related Data Home Medications ?Medication ?Instructions ?Recorded ?Confirmed aripiprazole 5 mg tablet 5 mg PO QDAY 09/30/23 atorvastatin 20 mg tablet 20 mg PO QPM 09/30/23 buspirone 15 mg tablet 15 mg PO TID 09/30/23 paroxetine HCl 40 mg tablet 40 mg PO QDAY 09/30/2304/17 tiotropium bromide 2.5 2 puff inhalation DAILY 04/1709/30/23 mcg/actuation mist for inhalation (Spiriva Respimat) Previous Rx's ?Medication ?Instructions ?Recorded tramadol 50 mg tablet 50 mg PO Q6H PRN pain #20 ta bs 02/17/24 metoclopramide HCl 10 mg tablet 10 mg PO Q6H PRN abdom inal pain 07/26/24 (Reglan) #14 tabs pantoprazole 40 mg tablet,delayed 40 mg PO QDAY #30 ta bs 07/26/24 release (Protonix) acetaminophen 300 mg-codeine 30 mg 2 tab PO TID PRN pa in #10 tabs 08/09/24 tablet acetaminophen 500 mg capsule 500 mg PO Q6H PRN pain #3 0 caps 10/01/24 cyclobenzaprine 10 mg tablet 10 mg PO TID PRN muscle s pasm #10 10/01/24 tabs methylprednisolone 4 mg tablets in 4 mg PO QAM #21 tab s 11/13/24 a dose pack (Medrol (Kody)) zinc sulfate 50 mg zinc (220 mg) 220 mg (4.4 x 50 mg z inc (220 mg)) 11/13/24 capsule PO QDAY #30 caps ibuprofen 600 mg tablet 600 mg PO Q6H #30 tabs 12/06 amoxicillin 875 mg-potassium 1 tab PO BID #14 tabs clavulanate 125 mg tablet ipratropium 0.5 mg-albuterol 3 mg 3 ml inhalation Q8H PRN shortness 12/18/24 (2.5 mg base)/3 mL nebulization of breath #90 mL soln prednisone 50 mg tablet 50 mg PO QDAY #7 tabs acetaminophen 500 mg capsule 500 mg PO Q6H PRN pain #3 0 caps 01/12/25 albuterol sulfate 90 mcg/actuation 2 inh inhalation QI D PRN shortness 02/12/25 aerosol inhaler of breath or wheezing #8.5 g rhiannon prednisone 50 mg tablet 50 mg PO QDAY #7 tabs clindamycin HCl 300 mg capsule 300 mg PO Q6H #20 caps 03/26/25 acetaminophen 300 mg-codeine 30 mg 2 tab PO Q8H PRN pa in #20 tabs 04/05/25 tablet prednisone 20 mg tablet See Taper PO QDAY allergic 0 05/02/25 reaction #21 tabs acetaminophen-caffeine 500 mg-65 1 tab PO Q8H PRN pain #30 tabs 05/27/25 mg tablet (Excedrin Tension Headache) doxycycline hyclate 100 mg capsule 100 mg PO QDAY #20 caps 06/01/25 ibuprofen 800 mg tablet 800 mg PO Q8H PRN pain #30 t abs 06/01/25 meloxicam 7.5 mg tablet 7.5 mg PO QDAY #10 tabs 06/26 04/19 dicyclomine 20 mg tablet 20 mg PO BID #7 tabs 5 ondansetron 4 mg disintegrating 4 mg PO Q8H #10 tabs 0 08/10/25 tablet famotidine 20 mg tablet (Pepcid) 20 mg PO QDAY PRN rony n (scale 08/12/25 score 1-3) #30 tabs metoclopramide HCl 10 mg tablet 10 mg PO Q6H PRN nause a and 08/12/25 (Reglan) vomiting #30 tabs hydrocodone 5 mg-acetaminophen 325 1 tab PO BID PRN pa in #6 tabs 08/15/25 mg tablet acetaminophen 500 mg tablet 500 mg PO Q6H PRN pain #20 tabs 08/16/25 (Tylenol Extra Strength) hydrocodone 5 mg-acetaminophen 325 1 tab PO Q8H PRN pa in #20 tabs 08/21/25 mg tablet Ventolin HFA 90 mcg/actuation 2 puff inhalation Q6H OH N 09/30/25 aerosol inhaler (albuterol sulfate) shortness of breat h or wheezing #18 grams benzonatate 100 mg capsule 100 mg PO TID #14 caps 04/19 prednisone 10 mg tablet 30 mg (3 x 10 mg) PO BID 3 d ays 09/30/25 #18 tabs Allergies Allergy/AdvReac Type Severity Reaction Status Date / Time cinnamon Allergy Severe Swelling Verified 09/30/25 12:35 of Lip/Tongue/Throat aspirin AdvReac Severe HAS ULCER Verified 09/30/25 12:35 Review of Systems Review of Systems Systems Reviewed: All systems reviewed, normal except as documented Constitutional Constitutional: Reports system reviewed and no additional complaints, except as documented, Denies fever(s) and Denies headache(s) Eyes Eyes: Reports system reviewed and no additional complaints, except as documented and Denies blurry vision ENT Ears, Nose, Mouth, and Throat: Reports system reviewed and no additional complaints, except as documented, Denies headache(s), Denies nasal congestion and Denies nasal discharge Cardiovascular Cardiovascular: Reports system reviewed and no additional complaints, except as documented, Denies chest pain and Denies dyspnea Respiratory Respiratory: Reports system reviewed and no additional complaints, except as documented, Reports chest congestion, Reports cough and Denies dyspnea Gastrointestinal Gastrointestinal: Reports system reviewed and no additional complaints, except as documented and Denies abdominal pain Integumentary/Breasts Skin/Breast: Reports system reviewed and no additional complaints, except as documented and Denies rash Neurologic Neurologic: Reports system reviewed and no additional complaints, except as documented, Reports as per HPI and Denies headache(s) Past Medical History Past Medical History NEUROLOGIC: Positive Migraine; Negative Neurological Disorders or Seizures CARDIAC: Positive Hypercholesterolemia and Hypertension; Negative Cardiac Disorders, Congestive Heart Failure, Edema, Cellulitis or Varicose Veins RESPIRATORY: Positive Chronic Obstructive Pulmonary Disease (COPD) and Asthma; Negative Tuberculosis or Sleep Apnea GASTROINTESTINAL: Positive Gastrointestinal Disorders, Ulcer and Gastroesophageal Reflux Disease; Negative Hepatitis GENITOURINARY: Negative Genitourinary Disorders or Renal Disease REPRODUCTIVE: Positive Previous Pregnancies and Uterine Prolapse MUSCULOSKELETAL: Positive Musculoskeletal Disorders and Arthritis ENDOCRINE: Negative Endocrine Disorders, Diabetes Mellitus Type 1 or Diabetes Mellitus Type 2 HEMATOLOGIC: Negative Blood Disorders or Sickle Cell Disease PSYCHO/SOCIAL: Positive Bipolar Disorder, Depression, Anxiety and Post Traumatic Stress Disorder OTHER HISTORY: Positive Hospitalization, Autoimmune Disease, Chicken Pox and Can cer; Negative Shingles, Falls, Blood Transfusions, Blood Transfusion Reaction, Anesthesia Reactions, Chemotherapy, Radiation Therapy, MRSA, Measles or Mumps Family History FAMILY HISTORY: Positive Family Psychiatric Problems, Family Respiratory Disorders, Family Cardiac Disorders, Family Cancer, Family Surgery and Family Anesthesia Reaction; Negative Family Gastrointestinal Problems Surgical History SURGICAL: Positive Abdominal Surgery and Tubal Ligation; Negative Pacemaker Social History SMOKING STATUS: Current every day smoker SECOND HAND EXPOSURE: No SUBSTANCE USE: former substance user and methamphetamine (Former methamphetamine abuse, quit in 2018.) ED Exam General Limitations: Present no limitations General appearance: Present alert and in no apparent distress Head Head exam: Present atraumatic Eye Eye exam: Present normal appearance, PERRL and EOMI ENT ENT exam: Present normal exam, normal oropharynx and mucous membranes moist Neck Neck exam: Present normal inspection, full ROM and trachea midline Chest Chest inspection: Present normal inspection and symmetric chest wall rise Respiratory Respiratory exam: Present normal lung sounds bilaterally; Absent respiratory distress, wheezes, stridor, accessory muscle use or prolonged expiratory phase Cardiovascular Cardiovascular exam: Present regular rate, normal rhythm and normal heart sounds Abdominal Exam Abdominal exam: Present soft and normal bowel sounds Extremities Exam Extremities exam: Present normal inspection and full ROM Back Exam Back exam: Present normal inspection and full ROM Neurological Exam Neurological exam: Present alert, oriented X3 and CN II-XII intact Psychiatric Psychiatric exam: Present normal affect and normal mood Skin Skin exam: Present warm, dry, intact and normal color Course Quality Measures none Orders Category Date Time Status Bedside COVID-19 Antigen Test NOW Care 09/30/25 12:55 Completed Bedside Influenza A&B Antigen Test NOW Care 09/30/25 12:55 Completed XR chest 2V Stat Exams 09/30/25 12:55 Completed Ibuprofen Tab [Motrin Tab] Med 09/30/25 12:55 Discontinued 800 mg PO X1 ONE Promethazine/Dextromethorph [Phenergan Dm Syrup] Med 09/30/25 12:55 Discontinued 5 ml PO X1 ONE Vital Signs Vital signs: Vital Signs Temperature 97.6 F 09/30/25 12:54 Pulse Rate 85 09/30/25 12:54 Respiratory Rate 19 09/30/25 12:54 Blood Pressure 124/89 H 09/30/25 12:54 Pulse Oximetry (%) 95 09/30/25 12:54 Oxygen Delivery Method Room Air 09/30/25 12:54 O2 saturation 95% r.a wnl Upper Respiratory Infection MDM Narrative MDM Narrative:: 45-year-old female presents to the Emergency Department today for complaint of cough, congestion runny nose and fever ongoing for last couple of days On exam patient well-appearing patient does not appear ill or toxic no acute distress Patient symptomatology symptoms are consistent with URI Lab work and imaging obtained no acute emergent findings noted Patient discharged home in no distress to follow-up with primary care doctor in the next 24 to 48 hours and for any worsening symptoms to return to the ER immediately Patient data External records reviewed:: [facility] previous records Clinical information provided by:: patient Social determinants that could affect healthcare access:: none Patient has the following chronic illnesses:: See history How is presenting disease/condition affected by chronic disease/condition?: uneffected by Evaluation data The following diagnostics were reviewed and interpreted by me:: lab results and radiology exam(s) Lab and/or radiology exams considered but not ordered:: Labs radiology obtained Interpretation Summary: Reviewed by me Medications / Prescriptions Medications or Prescriptions considered but not ordered:: Given Medication administrations:: Medication Administration History Discontinued Medications Ibuprofen (Ibuprofen Tab 400 Mg Tablet) 800 mg PO X1 ONE Stop: 09/30/25 12:56 Last Admin: 09/30/25 13:08 Dose: 800 mg Documented By: Promethazine HCl/Dextromethorphan (Promethazine/Dm Syrup 5 Ml Dose) 5 ml PO X1 ONE; Protocol Stop: 09/30/25 12:56 Last Admin: 09/30/25 13:08 Dose: 5 ml Documented By: Given Consultations Consultation(s) initiated? (list below): No Diagnosis Upper Respiratory Differential Diagnosis: upper respiratory infection, sinusitis, viral infection and bronchitis Most likely diagnosis given after review of the tests above:: URI Admission Indicated Admission indicated?: not indicated Admission Request Was there a request for admission?: No Disposition Plan Disposition Plan: Discharge Discharge Attestation Discharge Attestation: The patient and all family members were given an opportunity to ask questions and understood the discharge instructions. Discharge instructions specifically effects, indications for sooner follow up or return to the emergency department, and the expected course of current diagnosis. Patient condition: Stable Discharge Plan Plan Patient Disposition: HOME (Self Care) Discharge Disposition comment: Stable Prescriptions/Referrals Prescriptions/Med Rec: New prednisone 10 mg tablet 30 mg PO BID 3 Days Qty: 18 0RF benzonatate 100 mg capsule 100 mg PO TID Qty: 14 0RF albuterol sulfate [Ventolin HFA] 90 mcg/actuation HFA aerosol inhaler 2 puff inhalation Q6H PRN (Reason: shortness of breath or wheezing) Qty: 18 0RF No Action atorvastatin 20 mg Tablet 20 mg PO QPM paroxetine HCl 40 mg Tablet 40 mg PO QDAY buspirone 15 mg Tablet 15 mg PO TID aripiprazole 5 mg Tablet 5 mg PO QDAY Spiriva Respimat 2.5 mcg/actuation mist 2 puff INHALATION DAILY Patient Comments: INHALE 2 PUFFS INTO THE LUNGS EVERY DAY FOR 30 DAYS metoclopramide HCl [Reglan] 10 mg tablet 10 mg PO Q6H PRN (Reason: abdominal pain) Qty: 14 0RF pantoprazole [Protonix] 40 mg tablet,delayed release (DR/EC) 40 mg PO QDAY Qty: 30 0RF zinc sulfate 50 mg zinc (220 mg) Capsule 220 mg PO QDAY Qty: 30 0RF methylprednisolone [Medrol (Kody)] 4 mg tablets,dose pack 4 mg PO QAM Qty: 21 0RF ipratropium-albuterol 0.5 mg-3 mg(2.5 mg base)/3 mL solution for nebulization 3 ml inhalation Q8H PRN (Reason: shortness of breath) Qty: 90 0RF prednisone 50 mg tablet 50 mg PO QDAY Qty: 7 0RF acetaminophen 500 mg capsule 500 mg PO Q6H PRN (Reason: pain) Qty: 30 0RF prednisone 50 mg tablet 50 mg PO QDAY Qty: 7 0RF albuterol sulfate 90 mcg/actuation HFA aerosol inhaler 2 inh inhalation QID PRN (Reason: shortness of breath or wheezing) Qty: 8.5 0RF prednisone 20 mg tablet See Taper PO QDAY MDD 3 Qty: 21 0RF Taper: Prednisone Taper 20 mg DAILY for 2 Days and 0 Hour 10 mg DAILY for 2 Days and 0 Hour 5 mg DAILY for 7 Days and 0 Hour Rx Instructions: Take 4 Tabs q Day for 3 days then take 3 tabs q Day for 3 days then resume 40 mg daily Excedrin Tension Headache 500-65 mg tablet 1 tab PO Q8H PRN (Reason: pain) Qty: 30 0RF hydrocodone-acetaminophen 5-325 mg tablet 1 tab PO BID MDD 10 PRN (Reason: pain) Qty: 6 0RF acetaminophen [Tylenol Extra Strength] 500 mg tablet 500 mg PO Q6H PRN (Reason: pain) Qty: 20 0RF tramadol 50 mg tablet 50 mg PO Q6H PRN (Reason: pain) Qty: 20 0RF acetaminophen-codeine 300-30 mg tablet 2 tab PO TID MDD 6 PRN (Reason: pain) Qty: 10 0RF acetaminophen 500 mg capsule 500 mg PO Q6H PRN (Reason: pain) Qty: 30 0RF cyclobenzaprine 10 mg tablet 10 mg PO TID PRN (Reason: muscle spasm) Qty: 10 0RF ibuprofen 600 mg tablet 600 mg PO Q6H Qty: 30 0RF amoxicillin-pot clavulanate 875-125 mg tablet 1 tab PO BID Qty: 14 0RF clindamycin HCl 300 mg capsule 300 mg PO Q6H Qty: 20 0RF acetaminophen-codeine 300-30 mg tablet 2 tab PO Q8H MDD 6 PRN (Reason: pain) Qty: 20 0RF doxycycline hyclate 100 mg capsule 100 mg PO QDAY Qty: 20 0RF ibuprofen 800 mg tablet 800 mg PO Q8H PRN (Reason: pain) Qty: 30 0RF meloxicam 7.5 mg tablet 7.5 mg PO QDAY Qty: 10 0RF ondansetron 4 mg tablet,disintegrating 4 mg PO Q8H Qty: 10 0RF dicyclomine 20 mg tablet 20 mg PO BID Qty: 7 0RF famotidine [Pepcid] 20 mg tablet 20 mg PO QDAY PRN (Reason: pain (scale score 1-3)) Qty: 30 0RF metoclopramide HCl [Reglan] 10 mg tablet 10 mg PO Q6H PRN (Reason: nausea and vomiting) Qty: 30 0RF hydrocodone-acetaminophen 5-325 mg tablet 1 tab PO Q8H MDD 3 tab PRN (Reason: pain) Qty: 20 0RF Referrals: Celine Olsen PA-C [Primary Care Provider] - In 1 week Problem List Clinical Impression: URI (upper respiratory infection) Patient/Caregiver Discharge Instructions Education Materials: ED URI, Viral, No Abx (Adult) Additional Instructions: Please follow up with your primary care doctor in the next 24-48hrs for any worsening symptoms return here immediately Print Language: [place]se Stand Alone Forms: Shari Award Info., Patient Portal Info Letter PA/BLASTING CONTRACT MAN Supervising Physician PA/BLASTING CONTRACT MAN Supervising Physician: Dr. Hanley
== END 2025-09-30 15:12 | disposition home or self-care (01) ==
PROVIDERS: Emergency Provider Nurse Practitioner Primary Care; PCP Physician Assistant Medical
DX: J06.9 Acute upper respiratory infection, unspecified (principal)
CPT/HCPCS: 71046; 87502; 87635; 99283; A9270

== ENCOUNTER 2025-10-05 16:42 | Emergency (ER) | payer MEDICAID, SELFPAY ==
[2025-10-05 16:43] VITALS: BMI 35.0
[2025-10-05 17:15] VITALS: BP 128/88; PULSE 90; RESP 18; TEMP 36.9; O2SAT 99
--- NOTE | 2025-10-05 17:17 | XR_ITS ---
EXAMINATION: Ankle, right 3 views. Technique: Ankle AP, oblique, lateral 3 views Date and time of exam: October 05, 2025, 1944 hours INDICATIONS: Twisting injury with ankle pain beginning 2 days ago. FINDINGS: No fracture or dislocation No foreign body IMPRESSION: No fracture or dislocation
--- NOTE | 2025-10-05 17:18 | PD.EDRME ---
Rapid Medical Screening Exam E Arrival date/time: 10/05/25 16:42 45-year-old female with no known medical history presents to the emergency room with a chief complaint of right ankle tenderness swelling and limited range of motion after getting out of her car yesterday afternoon and twisting it I have greeted and performed a focused initial assessment of this patient. A comprehensive ED assessment and evaluation of the patient, analysis of all test results, and completion of the medical decision making process will be conducted by additional ED providers. Chief Complaint: Ankle/Foot Injury Vital signs: Vital Signs Temperature 98.5 F 10/05/25 17:15 Pulse Rate 90 10/05/25 17:15 Respiratory Rate 18 10/05/25 17:15 Blood Pressure 128/88 H 10/05/25 17:15 Pulse Oximetry (%) 99 10/05/25 17:15 Oxygen Delivery Method Room Air 10/05/25 17:15 Vital signs reviewed by provider: Yes Exam: Tenderness, swelling to the right ankle. GCS of 15 Clinical Impression: Ankle sprain/ankle fracture
[2025-10-05] MEDS: KETOROLAC INJ 60 MG/2 ML VIAL 30 MG IM (19:26)
[2025-10-05 20:38] VITALS: BP 143/98; PULSE 89; RESP 19; TEMP 37.1; O2SAT 99
--- NOTE | 2025-10-05 20:59 | PD.EDADULT ---
ED General RME/HPI General Chief complaint: Ankle/Foot Injury Stated complaint: RIGHT ANKLE INJURY 2 DAYS AGO Time Seen by Provider: 10/05/25 20:55 Arrival date/time: 10/05/25 16:42 CC: Right ankle and dorsum of foot pain HPI patient tripped when getting out of a car and fell, causing pain onset HPI approximately 3 days ago. Patient has had no OTC medicines stable to walk on it but is exquisitely tender. Patient denies bleeding rash abrasion. No other complaints from the fall. RME / HPI RME / HPI narrative: 10/05/25 16:42 45-year-old female with no known medical history presents to the emergency room with a chief complaint of right ankle tenderness swelling and limited range of motion after getting out of her car yesterday afternoon and twisting it I have greeted and performed a focused initial assessment of this patient. A comprehensive ED assessment and evaluation of the patient, analysis of all test results, and completion of the medical decision making process will be conducted by additional ED providers. Exam: Tenderness, swelling to the right ankle. GCS of 15 Impression: Ankle sprain/ankle fracture Related Data Home Medications ?Medication ?Instructions ?Recorded ?Confirmed aripiprazole 5 mg tablet 5 mg PO QDAY 09/30/23 09/30/23 atorvastatin 20 mg tablet 20 mg PO QPM 09/30/23 09/30/23 buspirone 15 mg tablet 15 mg PO TID 09/30/23 09/30/23 paroxetine HCl 40 mg tablet 40 mg PO QDAY 09/30/23 09/30/23 tiotropium bromide 2.5 2 puff inhalation DAILY 09/30/23 09/30/23 mcg/actuation mist for inhalation (Spiriva Respimat) Previous Rx's ?Medication ?Instructions ?Recorded tramadol 50 mg tablet 50 mg PO Q6H PRN pain #20 tabs 02/17/24 metoclopramide HCl 10 mg tablet 10 mg PO Q6H PRN abdominal pain 07/26/24 (Reglan) #14 tabs pantoprazole 40 mg tablet,delayed 40 mg PO QDAY #30 tabs 07/26/24 release (Protonix) acetaminophen 300 mg-codeine 30 mg 2 tab PO TID PRN pain #10 tabs 08/09/24 tablet acetaminophen 500 mg capsule 500 mg PO Q6H PRN pain #30 caps 10/01/24 cyclobenzaprine 10 mg tablet 10 mg PO TID PRN muscle spasm #10 10/01/24 tabs methylprednisolone 4 mg tablets in 4 mg PO QAM #21 tabs 11/13/24 a dose pack (Medrol (Kody)) zinc sulfate 50 mg zinc (220 mg) 220 mg (4.4 x 50 mg zinc (220 mg)) 11/13/24 capsule PO QDAY #30 caps ibuprofen 600 mg tablet 600 mg PO Q6H #30 tabs 12/06/24 amoxicillin 875 mg-potassium 1 tab PO BID #14 tabs 12/13/24 clavulanate 125 mg tablet ipratropium 0.5 mg-albuterol 3 mg 3 ml inhalation Q8H PRN shortness 12/18/24 (2.5 mg base)/3 mL nebulization of breath #90 mL soln prednisone 50 mg tablet 50 mg PO QDAY #7 tabs 12/18/24 acetaminophen 500 mg capsule 500 mg PO Q6H PRN pain #30 caps 01/12/25 albuterol sulfate 90 mcg/actuation 2 inh inhalation QID PRN shortness 02/12/25 aerosol inhaler of breath or wheezing #8.5 grams prednisone 50 mg tablet 50 mg PO QDAY #7 tabs 02/12/25 clindamycin HCl 300 mg capsule 300 mg PO Q6H #20 caps 03/26/25 acetaminophen 300 mg-codeine 30 mg 2 tab PO Q8H PRN pain #20 tabs 04/05/25 tablet prednisone 20 mg tablet See Taper PO QDAY allergic 05/02/25 reaction #21 tabs acetaminophen-caffeine 500 mg-65 1 tab PO Q8H PRN pain #30 tabs 05/27/25 mg tablet (Excedrin Tension Headache) doxycycline hyclate 100 mg capsule 100 mg PO QDAY #20 caps 06/01/25 ibuprofen 800 mg tablet 800 mg PO Q8H PRN pain #30 tabs 06/01/25 meloxicam 7.5 mg tablet 7.5 mg PO QDAY #10 tabs 07/10/25 dicyclomine 20 mg tablet 20 mg PO BID #7 tabs 08/10/25 ondansetron 4 mg disintegrating 4 mg PO Q8H #10 tabs 08/10/25 tablet famotidine 20 mg tablet (Pepcid) 20 mg PO QDAY PRN pain (scale 08/12/25 score 1-3) #30 tabs metoclopramide HCl 10 mg tablet 10 mg PO Q6H PRN nausea and 08/12/25 (Reglan) vomiting #30 tabs hydrocodone 5 mg-acetaminophen 325 1 tab PO BID PRN pain #6 tabs 08/15/25 mg tablet acetaminophen 500 mg tablet 500 mg PO Q6H PRN pain #20 tabs 08/16/25 (Tylenol Extra Strength) hydrocodone 5 mg-acetaminophen 325 1 tab PO Q8H PRN pain #20 tabs 08/21/25 mg tablet Ventolin HFA 90 mcg/actuation 2 puff inhalation Q6H PRN 09/30/25 aerosol inhaler (albuterol sulfate) shortness of breath or wheezing #18 grams benzonatate 100 mg capsule 100 mg PO TID #14 caps 09/30/25 Allergies Allergy/AdvReac Type Severity Reaction Status Date / Time cinnamon Allergy Severe Swelling Verified 10/05/25 16:45 of Lip/Tongue/Throat aspirin AdvReac Severe HAS ULCER Verified 10/05/25 16:45 Review of Systems Review of Systems Narrative Review of Systems: GEN: No fever, no chills, no weight loss EYES: No discharge, no visual changes, no pain HEENT: No ear pain, no congestion, no sore throat PULM: No shortness of breath, no cough, no congestion CV: No chest pain, no dyspnea on exertion, no palpitations GI: No nausea, no vomiting, no diarrhea, no pain, no constipation : No frequency, no urgency, no dysuria MUSC/SKEL: + joint pain, no back pain SKIN: No rash PSYCH: No hallucinations, no depression HEME/LYMPH: No easy bleeding or bruising tendencies NEURO: No weakness, no headache Past Medical History Past Medical History NEUROLOGIC: Positive Migraine; Negative Neurological Disorders or Seizures CARDIAC: Positive Hypercholesterolemia and Hypertension; Negative Cardiac Disorders, Congestive Heart Failure, Edema, Cellulitis or Varicose Veins RESPIRATORY: Positive Chronic Obstructive Pulmonary Disease (COPD) and Asthma; Negative Tuberculosis or Sleep Apnea GASTROINTESTINAL: Positive Gastrointestinal Disorders, Ulcer and Gastroesophageal Reflux Disease; Negative Hepatitis GENITOURINARY: Negative Genitourinary Disorders or Renal Disease REPRODUCTIVE: Positive Previous Pregnancies and Uterine Prolapse MUSCULOSKELETAL: Positive Musculoskeletal Disorders and Arthritis ENDOCRINE: Negative Endocrine Disorders, Diabetes Mellitus Type 1 or Diabetes Mellitus Type 2 HEMATOLOGIC: Negative Blood Disorders or Sickle Cell Disease PSYCHO/SOCIAL: Positive Bipolar Disorder, Depression, Anxiety and Post Traumatic Stress Disorder OTHER HISTORY: Positive Hospitalization, Autoimmune Disease, Chicken Pox and Cancer; Negative Shingles, Falls, Blood Transfusions, Blood Transfusion Reaction, Anesthesia Reactions, Chemotherapy, Radiation Therapy, MRSA, Measles or Mumps Family History FAMILY HISTORY: Positive Family Psychiatric Problems, Family Respiratory Disorders, Family Cardiac Disorders, Family Cancer, Family Surgery and Family Anesthesia Reaction; Negative Family Gastrointestinal Problems Surgical History SURGICAL: Positive Abdominal Surgery and Tubal Ligation; Negative Pacemaker Social History SMOKING STATUS: Current every day smoker SECOND HAND EXPOSURE: No SUBSTANCE USE: former substance user and methamphetamine (Former methamphetamine abuse, quit in 2018.) ED Exam Narrative Physical exam: [General: Obese not in any acute distress Head normocephalic HEENT: Within acceptable limits Neck is supple nontender Chest equal chest rise nontender to palpation Respiratory: Clear to auscultation no wheezes crackles or rubs CV: Rate rhythm is regular no murmurs rubs or clicks Abdomen is distended secondary to body habitus soft nontender no masses positive bowel sounds all 4 quadrants Back: No CVA tenderness no spinous process tenderness from cervical spine thoracic and lumbar spine Skin: Intact no petechiae rash induration ulceration or crepitus Extremities: Right ankle: The patient has mild tenderness to the medial malleolus and dorsum of the foot no significant edema no lateral malleolus Achilles tendon or calcaneal squeeze pain with palpation. Cap refill less than 2 seconds neurosensory intact. Moving all other extremities against resistance cap refill less than 2 seconds neurosensory intact Neuro: Awake alert oriented x3 Glascow coma 15 no focal deficits] Course Quality Measures none Orders Category Date Time Status Miscellaneous Nursing Order NOW Care 10/05/25 21:01 Active XR ankle comp RT min 3V Stat Exams 10/05/25 17:17 Completed Ketorolac Inj [Toradol Inj] Med 10/05/25 17:17 Discontinued 30 mg IM X1 ONE Vital Signs Vital signs: Vital Signs Temperature 98.5 F 10/05/25 17:15 Pulse Rate 90 10/05/25 17:15 Respiratory Rate 18 10/05/25 17:15 Blood Pressure 128/88 H 10/05/25 17:15 Pulse Oximetry (%) 99 10/05/25 17:15 Oxygen Delivery Method Room Air 10/05/25 17:15 Discharge Plan Plan Patient Disposition: HOME (Self Care) Patient condition on transfer: Stable Prescriptions/Referrals Prescriptions/Med Rec: No Action atorvastatin 20 mg Tablet 20 mg PO QPM paroxetine HCl 40 mg Tablet 40 mg PO QDAY buspirone 15 mg Tablet 15 mg PO TID aripiprazole 5 mg Tablet 5 mg PO QDAY Spiriva Respimat 2.5 mcg/actuation mist 2 puff INHALATION DAILY Patient Comments: INHALE 2 PUFFS INTO THE LUNGS EVERY DAY FOR 30 DAYS metoclopramide HCl [Reglan] 10 mg tablet 10 mg PO Q6H PRN (Reason: abdominal pain) Qty: 14 0RF pantoprazole [Protonix] 40 mg tablet,delayed release (DR/EC) 40 mg PO QDAY Qty: 30 0RF zinc sulfate 50 mg zinc (220 mg) Capsule 220 mg PO QDAY Qty: 30 0RF methylprednisolone [Medrol (Kody)] 4 mg tablets,dose pack 4 mg PO QAM Qty: 21 0RF ipratropium-albuterol 0.5 mg-3 mg(2.5 mg base)/3 mL solution for nebulization 3 ml inhalation Q8H PRN (Reason: shortness of breath) Qty: 90 0RF prednisone 50 mg tablet 50 mg PO QDAY Qty: 7 0RF acetaminophen 500 mg capsule 500 mg PO Q6H PRN (Reason: pain) Qty: 30 0RF prednisone 50 mg tablet 50 mg PO QDAY Qty: 7 0RF albuterol sulfate 90 mcg/actuation HFA aerosol inhaler 2 inh inhalation QID PRN (Reason: shortness of breath or wheezing) Qty: 8.5 0RF prednisone 20 mg tablet See Taper PO QDAY MDD 3 Qty: 21 0RF Taper: Prednisone Taper 20 mg DAILY for 2 Days and 0 Hour 10 mg DAILY for 2 Days and 0 Hour 5 mg DAILY for 7 Days and 0 Hour Rx Instructions: Take 4 Tabs q Day for 3 days then take 3 tabs q Day for 3 days then resume 40 mg daily Excedrin Tension Headache 500-65 mg tablet 1 tab PO Q8H PRN (Reason: pain) Qty: 30 0RF hydrocodone-acetaminophen 5-325 mg tablet 1 tab PO BID MDD 10 PRN (Reason: pain) Qty: 6 0RF acetaminophen [Tylenol Extra Strength] 500 mg tablet 500 mg PO Q6H PRN (Reason: pain) Qty: 20 0RF benzonatate 100 mg capsule 100 mg PO TID Qty: 14 0RF albuterol sulfate [Ventolin HFA] 90 mcg/actuation HFA aerosol inhaler 2 puff inhalation Q6H PRN (Reason: shortness of breath or wheezing) Qty: 18 0RF tramadol 50 mg tablet 50 mg PO Q6H PRN (Reason: pain) Qty: 20 0RF acetaminophen-codeine 300-30 mg tablet 2 tab PO TID MDD 6 PRN (Reason: pain) Qty: 10 0RF acetaminophen 500 mg capsule 500 mg PO Q6H PRN (Reason: pain) Qty: 30 0RF cyclobenzaprine 10 mg tablet 10 mg PO TID PRN (Reason: muscle spasm) Qty: 10 0RF ibuprofen 600 mg tablet 600 mg PO Q6H Qty: 30 0RF amoxicillin-pot clavulanate 875-125 mg tablet 1 tab PO BID Qty: 14 0RF clindamycin HCl 300 mg capsule 300 mg PO Q6H Qty: 20 0RF acetaminophen-codeine 300-30 mg tablet 2 tab PO Q8H MDD 6 PRN (Reason: pain) Qty: 20 0RF doxycycline hyclate 100 mg capsule 100 mg PO QDAY Qty: 20 0RF ibuprofen 800 mg tablet 800 mg PO Q8H PRN (Reason: pain) Qty: 30 0RF meloxicam 7.5 mg tablet 7.5 mg PO QDAY Qty: 10 0RF ondansetron 4 mg tablet,disintegrating 4 mg PO Q8H Qty: 10 0RF dicyclomine 20 mg tablet 20 mg PO BID Qty: 7 0RF famotidine [Pepcid] 20 mg tablet 20 mg PO QDAY PRN (Reason: pain (scale score 1-3)) Qty: 30 0RF metoclopramide HCl [Reglan] 10 mg tablet 10 mg PO Q6H PRN (Reason: nausea and vomiting) Qty: 30 0RF hydrocodone-acetaminophen 5-325 mg tablet 1 tab PO Q8H MDD 3 tab PRN (Reason: pain) Qty: 20 0RF Referrals: Celine Olsen PA-C [Primary Care Provider] - In 1 week Problem List Clinical Impression: Ankle contusion Patient/Caregiver Discharge Instructions Education Materials: ED Contusion, Lower Extremity Print Language: Icelandic Stand Alone Forms: Shari Award Info., Work/School Release, Patient Portal Info Letter KELSI Supervising Physician KELSI Supervising Physician: Trevor AUSTIN Clinical Information Provided by: patient Medical Records reviewed [facility] Meds/Rx considered, not ordered None Labs/Rad/Tests considered, not ordered None Chronic Illness/Social Conditions Explain: Obesity EKG EKG not done Labs Labs: none Imaging Imaging interpretation: interpreted by me Imaging Interpretation(s): X-ray of the ankle shows no acute fracture malalignment or dislocation Medication Administration(s) Medication Administration History Discontinued Medications Ketorolac Tromethamine (Ketorolac Inj 60 Mg/2 Ml Vial) 30 mg IM X1 ONE Stop: 10/05/25 17:18 Last Admin: 10/05/25 19:26 Dose: 30 mg Documented By: JOSE Diagnosis Differential Diagnosis ED Complaint MDM: Fracture dislocation strain
== END 2025-10-05 22:00 | disposition home or self-care (01) ==
PROVIDERS: Emergency Provider Emergency Medicine; PCP Physician Assistant Medical
DX: S90.01XA Contusion of right ankle, initial encounter (principal); V48.4XXA Person boarding or alighting a car injured in noncollision transport accident, initial encounter
CPT/HCPCS: 73610; 96372; 99283; J1885

== ENCOUNTER 2025-10-25 17:30 | Emergency (ER) | payer MEDICAID, SELFPAY ==
[2025-10-25 17:30] VITALS: BMI 34.5
--- NOTE | 2025-10-25 17:33 | EKG_ITS ---
[facility] [place] [facility] Test Date: 2025-10-25 Pat Name: CATHRYN VERDE Department: Room: - Gender: Female [employer] Director: : 1980 Requested By: Anay Allan Order Number: [id number] Reading MD: Anay Allan Measurements Intervals [place] Rate: 98 P: 57 OR: 130 QRS: 43 QRSD: 86 T: 60 QT: 335 QTc: 429 Interpretive Statements SINUS RHYTHM NONSPECIFIC T-WAVE ABNORMALITY Compared to ECG 08/10/2025 17:26:41 Sinus tachycardia no longer present T-wave abnormality still present /store/S0/[id number]
[2025-10-25 17:54] VITALS: BP 122/85; PULSE 94; RESP 20; TEMP 36.3; O2SAT 94
--- NOTE | 2025-10-25 18:55 | XR_ITS ---
EXAMINATION: PA chest single view TECHNIQUE: Upright PA chest single view Date and time: October 25, 2025, 1904 hours, comparison September 30, 2025 INDICATION: Chest pain today. FINDINGS: Normal heart size Lungs are clear. Again noted AC joint separation on the right IMPRESSION: No active disease
--- NOTE | 2025-10-25 18:56 | PD.EDRME ---
Rapid Medical Screening Exam RME Arrival date/time: 10/25/25 17:30 This is a case of 45-year-old female with no medical history came in in the emergency room due to chest pain and palpitation with some shortness of breath today worsening of the symptoms this patient decided to sought consult here in the emergency room Chief Complaint: Chest Pain Time Seen by Provider: 10/25/25 18:32 Vital signs: Vital Signs Temperature 97.4 F 10/25/25 17:54 Pulse Rate 94 10/25/25 17:54 Respiratory Rate 20 10/25/25 17:54 Blood Pressure 122/85 H 10/25/25 17:54 Pulse Oximetry (%) 94 L 10/25/25 17:54 Oxygen Delivery Method Room Air 10/25/25 17:54 Exam: Normal rate regular rhythm no murmur clear breath Clinical Impression: Chest pain
[2025-10-25 19:22] LABS: Collection Type, Urine Clean Catch
[2025-10-25 19:28] LABS: Bacteria,Urine Rare; Bilirubin,Urine Negative (Negative); Blood,Urine 1+ (Negative); Clarity,Urine Turbid (Clear/Hazy); Color,Urine Yellow (Lt Yel-Yel); Glucose, Urine Negative (Negative); Ketones,Urine Negative (Negative); Leukocyte Esterase,Urine Positive (Negative); Nitrite,Urine Negative (Negative); PH,Urine 5.5 (5.0-7.0); Protein,Urine Trace (Neg - Trace); RBC,Urine 16 /hpf (0-3); Specific Gravity,Urine 1.025 (1.001-1.035); Squamous Epithelial Cell,Urine 76 /hpf (0-5); Urobilinogen,Urine 2.0 mg/dL (0.0-1.0); WBC,Urine 61 /hpf (0-5)
[2025-10-25 19:29] LABS: HCG Qualitative,Urine Negative
[2025-10-25 19:39] VITALS: BP 112/87; PULSE 81; RESP 20; TEMP 36.6; O2SAT 94
[2025-10-25 19:46] VITALS: BP 112/87; PULSE 75; RESP 20; TEMP 36.7; O2SAT 95
[2025-10-25 20:02] LABS: Basophils # (Auto) 0.1 Thou/mm3 (0.0-0.2); Basophils % (Auto) 1 % (0-2.5); Eosinophils # (Auto) 0.2 Thou/mm3 (0.0-0.5); Eosinophils % (Auto) 1 % (0-10); Hematocrit 45.6 % (36.0-46.0); Hemoglobin 14.8 g/dL (12.0-16.0); Immature Granulocytes Auto 0.05 Thou/mm3 (0.00-0.00); Lymphocytes # (Auto) 3.3 Thou/mm3 (1.0-4.8); Lymphocytes % (Auto) 30 % (10-50); Mean Corpuscular HGB Conc 32.5 g/dl (31.0-37.0); Mean Corpuscular Hemoglobin 27.7 pg (25.0-35.0); Mean Corpuscular Volume 85 fL (80-100); Monocytes # (Auto) 0.7 Thou/mm3 (0.0-0.8); Monocytes % (Auto) 6 % (0-12); Neutrophils # (Auto) 6.9 Thou/mm3 (1.8-7.7); Neutrophils % (Auto) 61 % (37-80); Nucleated Red Blood Cell # 0.00 Thou/mm3 (0.00-0.00); Nucleated Red Blood Cell % 0 /100 WBC (0); Platelet Count 300 Thou/mm3 (140-440); RDW Standard Deviation 50.4 fL (36.4-46.3); Red Blood Count 5.35 Miln/mm3 (4.00-5.20); White Blood Count 11.2 Thou/mm3 (3.6-11.0)
--- NOTE | 2025-10-25 20:02 | PD.EDADULT ---
ED General RME/HPI General Chief complaint: Chest Pain Stated complaint: L CHEST PAIN RADIATING TO L SHOULDER X3 HRS Time Seen by Provider: 10/25/25 18:32 Arrival date/time: 10/25/25 17:30 CC: Chest pain HPI onset approximately 4.5 hours ago, patient stated abrupt onset. Initially 9 on a 10 scale currently 7.5 on a 10 scale. No prior history of similar events patient admits she smokes 1+ packs a day. Patient denies shortness of breath difficulty breathing nausea vomiting or headache. Pain described as burning and stabbing. Radiating up into the left anterior shoulder. RME / HPI RME / HPI narrative: 10/25/25 17:30 This is a case of 45-year-old female with no medical history came in in the emergency room due to chest pain and palpitation with some shortness of breath today worsening of the symptoms this patient decided to sought consult here in the emergency room Exam: Normal rate regular rhythm no murmur clear breath Impression: Chest pain Related Data Home Medications ?Medication ?Instructions ?Recorded ?Confirmed aripiprazole 5 mg tablet 5 mg PO QDAY 09/30/23 09/30/23 atorvastatin 20 mg tablet 20 mg PO QPM 09/30/23 09/30/23 buspirone 15 mg tablet 15 mg PO TID 09/30/23 09/30/23 paroxetine HCl 40 mg tablet 40 mg PO QDAY 09/30/23 09/30/23 tiotropium bromide 2.5 2 puff inhalation DAILY 09/30/23 09/30/23 mcg/actuation mist for inhalation (Spiriva Respimat) Previous Rx's ?Medication ?Instructions ?Recorded tramadol 50 mg tablet 50 mg PO Q6H PRN pain #20 tabs 02/17/24 metoclopramide HCl 10 mg tablet 10 mg PO Q6H PRN abdominal pain 07/26/24 (Reglan) #14 tabs pantoprazole 40 mg tablet,delayed 40 mg PO QDAY #30 tabs 07/26/24 release (Protonix) acetaminophen 300 mg-codeine 30 mg 2 tab PO TID PRN pain #10 tabs 08/09/24 tablet acetaminophen 500 mg capsule 500 mg PO Q6H PRN pain #30 caps 10/01/24 cyclobenzaprine 10 mg tablet 10 mg PO TID PRN muscle spasm #10 10/01/24 tabs methylprednisolone 4 mg tablets in 4 mg PO QAM #21 tabs 11/13/24 a dose pack (Medrol (Kody)) zinc sulfate 50 mg zinc (220 mg) 220 mg (4.4 x 50 mg zinc (220 mg)) 11/13/24 capsule PO QDAY #30 caps ibuprofen 600 mg tablet 600 mg PO Q6H #30 tabs 12/06/24 amoxicillin 875 mg-potassium 1 tab PO BID #14 tabs 12/13/24 clavulanate 125 mg tablet ipratropium 0.5 mg-albuterol 3 mg 3 ml inhalation Q8H PRN shortness 12/18/24 (2.5 mg base)/3 mL nebulization of breath #90 mL soln prednisone 50 mg tablet 50 mg PO QDAY #7 tabs 12/18/24 acetaminophen 500 mg capsule 500 mg PO Q6H PRN pain #30 caps 01/12/25 albuterol sulfate 90 mcg/actuation 2 inh inhalation QID PRN shortness 02/12/25 aerosol inhaler of breath or wheezing #8.5 grams prednisone 50 mg tablet 50 mg PO QDAY #7 tabs 02/12/25 clindamycin HCl 300 mg capsule 300 mg PO Q6H #20 caps 03/26/25 acetaminophen 300 mg-codeine 30 mg 2 tab PO Q8H PRN pain #20 tabs 04/05/25 tablet prednisone 20 mg tablet See Taper PO QDAY allergic 05/02/25 reaction #21 tabs acetaminophen-caffeine 500 mg-65 1 tab PO Q8H PRN pain #30 tabs 05/27/25 mg tablet (Excedrin Tension Headache) doxycycline hyclate 100 mg capsule 100 mg PO QDAY #20 caps 06/01/25 ibuprofen 800 mg tablet 800 mg PO Q8H PRN pain #30 tabs 06/01/25 meloxicam 7.5 mg tablet 7.5 mg PO QDAY #10 tabs 07/10/25 dicyclomine 20 mg tablet 20 mg PO BID #7 tabs 08/10/25 ondansetron 4 mg disintegrating 4 mg PO Q8H #10 tabs 08/10/25 tablet famotidine 20 mg tablet (Pepcid) 20 mg PO QDAY PRN pain (scale 08/12/25 score 1-3) #30 tabs metoclopramide HCl 10 mg tablet 10 mg PO Q6H PRN nausea and 08/12/25 (Reglan) vomiting #30 tabs hydrocodone 5 mg-acetaminophen 325 1 tab PO BID PRN pain #6 tabs 08/15/25 mg tablet acetaminophen 500 mg tablet 500 mg PO Q6H PRN pain #20 tabs 08/16/25 (Tylenol Extra Strength) hydrocodone 5 mg-acetaminophen 325 1 tab PO Q8H PRN pain #20 tabs 08/21/25 mg tablet Ventolin HFA 90 mcg/actuation 2 puff inhalation Q6H PRN 09/30/25 aerosol inhaler (albuterol sulfate) shortness of breath or wheezing #18 grams benzonatate 100 mg capsule 100 mg PO TID #14 caps 09/30/25 Allergies Allergy/AdvReac Type Severity Reaction Status Date / Time cinnamon Allergy Severe Swelling Verified 10/25/25 17:33 of Lip/Tongue/Throat aspirin AdvReac Severe HAS ULCER Verified 10/25/25 17:33 Review of Systems Review of Systems Narrative Review of Systems: GEN: No fever, no chills, no weight loss EYES: No discharge, no visual changes, no pain HEENT: No ear pain, no congestion, no sore throat PULM: No shortness of breath, no cough, no congestion CV: + chest pain, no dyspnea on exertion, no palpitations GI: No nausea, no vomiting, no diarrhea, no pain, no constipation : No frequency, no urgency, no dysuria MUSC/SKEL: No joint pain, no back pain SKIN: No rash PSYCH: No hallucinations, no depression HEME/LYMPH: No easy bleeding or bruising tendencies NEURO: No weakness, no headache Past Medical History Past Medical History NEUROLOGIC: Positive Migraine; Negative Neurological Disorders or Seizures CARDIAC: Positive Hypercholesterolemia and Hypertension; Negative Cardiac Disorders, Congestive Heart Failure, Edema, Cellulitis or Varicose Veins RESPIRATORY: Positive Chronic Obstructive Pulmonary Disease (COPD) and Asthma; Negative Tuberculosis or Sleep Apnea GASTROINTESTINAL: Positive Gastrointestinal Disorders, Ulcer and Gastroesophageal Reflux Disease; Negative Hepatitis GENITOURINARY: Negative Genitourinary Disorders or Renal Disease REPRODUCTIVE: Positive Previous Pregnancies and Uterine Prolapse MUSCULOSKELETAL: Positive Musculoskeletal Disorders and Arthritis ENDOCRINE: Negative Endocrine Disorders, Diabetes Mellitus Type 1 or Diabetes Mellitus Type 2 HEMATOLOGIC: Negative Blood Disorders or Sickle Cell Disease PSYCHO/SOCIAL: Positive Bipolar Disorder, Depression, Anxiety and Post Traumatic Stress Disorder OTHER HISTORY: Positive Hospitalization, Autoimmune Disease, Chicken Pox and Cancer; Negative Shingles, Falls, Blood Transfusions, Blood Transfusion Reaction, Anesthesia Reactions, Chemotherapy, Radiation Therapy, MRSA, Measles or Mumps Family History FAMILY HISTORY: Positive Family Psychiatric Problems, Family Respiratory Disorders, Family Cardiac Disorders, Family Cancer, Family Surgery and Family Anesthesia Reaction; Negative Family Gastrointestinal Problems Surgical History SURGICAL: Positive Abdominal Surgery and Tubal Ligation; Negative Pacemaker Social History SMOKING STATUS: Heavy (> 1 pack/day) SECOND HAND EXPOSURE: No SUBSTANCE USE: former substance user and methamphetamine (Former methamphetamine abuse, quit in 2018.) ED Exam Narrative Physical exam: [General: Obese not in any acute distress Head normocephalic HEENT: Eyes pupils are PERRLA EOMs are intact mouth teeth are absent, pink dry membranes, uvula is midline swallow symmetrical phonation is normal all the subsystems of HEENT are within acceptable limits Neck is supple nontender Chest equal chest rise nontender to palpation Respiratory: Clear to auscultation no wheezes crackles or rubs CV: Rate rhythm is regular no murmurs rubs or clicks Abdomen is distended secondary to body habitus soft nontender no masses positive bowel sounds all 4 quadrants Back: No CVA tenderness no spinous process tenderness from cervical spine thoracic and lumbar spine Skin: Intact no petechiae rash induration ulceration or crepitus Extremities: Moving all extremity against resistance cap refill less than 2 seconds neurosensory intact Neuro: Awake alert oriented x3 Glascow coma 15 no focal deficits] Course Quality Measures none Orders Category Date Time Status EKG (ED ONLY) *Do not use* NOW Care 10/25/25 17:33 Completed EKG (ED Only) Stat Exams 10/25/25 17:33 Draft XR chest 1V Stat Exams 10/25/25 18:55 Completed BNP [B-Type Natriuretic Peptide] Stat Lab 10/25/25 19:23 Completed CBC Stat Lab 10/25/25 19:23 Completed Comprehensive Metabolic Panel Stat Lab 10/25/25 19:23 Completed HCG Qualitative,Urine Stat Lab 10/25/25 19:09 Completed TSH [Thyroid Stimulating Hormone] Stat Lab 10/25/25 19:23 Completed Troponin I Stat Lab 10/25/25 19:23 Completed Urinalysis Stat Lab 10/25/25 19:09 Completed Vital Signs Vital signs: Vital Signs Temperature 97.4 F 10/25/25 17:54 Pulse Rate 94 10/25/25 17:54 Respiratory Rate 20 10/25/25 17:54 Blood Pressure 122/85 H 10/25/25 17:54 Pulse Oximetry (%) 94 L 10/25/25 17:54 Oxygen Delivery Method Room Air 10/25/25 17:54 Discharge Plan Plan Patient Disposition: HOME (Self Care) Patient condition on transfer: Stable Prescriptions/Referrals Prescriptions/Med Rec: No Action atorvastatin 20 mg Tablet 20 mg PO QPM paroxetine HCl 40 mg Tablet 40 mg PO QDAY buspirone 15 mg Tablet 15 mg PO TID aripiprazole 5 mg Tablet 5 mg PO QDAY Spiriva Respimat 2.5 mcg/actuation mist 2 puff INHALATION DAILY Patient Comments: INHALE 2 PUFFS INTO THE LUNGS EVERY DAY FOR 30 DAYS metoclopramide HCl [Reglan] 10 mg tablet 10 mg PO Q6H PRN (Reason: abdominal pain) Qty: 14 0RF pantoprazole [Protonix] 40 mg tablet,delayed release (DR/EC) 40 mg PO QDAY Qty: 30 0RF zinc sulfate 50 mg zinc (220 mg) Capsule 220 mg PO QDAY Qty: 30 0RF methylprednisolone [Medrol (Kody)] 4 mg tablets,dose pack 4 mg PO QAM Qty: 21 0RF ipratropium-albuterol 0.5 mg-3 mg(2.5 mg base)/3 mL solution for nebulization 3 ml inhalation Q8H PRN (Reason: shortness of breath) Qty: 90 0RF prednisone 50 mg tablet 50 mg PO QDAY Qty: 7 0RF acetaminophen 500 mg capsule 500 mg PO Q6H PRN (Reason: pain) Qty: 30 0RF prednisone 50 mg tablet 50 mg PO QDAY Qty: 7 0RF albuterol sulfate 90 mcg/actuation HFA aerosol inhaler 2 inh inhalation QID PRN (Reason: shortness of breath or wheezing) Qty: 8.5 0RF prednisone 20 mg tablet See Taper PO QDAY MDD 3 Qty: 21 0RF Taper: Prednisone Taper 20 mg DAILY for 2 Days and 0 Hour 10 mg DAILY for 2 Days and 0 Hour 5 mg DAILY for 7 Days and 0 Hour Rx Instructions: Take 4 Tabs q Day for 3 days then take 3 tabs q Day for 3 days then resume 40 mg daily Excedrin Tension Headache 500-65 mg tablet 1 tab PO Q8H PRN (Reason: pain) Qty: 30 0RF hydrocodone-acetaminophen 5-325 mg tablet 1 tab PO BID MDD 10 PRN (Reason: pain) Qty: 6 0RF acetaminophen [Tylenol Extra Strength] 500 mg tablet 500 mg PO Q6H PRN (Reason: pain) Qty: 20 0RF benzonatate 100 mg capsule 100 mg PO TID Qty: 14 0RF albuterol sulfate [Ventolin HFA] 90 mcg/actuation HFA aerosol inhaler 2 puff inhalation Q6H PRN (Reason: shortness of breath or wheezing) Qty: 18 0RF tramadol 50 mg tablet 50 mg PO Q6H PRN (Reason: pain) Qty: 20 0RF acetaminophen-codeine 300-30 mg tablet 2 tab PO TID MDD 6 PRN (Reason: pain) Qty: 10 0RF acetaminophen 500 mg capsule 500 mg PO Q6H PRN (Reason: pain) Qty: 30 0RF cyclobenzaprine 10 mg tablet 10 mg PO TID PRN (Reason: muscle spasm) Qty: 10 0RF ibuprofen 600 mg tablet 600 mg PO Q6H Qty: 30 0RF amoxicillin-pot clavulanate 875-125 mg tablet 1 tab PO BID Qty: 14 0RF clindamycin HCl 300 mg capsule 300 mg PO Q6H Qty: 20 0RF acetaminophen-codeine 300-30 mg tablet 2 tab PO Q8H MDD 6 PRN (Reason: pain) Qty: 20 0RF doxycycline hyclate 100 mg capsule 100 mg PO QDAY Qty: 20 0RF ibuprofen 800 mg tablet 800 mg PO Q8H PRN (Reason: pain) Qty: 30 0RF meloxicam 7.5 mg tablet 7.5 mg PO QDAY Qty: 10 0RF ondansetron 4 mg tablet,disintegrating 4 mg PO Q8H Qty: 10 0RF dicyclomine 20 mg tablet 20 mg PO BID Qty: 7 0RF famotidine [Pepcid] 20 mg tablet 20 mg PO QDAY PRN (Reason: pain (scale score 1-3)) Qty: 30 0RF metoclopramide HCl [Reglan] 10 mg tablet 10 mg PO Q6H PRN (Reason: nausea and vomiting) Qty: 30 0RF hydrocodone-acetaminophen 5-325 mg tablet 1 tab PO Q8H MDD 3 tab PRN (Reason: pain) Qty: 20 0RF Referrals: No Primary/Family,Physician [Primary Care Provider] - In 1 week Problem List Clinical Impression: Chest pain Patient/Caregiver Discharge Instructions Other Activity Instructions:: Based on the workup there is no involvement of your heart or your lungs. Please follow-up with your primary care doctor use Tylenol for pain. If there is a worsening of symptoms return to the emergency room for reevaluation. Try to cut back on your smoking. Education Materials: ED Chest Pain, Uncertain Cause Print Language: Hebrew Stand Alone Forms: [employer] [facility] Award Info., Work/School Release, Patient Portal Info Letter PA/BURTON Supervising Physician PA/BURTON Supervising Physician: Trevor AUSTIN Clinical Information Provided by: patient Medical Records reviewed [facility] Meds/Rx considered, not ordered None Labs/Rad/Tests considered, not ordered None Chronic Illness/Social Conditions which may negatively complicate care or outcome(s)-explain: None or not applicable Explain: Smoker EKG Interpretation EKG #1: EKG Interpretation: EKG performed at 1753 shows a ventricular rate of 98 MT interval 130 QRS of 86 QTc of 391 this is sinus rhythm Labs Labs: interpreted by tx Lab(s) Interpretation(s): CBC shows a mild leukocytosis of 11.2 no other anemia thrombocytopenia CMP shows no significant electrolyte imbalances renal impairment transaminitis or T. bili elevation Troponin and BNP are undetectable. TSH of 1.95 UA is turbid 1+ blood 16 RBCs 61 WBCs 76 epithelial cells bacteria is rare leukocyte esterase positive nitrite negative this is a contaminated catch. Imaging Imaging interpretation: interpreted by tx Imaging Interpretation(s): Chest x-ray shows no acute finding requires emergent or main intervention Medication Administration(s) none Diagnosis Differential Diagnosis ED Complaint MDM: ACS [place] pneumonia
[2025-10-25 20:39] LABS: Alanine Aminotransferase 12 U/L (10-49); Albumin, Serum 4.7 gm/dL (3.5-5.0); Albumin/Globulin Ratio 2.0 (1.2-2.2); Alkaline Phosphatase 114 U/L (46-116); Anion Gap 6 (7-16); Aspartate Amino Transferase 11 U/L (0-34); BUN/Creatinine Ratio 7 Ratio (12-20); Bilirubin,Total 0.3 mg/dL (0.3-1.2); Blood Urea Nitrogen 6 mg/dL (9-23); Calcium 9.6 mg/dL (8.3-10.6); Calcium (Corrected) 9.6 mg/dL (8.5-10.1); Carbon Dioxide 28.3 mMol/L (20.0-31.0); Chloride 107 mMol/L (98-107); Creatinine (Component) 0.9 mg/dL (0.6-1.3); Estimated Creatinine Clearance 91.7 mL/min (>60); Globulin 2.4 gm/dL (2.3-3.5); Glucose 82 mg/dL (74-106); Osmolality,Calculated 277 (275-295); Potassium 3.9 mMol/L (3.4-5.1); Sodium 141 mMol/L (136-145); Thyroid Stimulating Hormone 1.95 uIU/mL (0.55-4.78); Total Protein 7.1 gm/dL (5.7-8.2); Troponin I < 0.002 ng/mL (0.0-0.045); eGFR > 60 See Note
[2025-10-25 20:42] LABS: B-Type Natriuretic Peptide < 20 pg/mL (0-100)
== END 2025-10-25 21:08 | disposition home or self-care (01) ==
PROVIDERS: Nurse Practitioner Family; Emergency Provider Emergency Medicine
DX: R07.89 Other chest pain (principal); R94.31 Abnormal electrocardiogram [ECG] [EKG]
CPT/HCPCS: 36415; 71045; 80053; 81001; 81025; 83880; 84443; 84484; 85025; 93005; 99283

== ENCOUNTER 2025-11-14 10:15 | Emergency (ER) | payer MEDICAID, SELFPAY ==
[2025-11-14 10:30] VITALS: BP 121/84; PULSE 91; RESP 23; TEMP 36.7; O2SAT 95; BMI 34.5
--- NOTE | 2025-11-14 10:30 | PD.ASTHM ---
ED Asthma RME/HPI General Chief Complaint: Shortness of Breath/Dyspnea Stated Complaint: SOB X 2 weeks Time Seen by Provider: 11/14/25 10:30 Arrival date/time: 11/14/25 10:15 RME / HPI RME / HPI Narrative: See [facility] for Dr. Martel's HPI Documentation. Related Data Home Medications ?Medication ?Instructions ?Recorded ?Confirmed aripiprazole 5 mg tablet 5 mg PO QDAY 09/30/23 09/30/23 atorvastatin 20 mg tablet 20 mg PO QPM 09/30/23 09/30/23 buspirone 15 mg tablet 15 mg PO TID 09/30/23 09/30/23 paroxetine HCl 40 mg tablet 40 mg PO QDAY 09/30/23 09/30/23 tiotropium bromide 2.5 2 puff inhalation DAILY 09/30/23 09/30/23 mcg/actuation mist for inhalation (Spiriva Respimat) Previous Rx's ?Medication ?Instructions ?Recorded tramadol 50 mg tablet 50 mg PO Q6H PRN pain #20 tabs 02/17/24 metoclopramide HCl 10 mg tablet 10 mg PO Q6H PRN abdominal pain 07/26/24 (Reglan) #14 tabs pantoprazole 40 mg tablet,delayed 40 mg PO QDAY #30 tabs 07/26/24 release (Protonix) acetaminophen 300 mg-codeine 30 mg 2 tab PO TID PRN pain #10 tabs 08/09/24 tablet acetaminophen 500 mg capsule 500 mg PO Q6H PRN pain #30 caps 10/01/24 cyclobenzaprine 10 mg tablet 10 mg PO TID PRN muscle spasm #10 10/01/24 tabs methylprednisolone 4 mg tablets in 4 mg PO QAM #21 tabs 11/13/24 a dose pack (Medrol (Gia)) zinc sulfate 50 mg zinc (220 mg) 220 mg (4.4 x 50 mg zinc (220 mg)) 11/13/24 capsule PO QDAY #30 caps ibuprofen 600 mg tablet 600 mg PO Q6H #30 tabs 12/06/24 amoxicillin 875 mg-potassium 1 tab PO BID #14 tabs 12/13/24 clavulanate 125 mg tablet ipratropium 0.5 mg-albuterol 3 mg 3 ml inhalation Q8H PRN shortness 12/18/24 (2.5 mg base)/3 mL nebulization of breath #90 mL soln prednisone 50 mg tablet 50 mg PO QDAY #7 tabs 12/18/24 acetaminophen 500 mg capsule 500 mg PO Q6H PRN pain #30 caps 01/12/25 albuterol sulfate 90 mcg/actuation 2 inh inhalation QID PRN shortness 02/12/25 aerosol inhaler of breath or wheezing #8.5 grams prednisone 50 mg tablet 50 mg PO QDAY #7 tabs 02/12/25 clindamycin HCl 300 mg capsule 300 mg PO Q6H #20 caps 03/26/25 acetaminophen 300 mg-codeine 30 mg 2 tab PO Q8H PRN pain #20 tabs 04/05/25 tablet prednisone 20 mg tablet See Taper PO QDAY allergic 05/02/25 reaction #21 tabs acetaminophen-caffeine 500 mg-65 1 tab PO Q8H PRN pain #30 tabs 05/27/25 mg tablet (Excedrin Tension Headache) doxycycline hyclate 100 mg capsule 100 mg PO QDAY #20 caps 06/01/25 ibuprofen 800 mg tablet 800 mg PO Q8H PRN pain #30 tabs 06/01/25 meloxicam 7.5 mg tablet 7.5 mg PO QDAY #10 tabs 07/10/25 dicyclomine 20 mg tablet 20 mg PO BID #7 tabs 08/10/25 ondansetron 4 mg disintegrating 4 mg PO Q8H #10 tabs 08/10/25 tablet famotidine 20 mg tablet (Pepcid) 20 mg PO QDAY PRN pain (scale 08/12/25 score 1-3) #30 tabs metoclopramide HCl 10 mg tablet 10 mg PO Q6H PRN nausea and 08/12/25 (Reglan) vomiting #30 tabs hydrocodone 5 mg-acetaminophen 325 1 tab PO BID PRN pain #6 tabs 08/15/25 mg tablet acetaminophen 500 mg tablet 500 mg PO Q6H PRN pain #20 tabs 08/16/25 (Tylenol Extra Strength) hydrocodone 5 mg-acetaminophen 325 1 tab PO Q8H PRN pain #20 tabs 08/21/25 mg tablet Ventolin HFA 90 mcg/actuation 2 puff inhalation Q6H PRN 09/30/25 aerosol inhaler (albuterol sulfate) shortness of breath or wheezing #18 grams benzonatate 100 mg capsule 100 mg PO TID #14 caps 09/30/25 acetaminophen 300 mg-codeine 30 mg 2 tab PO Q8H PRN pain #20 tabs 11/14/25 tablet azithromycin 500 mg tablet 500 mg PO QDAY 3 days #3 tabs 11/14/25 (Zithromax TRI-GIA) Allergies Allergy/AdvReac Type Severity Reaction Status Date / Time cinnamon Allergy Severe Swelling Verified 11/14/25 10:19 of Lip/Tongue/Throat aspirin AdvReac Severe HAS ULCER Verified 11/14/25 10:19 Review of Systems Review of Systems Systems Reviewed: All systems reviewed, normal except as documented Past Medical History Past Medical History NEUROLOGIC: Positive Migraine CARDIAC: Positive Hypercholesterolemia and Hypertension RESPIRATORY: Positive Chronic Obstructive Pulmonary Disease (COPD) and Asthma GASTROINTESTINAL: Positive Gastrointestinal Disorders, Ulcer and Gastroesophageal Reflux Disease REPRODUCTIVE: Positive Previous Pregnancies and Uterine Prolapse MUSCULOSKELETAL: Positive Musculoskeletal Disorders and Arthritis PSYCHO/SOCIAL: Positive Bipolar Disorder, Depression, Anxiety and Post Traumatic Stress Disorder OTHER HISTORY: Positive Hospitalization, Autoimmune Disease, Chicken Pox and Cancer Family History FAMILY HISTORY: Positive Family Psychiatric Problems, Family Respiratory Disorders, Family Cardiac Disorders, Family Cancer, Family Surgery and Family Anesthesia Reaction Surgical History SURGICAL: Positive Abdominal Surgery and Tubal Ligation Social History SMOKING STATUS: Current every day smoker SUBSTANCE USE: former substance user and methamphetamine (Former methamphetamine abuse, quit in 2018.) ED Exam Narrative Physical exam: See [facility] for Dr. Martel's Physical Exam Documentation. Course Quality Measures none Asthma [facility] Narrative [facility] Narrative:: This section includes all my notes and documentations, including HPI, PE, and ED course. Medhat Martel MD HPI: 45 y/o female with Hx of Asthma and COPD presents with a couple week history of worsening cough, productive cough, purulent sputum, and dyspnea. Continues to smoke. No other complaints. ROS: All negative except as documented in HPI. Physical Exam: General: Alert and oriented. In mild respiratory distress. Eyes: Conjunctivae and lids clear. ENT: No nasal congestion. Pharynx normal. TM normal bilaterally. Neck: Supple. Heart: RRR. Lungs: In mild respiratory distress. Severely decreased air movement with diffuse rhonchi. Abdomen: Soft and nontender. Skin: Warm and dry. Neuro: Alert and oriented X 3. I reviewed all diagnostic test results: My interpretation of the chest x-ray is NAD. Covid/Influenza negative. At this point, diagnoses include: COPD exacerbation Treatment here included: Prednisone 80 mg PO Benadryl 50 mg P0 DuoNeb Xopenex 7.5 mg neb treatment Zithromax 500 mg PO Significant improvement noted. Recommended a trial of outpatient treatment. Based on my best medical judgment, made decision no further evaluation or treatment indicated at this time. Patient understands and agrees to the discharge instructions customized and printed, see below. Discharge instructions from Dr. Martel: --You were treated for COPD flareup. -- No physical exertion for 3 days to help rest the lungs. -- No smoking or exposure to smoking or pets or dust or cold or humidity. -- Zithromax to kill the germs causing the respiratory infection. -- Prednisone to help decrease the swelling in the airways. -- Neb treatment at home every 4-6 hours for 3 days SCHEDULED to help keep the airways open. Then as needed for cough or shortness of breath. -- See a private doctor next week for recheck, if not completely better. -- Seek immediate medical care with worsening or with any concerns. Medhat Martel MD Patient data External records reviewed:: [facility] previous records (Reviewed prior ED records from 10/25/25. Patient was seen for Chest pain.) Clinical information provided by:: patient Social determinants that could affect healthcare access:: mental health (Bipolar Disorder, Depression, Anxiety, and Post Traumatic Stress Disorder) Patient has the following chronic illnesses:: Hypercholesterolemia, Hypertension, Chronic Obstructive Pulmonary Disease (COPD),Asthma, Ulcer, Gastroesophageal Reflux Disease, Uterine Prolapse, Arthritis, Bipolar Disorder, Depression, Anxiety, and Post Traumatic Stress Disorder How is presenting disease/condition affected by chronic disease/condition?: exacerbated by Evaluation data The following diagnostics were reviewed and interpreted by me:: lab results and radiology exam(s) Lab and/or radiology exams considered but not ordered:: None Interpretation Summary: I reviewed all diagnostic test results: My interpretation of the chest x-ray is NAD. Covid/Influenza negative. Medications / Prescriptions Medications or Prescriptions considered but not ordered:: None Medication administrations:: Treatment here included: Prednisone 80 mg PO Benadryl 50 mg P0 DuoNeb Xopenex 7.5 mg neb treatment Zithromax 500 mg PO Consultations Consultation(s) initiated? (list below): No Diagnosis Differential diagnosis asthma: Acute exacerbation, Status asthmaticus, Acute asthmatic bronchitis, Pneumonia, COPD exacerbation, Pulmonary edema systolic, Pulmonary edema dystolic and ARDS Most likely diagnosis given after review of the tests above:: COPD exacerbation Admission Indicated Admission indicated?: not indicated Explain why admission is indicated or not indicated:: With significant improvement and no condition needing emergent intervention, there was no indication for admission. Admission Request Was there a request for admission?: No Disposition Plan Disposition Plan: Discharge Discharge Attestation Discharge Attestation: The patient and all family members were given an opportunity to ask questions and understood the discharge instructions. Discharge instructions specifically effects, indications for sooner follow up or return to the emergency department, and the expected course of current diagnosis. Patient condition: Stable Discharge Plan Plan Patient Disposition: HOME (Self Care) Prescriptions/Referrals Prescriptions/Med Rec: New azithromycin [Zithromax TRI-GIA] 500 mg tablet 500 mg PO QDAY 3 Days Qty: 3 0RF acetaminophen-codeine 300-30 mg tablet 2 tab PO Q8H MDD 6 PRN (Reason: pain) Qty: 20 0RF No Action atorvastatin 20 mg Tablet 20 mg PO QPM paroxetine HCl 40 mg Tablet 40 mg PO QDAY buspirone 15 mg Tablet 15 mg PO TID aripiprazole 5 mg Tablet 5 mg PO QDAY Spiriva Respimat 2.5 mcg/actuation mist 2 puff INHALATION DAILY Patient Comments: INHALE 2 PUFFS INTO THE LUNGS EVERY DAY FOR 30 DAYS metoclopramide HCl [Reglan] 10 mg tablet 10 mg PO Q6H PRN (Reason: abdominal pain) Qty: 14 0RF pantoprazole [Protonix] 40 mg tablet,delayed release (DR/EC) 40 mg PO QDAY Qty: 30 0RF zinc sulfate 50 mg zinc (220 mg) Capsule 220 mg PO QDAY Qty: 30 0RF methylprednisolone [Medrol (Gia)] 4 mg tablets,dose pack 4 mg PO QAM Qty: 21 0RF ipratropium-albuterol 0.5 mg-3 mg(2.5 mg base)/3 mL solution for nebulization 3 ml inhalation Q8H PRN (Reason: shortness of breath) Qty: 90 0RF prednisone 50 mg tablet 50 mg PO QDAY Qty: 7 0RF acetaminophen 500 mg capsule 500 mg PO Q6H PRN (Reason: pain) Qty: 30 0RF prednisone 50 mg tablet 50 mg PO QDAY Qty: 7 0RF albuterol sulfate 90 mcg/actuation HFA aerosol inhaler 2 inh inhalation QID PRN (Reason: shortness of breath or wheezing) Qty: 8.5 0RF prednisone 20 mg tablet See Taper PO QDAY MDD 3 Qty: 21 0RF Taper: Prednisone Taper 20 mg DAILY for 2 Days and 0 Hour 10 mg DAILY for 2 Days and 0 Hour 5 mg DAILY for 7 Days and 0 Hour Rx Instructions: Take 4 Tabs q Day for 3 days then take 3 tabs q Day for 3 days then resume 40 mg daily Excedrin Tension Headache 500-65 mg tablet 1 tab PO Q8H PRN (Reason: pain) Qty: 30 0RF hydrocodone-acetaminophen 5-325 mg tablet 1 tab PO BID MDD 10 PRN (Reason: pain) Qty: 6 0RF acetaminophen [Tylenol Extra Strength] 500 mg tablet 500 mg PO Q6H PRN (Reason: pain) Qty: 20 0RF benzonatate 100 mg capsule 100 mg PO TID Qty: 14 0RF albuterol sulfate [Ventolin HFA] 90 mcg/actuation HFA aerosol inhaler 2 puff inhalation Q6H PRN (Reason: shortness of breath or wheezing) Qty: 18 0RF tramadol 50 mg tablet 50 mg PO Q6H PRN (Reason: pain) Qty: 20 0RF acetaminophen-codeine 300-30 mg tablet 2 tab PO TID MDD 6 PRN (Reason: pain) Qty: 10 0RF acetaminophen 500 mg capsule 500 mg PO Q6H PRN (Reason: pain) Qty: 30 0RF cyclobenzaprine 10 mg tablet 10 mg PO TID PRN (Reason: muscle spasm) Qty: 10 0RF ibuprofen 600 mg tablet 600 mg PO Q6H Qty: 30 0RF amoxicillin-pot clavulanate 875-125 mg tablet 1 tab PO BID Qty: 14 0RF clindamycin HCl 300 mg capsule 300 mg PO Q6H Qty: 20 0RF acetaminophen-codeine 300-30 mg tablet 2 tab PO Q8H MDD 6 PRN (Reason: pain) Qty: 20 0RF doxycycline hyclate 100 mg capsule 100 mg PO QDAY Qty: 20 0RF ibuprofen 800 mg tablet 800 mg PO Q8H PRN (Reason: pain) Qty: 30 0RF meloxicam 7.5 mg tablet 7.5 mg PO QDAY Qty: 10 0RF ondansetron 4 mg tablet,disintegrating 4 mg PO Q8H Qty: 10 0RF dicyclomine 20 mg tablet 20 mg PO BID Qty: 7 0RF famotidine [Pepcid] 20 mg tablet 20 mg PO QDAY PRN (Reason: pain (scale score 1-3)) Qty: 30 0RF metoclopramide HCl [Reglan] 10 mg tablet 10 mg PO Q6H PRN (Reason: nausea and vomiting) Qty: 30 0RF hydrocodone-acetaminophen 5-325 mg tablet 1 tab PO Q8H MDD 3 tab PRN (Reason: pain) Qty: 20 0RF Problem List Clinical Impression: COPD (chronic obstructive pulmonary disease) Patient/Caregiver Discharge Instructions Discharge Activity: activity as tolerated Education Materials: ED COPD Flare Additional Instructions: Discharge instructions from Dr. Martel: --You were treated for COPD flareup. -- No physical exertion for 3 days to help rest the lungs. -- No smoking or exposure to smoking or pets or dust or cold or humidity. -- Zithromax to kill the germs causing the respiratory infection. -- Prednisone to help decrease the swelling in the airways. -- Neb treatment at home every 4-6 hours for 3 days SCHEDULED to help keep the airways open. Then as needed for cough or shortness of breath. -- See a private doctor next week for recheck, if not completely better. -- Seek immediate medical care with worsening or with any concerns. Print Language: Jordanian Stand Alone Forms: [facility] Award Info., Patient Portal Info Letter
--- NOTE | 2025-11-14 10:32 | XR_ITS ---
EXAMINATION: PA chest single view TECHNIQUE: Upright PA chest single view Date and time: November 14, 2025, 10:33 a.m. INDICATIONS: Shortness of breath beginning 2 weeks ago. FINDINGS: Normal heart size Mild hyperexpansion. No lobar pneumonia or pulmonary edema. Mild osteopenia IMPRESSION: Mild hyperexpansion
[2025-11-14] MEDS: ALBUTEROL/IPRATROPIUM (Duoneb) RT SOL 3 ML NEBU INH (10:46)
[2025-11-14 10:47] VITALS: PULSE 83; RESP 18; O2SAT 96
[2025-11-14] MEDS: LEVALBUTEROL RT 1.25 MG/0.5 ML NEBU 7.5 MG INH (10:51)
[2025-11-14] MEDS: AZITHROMYCIN 250 MG TABLET 500 MG PO (11:54)
== END 2025-11-14 11:57 | disposition home or self-care (01) ==
LOC: SERX 12:01
PROVIDERS: Emergency Provider Emergency Medicine; PCP Physician Assistant Medical
DX: J44.1 Chronic obstructive pulmonary disease with (acute) exacerbation (principal); F17.210 Nicotine dependence, cigarettes, uncomplicated; Z79.52 Long term (current) use of systemic steroids; Z11.52 Encounter for screening for COVID-19
CPT/HCPCS: 71045; 87502; 87635; 94640; 94644; 99283; A9270; J7512

== ENCOUNTER 2025-11-22 09:26 | Emergency (ER) | payer MEDICAID, SELFPAY ==
[2025-11-22 10:35] VITALS: BP 139/95; PULSE 95; RESP 17; TEMP 36.6; O2SAT 96; BMI 34.5
[2025-11-22] MEDS: ONDANSETRON ODT 4 MG TABRAP PO (11:37)
[2025-11-22] MEDS: ACETAMINOPHEN 500 MG TABLET 1000 MG PO (11:37)
[2025-11-22] MEDS: KETOROLAC INJ 60 MG/2 ML VIAL IM (11:40)
--- NOTE | 2025-11-22 14:53 | PD.EDHA ---
ED Headache RME/HPI General Chief Complaint: Headache Stated Complaint: Migraine x 2days Time Seen by Provider: 11/22/25 10:03 Arrival date/time: 11/22/25 09:26 This is a 45-year-old female that comes into the emergency room with complaints of migraine headache. Patient states this feels like her typical migraine. Complains of pain to the left temporal occipital region. Patient denies any dizziness, diplopia, focal weakness, numbness or tingling. Patient states that she took her migraine medication but does not remember which one it is I mentioned a couple when she does not remember the name of the medication. Patient states that she has a history of bipolar disorder, depression,. Hyperlipidemia. Related Data Home Medications ?Medication ?Instructions ?Recorded ?Confirmed aripiprazole 5 mg tablet 5 mg PO QDAY 09/30/23 09/30/23 atorvastatin 20 mg tablet 20 mg PO QPM 09/30/23 09/30/23 buspirone 15 mg tablet 15 mg PO TID 09/30/23 09/30/23 paroxetine HCl 40 mg tablet 40 mg PO QDAY 09/30/23 09/30/23 tiotropium bromide 2.5 2 puff inhalation DAILY 09/30/23 09/30/23 mcg/actuation mist for inhalation (Spiriva Respimat) Previous Rx's ?Medication ?Instructions ?Recorded tramadol 50 mg tablet 50 mg PO Q6H PRN pain #20 tabs 02/17/24 metoclopramide HCl 10 mg tablet 10 mg PO Q6H PRN abdominal pain 07/26/24 (Reglan) #14 tabs pantoprazole 40 mg tablet,delayed 40 mg PO QDAY #30 tabs 07/26/24 release (Protonix) acetaminophen 300 mg-codeine 30 mg 2 tab PO TID PRN pain #10 tabs 08/09/24 tablet acetaminophen 500 mg capsule 500 mg PO Q6H PRN pain #30 caps 10/01/24 cyclobenzaprine 10 mg tablet 10 mg PO TID PRN muscle spasm #10 10/01/24 tabs methylprednisolone 4 mg tablets in 4 mg PO QAM #21 tabs 11/13/24 a dose pack (Medrol (Kody)) zinc sulfate 50 mg zinc (220 mg) 220 mg (4.4 x 50 mg zinc (220 mg)) 11/13/24 capsule PO QDAY #30 caps ibuprofen 600 mg tablet 600 mg PO Q6H #30 tabs 12/06/24 amoxicillin 875 mg-potassium 1 tab PO BID #14 tabs 12/13/24 clavulanate 125 mg tablet ipratropium 0.5 mg-albuterol 3 mg 3 ml inhalation Q8H PRN shortness 12/18/24 (2.5 mg base)/3 mL nebulization of breath #90 mL soln prednisone 50 mg tablet 50 mg PO QDAY #7 tabs 12/18/24 acetaminophen 500 mg capsule 500 mg PO Q6H PRN pain #30 caps 01/12/25 albuterol sulfate 90 mcg/actuation 2 inh inhalation QID PRN shortness 02/12/25 aerosol inhaler of breath or wheezing #8.5 grams prednisone 50 mg tablet 50 mg PO QDAY #7 tabs 02/12/25 clindamycin HCl 300 mg capsule 300 mg PO Q6H #20 caps 03/26/25 acetaminophen 300 mg-codeine 30 mg 2 tab PO Q8H PRN pain #20 tabs 04/05/25 tablet prednisone 20 mg tablet See Taper PO QDAY allergic 05/02/25 reaction #21 tabs acetaminophen-caffeine 500 mg-65 1 tab PO Q8H PRN pain #30 tabs 05/27/25 mg tablet (Excedrin Tension Headache) doxycycline hyclate 100 mg capsule 100 mg PO QDAY #20 caps 06/01/25 ibuprofen 800 mg tablet 800 mg PO Q8H PRN pain #30 tabs 06/01/25 meloxicam 7.5 mg tablet 7.5 mg PO QDAY #10 tabs 07/10/25 dicyclomine 20 mg tablet 20 mg PO BID #7 tabs 08/10/25 ondansetron 4 mg disintegrating 4 mg PO Q8H #10 tabs 08/10/25 tablet famotidine 20 mg tablet (Pepcid) 20 mg PO QDAY PRN pain (scale 08/12/25 score 1-3) #30 tabs metoclopramide HCl 10 mg tablet 10 mg PO Q6H PRN nausea and 08/12/25 (Reglan) vomiting #30 tabs hydrocodone 5 mg-acetaminophen 325 1 tab PO BID PRN pain #6 tabs 08/15/25 mg tablet acetaminophen 500 mg tablet 500 mg PO Q6H PRN pain #20 tabs 08/16/25 (Tylenol Extra Strength) hydrocodone 5 mg-acetaminophen 325 1 tab PO Q8H PRN pain #20 tabs 08/21/25 mg tablet Ventolin HFA 90 mcg/actuation 2 puff inhalation Q6H PRN 09/30/25 aerosol inhaler (albuterol sulfate) shortness of breath or wheezing #18 grams benzonatate 100 mg capsule 100 mg PO TID #14 caps 09/30/25 acetaminophen 300 mg-codeine 30 mg 2 tab PO Q8H PRN pain #20 tabs 11/14/25 tablet Allergies Allergy/AdvReac Type Severity Reaction Status Date / Time cinnamon Allergy Severe Swelling Verified 11/22/25 09:30 of Lip/Tongue/Throat aspirin AdvReac Severe HAS ULCER Verified 11/22/25 09:30 Review of Systems Review of Systems Systems Reviewed: All systems reviewed, normal except as documented Past Medical History Past Medical History NEUROLOGIC: Positive Migraine CARDIAC: Positive Hypercholesterolemia and Hypertension RESPIRATORY: Positive Chronic Obstructive Pulmonary Disease (COPD) and Asthma GASTROINTESTINAL: Positive Gastrointestinal Disorders, Ulcer and Gastroesophageal Reflux Disease REPRODUCTIVE: Positive Previous Pregnancies and Uterine Prolapse MUSCULOSKELETAL: Positive Musculoskeletal Disorders and Arthritis PSYCHO/SOCIAL: Positive Bipolar Disorder, Depression, Anxiety and Post Traumatic Stress Disorder OTHER HISTORY: Positive Hospitalization, Autoimmune Disease, Chicken Pox and Cancer Family History FAMILY HISTORY: Positive Family Psychiatric Problems, Family Respiratory Disorders, Family Cardiac Disorders, Family Cancer, Family Surgery and Family Anesthesia Reaction Surgical History SURGICAL: Positive Abdominal Surgery and Tubal Ligation Social History SMOKING STATUS: Current every day smoker SUBSTANCE USE: former substance user and methamphetamine (Former methamphetamine abuse, quit in 2018.) ED Exam Narrative Physical exam: VITAL SIGNS: Reviewed. GENERAL APPEARANCE: Alert and interactive, follows commands, no acute distress, HEAD AND FACE: Non-traumatic. ENT: PERRL, conjuctiva pink and clear, eyelid no trauma, Mucous membrane moist. NECK: Supple, nontender, no nuchal rigidity. CHEST: No tenderness, no crepitus, no paradoxical movement, no retractions. LUNGS: Clear, well ventilated, symmetric, no rales, no wheezing, no rhonchi, no stridor, good breath sounds bilaterally. HEART: Regular rate, regular rhythm, no murmur, no gallops. ABDOMEN: Soft, nondistended, no pain to light palpation NEUROLOGICAL: Gross motor function intact sensory function intact, Appropriate for age. MUSCULOSKELETAL: low back nontender, full range of motion. EXTREMITIES: No redness no swelling no skin breakdown on bilateral foot and leg. Distal neurovascular status intact bilateral foot SKIN: Color pink, dry Course Quality Measures none Orders Category Date Time Status Acetaminophen Tab [Tylenol ES Tab] Med 11/22/25 10:51 Discontinued 1,000 mg PO X1 ONE DiphenhydrAMINE INJ [Benadryl Inj] Med 11/22/25 10:51 Discontinued 25 mg IM X1 ONE Ketorolac Inj [Toradol Inj] Med 11/22/25 10:51 Discontinued 60 mg IM X1 ONE Ondansetron Odt [Zofran Odt] Med 11/22/25 10:51 Discontinued 4 mg PO X1 ONE Vital Signs Vital signs: Vital Signs Temperature 97.9 F 11/22/25 10:35 Pulse Rate 95 11/22/25 10:35 Respiratory Rate 17 11/22/25 10:35 Blood Pressure 139/95 H 11/22/25 10:35 Pulse Oximetry (%) 96 11/22/25 10:35 Oxygen Delivery Method Room Air 11/22/25 10:35 Headache MDM Narrative MDM Narrative:: Patient given Tylenol, Toradol, Benadryl and Zofran. Patient has been outside smoking. Patient feels better with medication. Patient told to come back to the emergency room if symptoms change or worsen. Follow-up with primary provider in 1 to 2 days. Dragon dictation: Although this document has been carefully reviewed, there may still be some phonetic and other typographical errors. These errors are purely grammatical due to imperfections in the software program and should not be construed in any way to compromise the substance of the patient's medical care during this visit. Patient data External records reviewed:: [facility] previous records Clinical information provided by:: patient Social determinants that could affect healthcare access:: none Patient has the following chronic illnesses:: None How is presenting disease/condition affected by chronic disease/condition?: no chronic disease Evaluation data The following diagnostics were reviewed and interpreted by me:: other (specify) Lab and/or radiology exams considered but not ordered:: CT of head Interpretation Summary: see note Medications / Prescriptions Medications or Prescriptions considered but not ordered:: See note Medication administrations:: Medication Administration History Discontinued Medications Acetaminophen (Acetaminophen 500 Mg Tablet) 1,000 mg PO X1 ONE Stop: 11/22/25 10:52 Last Admin: 11/22/25 11:37 Dose: 1,000 mg Documented By: Diphenhydramine HCl (Diphenhydramine Inj 50 Mg/Ml Vial) 25 mg IM X1 ONE Stop: 11/22/25 10:52 Last Admin: 11/22/25 11:38 Dose: 25 mg Documented By: Ketorolac Tromethamine (Ketorolac Inj 60 Mg/2 Ml Vial) 60 mg IM X1 ONE Stop: 11/22/25 10:52 Last Admin: 11/22/25 11:40 Dose: 60 mg Documented By: Ondansetron HCl (Ondansetron Odt 4 Mg Tabrap) 4 mg PO X1 ONE; Protocol Stop: 11/22/25 10:52 Last Admin: 11/22/25 11:37 Dose: 4 mg Documented By: See MAR Consultations Consultation(s) initiated? (list below): No Diagnosis Differential diagnosis headache: migraine, tension headache, subarachnoid hemorrhage and sinusitis Most likely diagnosis given after review of the tests above:: Tension headache Admission Indicated Admission indicated?: not indicated Admission Request Was there a request for admission?: No Disposition Plan Disposition Plan: Discharge Discharge Attestation Discharge Attestation: The patient and all family members were given an opportunity to ask questions and understood the discharge instructions. Discharge instructions specifically effects, indications for sooner follow up or return to the emergency department, and the expected course of current diagnosis. Patient condition: Stable Discharge Plan Plan Patient Disposition: HOME (Self Care) Patient condition on transfer: Stable Prescriptions/Referrals Prescriptions/Med Rec: No Action atorvastatin 20 mg Tablet 20 mg PO QPM paroxetine HCl 40 mg Tablet 40 mg PO QDAY buspirone 15 mg Tablet 15 mg PO TID aripiprazole 5 mg Tablet 5 mg PO QDAY Spiriva Respimat 2.5 mcg/actuation mist 2 puff INHALATION DAILY Patient Comments: INHALE 2 PUFFS INTO THE LUNGS EVERY DAY FOR 30 DAYS metoclopramide HCl [Reglan] 10 mg tablet 10 mg PO Q6H PRN (Reason: abdominal pain) Qty: 14 0RF pantoprazole [Protonix] 40 mg tablet,delayed release (DR/EC) 40 mg PO QDAY Qty: 30 0RF zinc sulfate 50 mg zinc (220 mg) Capsule 220 mg PO QDAY Qty: 30 0RF methylprednisolone [Medrol (Kody)] 4 mg tablets,dose pack 4 mg PO QAM Qty: 21 0RF ipratropium-albuterol 0.5 mg-3 mg(2.5 mg base)/3 mL solution for nebulization 3 ml inhalation Q8H PRN (Reason: shortness of breath) Qty: 90 0RF prednisone 50 mg tablet 50 mg PO QDAY Qty: 7 0RF acetaminophen 500 mg capsule 500 mg PO Q6H PRN (Reason: pain) Qty: 30 0RF prednisone 50 mg tablet 50 mg PO QDAY Qty: 7 0RF albuterol sulfate 90 mcg/actuation HFA aerosol inhaler 2 inh inhalation QID PRN (Reason: shortness of breath or wheezing) Qty: 8.5 0RF prednisone 20 mg tablet See Taper PO QDAY MDD 3 Qty: 21 0RF Taper: Prednisone Taper 20 mg DAILY for 2 Days and 0 Hour 10 mg DAILY for 2 Days and 0 Hour 5 mg DAILY for 7 Days and 0 Hour Rx Instructions: Take 4 Tabs q Day for 3 days then take 3 tabs q Day for 3 days then resume 40 mg daily Excedrin Tension Headache 500-65 mg tablet 1 tab PO Q8H PRN (Reason: pain) Qty: 30 0RF hydrocodone-acetaminophen 5-325 mg tablet 1 tab PO BID MDD 10 PRN (Reason: pain) Qty: 6 0RF acetaminophen [Tylenol Extra Strength] 500 mg tablet 500 mg PO Q6H PRN (Reason: pain) Qty: 20 0RF benzonatate 100 mg capsule 100 mg PO TID Qty: 14 0RF albuterol sulfate [Ventolin HFA] 90 mcg/actuation HFA aerosol inhaler 2 puff inhalation Q6H PRN (Reason: shortness of breath or wheezing) Qty: 18 0RF acetaminophen-codeine 300-30 mg tablet 2 tab PO Q8H MDD 6 PRN (Reason: pain) Qty: 20 0RF tramadol 50 mg tablet 50 mg PO Q6H PRN (Reason: pain) Qty: 20 0RF acetaminophen-codeine 300-30 mg tablet 2 tab PO TID MDD 6 PRN (Reason: pain) Qty: 10 0RF acetaminophen 500 mg capsule 500 mg PO Q6H PRN (Reason: pain) Qty: 30 0RF cyclobenzaprine 10 mg tablet 10 mg PO TID PRN (Reason: muscle spasm) Qty: 10 0RF ibuprofen 600 mg tablet 600 mg PO Q6H Qty: 30 0RF amoxicillin-pot clavulanate 875-125 mg tablet 1 tab PO BID Qty: 14 0RF clindamycin HCl 300 mg capsule 300 mg PO Q6H Qty: 20 0RF acetaminophen-codeine 300-30 mg tablet 2 tab PO Q8H MDD 6 PRN (Reason: pain) Qty: 20 0RF doxycycline hyclate 100 mg capsule 100 mg PO QDAY Qty: 20 0RF ibuprofen 800 mg tablet 800 mg PO Q8H PRN (Reason: pain) Qty: 30 0RF meloxicam 7.5 mg tablet 7.5 mg PO QDAY Qty: 10 0RF ondansetron 4 mg tablet,disintegrating 4 mg PO Q8H Qty: 10 0RF dicyclomine 20 mg tablet 20 mg PO BID Qty: 7 0RF famotidine [Pepcid] 20 mg tablet 20 mg PO QDAY PRN (Reason: pain (scale score 1-3)) Qty: 30 0RF metoclopramide HCl [Reglan] 10 mg tablet 10 mg PO Q6H PRN (Reason: nausea and vomiting) Qty: 30 0RF hydrocodone-acetaminophen 5-325 mg tablet 1 tab PO Q8H MDD 3 tab PRN (Reason: pain) Qty: 20 0RF Referrals: Celine Olsen PA-C [Primary Care Provider] - In 1 week Problem List Clinical Impression: Headache Patient/Caregiver Discharge Instructions Discharge Activity: activity as tolerated Education Materials: Self-Care for Headaches Additional Instructions: Follow up with primary provider in 1-2 days. Come back to ED if symptoms change or worsen Print Language: [place]ian Stand Alone Forms: Shari Award Info., Patient Portal Info Letter PA/BURTON Supervising Physician FANY/BURTNO Supervising Physician: martita
== END 2025-11-22 16:00 | disposition home or self-care (01) ==
PROVIDERS: Emergency Provider Nurse Practitioner Family; PCP Physician Assistant Medical
DX: G44.209 Tension-type headache, unspecified, not intractable (principal); E78.5 Hyperlipidemia, unspecified; F31.9 Bipolar disorder, unspecified
CPT/HCPCS: 96372; 99281; J1200; J1885; Q0162; A9270